=== PATIENT | female | born 1950 | race Caucasian/White ===

== ENCOUNTER → 2017-01-17 | Outpatient (CLI) | payer OTHER ==
[~2017-01-17] MED LIST: ALBU18002 INH; ALBU1AER9 INH; ALUMCHW2 PO; CIPR1TAB10 PO; METR-163 PO; MRLP17 PO; PANT40TA2 PO; RANI300T PO; SIMV-151 PO; SNG10 PO; SPRIN/30 INH; SYMIN160 INH; TIOTCAP INH
== END | disposition home or self-care (01) ==
LOC: C.PAPS 14:32
PROVIDERS: ATTEND Internal Medicine
DX: Z12.4 Encounter for screening for malignant neoplasm of cervix (principal)

== ENCOUNTER → 2017-02-24 | Outpatient (CLI) | payer OTHER ==
[2017-02-24 13:35] LABS: BASO % 0.3 %; BASO ABS # 0.03 K/uL (0-0.2); COMPLETE YES; EOS % 7.4 %; HEMATOCRIT 41.7 % (37-47); IG% 0.7 %; LYMPH % 18.3 %; LYMPH ABS # 2.04 K/uL (1.2-3.4); MEAN CELL VOLUME 87.2 fL (80-100); MEAN CORPUSCULAR HEMOGLOBIN 27.6 pg (25-34); MEAN CORPUSCULAR HGB CONC 31.7 g/dl (32-36); MEAN PLATELET VOLUME 8.7 fL (7.4-10.4); MONO % 10.2 %; NEUT % 63.1 %; PLATELET COUNT 223 K/uL (130-400); RED BLOOD COUNT 4.78 M/uL (4.2-5.4); WHITE BLOOD COUNT 11.13 K/uL (4.8-10.8)
[2017-02-24 13:51] LABS: AST/SGOT 11 U/L (15-37); BLOOD UREA NITROGEN 17 mg/dl (7-18); BUN/CREATININE RATIO 17.3 (10-20); CALCIUM 8.5 mg/dl (8.5-10.1); CARBON DIOXIDE 30 mmol/L (21-32); CHLORIDE 108 mmol/L (98-107); CHOLESTEROL 203 mg/dl (0-200); CREATININE 0.99 mg/dl (0.60-1.20); GLUCOSE 71 mg/dl (70-99); HDL CHOLESTEROL 67 mg/dl; POTASSIUM 4.1 mmol/L (3.5-5.1); SODIUM 144 mmol/L (136-145)
[2017-02-24 14:03] LABS: ALKALINE PHOSPHATASE 59 U/L (45-117); ALT/SGPT 20 U/L (12-78); TRIGLYCERIDES 170 mg/dl (0-150); VERY LOW DENSITY LIPOPROT CALC 34 mg/dl
== END | disposition home or self-care (01) ==
LOC: C.LABSPEC 12:31
PROVIDERS: ATTEND Internal Medicine
DX: E78.5 Hyperlipidemia, unspecified (principal); J45.909 Unspecified asthma, uncomplicated; R10.13 Epigastric pain

== ENCOUNTER → 2017-04-08 | Outpatient (CLI) | payer OTHER ==
[~2017-04-08] MED LIST changes: -PANT40TA2 PO; +PRT/40 PO
--- NOTE | 2017-04-08 12:24 | MAMMOGRAPHY REPORT ---
BILATERAL DIGITAL SCREENING MAMMOGRAM WITH CAD: 04/08/2017 CLINICAL HISTORY: Routine screening. Patient has no complaints. TECHNIQUE: Current study was also evaluated with a Computer Aided Detection (CAD) system. Bilateral CC and MLO views were obtained. COMPARISON: Comparison is made to exams dated: 04/07/2016 mammogram, 03/31/2015 ultrasound, 03/31/2015 m ammogram, 02/18/2015 mammogram, 02/15/2014 mammogram, and 02/14/2013 mammogram - [facility] enter. BREAST COMPOSITION: There are scattered areas of fibroglandular density in both breasts. FINDINGS: No suspicious masses, calcifications, or areas of architectural distortion are noted in ei ther breast. There has been no significant interval change compared to prior exams. IMPRESSION: ACR BI-RADS CATEGORY 1: NEGATIVE There is no mammographic evidence of malignancy. A 1 year screening mammogram is recommended. The pa tient will receive written notification of the results. Approximately 10% of breast cancers are not detected with mammography. A negative mammographic report should not delay biopsy if a clinically suggestive mass is present. Niurka Matos M.D. /:04/08/2017 12:06:52 Chef Under: Ruth Calderon, [facility] letter sent: Normal 1/2 BI-RADS Code: ACR BI-RADS Category 1: Negative
== END | disposition home or self-care (01) ==
LOC: C.MAMM 11:29
PROVIDERS: ATTEND Internal Medicine
DX: Z12.31 Encounter for screening mammogram for malignant neoplasm of breast (principal)

== ENCOUNTER 2017-06-04 16:39 | Inpatient (IN) | payer OTHER ==
[~2017-06-04] VITALS: Ht 160 cm; Wt 70.2 kg
[~2017-06-04 16:39] MED LIST changes: -ALBU18002 INH; -CIPR1TAB10 PO; -METR-163 PO; -MRLP17 PO; -SPRIN/30 INH
[2017-06-04] MEDS ORDERED: KETOROLAC TROMETHAMINE 30 MG/ML VIAL IV STA (16:51)
[2017-06-04] MEDS ORDERED: ONDANSETRON INJ 2 MG/ML 2 ML VIAL IV STA (16:51)
[2017-06-04] MEDS ORDERED: SODIUM CHLORIDE 0.9% 1000ML 1,000 ML IV STA (16:51)
[2017-06-04] MEDS ORDERED: SODIUM CHLORIDE 0.9% 1000ML 500 ML IV STA (16:51)
[2017-06-04] MEDS ORDERED: OPTIRAY 320 IV PRN (17:00)
[2017-06-04] MEDS ORDERED: MoRPHine SULFATE 4 MG/ML 1 ML CARP\\VIAL IV PRN (17:00)
[2017-06-04] MEDS ORDERED: SNG10 PO (17:16)
[2017-06-04] MEDS ORDERED: ALBU18002 INH (17:16)
[2017-06-04] MEDS ORDERED: SPRIN/30 INH (17:16)
[2017-06-04 17:18] LABS: BASO % 0.1 %; BASO ABS # 0.01 K/uL (0-0.2); COMPLETE YES; EOS % 0.8 %; HEMATOCRIT 44.5 % (37-47); IG% 0.2 %; LYMPH % 4.9 %; LYMPH ABS # 0.82 K/uL (1.2-3.4); MEAN CELL VOLUME 85.1 fL (80-100); MEAN CORPUSCULAR HGB CONC 31.7 g/dl (32-36); MEAN PLATELET VOLUME 8.8 fL (7.4-10.4); MONO % 4.6 %; NEUT % 89.4 %; PLATELET COUNT 259 K/uL (130-400); RED BLOOD COUNT 5.23 M/uL (4.2-5.4); WHITE BLOOD COUNT 16.71 K/uL (4.8-10.8)
--- NOTE | 2017-06-04 17:27 | EMERGENCY ROOM VISIT NOTE ---
History Report prepared by Abilio: Will Thomas Under the Supervision of: Dr. Jeet France M.D. First contact with patient: 16:49 Chief Complaint: VOMITING Stated Complaint: VOMITING,SEVERE ABD PAIN History of Present Illness The patient is a 67 year old female who presents to the Emergency Room with complaints of constant, severe, periumbilical, abdominal pain beginning this morning. She currently rates her discomfort a 10/10 in severity. The patient states that she woke up this morning, and her symptoms were not present. She reports that her pain progressively worsened throughout the day. The patient notes that she thought she needed to go to the restroom but all she could do is vomit. She states that she produced a very small bowel movement, but it was normal. The patient reports that her pain does not radiate, and vomiting does not help alleviated her pain. She notes that she has had a history of these symptoms, and she was told she could possibly have colitis. The patient states that she felt normal yesterday, and ate a hamburger last night. She reports that she took Gas-X, but it did not help. The patient denies a history of a cholecystectomy and appendectomy. She reports that her daughter was sick last week with a stomach virus. Source of History: patient Onset: this morning Position: chest (periumbilical) Symptom Intensity: 10/10 Timing: constant Associated Symptoms: + vomiting, No diarrhea Review of Systems See HPI for pertinent positives & negatives. A total of 10 systems reviewed and were otherwise negative. Past Medical & Surgical Medical Problems: (1) Asthma (2) Bilateral tubal ligation (3) Bronchitis (4) disc degeneration (5) Pneumonia Family History No significant family history Social History Smoking Status: Never Smoker Alcohol Use: none Housing Status: lives with significant other Occupation Status: unemployed, retired Current/Historical Medications Scheduled Budesonide/Formoterol Fumarate (Symbicort 160/4.5 Inhaler), 2 PUFFS INH BID Montelukast Sod (Montelukast Sodium), 10 MG PO DAILY Pantoprazole (Pantoprazole Sodium), 40 MG PO DAILY Ranitidine Hcl (Zantac), 300 MG PO HS Simvastatin (Simvastatin), 20 MG PO HS Tiotropium [place] (Spiriva Handihaler), 1 CAP INH DAILY Scheduled PRN Albuterol Sulfate (Proair Respiclick), 2 PUFFS INH Q4H PRN for ASTHMA Aluminum Hydroxide-Mag Trisil (Gaviscon), 1 TAB PO UD PRN for Gas Allergies Coded Allergies: Penicillins (Verified Allergy, Intermediate, HIVES, 06/04/17) Physical Exam Vital Signs Date Time Temp Pulse Resp B/P (MAP) Pulse Ox O2 Delivery O2 Flow Rate FiO2 06/04/17 18:20 84 20 146/67 99 Room Air 06/04/17 16:45 36.4 77 16 143/85 100 Room Air Physical Exam GENERAL: Patient is in moderate distress secondary to pain. HEENT: No acute trauma, normocephalic atraumatic, mucous membranes moist, no nasal congestion, no scleral icterus. NECK: No stridor, no adenopathy, no meningismus, trachea is midline. LUNGS: Clear to auscultation bilaterally, no wheeze, no rhonchi, breath sounds equal. HEART: Without murmurs gallops or rubs, regular rate and rhythm. ABDOMEN: Soft, moderately tender to both lower quadrants upon palpation, bowel sounds positive, no hernias, no peritonitis. EXTREMITIES: No cyanosis or edema, full range of motion of all the joints without pain or difficulty, no signs for acute trauma. NEUROLOGIC: Oriented x 3, no acute motor or sensory deficits, no focal weakness. SKIN: No rash, no jaundice, no diaphoresis. Medical Decision & Procedures ER Provider Diagnostic Interpretation: Radiology results as stated below per my review and radiologist interpretation: CHEST ONE VIEW PORTABLE HISTORY: 67 years-old Female ABDOMINAL PAIN/GI acute generalized abdominal pain. Initial exam. COMPARISON: CT abdomen and pelvis 05/29/2014 TECHNIQUE: Portable upright AP view of the chest FINDINGS: Cardiac silhouette is moderately enlarged. There is atherosclerosis of the aorta. There is no pneumothorax, pleural effusion or lobar airspace consolidation. Linear subsegmental left basilar opacity suggests atelectasis. Small hiatal hernia is again seen. The bones are grossly intact. IMPRESSION: 1. Cardiomegaly without overt pulmonary edema or focal lobar airspace consolidation. 2. Subsegmental left basilar atelectasis. 3. Small hiatal hernia. The above report was generated using voice recognition software. It may contain grammatical, syntax or spelling errors. Electronically signed by: Fernando Pedraza M.D. 06/04/2017 5:33 PM Dictated Date/Time: 06/04/2017 5:31 PM ABD/PELVIS IV CONTRAST ONLY HISTORY: 67 years-old Female ABD PAIN, POSS OBSTRUCTION, IV CONTRAST ONLY acute left lower abdominal pain. Initial exam. COMPARISON: CT abdomen and pelvis 05/29/2014 and 06/22/2010 TECHNIQUE: Multiple axial CT images of the abdomen and pelvis were obtained following the intravenous administration of 1 20 mL Optiray 320. A dose lowering technique was used consistent with the principals of ALONSO. FINDINGS: Mild dependent bibasilar subsegmental atelectasis noted. No pneumoperitoneum. Imaged inferior cardiac chambers are unremarkable. The liver, spleen, gallbladder, pancreas and adrenal glands are within normal limits. Moderate right renal atrophy of multifocal renal parenchymal thinning appears unchanged. There is mild prominence of the right renal pelvis and right ureter which appears unchanged from prior study. No obstructing stone or mass. Urinary bladder and uterus are unremarkable. There is resolution of the previously noted left adnexal cystic lesion. Moderate atherosclerotic plaquing of the abdominal aorta. No bulky retroperitoneal adenopathy. Moderate hiatal hernia with partially intrathoracic stomach is noted. There is no bowel obstruction. Extensive sigmoid colonic diverticulosis is noted. Moderate wall thickening with surrounding inflammatory changes are noted within the mid sigmoid colon with mild associated adenopathy measuring up to 8 mm in short axis. Mild amount of likely reactive free fluid is present within the pelvis and pericolic gutters. No associated perforation identified. Focus of air within the nondependent mid sigmoid colon, 2.5 x 1.2 cm on image 314 is noted which may reflect intramural abscess or air within the lumen of the colon. Appendix appears normal. 7 x 8 mm nodular density anterior to the spleen is unchanged suggesting splenule. Soft tissues are unremarkable. There is diastases recti. The bones are mildly demineralized. Multilevel facet arthrosis involves the lower lumbar spine. IMPRESSION: 1. Findings suggest acute sigmoid diverticulitis. Collection of nondependent air involving the mid sigmoid colon measuring up to 2.5 cm may reflect eccentric intraluminal air or alternatively an intramural abscess. No associated perforation or pericolonic abscess. Additionally, there is mild adjacent adenopathy which may be reactive. Follow-up colonoscopy after treatment recommended to exclude neoplasm. 2. Moderate hiatal hernia with partially intrathoracic stomach. 3. Moderate right renal atrophy, unchanged. The above report was generated using voice recognition software. It may contain grammatical, syntax or spelling errors. Electronically signed by: Fernando Pedraza M.D. 06/04/2017 6:11 PM Dictated Date/Time: 06/04/2017 5:59 PM Laboratory Results 06/04/17 17:05 Red Blood Count 5.23, Mean Corpuscular Volume 85.1, Mean Corpuscular Hemoglobin 27.0, Mean Corpuscular Hemoglobin Concent 31.7, Mean Platelet Volume 8.8, Neutrophils (%) (Auto) 89.4, Lymphocytes (%) (Auto) 4.9, Monocytes (%) (Auto) 4.6, Eosinophils (%) (Auto) 0.8, Basophils (%) (Auto) 0.1, Neutrophils # (Auto) 14.94, Lymphocytes # (Auto) 0.82, Monocytes # (Auto) 0.77, Eosinophils # (Auto) 0.13, Basophils # (Auto) 0.01 06/04/17 17:05 Test 06/04/17 17:05 06/04/17 17:23 06/04/17 18:25 White Blood Count 16.71 K/uL (4.8-10.8) Red Blood Count 5.23 M/uL (4.2-5.4) Hemoglobin 14.1 g/dL (12.0-16.0) Hematocrit 44.5 % (37-47) Mean Corpuscular Volume 85.1 fL (80-100) Mean Corpuscular Hemoglobin 27.0 pg (25-34) Mean Corpuscular Hemoglobin Concent 31.7 g/dl (32-36) Platelet Count 259 K/uL (130-400) Mean Platelet Volume 8.8 fL (7.4-10.4) Neutrophils (%) (Auto) 89.4 % Lymphocytes (%) (Auto) 4.9 % Monocytes (%) (Auto) 4.6 % Eosinophils (%) (Auto) 0.8 % Basophils (%) (Auto) 0.1 % Neutrophils # (Auto) 14.94 K/uL (1.4-6.5) Lymphocytes # (Auto) 0.82 K/uL (1.2-3.4) Monocytes # (Auto) 0.77 K/uL (0.11-0.59) Eosinophils # (Auto) 0.13 K/uL (0-0.5) Basophils # (Auto) 0.01 K/uL (0-0.2) RDW Standard Deviation 43.6 fL (36.4-46.3) RDW Coefficient of Variation 14.0 % (11.5-14.5) Immature Granulocyte % (Auto) 0.2 % Immature Granulocyte # (Auto) 0.04 K/uL (0.00-0.02) Anion Gap 8.0 mmol/L (3-11) Est Creatinine Clear Calc Drug Dose 52.0 ml/min Estimated GFR () 69.9 Estimated GFR (Non- 60.3 BUN/Creatinine Ratio 18.3 (10-20) Calcium Level 9.4 mg/dl (8.5-10.1) Total Bilirubin 0.6 mg/dl (0.2-1) Aspartate Amino Transf (AST/SGOT) 13 U/L (15-37) Alanine Aminotransferase (ALT/SGPT) 18 U/L (12-78) Alkaline Phosphatase 79 U/L (45-117) Total Protein 7.8 gm/dl (6.4-8.2) Albumin 3.9 gm/dl (3.4-5.0) Globulin 3.9 gm/dl (2.5-4.0) Albumin/Globulin Ratio 1.0 (0.9-2) Lipase 193 U/L (73-393) Lactic Acid Level 1.9 mmol/L (0.4-2.0) Urine Color YELLOW Urine Appearance CLEAR (CLEAR) Urine pH 7.5 (4.5-7.5) Urine Specific [place] 1.026 (1.000-1.030) Urine Protein NEG (NEG) Urine Glucose (UA) NEG (NEG) Urine Ketones NEG (NEG) Urine Occult Blood NEG (NEG) Urine Nitrite NEG (NEG) Urine Bilirubin NEG (NEG) Urine Urobilinogen NEG (NEG) Urine Leukocyte Esterase NEG (NEG) Laboratory results reviewed by me. Medications Administered Medications (Trade) Dose Ordered Sig/Eber Route Start Time Stop Time Status Last Admin Dose Admin Ondansetron HCl (Zofran Inj) 4 mg NOW STAT IV 06/04/17 16:51 06/04/17 16:53 DC 06/04/17 17:09 4 MG Sodium Chloride 1,000 ml @ 200 mls/hr Q5H STAT IV 06/04/17 16:51 06/04/17 21:50 06/04/17 17:10 200 MLS/HR Morphine Sulfate (MoRPHine SULFATE INJ) 4 mg Q30M PRN IV 06/04/17 17:00 06/18/17 16:59 06/04/17 17:08 4 MG Ketorolac Tromethamine (Toradol Inj) 30 mg NOW STAT IV 06/04/17 16:51 06/04/17 16:53 DC 06/04/17 17:10 30 MG Metronidazole (Flagyl / Nss) 500 mg NOW STAT IV 06/04/17 18:16 06/04/17 18:17 DC 06/04/17 18:33 500 MG ED Course 1649: The patient was evaluated in room C05. A complete history and physical exam was performed. 165: Ordered Toradol Inj 30mg IV, Sodium Chloride 1000 ml @ 200 mls/hr IV, Zofran Inj 4mg IV, Sodium Chloride 500 ml @ 999 mls/hr IV 1700: Ordered Morphine Sulfate 4mg IV 1816: Ordered Metronidazole 500mg IV, Ciprofloxacin/Dextrose 400mg IV 1818: I attempted to reevaluate the patient, but she was in the restroom. I spoke with her , and he said she would scream if she has to be admitted. 1825: Upon reexamination the patient is feeling better. I discussed results and treatment plan with the patient. She verbalizes agreement and understanding. The patient will be evaluated for further management. 1846: I discussed the patient's case with Dr. Gannon, [facility] Hospitalist. He will evaluate the patient for further management and care. Medical Decision The patient is a 67 year old female who presents to the ED with complaints of severe lower abdominal pain. Differential diagnoses considered include diverticulitis or colitis, hernia, bowel obstruction, food poisoning, UTI, pancreatitis, bowel perforation, dehydration, electrolyte imbalance. There is a moderate leukocytosis, this is consistent with infection. No concerning anemia. No significant electrolyte abnormality, kidney failure, hepatitis or pancreatitis. Lactic acid level is not elevated making bowel ischemia less likely. Chest film does not show free air or pneumonia. Urinalysis does not show infection. Abdominal and pelvis CT shows diverticulitis with a potential small intramural abscess, no free air, no bowel obstruction. The patient received IV morphine, IV Toradol, IV Zofran and IV saline, she feels improved. She was given IV Cipro and IV Flagyl. Given the findings on CT, given the history, I do think a hospital stay is warranted. She requires IV antibiotics therapy and possibly a surgical consult. I talked to the patient and case management. The on-call hospitalist was consulted. Medication Reconcilliation Current Medication List: was personally reviewed by me Blood Pressure Screening Patient's blood pressure: Elevated blood pressure Blood pressure disposition: Elevated BP felt to be situational Consults Time Called: 1837 Consulting Physician: Dr. Gannon, [facility] Hospitalist Returned Call: 1845 I discussed the patient's case with Dr. Gannon, [facility] Hospitalist. He will evaluate the patient for further management and care. Impression Primary Impression: Diverticulitis Scribe Attestation The scribe's documentation has been prepared under my direction and personally reviewed by me in its entirety. I confirm that the note above accurately reflects all work, treatment, procedures, and medical decision making performed by me. Departure Information Dispostion Being Evaluated By Hospitalist Referrals Primo Bojorquez M.D. (PCP) Patient Instructions My [facility]
--- NOTE | 2017-06-04 17:34 | DIAGNOSTIC IMAGING REPORT ---
CHEST ONE VIEW PORTABLE HISTORY: 67 years-old Female ABDOMINAL PAIN/GI acute generalized abdominal pain. Initial exam. COMPARISON: CT abdomen and pelvis 05/29/2014 TECHNIQUE: Portable upright AP view of the chest FINDINGS: Cardiac silhouette is moderately enlarged. There is atherosclerosis of the aorta. There is no pneumothorax, pleural effusion or lobar airspace consolidation. Linear subsegmental left basilar opacity suggests atelectasis. Small hiatal hernia is again seen. The bones are grossly intact. IMPRESSION: 1. Cardiomegaly without overt pulmonary edema or focal lobar airspace consolidation. 2. Subsegmental left basilar atelectasis. 3. Small hiatal hernia. The above report was generated using voice recognition software. It may contain grammatical, syntax or spelling errors. Electronically signed by: Fernando Pedraza M.D. 06/04/2017 5:33 PM Dictated Date/Time: 06/04/2017 5:31 PM
[2017-06-04 17:37] LABS: BUN/CREATININE RATIO 18.3 (10-20); CALCIUM 9.4 mg/dl (8.5-10.1); CREATININE 0.96 mg/dl (0.60-1.20); POTASSIUM 3.8 mmol/L (3.5-5.1)
--- NOTE | 2017-06-04 18:12 | DIAGNOSTIC IMAGING REPORT ---
ABD/PELVIS IV CONTRAST ONLY HISTORY: 67 years-old Female ABD PAIN, POSS OBSTRUCTION, IV CONTRAST ONLY acute left lower abdominal pain. Initial exam. COMPARISON: CT abdomen and pelvis 05/29/2014 and 06/22/2010 TECHNIQUE: Multiple axial CT images of the abdomen and pelvis were obtained following the intravenous administration of 1 20 mL Optiray 320. A dose lowering technique was used consistent with the principals of ALONSO. FINDINGS: Mild dependent bibasilar subsegmental atelectasis noted. No pneumoperitoneum. Imaged inferior cardiac chambers are unremarkable. The liver, spleen, gallbladder, pancreas and adrenal glands are within normal limits. Moderate right renal atrophy of multifocal renal parenchymal thinning appears unchanged. There is mild prominence of the right renal pelvis and right ureter which appears unchanged from prior study. No obstructing stone or mass. Urinary bladder and uterus are unremarkable. There is resolution of the previously noted left adnexal cystic lesion. Moderate atherosclerotic plaquing of the abdominal aorta. No bulky retroperitoneal adenopathy. Moderate hiatal hernia with partially intrathoracic stomach is noted. There is no bowel obstruction. Extensive sigmoid colonic diverticulosis is noted. Moderate wall thickening with surrounding inflammatory changes are noted within the mid sigmoid colon with mild associated adenopathy measuring up to 8 mm in short axis. Mild amount of likely reactive free fluid is present within the pelvis and pericolic gutters. No associated perforation identified. Focus of air within the nondependent mid sigmoid colon, 2.5 x 1.2 cm on image 314 is noted which may reflect intramural abscess or air within the lumen of the colon. Appendix appears normal. 7 x 8 mm nodular density anterior to the spleen is unchanged suggesting splenule. Soft tissues are unremarkable. There is diastases recti. The bones are mildly demineralized. Multilevel facet arthrosis involves the lower lumbar spine. IMPRESSION: 1. Findings suggest acute sigmoid diverticulitis. Collection of nondependent air involving the mid sigmoid colon measuring up to 2.5 cm may reflect eccentric intraluminal air or alternatively an intramural abscess. No associated perforation or pericolonic abscess. Additionally, there is mild adjacent adenopathy which may be reactive. Follow-up colonoscopy after treatment recommended to exclude neoplasm. 2. Moderate hiatal hernia with partially intrathoracic stomach. 3. Moderate right renal atrophy, unchanged. The above report was generated using voice recognition software. It may contain grammatical, syntax or spelling errors. Electronically signed by: Fernando Pedraza M.D. 06/04/2017 6:11 PM Dictated Date/Time: 06/04/2017 5:59 PM
[2017-06-04] MEDS ORDERED: METRONIDAZOLE 500MG / 100ML NSS IV STA (18:16)
[2017-06-04] MEDS ORDERED: CIPROFLOXACIN 400MG / 200ML D5W IV STA (18:16)
[2017-06-04 18:35] LABS: MANUAL MICROSCOPIC REQUIRED? NO; REVIEW REQ? NO; URINE APPEARANCE CLEAR (CLEAR); URINE BILIRUBIN NEG (NEG); URINE COLOR YELLOW; URINE NITRITE NEG (NEG); URINE PH 7.5 (4.5-7.5); URINE SPECIFIC GRAVITY 1.026 (1.000-1.030); UROBILINOGEN NEG (NEG); ZZUR CULT IF INDIC CLEAN CATCH NO
[2017-06-04] MEDS ORDERED: ONDANSETRON INJ 2 MG/ML 2 ML VIAL IV PRN (19:45)
[2017-06-04] MEDS ORDERED: ACETAMINOPHEN 325 MG TAB PO PRN (19:45)
[2017-06-04] MEDS ORDERED: ALBUTEROL HFA 8 GM INHALER INH PRN (19:45)
[2017-06-04] MEDS ORDERED: ALUM HYDROX/MAG TRISILICATE CHEW PO PRN (19:45)
--- NOTE | 2017-06-04 19:58 | History and Physical ---
History & Physical Date & Time of Service: Jun 04, 2017 at 19:49 Chief Complaint: Vomiting,Severe Abd Pain Primary Care Physician: Primo Bojorquez M.D. History of Present Illness Source: patient 67 y/o F Hx HPL, asthma, GERD. Pt presents with acute onset of abdominal pain earlier in the day. The pain is primarily limited to her lower quadrants. She could not confirm a fever but did have some chills and nausea. She denies any vomiting or diarrhea. A CT abdomen reveals sigmoid diverticulitis with concern for abscess. Past Medical/Surgical History Medical Problems: (1) Asthma Status: Chronic (2) Bilateral tubal ligation Status: Resolved (3) Bronchitis Status: Resolved (4) disc degeneration Status: Chronic (5) Pneumonia Status: Resolved Family History No significant family history History of dementia and CA - unspecified Social History Smoking Status: Never Smoker Occupational Status: unemployed, retired Immunizations History of Influenza Vaccine: Yes History of Tetanus Vaccine?: No History of Pneumococcal: Yes Pneumococcal Date: Aug 21, 2009 History of Hepatitis B Vaccine: No Multi-Drug Resistant Organisms History of MDRO: No Allergies Coded Allergies: Penicillins (Verified Allergy, Intermediate, HIVES, 06/04/17) Home Medications Scheduled Budesonide/Formoterol Fumarate (Symbicort 160/4.5 Inhaler), 2 PUFFS INH BID Montelukast Sod (Montelukast Sodium), 10 MG PO DAILY Pantoprazole (Pantoprazole Sodium), 40 MG PO DAILY Ranitidine Hcl (Zantac), 300 MG PO HS Simvastatin (Simvastatin), 20 MG PO HS Tiotropium Op[place]ika (Spiriva Handihaler), 1 CAP INH DAILY Scheduled PRN Albuterol Sulfate (Proair Respiclick), 2 PUFFS INH Q4H PRN for ASTHMA Aluminum Hydroxide-Mag Trisil (Gaviscon), 1 TAB PO UD PRN for Gas Review of Systems Constitutional: No fever, No chills, No sweats Eyes: No worsening of vision ENT: No hearing loss Respiratory: No cough, No sputum, No wheezing Cardiovascular: No chest pain, No orthopnea Abdomen: + pain, + nausea, No vomiting, No diarrhea Musculoskeletal: No joint pain Genitourinary - Female: No dysuria Neurologic: No memory loss, No paralysis, No weakness Psychiatric: No depression symptoms Endocrine: No fatigue Integumentary: No rash Allergic / Immunologic: No environmental allergies Physical Exam Vital Signs Date Time Temp Pulse Resp B/P (MAP) Pulse Ox O2 Delivery O2 Flow Rate FiO2 06/04/17 18:20 84 20 146/67 99 Room Air 06/04/17 16:45 36.4 77 16 143/85 100 Room Air General Appearance: WD/WN, no apparent distress Head: normocephalic Eyes: normal inspection, PERRL, EOMI ENT: normal ENT inspection, hearing grossly normal, TMs normal, pharynx normal Neck: supple, no JVD Respiratory/Chest: chest non-tender, lungs clear, normal breath sounds Cardiovascular: regular rate, rhythm, no edema, no gallop, no JVD, no murmur, normal peripheral pulses Abdomen/GI: normal bowel sounds, non tender, soft, + pertinent finding (She is nontender following a dose of narcotics) Back: normal inspection, no CVA tenderness, no muscle spasm, normal range of motion Extremities/Musculoskelatal: normal inspection, no calf tenderness, normal capillary refill Neurologic/Psych: photovoltaic [employer]or II-XII nml as tested, no motor/sensory deficits, alert Skin: normal color, warm/dry Diagnostics Laboratory Results Results Past 24 Hours Test 06/04/17 17:05 06/04/17 17:23 06/04/17 18:25 Range/Units White Blood Count 16.71 4.8-10.8 K/uL Red Blood Count 5.23 4.2-5.4 M/uL Hemoglobin 14.1 12.0-16.0 g/dL Hematocrit 44.5 37-47 % Mean Corpuscular Volume 85.1 80-100 fL Mean Corpuscular Hemoglobin 27.0 25-34 pg Mean Corpuscular Hemoglobin Concent 31.7 32-36 g/dl Platelet Count 259 130-400 K/uL Mean Platelet Volume 8.8 7.4-10.4 fL Neutrophils (%) (Auto) 89.4 % Lymphocytes (%) (Auto) 4.9 % Monocytes (%) (Auto) 4.6 % Eosinophils (%) (Auto) 0.8 % Basophils (%) (Auto) 0.1 % Neutrophils # (Auto) 14.94 1.4-6.5 K/uL Lymphocytes # (Auto) 0.82 1.2-3.4 K/uL Monocytes # (Auto) 0.77 0.11-0.59 K/uL Eosinophils # (Auto) 0.13 0-0.5 K/uL Basophils # (Auto) 0.01 0-0.2 K/uL RDW Standard Deviation 43.6 36.4-46.3 fL RDW Coefficient of Variation 14.0 11.5-14.5 % Immature Granulocyte % (Auto) 0.2 % Immature Granulocyte # (Auto) 0.04 0.00-0.02 K/uL Sodium Level 142 136-145 mmol/L Potassium Level 3.8 3.5-5.1 mmol/L Chloride Level 108 98-107 mmol/L Carbon Dioxide Level 26 21-32 mmol/L Anion Gap 8.0 3-11 mmol/L Blood Urea Nitrogen 18 7-18 mg/dl Creatinine 0.96 0.60-1.20 mg/dl Est Creatinine Clear Calc Drug Dose 52.0 ml/min Estimated GFR () 69.9 Estimated GFR (Non- 60.3 BUN/Creatinine Ratio 18.3 10-20 Random Glucose 97 70-99 mg/dl Calcium Level 9.4 8.5-10.1 mg/dl Total Bilirubin 0.6 0.2-1 mg/dl Aspartate Amino Transf (AST/SGOT) 13 15-37 U/L Alanine Aminotransferase (ALT/SGPT) 18 12-78 U/L Alkaline Phosphatase 79 45-117 U/L Total Protein 7.8 6.4-8.2 gm/dl Albumin 3.9 3.4-5.0 gm/dl Globulin 3.9 2.5-4.0 gm/dl Albumin/Globulin Ratio 1.0 0.9-2 Lipase 193 73-393 U/L Lactic Acid Level 1.9 0.4-2.0 mmol/L Urine Color YELLOW Urine Appearance CLEAR CLEAR Urine pH 7.5 4.5-7.5 Urine Specific [place] 1.026 1.000-1.030 Urine Protein NEG NEG Urine Glucose (UA) NEG NEG Urine Ketones NEG NEG Urine Occult Blood NEG NEG Urine Nitrite NEG NEG Urine Bilirubin NEG NEG Urine Urobilinogen NEG NEG Urine Leukocyte Esterase NEG NEG Diagnostic Radiology CT abdomen/pelvis 1. Findings suggest acute sigmoid diverticulitis. Collection of nondependent air involving the mid sigmoid colon measuring up to 2.5 cm may reflect eccentric intraluminal air or alternatively an intramural abscess. No associated perforation or pericolonic abscess. Additionally, there is mild adjacent adenopathy which may be reactive. Follow-up colonoscopy after treatment recommended to exclude neoplasm. 2. Moderate hiatal hernia with partially intrathoracic stomach. 3. Moderate right renal atrophy, unchanged. Impression Assessment and Plan 67 y/o F Hx HPL, asthma, GERD. Pt presents with acute onset of abdominal pain earlier in the day. The pain is primarily limited to her lower quadrants. She could not confirm a fever but did have some chills and nausea. She denies any vomiting or diarrhea. A CT abdomen reveals sigmoid diverticulitis with concern for abscess. 1) Diverticulitis - Pt placed on Cipro/Flagyl, IVF, analgesics and antiemetics as needed. She may need surgery or IR consultation if an abscess is confirmed. 2) Asthma - Continue inhalers as prescribed 3) HPL - cont Statin Full code - GI prophylaxis and SCDs provided pending AM eval Total time for this admit including review of labs, meds, imaging, records - discussion with pt and ER attending - 36 min Level of Care Med/Surg Resuscitation Status FULL RESUSCITATION VTE Prophylaxis VTE Risk Assessment Done? Y/N: Yes Risk Level: Moderate Given or contraindicated: SCD's
[2017-06-04] MEDS: BUDESONIDE/FORMOTEROL FUMARATE 160/4.5 60 PUFFS/INHALER INH SCH (21:39)
[2017-06-04] MEDS: D5NSS + 20MEQ KCL 1,000 ML IV SCH (21:39)
[2017-06-04] MEDS: RANITIDINE HCL 150 MG TAB PO SCH (21:40)
[2017-06-04] MEDS: SIMVASTATIN 20 MG TAB PO SCH (21:40)
[2017-06-04 22:57] VITALS: BP 156/77; PULSE 77; TEMP 36.7; O2SAT 98; Ht 160 cm; Wt 70.2 kg
[2017-06-05] VITALS: BP 122/71; PULSE 78; TEMP 36.8; O2SAT 98
[2017-06-05] MEDS: HYDROmorphone INJ 0.5 MG/0.5 ML SYR IV PRN ×5 (00:53→20:57)
[2017-06-05] MEDS: METRONIDAZOLE / NSS 500 MG in PREMIXED NSS 100 ML IV SCH ×3 (01:58→18:08)
[2017-06-05] MEDS ORDERED: HYDROmorphone INJ 0.5 MG/0.5 ML SYR IV STA (02:03)
[2017-06-05 06:11] LABS: BASO % 0.1 %; BASO ABS # 0.02 K/uL (0-0.2); COMPLETE YES; EOS % 1.9 %; HEMATOCRIT 38.2 % (37-47); IG% 0.2 %; LYMPH % 8.7 %; LYMPH ABS # 1.17 K/uL (1.2-3.4); MEAN CELL VOLUME 86.6 fL (80-100); MEAN CORPUSCULAR HEMOGLOBIN 26.8 pg (25-34); MEAN CORPUSCULAR HGB CONC 30.9 g/dl (32-36); MEAN PLATELET VOLUME 8.8 fL (7.4-10.4); MONO % 10.3 %; NEUT % 78.8 %; PLATELET COUNT 214 K/uL (130-400); RED BLOOD COUNT 4.41 M/uL (4.2-5.4); WHITE BLOOD COUNT 13.49 K/uL (4.8-10.8)
[2017-06-05] MEDS ORDERED: NURSING VERBAL MED ORDER ONE (06:15)
[2017-06-05] MEDS ORDERED: ACETAMINOPHEN IV 650 MG / 65ML IV ONE (06:30)
[2017-06-05 07:11] LABS: CREATININE 0.9 mg/dl (0.60-1.20)
[2017-06-05 07:12] LABS: BUN/CREATININE RATIO 11.5 (10-20); CALCIUM 7.4 mg/dl (8.5-10.1); POTASSIUM 3.6 mmol/L (3.5-5.1)
[2017-06-05] MEDS: D5NSS + 20MEQ KCL 1,000 ML IV SCH (08:57)
[2017-06-05] MEDS: TIOTROPIUM BROMIDE 5 PUFF/90 MCG INH INH SCH (08:59)
[2017-06-05] MEDS: BUDESONIDE/FORMOTEROL FUMARATE 160/4.5 60 PUFFS/INHALER INH SCH ×2 (08:59→20:00)
[2017-06-05] MEDS: MONTELUKAST SOD 10 MG TAB PO SCH (09:00)
[2017-06-05] MEDS: PANTOprazole SOD 40 MG TAB PO SCH (09:00)
[2017-06-05] MEDS: CIPROFLOXACIN / D5W 400 MG in PREMIXED IN D5W 200 ML IV SCH ×2 (09:00→22:35)
[2017-06-05] MEDS: POLYETHYLENE (MIRALAX) 17 GM PACK PO SCH (09:40)
--- NOTE | 2017-06-05 14:39 | Progress Note ---
Progress Note Date of Service Jun 05, 2017. Progress Note Patient is a 67 yo female with sigmoid diverticulitis. Noted Dr. Chloe Murray transfered patient to his service. [facility] [place] Hospital[facility] group will sign off. Please call Dr. Chloe Murray with questions. Dr. Dukes aware.
[2017-06-05] MEDS: ACETAMINOPHEN IV 650 MG / 65ML IV PRN (15:34)
[2017-06-05 15:53] VITALS: BP_SYST 105; BP_SYST 133; BP_DIAS 65; BP_DIAS 79; PULSE 70; PULSE 96; TEMP 36.9; TEMP 38.1; O2SAT 95; O2SAT 97
[2017-06-05 16:30] VITALS: TEMP 37
[2017-06-05] MEDS ORDERED: BISACODYL 10 MG SUPP PR ONE (17:00)
--- NOTE | 2017-06-05 20:17 | Progress Note ---
Progress Note Date of Service Jun 05, 2017. Progress Note 67-year-old female admitted yesterday by Dr. Skyler Harris with acute sigmoid diverticulitis. She was having severe abdominal pain. Her WBC count was elevated. CT scan findings were consistent with the diverticulitis. There was no evidence of perforation. Patient was started on IV ciprofloxacin and metronidazole. Diagnostic for pain control. Started on IV fluid. I told the patient this morning. She was afebrile. She was still having abdominal pain mostly in the lower abdominal area. She told me that she has not had a bowel movement since . Even her last bowel movements was consistent with marble stools. She had been constipated. She was feeling very thirsty. She has not had any vomiting. I did start her on a clear liquid diet. I saw Mrs. Pelletier again this afternoon.her pain is subsiding. She has not had any nausea or vomiting. She has not had any bowel movement. I did add MiraLax this morning. This afternoon she had fever up to 38.1. Later on her temperature came down to 37. She denied any chills. She denied any headache or dizziness. She was having some pain at the posterior contour the area left upper chest. She had no nausea. But her appetite is poor. No vomiting. She has not had a bowel movement. She has been complaining of increased swelling in her hands and feet. Her medical history is also significant for hypercholesterolemia, gastroesophageal reflux, bronchial asthma, environmental allergies and depression. she had a herniated L4-L5 disc which required surgery. She also had a left salpingo-oophorectomy in 2013 for an ovarian cyst.she has markedly decreased vision in her left eye related to severe retinal detachment which occurred around 2003. EXAMINATION: GENERAL : Well developed. Well nourished. No acute distress. VITAL SIGNS : Blood Pressure : 133/79, pulse 96, respiration 18, oxygen saturation 95% on room air. As noted in mid afternoon her temperature was up to 38.1 but came down about half an hour later to 37. SKIN : Warm and dry. No rash. HEENT : markedly decreased vision left eye. No mucosal abnormalities. NECK : Supple. No adenopathy. No thyromegaly. No JVD. CHEST : left costochondral tenderness HEART: Regular heart sounds without any murmur rub or gallop. LUNGS: Clear. Normal breath sounds. ABDOMEN: Soft. Tenderness left side of her abdomen especially the left lower quadrant. Good bowel sounds. She has been passing gas. EXTREMITIES : No edema clubbing or cyanosis. No joint or muscle tenderness. Good peripheral pulses. LABORATORY TESTS : WBC count 13,409 8, hemoglobin 14.8, hematocrit 38.2, platelet count 214,000. Sodium 143, potassium 3.6, chloride 112, CO2 26, BUN 10, creatinine 0.9, glucose 114, calcium 7.4. ASSESSMENT: * acute sigmoid diverticulitis * Bronchial asthma * Gastroesophageal reflux * Left upper costochondral joint pain * Depression PLAN: * I did decrease her IV fluid this afternoon because of the swelling in her hands and feet. * Continue her other medications * Gave her a Dulcolax suppository * Continue clear liquid diet * Will encourage ambulation * Her WBC count is improving. Will continue monitoring that.
[2017-06-05] MEDS: RANITIDINE HCL 150 MG TAB PO SCH (22:31)
[2017-06-05] MEDS: SIMVASTATIN 20 MG TAB PO SCH (22:31)
[2017-06-06] VITALS: BP 126/77; PULSE 88; TEMP 36.8; O2SAT 94
[2017-06-06] MEDS: HYDROmorphone INJ 0.5 MG/0.5 ML SYR IV PRN ×4 (01:38→17:41)
[2017-06-06] MEDS: METRONIDAZOLE / NSS 500 MG in PREMIXED NSS 100 ML IV SCH ×4 (01:41→17:29)
[2017-06-06 07:20] LABS: BASO % 0.3 %; BASO ABS # 0.03 K/uL (0-0.2); COMPLETE YES; EOS % 2.7 %; IG% 0.4 %; LYMPH % 9.6 %; LYMPH ABS # 1.14 K/uL (1.2-3.4); MEAN CELL VOLUME 85.3 fL (80-100); MEAN CORPUSCULAR HEMOGLOBIN 27.5 pg (25-34); MEAN CORPUSCULAR HGB CONC 32.2 g/dl (32-36); MEAN PLATELET VOLUME 8.6 fL (7.4-10.4); MONO % 10.1 %; NEUT % 76.9 %; PLATELET COUNT 172 K/uL (130-400); RED BLOOD COUNT 4.22 M/uL (4.2-5.4); WHITE BLOOD COUNT 11.86 K/uL (4.8-10.8)
[2017-06-06 07:48] LABS: BUN/CREATININE RATIO 8.4 (10-20); CALCIUM 8.1 mg/dl (8.5-10.1); CREATININE 0.79 mg/dl (0.60-1.20); POTASSIUM 3.5 mmol/L (3.5-5.1)
[2017-06-06 07:53] VITALS: BP 136/79; PULSE 84; TEMP 37.1; O2SAT 92
[2017-06-06] MEDS: TIOTROPIUM BROMIDE 5 PUFF/90 MCG INH INH SCH (08:02)
[2017-06-06] MEDS: BUDESONIDE/FORMOTEROL FUMARATE 160/4.5 60 PUFFS/INHALER INH SCH ×2 (08:03→19:01)
[2017-06-06] MEDS: POLYETHYLENE (MIRALAX) 17 GM PACK PO SCH (08:04)
[2017-06-06] MEDS: MONTELUKAST SOD 10 MG TAB PO SCH (08:04)
[2017-06-06] MEDS: PANTOprazole SOD 40 MG TAB PO SCH (08:04)
[2017-06-06] MEDS: CIPROFLOXACIN / D5W 400 MG in PREMIXED IN D5W 200 ML IV SCH ×2 (08:05→19:02)
[2017-06-06] MEDS: ACETAMINOPHEN IV 650 MG / 65ML IV PRN (08:27)
[2017-06-06] MEDS ORDERED: BISACODYL 10 MG SUPP PR ONE (10:45)
[2017-06-06] MEDS ORDERED: MAGNESIUM HYDROXIDE SUSP 30 ML UDC PO ONE (10:45)
--- NOTE | 2017-06-06 11:17 | DIAGNOSTIC IMAGING REPORT ---
ABDOMEN 2VIEW W/PA CHEST RTN HISTORY: 67 years-old Female abd. distension, pain, acute diverticulitis acute generalized abdominal pain and distention. Follow-up study. COMPARISON: Portable chest radiograph 06/04/2017, CT 06/04/2017 TECHNIQUE: Frontal view of the chest with erect and supine views of the abdomen FINDINGS: Cardiac silhouette is again mildly enlarged. There is right hemidiaphragmatic elevation with subsegmental bibasilar opacities suggesting atelectasis. There is atherosclerosis of the aorta. No pneumothorax, pleural effusion or lobar airspace consolidation. The bones are grossly intact. Moderate sized hiatal hernia is noted. No pneumoperitoneum on the upright projection. There is no pneumoperitoneum. There are several loops of mildly prominent nondilated air filled small bowel throughout the abdomen measuring up to 2.7 cm. Air-fluid levels are seen within loops of both large and small bowel with air in the rectum and right hemicolon. Bones appear intact. No urolithiasis or organomegaly. IMPRESSION: 1. Nondilated air-filled large and small bowel with several air-fluid levels suggests ileus without evidence of high-grade obstruction or pneumoperitoneum. Follow-up recommended. No pneumoperitoneum. 2. Right hemidiaphragmatic elevation with probable bibasilar atelectasis. 3. Moderate sized hiatal hernia. The above report was generated using voice recognition software. It may contain grammatical, syntax or spelling errors. Electronically signed by: Fernando Pedraza M.D. 06/06/2017 11:16 AM Dictated Date/Time: 06/06/2017 11:11 AM
--- NOTE | 2017-06-06 11:21 | Progress Note ---
Progress Note Date of Service Jun 06, 2017. Progress Note 67-year-old female admitted with severe sigmoid diverticulitis. Her medical problems also include bronchial asthma, dyspepsia and reflux, depression. Patient was admitted. She was started on IV ciprofloxacin and metronidazole. Pain control. IV fluid. Yesterday after known she had a fever up to 38.1 but she has been afebrile since then. She denied any headache or dizziness. No chest pain no shortness of breath. She still does have abdominal pain. Throughout the abdomen. Yesterday she was given 1 Dulcolax suppository. She had a small bowel movement. She continues to pass gas. No pain in her back or extremities. EXAMINATION: She is well-developed in no distress. Vital signs: Blood pressure 136/79, pulse 84 and regular, respiration 22, temperature 37.1, oxygen saturation 92% on room air Skin is warm and dry. No rash HEENT: Decreased vision left eye. Long-standing. No mucosal abnormalities. Neck is supple without lymph node or thyroid enlargement. Heart regular heart sounds no murmur rub or gallop. Lungs are clear Abdomen is soft with slight diffuse tenderness without any guarding or rebound. Excellent bowel sounds. Extremities: Resolved edema. No clubbing no cyanosis. LABORATORY TESTS: WBC count 11,860, hemoglobin 11.6, hematocrit 36%, platelet count 172,000. Sodium 138, potassium 3.5, chloride 108, CO2 23, BUN 7, creatinine 0.79, glucose 96, calcium 8.1. ASSESSMENT: * Acute sigmoid diverticulitis * Constipation * Bronchial asthma * Depression * Gastroesophageal reflux PLAN: * Dulcolax suppository today * 1 dose of milk of magnesia orally 30 mL * Check abdominal x-rays * Continue same antibiotics * Advanced to full liquid diet as tolerated * Encouraged ambulation
[2017-06-06 15:03] VITALS: BP 124/74; PULSE 80; TEMP 36.9; O2SAT 96
[2017-06-06] MEDS: SIMVASTATIN 20 MG TAB PO SCH (20:54)
[2017-06-06] MEDS: RANITIDINE HCL 150 MG TAB PO SCH (20:54)
[2017-06-07 00:07] VITALS: BP 149/80; PULSE 85; TEMP 37.1; O2SAT 95
[2017-06-07] MEDS: METRONIDAZOLE / NSS 500 MG in PREMIXED NSS 100 ML IV SCH ×3 (02:28→18:05)
[2017-06-07 06:04] LABS: BASO % 0.5 %; BASO ABS # 0.04 K/uL (0-0.2); COMPLETE YES; EOS % 7.2 %; HEMATOCRIT 37.4 % (37-47); IG% 0.2 %; LYMPH % 15.9 %; LYMPH ABS # 1.29 K/uL (1.2-3.4); MEAN CELL VOLUME 84.8 fL (80-100); MEAN CORPUSCULAR HEMOGLOBIN 27.7 pg (25-34); MEAN CORPUSCULAR HGB CONC 32.6 g/dl (32-36); MEAN PLATELET VOLUME 8.7 fL (7.4-10.4); MONO % 8.5 %; NEUT % 67.7 %; PLATELET COUNT 181 K/uL (130-400); RED BLOOD COUNT 4.41 M/uL (4.2-5.4); WHITE BLOOD COUNT 8.11 K/uL (4.8-10.8)
[2017-06-07 06:39] LABS: BUN/CREATININE RATIO 9.7 (10-20); CALCIUM 8.3 mg/dl (8.5-10.1); CREATININE 0.71 mg/dl (0.60-1.20); POTASSIUM 3.4 mmol/L (3.5-5.1)
[2017-06-07 07:24] VITALS: BP 138/80; PULSE 76; TEMP 37.6; O2SAT 96
[2017-06-07] MEDS: TIOTROPIUM BROMIDE 5 PUFF/90 MCG INH INH SCH (08:00)
[2017-06-07] MEDS: POLYETHYLENE (MIRALAX) 17 GM PACK PO SCH (08:00)
[2017-06-07] MEDS ORDERED: POTASSIUM CHLORIDE 10 MEQ TABCR PO STA (08:29)
[2017-06-07] MEDS: CIPROFLOXACIN / D5W 400 MG in PREMIXED IN D5W 200 ML IV SCH ×2 (09:00→21:02)
[2017-06-07] MEDS: PANTOprazole SOD 40 MG TAB PO SCH (09:01)
[2017-06-07] MEDS: MONTELUKAST SOD 10 MG TAB PO SCH (09:01)
[2017-06-07] MEDS: BUDESONIDE/FORMOTEROL FUMARATE 160/4.5 60 PUFFS/INHALER INH SCH ×2 (09:02→21:02)
[2017-06-07 15:42] VITALS: BP 143/84; PULSE 77; TEMP 36.4; O2SAT 98
[2017-06-07] MEDS: RANITIDINE HCL 150 MG TAB PO SCH (21:11)
[2017-06-07] MEDS: SIMVASTATIN 20 MG TAB PO SCH (21:11)
--- NOTE | 2017-06-07 21:21 | Progress Note ---
Progress Note Date of Service Jun 07, 2017. Progress Note 67-year-old female admitted with acute sigmoid diverticulitis. Her medical problems also include bronchial asthma, gastroesophageal reflux, depression. Patient was admitted. She was started on IV ciprofloxacin and metronidazole. She was also started on IV fluids. Patient has had a problem with constipation prior to the onset of this episode of acute diverticulitis. Her condition has improved. She remains afebrile. She denied any headache or dizziness or lightheadedness. No chest pain no shortness of breath. Her asthma is under control. Her abdominal pain it persists but is improved. Her pain medication requirement has decreased. Denied any nausea or vomiting. She was started on MiraLax. She was also given one dose of milk of magnesia by mouth yesterday. She was given Dulcolax suppository. She has had multiple bowel movements. Her stools loose. No bleeding. EXAMINATION: GENERAL : Well developed. Well nourished. No acute distress. VITAL SIGNS : Blood Pressure : 138/80, pulse 76, respirations 17, temperature 37.6, oxygen saturation 96% on room air. SKIN : Warm and dry. No rash. HEENT :Decreased vision left eye. No mucosal abnormalities NECK : Supple. No adenopathy. No thyromegaly. No JVD. HEART: Regular heart sounds without any murmur rub or gallop. LUNGS: Clear. Normal breath sounds. ABDOMEN: Soft tenderness. More diffuse. No guarding or rebound. Good bowel sounds. BACK: No spine or CVA tenderness. EXTREMITIES : No edema clubbing or cyanosis. No joint or muscle tenderness. Good peripheral pulses. LABORATORY TESTS : WBC count 8110, hemoglobin 12.2, hematocrit 37.4, platelet count 181,000. Sodium 141, potassium 3.4, chloride 109, CO2 24, BUN 7, creatinine 0.71, glucose 80, calcium 8.3. ASSESSMENT: * acute sigmoid diverticulitis * Bronchial asthma * Hypokalemia * Dyspepsia * Depression PLAN: * given potassium supplement * Continue other medications * Encourage activity * Advance diet
[2017-06-07 23:21] VITALS: BP 135/74; PULSE 76; TEMP 36.8; O2SAT 95
[2017-06-08] MEDS: METRONIDAZOLE / NSS 500 MG in PREMIXED NSS 100 ML IV SCH ×3 (02:04→18:14)
[2017-06-08 07:09] VITALS: BP 127/75; PULSE 67; TEMP 36.5; O2SAT 97
[2017-06-08 07:31] LABS: BASO % 0.6 %; BASO ABS # 0.04 K/uL (0-0.2); COMPLETE YES; EOS % 10.6 %; HEMATOCRIT 40.2 % (37-47); IG% 0.1 %; LYMPH % 20.2 %; LYMPH ABS # 1.43 K/uL (1.2-3.4); MEAN CORPUSCULAR HEMOGLOBIN 27.3 pg (25-34); MEAN CORPUSCULAR HGB CONC 32.1 g/dl (32-36); MEAN PLATELET VOLUME 8.5 fL (7.4-10.4); NEUT % 59.5 %; PLATELET COUNT 200 K/uL (130-400); RED BLOOD COUNT 4.73 M/uL (4.2-5.4); WHITE BLOOD COUNT 7.08 K/uL (4.8-10.8)
[2017-06-08 07:56] LABS: BUN/CREATININE RATIO 13.7 (10-20); CALCIUM 8.8 mg/dl (8.5-10.1); CREATININE 0.83 mg/dl (0.60-1.20); POTASSIUM 3.7 mmol/L (3.5-5.1)
[2017-06-08] MEDS: CIPROFLOXACIN / D5W 400 MG in PREMIXED IN D5W 200 ML IV SCH (08:40)
[2017-06-08] MEDS: MONTELUKAST SOD 10 MG TAB PO SCH (08:40)
[2017-06-08] MEDS: PANTOprazole SOD 40 MG TAB PO SCH (08:40)
[2017-06-08] MEDS: BUDESONIDE/FORMOTEROL FUMARATE 160/4.5 60 PUFFS/INHALER INH SCH ×2 (08:41→19:35)
[2017-06-08] MEDS: TIOTROPIUM BROMIDE 5 PUFF/90 MCG INH INH SCH ×2 (08:41→08:42)
[2017-06-08] MEDS: POLYETHYLENE (MIRALAX) 17 GM PACK PO SCH (08:41)
--- NOTE | 2017-06-08 13:48 | Pharmacy Progress Note ---
Automatic IV to PO Conversion Date of Service: Jun 08, 2017. [facility] has identified patient as an appropriate candidate for automatic intravenous to oral conversion. Eligible medication: IV CIPRO AND IV FLAGYL Subjective The patient is a 67 year old female admitted on Jun 04, 2017 at 19:46 for Diverticulitis. Objective Vital Signs: Vital Signs Past 12 Hours Date Time Temp Pulse Resp B/P (MAP) Pulse Ox O2 Delivery O2 Flow Rate FiO2 06/08/17 08:15 Room Air 06/08/17 07:09 36.5 67 19 127/75 (92) 97 Room Air White Blood Count: Test 06/08/17 07:19 White Blood Count 7.08 K/uL (4.8-10.8) Red Blood Count 4.73 M/uL (4.2-5.4) Hemoglobin 12.9 g/dL (12.0-16.0) Hematocrit 40.2 % (37-47) Mean Corpuscular Volume 85.0 fL (80-100) Mean Corpuscular Hemoglobin 27.3 pg (25-34) Mean Corpuscular Hemoglobin Concent 32.1 g/dl (32-36) Platelet Count 200 K/uL (130-400) Mean Platelet Volume 8.5 fL (7.4-10.4) Neutrophils (%) (Auto) 59.5 % Lymphocytes (%) (Auto) 20.2 % Monocytes (%) (Auto) 9.0 % Eosinophils (%) (Auto) 10.6 % Basophils (%) (Auto) 0.6 % Neutrophils # (Auto) 4.21 K/uL (1.4-6.5) Lymphocytes # (Auto) 1.43 K/uL (1.2-3.4) Monocytes # (Auto) 0.64 K/uL (0.11-0.59) Eosinophils # (Auto) 0.75 K/uL (0-0.5) Basophils # (Auto) 0.04 K/uL (0-0.2) Height (Feet): 5 Height (Inches): 3.00 Weight (Kilograms): 70.200 Type of Diet: Soft Low Fiber Assessment & Plan The Infectious Disease Society and the [place] [employer] recommend conversion to oral therapy once a patient is determined to be clinically stable and are able to tolerate oral medications. Patient identified as appropriate candidate for IV to PO conversion of Flagyl/Cipro based on the following criteria: * Afebrile for greater than or equal to 12 hours * Receiving oral/enteral medications and/or tolerating oral/enteral diet for greater than 24 hours * Improvement in clinical condition evidenced by .. WBC count of 7.08 10^3/uL and trending downward, resolution of signs/symptoms of illness * Hemodynamically stable or * Receiving oral medications and/or tolerating oral diet for greater than 24 hours * Automatic conversion to: PO Cipro 500mg q12 and PO Flagyl 500mg q8
[2017-06-08 15:36] VITALS: BP 135/80; PULSE 71; TEMP 36.7; O2SAT 100
[2017-06-08] MEDS ORDERED: METRONIDAZOLE 500 MG TAB PO SCH (18:00)
[2017-06-08] MEDS: RANITIDINE HCL 150 MG TAB PO SCH (19:36)
[2017-06-08] MEDS: SIMVASTATIN 20 MG TAB PO SCH (19:36)
[2017-06-08] MEDS ORDERED: CIPROFLOXACIN 500 MG TAB PO SCH (20:00)
[2017-06-08] MEDS ORDERED: CIPROFLOXACIN / D5W 400 MG in PREMIXED IN D5W 200 ML IV SCH (20:00)
--- NOTE | 2017-06-08 21:24 | Progress Note ---
Progress Note Date of Service Jun 08, 2017. Progress Note 67-year-old female admitted with acute sigmoid diverticulitis. Patient was admitted. She was started on IV ciprofloxacin and metronidazole. She has remained afebrile. Her WBC count normalized. Her pain started to subside. She was still having poor appetite and some nausea at times. No vomiting. Her diet has been advanced. She seems to be tolerating it. She denied any headache or dizziness. No chest pain no shortness of breath. Still having abdominal pain but to a much lesser degree. She has had multiple bowel movements. Now this too is forming again. No urinary problem. She has been ambulating. EXAMINATION: Skin is warm and dry. No rash. HEENT decreased vision left eye. Chronic. No mucosal abnormality. Neck supple without lymph node or thyroid enlargement. Heart regular heart sounds no murmur or gallop. Lungs are clear. Abdomen is soft. Still with some tenderness. So much lesser degree. Mostly on the left side of her abdomen now. Extremities no edema clubbing or cyanosis. LABORATORY TESTS: WBC count 7080, hemoglobin 12.9, hematocrit 40.2, platelet count 200,000. Sodium 141, potassium 3.7, chloride 109, she was 224, BUN 11, creatinine 0.83, glucose 86, calcium 8.8. ASSESSMENT: * acute sigmoid diverticulitis * Bronchial asthma * Depression PLAN: * continue IV antibiotics. * Her diet was advanced. We'll see how she tolerates it. * Continue ambulation * If she remains stable through the night will plan on discharge tomorrow
[2017-06-08 23:40] VITALS: BP 123/65; PULSE 75; TEMP 36.9; O2SAT 95
[2017-06-09] MEDS: METRONIDAZOLE / NSS 500 MG in PREMIXED NSS 100 ML IV SCH (02:13)
[2017-06-09 07:18] VITALS: BP 124/74; PULSE 66; TEMP 36.4; O2SAT 97
[2017-06-09] MEDS ORDERED: METR-163 PO (08:00)
[2017-06-09] MEDS ORDERED: CIPR1TAB10 PO (08:00)
--- NOTE | 2017-06-09 08:02 | Discharge Instructions ---
Discharge Instructions Date of Service Jun 09, 2017. Admission Reason for Admission: Diverticulitis Discharge Discharge Diagnosis / Problem: acute sigmoid diverticulitis Discharge Goals Goal(s): Decrease discomfort, Improve function, Increase independence, Improve disease control Activity Recommendations Activity Limitations: resume your previous activity . Instructions / Follow-Up Instructions / Follow-Up Dr Villanueva in 1 week Current Hospital Diet Patient's current hospital diet: Low Fiber Diet Discharge Diet Recommended Diet: Low Fiber Diet Pending Studies Studies pending at discharge: no Medical Emergencies . Who to Call and When: Medical Emergencies: If at any time you feel your situation is an emergency, please call 911 immediately. . Non-Emergent Contact Non-Emergency issues call your: Primary Care Provider . . "Provider Documentation" section prepared by Primo Villanueva. . VTE Core Measure Inpt VTE Proph given/why not?: SCD's, Treatment not indicated
[2017-06-09] MEDS ORDERED: MRLP17 PO (08:04)
[2017-06-09 10:05] VITALS: BP 124/74; PULSE 66; TEMP 36.4; O2SAT 97
--- NOTE | 2017-06-09 20:47 | Progress Note ---
Progress Note Date of Service Jun 09, 2017. Progress Note 67-year-old female admitted with acute sigmoid diverticulitis. Patient was admitted. Cultures were done. She was started on IV ciprofloxacin and metronidazole. Her condition improved. She remained afebrile. Her abdominal pain subsided gradually. Her diet was advanced. She was having multiple bowel movements. Initially she was constipated. She was placed on MiraLax. She was also given Dulcolax suppositories. She was given one dose of milk of magnesia orally. She has been ambulating without any problem. Denied any headache or dizziness. No chest pain no shortness of breath. Her asthma has been under control. No abdominal pain no nausea. As noted she has been having bowel movements without any problem. No problem urinating. No pain in her back or extremities. EXAMINATION: GENERAL : Well developed. Well nourished. No acute distress. VITAL SIGNS : Blood Pressure : 124/74, pulse 66, respiration 18, and showed 36.4 , oxygen saturation 97% on room air. SKIN : Warm and dry. No rash. HEENT :Markedly decreased vision left eye. No mucosal abnormalities. NECK: Supple root. Nontender. No lymph node or thyroid enlargement. HEART: Regular heart sounds without any murmur rub or gallop. LUNGS: Clear. Normal breath sounds. ABDOMEN: Slight tenderness. Mostly left-sided. No guarding no rebound. EXTREMITIES : No edema clubbing or cyanosis. No joint or muscle tenderness. ASSESSMENT: * acute sigmoid diverticulitis * Bronchial asthma * Dyspepsia and reflux PLAN: * her condition has been improved. She is stable. Afebrile. WBC count is normal. * Discharge home today on oral ciprofloxacin and metronidazole to continue for 7 days * Followup in the office in one week skin is warm and dry. No rash.
--- NOTE | 2017-06-21 00:55 | Discharge Summary ---
Discharge Summary Date of Service Jun 21, 2017. Discharge Summary ADMISSION DATE: 06/04/2017 DISCHARGE DATE: 06/09/2017 DISCHARGE DIAGNOSES: * acute sigmoid diverticulitis * bronchial asthma * Environmental allergies * Gastroesophageal reflux * Depression * hypercholesterolemia DISCHARGE MEDICATIONS: * ciprofloxacin 500 mg twice daily for 7 days * Metronidazole 500 mg 3 times a day for 7 days * MiraLax 17 g daily * Albuterol inhaler 2 puffs every 4 hours as needed * Gaviscon one tablet 2 tissue as needed * Symbicort 160/4.52 inhalations twice a day * Protonix 40 mg daily * Montelukast 10 mg daily * Ranitidine 300 mg daily * Simvastatin 20 mg daily * Spiriva one capsule daily * Zoloft 100 mg daily 67-year-old female presented with Acute left-sided abdominal pain. She did have chills. Did not check her temperature. She had nausea. No vomiting. No diarrhea. No rectal bleeding. Patient came to the emergency room. She was evaluated. Her CT scan of the abdomen and pelvis showed evidence of acute sigmoid diverticulitis. She was seen by Dr. Skyler Harris and admitted for further treatment PAST MEDICAL HISTORY, SOCIAL HISTORY, FAMILY HISTORY: As noted on admission history and physical ALLERGIES: penicillin ADMISSION MEDICATIONS: As noted on the home medication list PHYSICAL EXAMINATION AND LABORATORY TESTS ARE NOTED ON ADMISSION HITORY AND PHYSICAL HOSPITAL COURSE: patient was admitted to a medical bed. All her laboratory tests were ordered. She was started on ciprofloxacin and metronidazole intravenously. She continued to complain of left lower quadrant pain. Initially her appetite was decreased. Her diet was reintroduced gradually. She became afebrile. Her condition improved. Her abdominal pain was subsiding but not completely. Her diet was advanced. She was tolerating it. she was ambulating. Her WBC count normalized. Patient was discharged home. Continued on ciprofloxacin and metronidazole orally. Low fiber diet. MiraLax for constipation. Followup in the office in one week.
== END 2017-06-09 10:30 | disposition home or self-care (01) | DRG 392 ==
LOC: C.EDB 16:40 → C.MS4W 19:46 → ENRESERV 20:03
PROVIDERS: ADMIT Internal Medicine; ATTEND Internal Medicine
DX: K57.32 Diverticulitis of large intestine without perforation or abscess without bleeding (principal); J45.909 Unspecified asthma, uncomplicated; Z88.0 Allergy status to penicillin; E78.5 Hyperlipidemia, unspecified; K21.9 Gastro-esophageal reflux disease without esophagitis; F32.9 Major depressive disorder, single episode, unspecified; E87.6 Hypokalemia

== ENCOUNTER → 2017-11-24 | Outpatient (CLI) | payer OTHER ==
[~2017-11-24] MED LIST changes: +ALBU18002 INH; -ALBU1AER9 INH; +MRLP17 PO; +PANT40TA2 PO; -PRT/40 PO; +SPRIN/30 INH; -TIOTCAP INH
[2017-11-24 13:13] LABS: BASO % 0.7 %; BASO ABS # 0.05 K/uL (0-0.2); EOS % 9.8 %; EOS ABS # 0.74 K/uL (0-0.5); HEMATOCRIT 41.4 % (37-47); HEMOGLOBIN 13.7 g/dL (12.0-16.0); IG# 0.01 K/uL (0.00-0.02); LYMPH % 17.7 %; LYMPH ABS # 1.34 K/uL (1.2-3.4); MEAN CORPUSCULAR HEMOGLOBIN 27.5 pg (25-34); MEAN CORPUSCULAR HGB CONC 33.1 g/dl (32-36); MEAN PLATELET VOLUME 8.6 fL (7.4-10.4); MONO % 11.8 %; MONO ABS # 0.89 K/uL (0.11-0.59); NEUT % 59.9 %; NEUT ABS # 4.54 K/uL (1.4-6.5); PLATELET COUNT 200 K/uL (130-400); RED CELL DISTRIBUTION WIDTH CV 14.7 % (11.5-14.5); RED CELL DISTRIBUTION WIDTH SD 44.2 fL (36.4-46.3); WHITE BLOOD COUNT 7.57 K/uL (4.8-10.8)
[2017-11-24 13:37] LABS: ALBUMIN 3.8 gm/dl (3.4-5.0); ALKALINE PHOSPHATASE 70 U/L (45-117); ALT/SGPT 21 U/L (12-78); AST/SGOT 14 U/L (15-37); BLOOD UREA NITROGEN 15 mg/dl (7-18); CALCIUM 9.2 mg/dl (8.5-10.1); CARBON DIOXIDE 26 mmol/L (21-32); CREATININE 1.05 mg/dl (0.60-1.20); GLUCOSE 71 mg/dl (70-99); LIPASE 262 U/L (73-393); SODIUM 141 mmol/L (136-145); TOTAL PROTEIN 7.3 gm/dl (6.4-8.2)
--- NOTE | 2017-11-24 14:45 | DIAGNOSTIC IMAGING REPORT ---
ABD/PELVIS IV AND ORAL CONT CT DOSE: 462.46 mGy.cm HISTORY: Pain ABD PAIN,R/O DIVERTICULITIS TECHNIQUE: Multiaxial CT images of the abdomen and pelvis were performed following the use of intravenous and oral contrast. A dose lowering technique was utilized adhering to the principles of ALARA. COMPARISON STUDY: 06/04/2017 FINDINGS: Fixed hiatal hernia unchanged from the prior study. Liver spleen and pancreas are unremarkable. Gallbladder is negative for distention. Pancreas is uniform. Kidneys enhance uniformly. There is moderate atrophy and cortical scarring of the right kidney unchanged from the prior study. There are findings of moderate wall thickening of the proximal to mid sigmoid colon. There is a minimal degree of pericolonic infiltrative change. Although less prominent than on the prior study, the appearance suggests a component of acute diverticulitis superimposed upon chronic diverticulosis. Bowel pattern is otherwise unremarkable. There is no evidence for drainable abscess or collection. There is no evidence for bowel obstructive change. Normal appendix. IMPRESSION: 1. Mild acute proximal to mid sigmoid diverticulitis. 2. No evidence for abscess collection or obstruction. The above report was generated using voice recognition software. It may contain grammatical, syntax or spelling errors. Electronically signed by: eJsus Posada M.D. 11/24/2017 2:43 PM Dictated Date/Time: 11/24/2017 2:37 PM
== END | disposition home or self-care (01) ==
LOC: C.CTS 12:08
PROVIDERS: ATTEND Internal Medicine
DX: R10.9 Unspecified abdominal pain (principal)

== ENCOUNTER → 2017-12-30 | Day surgery (SDC) | payer OTHER ==
[2017-12-27 08:19] VITALS: BMI 27.0
[~2017-12-30] VITALS: Ht 160 cm; Wt 70.5 kg
[~2017-12-30] MED LIST changes: +ATROPINE SULFATE 0.1 MG/ML 5ML SYR IV PRN; +DEXAMETHASONE SOD INJ 4 MG/ML VIAL ONE; +EpHEDrine SULFATE INJ 50 MG/ML AMP ONE; +FENTANYL CITRATE INJ 50 MCG/1 ML 2 ML VIAL IV PRN; +FENTANYL CITRATE INJ 50 MCG/1 ML 2 ML VIAL ONE; +GLYCOPYRROLATE INJ 0.2 MG/ML VIAL ONE; +LARYING-O-JET KIT (LTA) ONE; +LIDOCAINE HCL 2% 2 ML VIAL (20MG/ML) ONE; +MIDAZOLAM HCL 1 MG/ML 2ML VIAL ONE; -MRLP17 PO; +NEOSTIGMINE METHYLSULFATE 5 MG/5 ML SYR ONE; +ONDANSETRON INJ 2 MG/ML 2 ML VIAL IV PRN; +ONDANSETRON INJ 2 MG/ML 2 ML VIAL ONE; +PHENYLEPHRINE HCL INJ 10 MG/ML VIAL ONE; +POLY335019 PO; +PROAIR INH; +PROPOFOL IV EMULSION 10 MG/ML 20 ML VIAL IV ONE; -RANI300T PO; +ROCURONIUM BROMIDE 10 MG/ML 5 ML VIAL IV ONE; +SODIUM CHLORIDE 0.9% 500ML 500 ML IV ONE; -SPRIN/30 INH; +SUCCINYLCHOLINE CHLORIDE 20 MG/ML 10 ML VIAL IV ONE
[2017-12-30 06:20] VITALS: BP 149/69; PULSE 77; TEMP 36.6; O2SAT 97; Ht 160 cm; Wt 70.5 kg
--- NOTE | 2017-12-30 08:03 | Endo History and Physical ---
History & Physical Date of Service: Dec 30, 2017. Chief Complaint: gastric polyp Referring Physician: History of Present Illness gastric polyp Past Medical History Asthma, Reflux, High Cholesterol, Other Past Surgical History Hx Cardiac Surgery: No Hx Abdominal Surgery: Yes (TUBAL) Hx Post-Op Nausea and Vomiting: No Hx Cancer Surgery: No Hx Thoracic Surgery: No Hx Orthopedic: Yes (LUMBAR DISECTOMY) Hx Urinary Tract Surgery: No Social History Smoking Status: Never Smoker Hx Substance Use: No Hx Alcohol Use: Yes (OCC WINE) Allergies Coded Allergies: Penicillins (Verified Allergy, Intermediate, HIVES, 12/30/17) Current Medications Reported Home Medications Medications Dose Route/Sig Max Daily Dose Days Date Category Miralax (Polyethylene Glycol 3350) 1 Pow Pow 17 Gm PO QAM 12/27/17 Reported [Proair Neb] 1 Puff INH PRN 12/27/17 Reported Montelukast Sodium (Montelukast Sod) 10 Mg Tab 10 Mg PO QAM 06/04/17 Reported Gaviscon (Aluminum Hydroxide-Mag Trisil) 1 Chw Chw 1 Tab PO UD PRN 05/29/14 Reported Pantoprazole Sodium (Pantoprazole) 40 Mg Tab 40 Mg PO BID 05/29/14 Reported Simvastatin 20 Mg Tab 20 Mg PO HS 05/29/14 Reported Symbicort 160/4.5 Inhaler (Budesonide/Formoterol Fumarate) 120 Puffs/ Aero 2 Puffs INH BID 05/17/13 Reported Vital Signs Weight (Kilograms): 70.45 Height (Feet): 5 Height (Inches): 3 Date Time Temp Pulse Resp B/P (MAP) Pulse Ox O2 Delivery O2 Flow Rate FiO2 12/30/17 06:20 36.6 77 18 149/69 (95) 97 Room Air Physical Exam General Appearance: WD/WN, no apparent distress Respiratory/Chest: Auscultation: breath sounds normal Cardiovascular: Heart Auscultation: RRR Abdomen: Bowel Sounds: normal Inspection & Palpation: soft, non-distended, no tenderness, guarding & rebound Assessment and Plan EGD/EUS possible FNA possible EMR
--- NOTE | 2017-12-30 09:14 | [facility] Post Operative Brief Note ---
Immediate Operative Summary Operative Date Dec 30, 2017. Pre-Operative Diagnosis Polypoid Lesion of Antrum Post-Operative Diagnosis same; bx; EUS c/e small pancreatic rest Procedure(s) Performed EGD with bx radial EUS Surgeon Dr. Chang Template Checker Surgeon(s) none Estimated Blood Loss 0 ml Findings Consistent with Post-Op Diagnosis Specimens Specimens collected and recorded by Endoscopy staff Drains None Anesthesia Type General Complication(s) none Disposition Disposition: Recovery Room / PACU
--- NOTE | 2017-12-30 09:17 | Discharge Instructions ---
Endoscopy Patient Instructions Date / Procedure(s) Performed Dec 30, 2017. EGD, Other Allergy Information Coded Allergies: Penicillins (Verified Allergy, Intermediate, HIVES, 12/30/17) Discharge Date / Findings Dec 30, 2017. EGD with bx- EUS radial c/w pancreatic rest Medication Instructions Restart Stopped Medication(s): Reported Home Medications Medications Dose Route/Sig Max Daily Dose Days Date Category Miralax (Polyethylene Glycol 3350) 1 Pow Pow 17 Gm PO QAM 12/27/17 Reported [Proair Neb] 1 Puff INH PRN 12/27/17 Reported Montelukast Sodium (Montelukast Sod) 10 Mg Tab 10 Mg PO QAM 06/04/17 Reported Gaviscon (Aluminum Hydroxide-Mag Trisil) 1 Chw Chw 1 Tab PO UD PRN 05/29/14 Reported Pantoprazole Sodium (Pantoprazole) 40 Mg Tab 40 Mg PO BID 05/29/14 Reported Simvastatin 20 Mg Tab 20 Mg PO HS 05/29/14 Reported Symbicort 160/4.5 Inhaler (Budesonide/Formoterol Fumarate) 120 Puffs/ Aero 2 Puffs INH BID 05/17/13 Reported Reported Home Medications Medications Dose Route/Sig Max Daily Dose Days Date Category Miralax (Polyethylene Glycol 3350) 1 Pow Pow 17 Gm PO QAM 12/27/17 Reported [Proair Neb] 1 Puff INH PRN 12/27/17 Reported Montelukast Sodium (Montelukast Sod) 10 Mg Tab 10 Mg PO QAM 06/04/17 Reported Gaviscon (Aluminum Hydroxide-Mag Trisil) 1 Chw Chw 1 Tab PO UD PRN 05/29/14 Reported Pantoprazole Sodium (Pantoprazole) 40 Mg Tab 40 Mg PO BID 05/29/14 Reported Simvastatin 20 Mg Tab 20 Mg PO HS 05/29/14 Reported Symbicort 160/4.5 Inhaler (Budesonide/Formoterol Fumarate) 120 Puffs/ Aero 2 Puffs INH BID 05/17/13 Reported Provider Instructions Activity Restrictions - No exercising or heavy lifting for 24 hours. - Do not drink alcohol the day of the procedure. - Do not drive a car or operate machinery until the day after the procedure. - Do not make any important decisions or sign important papers in 24 hours after the procedure. Following Day: - Return to full activity which may include returning to work/school. Diet Start your diet with liquids and light foods (jello, soup, juice, toast). Then eat your usual diet if not nauseated. Treatment For Common After Affects For mild abdominal pain, bloating, or excessive gas: - Rest - Eat lightly - Lie on right side Follow-Up Information Follow-up with as scheduled Anesthesia Information What You Should Know You have had a procedure that required some medicine to reduce anxiety and discomfort. This treatment is called moderate sedation. After receiving the treatment, you may be sleepy, but you will be able to breathe on your own. The effects of the treatment may last for several hours. Follow these instructions along with Activity/Diet recommendations noted above: * Do NOT do anything where dizziness or clumsiness would be dangerous. * Rest quietly at home today, then you can be up and about tomorrow. * Have a responsible person stay with you the rest of today. * You may have had an I.V. today. If so, you may take the dressing off later today. Recommendations Call your doctor if: * Trouble breathing * Continuous vomiting for more than 24 hours * Temperature above 101 degrees * Severe abdominal pain or bloating * Pain not relieved by pain medicine ordered * There is increased drainage or redness from any incision * A large amount of rectal bleeding greater than 2-3 tablespoons. (If you had a polyp/s removed or have hemorrhoids, a small amount of blood - from the rectum is to be expected.) * You have any unanswered questions or concerns. IN THE EVENT OF A SERIOUS EMERGENCY, GO TO THE NEAREST EMERGENCY ROOM Your discharge instructions were prepared by provider Will Chang. Patient Instructions Signature Page Ankita Patient Carrier Patient (or Guardian) Signature/Date: I have read and understand the instructions given to me by my caregivers. Caregiver/RN/Doctor Signature/Date: The above-named patient and/or guardian has received patient instructions on this date. + Original Patient Signature Page (only) stays with chart. Please make copy for patient.
--- NOTE | 2017-12-30 10:05 | GI REPORT ---
Procedure Date: 12/30/2017 9:06 AM Procedure: Upper GI endoscopy Indications: Therapeutic procedure, Abdominal pain Medicines: General Anesthesia Complications: No immediate complications. Estimated blood loss: Minimal. Estimated Blood Loss: Estimated blood loss was minimal. Estimated blood loss was minimal. Procedure: Pre-Anesthesia Assessment: - Prior to the procedure, a History and Physical was performed, and patient medications and allergies were reviewed. The patient's tolerance of previous anesthesia was also reviewed. The risks and benefits of the procedure and the sedation options and risks were discussed with the patient. All questions were answered, and informed consent was obtained. Prior Anticoagulants: The patient has taken no previous anticoagulant or antiplatelet agents. ASA Grade Assessment: II - A patient with mild systemic disease. After reviewing the risks and benefits, the patient was deemed in satisfactory condition to undergo the procedure. After obtaining informed consent, the endoscope was passed under direct vision. Throughout the procedure, the patient's blood pressure, pulse, and oxygen saturations were monitored continuously. The scope was introduced through the mouth, and advanced to the second part of duodenum. The upper GI endoscopy was accomplished without difficulty. The patient tolerated the procedure well. Findings: The examined esophagus was normal. The Z-line was irregular and was found 38 cm from the incisors. Localized mild mucosal changes characterized by nodularity and altered texture were found in the gastric antrum. Biopsies were taken with a cold forceps for histology. Estimated blood loss was minimal. Verification of patient identification for the specimen was done by the physician and formula technician using the patient's name and medical record number. Retained gastric contents are not identified on this exam. The exam of the stomach was otherwise normal. The examined duodenum was normal. The cardia and gastric fundus were normal on retroflexion. Impression: - Normal esophagus. - Z-line irregular, 38 cm from the incisors. - Nodular and texture changed mucosa in the antrum. Biopsied. - Normal examined duodenum. Recommendation: - Discharge patient to home (ambulatory). - Resume regular diet. - Continue present medications. - Await pathology results. - Perform an upper endoscopic ultrasound (UEUS) today. MD Will Trimble MD 12/30/2017 10:04:46 AM This report has been signed electronically. Note Initiated On: 12/30/2017 9:06 AM I attest to the content of the Intraoperative Record and orders documented therein, exceptions below
[2017-12-30 10:15] VITALS: BP 153/66; PULSE 74; TEMP 36.5; O2SAT 98
--- NOTE | 2017-12-30 10:19 | Anesthesiology Progress Note ---
Anesthesia Post Op Note Date & Time Dec 30, 2017 at 10:19 Vital Signs Pain Intensity: 0 Vital Signs Past 12 Hours Date Time Temp Pulse Resp B/P (MAP) Pulse Ox O2 Delivery O2 Flow Rate FiO2 12/30/17 10:05 36.3 72 14 158/76 97 Room Air 12/30/17 09:55 83 20 153/99 97 Room Air 12/30/17 09:45 80 24 150/72 92 Room Air 12/30/17 09:35 98 18 161/79 100 Oxymask 10 12/30/17 09:25 36.0 87 16 154/78 100 Oxymask 10 12/30/17 06:20 36.6 77 18 149/69 (95) 97 Room Air Notes Mental Status: alert / awake / arousable, participated in evaluation Pt Amnestic to Procedure: Yes Nausea / Vomiting: adequately controlled Pain: adequately controlled Airway Patency, RR, SpO2: stable & adequate BP & HR: stable & adequate Hydration State: stable & adequate Anesthetic Complications: no major complications apparent
[2017-12-30 10:45] VITALS: BP 153/75; PULSE 70; TEMP 37.2; O2SAT 92
[2017-12-30 11:15] VITALS: BP 156/72; PULSE 71; TEMP 36.9; O2SAT 95
--- NOTE | 2017-12-30 12:17 | GI REPORT ---
Procedure Date: 12/30/2017 8:30 AM Procedure: Upper EUS Indications: Gastric mucosal mass/polyp found on endoscopy Medicines: General Anesthesia Complications: No immediate complications. Estimated blood loss: None. Estimated Blood Loss: Estimated blood loss: none. Procedure: Pre-Anesthesia Assessment: - Prior to the procedure, a History and Physical was performed, and patient medications and allergies were reviewed. The patient's tolerance of previous anesthesia was also reviewed. The risks and benefits of the procedure and the sedation options and risks were discussed with the patient. All questions were answered, and informed consent was obtained. Prior Anticoagulants: The patient has taken no previous anticoagulant or antiplatelet agents. ASA Grade Assessment: II - A patient with mild systemic disease. After reviewing the risks and benefits, the patient was deemed in satisfactory condition to undergo the procedure. After obtaining informed consent, the endoscope was passed under direct vision. Throughout the procedure, the patient's blood pressure, pulse, and oxygen saturations were monitored continuously. The Endosonoscope was introduced through the mouth, and advanced to the duodenum for ultrasound examination from the esophagus, stomach and duodenum. The upper EUS was accomplished without difficulty. The patient tolerated the procedure well. Findings: Endoscopic Finding : The examined esophagus was normal. A single 10 mm mucosal papule (nodule) with no bleeding and no stigmata of recent bleeding was found in the gastric antrum. Biopsies were taken with a cold forceps for histology. Estimated blood loss was minimal. Verification of patient identification for the specimen was done by the physician and product safety technician using the patient's name and medical record number. The examined duodenum was normal. A single 10 mm submucosal papule (nodule) with no bleeding and no stigmata of recent bleeding was found in the gastric antrum. Endosonographic Finding : The esophagus, stomach and duodenum and adjacent structures were visualized endosonographically. There was no sign of significant endosonographic abnormality in the esophagus. No pathologic lymphadenopathy was identified. A triangular intramural (subepithelial) lesion was found in the antrum of the stomach. The lesion was hypoechoic, hyperechoic and homogenous with mild tubular pattern. Sonographically, the lesion appeared to originate from the deep mucosa (Layer 2) and submucosa (Layer 3). The lesion also measured 6 mm by 8 mm in diameter. The outer endosonographic borders were well defined. There was no sign of significant endosonographic abnormality in the examined duodenum. No pathologic lymphadenopathy was identified. There was no sign of significant endosonographic abnormality in the ampulla. No pathologic lymphadenopathy and no masses were identified. No lymphadenopathy seen. Endosonographic imaging in the pancreatic head, pancreatic body, pancreatic tail and main pancreatic duct showed no abnormalities. Impression: - Normal esophagus. - A single mucosal papule (nodule) found in the stomach. Biopsied. - Normal examined duodenum. - There was no sign of significant pathology in the esophagus. - A single submucosal papule (nodule) found in the stomach. - An intramural (subepithelial) lesion was found in the antrum of the stomach. The lesion appeared to originate from within the deep mucosa (Layer 2) and submucosa (Layer 3). - There was no sign of significant pathology in the examined duodenum. - There was no sign of significant pathology in the ampulla. Recommendation: - Discharge patient to home (ambulatory). - Advance diet as tolerated. - Await path results. - Continue present medications. - Return to GI clinic as previously scheduled. MD Will Trimble MD 12/30/2017 12:17:06 PM This report has been signed electronically. Note Initiated On: 12/30/2017 8:30 AM I attest to the content of the Intraoperative Record and orders documented therein, exceptions below
== END | disposition home or self-care (01) ==
LOC: C.ACU 06:04
PROVIDERS: ATTEND Internal Medicine Gastroenterology
DX: K29.50 Unspecified chronic gastritis without bleeding (principal); Z88.0 Allergy status to penicillin; J44.9 Chronic obstructive pulmonary disease, unspecified; K31.7 Polyp of stomach and duodenum; E78.00 Pure hypercholesterolemia, unspecified

== ENCOUNTER 2018-01-04 16:48 | Emergency (ER) | payer OTHER ==
[~2018-01-04] VITALS: Ht 160 cm; Wt 73.8 kg
[~2018-01-04 16:48] MED LIST changes: -ALBU18002 INH; -ATROPINE SULFATE 0.1 MG/ML 5ML SYR IV PRN; -DEXAMETHASONE SOD INJ 4 MG/ML VIAL ONE; -EpHEDrine SULFATE INJ 50 MG/ML AMP ONE; -FENTANYL CITRATE INJ 50 MCG/1 ML 2 ML VIAL IV PRN; -FENTANYL CITRATE INJ 50 MCG/1 ML 2 ML VIAL ONE; -GLYCOPYRROLATE INJ 0.2 MG/ML VIAL ONE; -LARYING-O-JET KIT (LTA) ONE; -LIDOCAINE HCL 2% 2 ML VIAL (20MG/ML) ONE; -MIDAZOLAM HCL 1 MG/ML 2ML VIAL ONE; -NEOSTIGMINE METHYLSULFATE 5 MG/5 ML SYR ONE; -ONDANSETRON INJ 2 MG/ML 2 ML VIAL IV PRN; -ONDANSETRON INJ 2 MG/ML 2 ML VIAL ONE; -PHENYLEPHRINE HCL INJ 10 MG/ML VIAL ONE; -PROPOFOL IV EMULSION 10 MG/ML 20 ML VIAL IV ONE; -ROCURONIUM BROMIDE 10 MG/ML 5 ML VIAL IV ONE; -SODIUM CHLORIDE 0.9% 500ML 500 ML IV ONE; -SUCCINYLCHOLINE CHLORIDE 20 MG/ML 10 ML VIAL IV ONE
[2018-01-04 16:50] VITALS: TEMP 36.7; Ht 160 cm; Wt 73.8 kg
[2018-01-04] MEDS ORDERED: SODIUM CHLORIDE 0.9% 1000ML 1,000 ML IV STA (17:01)
[2018-01-04] MEDS ORDERED: ONDANSETRON INJ 2 MG/ML 2 ML VIAL IV STA (17:01)
[2018-01-04] MEDS ORDERED: MoRPHine SULFATE 10 MG/ML CARP/VIAL IV STA (17:01)
[2018-01-04] MEDS ORDERED: OPTIRAY 320 IV PRN (17:15)
[2018-01-04 18:28] LABS: BASO % 0.2 %; BASO ABS # 0.03 K/uL (0-0.2); EOS % 2.9 %; HEMATOCRIT 44.6 % (37-47); HEMOGLOBIN 14.9 g/dL (12.0-16.0); IG# 0.03 K/uL (0.00-0.02); LYMPH % 4.7 %; LYMPH ABS # 0.66 K/uL (1.2-3.4); MEAN CELL VOLUME 82.9 fL (80-100); MEAN CORPUSCULAR HEMOGLOBIN 27.7 pg (25-34); MEAN CORPUSCULAR HGB CONC 33.4 g/dl (32-36); MEAN PLATELET VOLUME 9.1 fL (7.4-10.4); MONO % 5.6 %; MONO ABS # 0.78 K/uL (0.11-0.59); NEUT % 86.4 %; NEUT ABS # 12.01 K/uL (1.4-6.5); PLATELET COUNT 209 K/uL (130-400); RED CELL DISTRIBUTION WIDTH CV 14.6 % (11.5-14.5); RED CELL DISTRIBUTION WIDTH SD 44.4 fL (36.4-46.3); WHITE BLOOD COUNT 13.91 K/uL (4.8-10.8)
[2018-01-04 18:34] LABS: ISTAT IONIZED CALCIUM 1.11 mmol/l (1.12-1.32); ISTAT POTASSIUM 4.4 mEq/L (3.3-5.0)
--- NOTE | 2018-01-04 18:57 | DIAGNOSTIC IMAGING REPORT ---
CT SCAN OF THE ABDOMEN AND PELVIS WITH IV CONTRAST CLINICAL HISTORY: Generalized abdominal pain. COMPARISON STUDY: Abdominal CT dated 11/24/2017. TECHNIQUE: Following the IV administration of 119 cc of Optiray 320, CT scan of the abdomen and pelvis is performed from the lung bases to the proximal femora. Images are reviewed in the axial, sagittal, and coronal planes. IV contrast was administered without complication. A dose lowering technique was utilized adhering to the principles of ALARA. CT DOSE: 421.16 mGy.cm FINDINGS: Lung bases: The heart is top normal in size and without pericardial effusion. The lung bases are clear noting dependent atelectasis. Liver: The contrast-enhanced liver is lung gated, suggesting Johanna's lobe variant anatomy. The liver is otherwise normal in contour and attenuation. There is no intrahepatic biliary ductal dilatation. The hepatic veins and portal veins are patent. Gallbladder: Unremarkable. Spleen: Normal in size and attenuation. Pancreas: Moderately atrophic and grossly unremarkable. Adrenal glands: Unremarkable. Kidneys: There is asymmetric cortical atrophy and scarring identified in the right kidney as compared to the left. There is no hydronephrosis. The kidneys enhance symmetrically. Abdominal vasculature: The abdominal aorta is normal in course and caliber noting moderate to advanced atherosclerotic calcification. Stomach and bowel: There is a moderate to large hiatal hernia. Approximately half of the stomach is located in the thoracic cavity. The duodenum is normal in configuration. No bowel obstruction is seen. There is advanced colonic diverticulosis without CT evidence of acute diverticulitis. There is a long segment of wall thickening and edema involving the left colon. This extends from the splenic flecture to the sigmoid colon. There is mild pericolonic infiltration, and the appearance is consistent with a nonspecific colitis. The appendix is well-visualized and normal. Peritoneum: There is no intraperitoneal free air or abdominal ascites. There is a small fat-containing umbilical hernia. Lymphadenopathy: None. Pelvic viscera: The bladder, uterus, and adnexa are normal as visualized. Skeletal structures: The skeletal structures are osteopenic. No lytic or blastic lesions are seen. IMPRESSION: 1. Findings are consistent with a nonspecific colitis of the left colon. This could be on an infectious, inflammatory, or ischemic basis. Clinical correlation will be required. 2. Advanced colonic diverticulosis without clear CT evidence of acute diverticulitis. 3. There is asymmetric cortical atrophy and scarring of the right kidney as compared to the left. 4. Moderate to large hiatal hernia. 5. Additional findings as above. Electronically signed by: Jeet Pennington M.D. 01/04/2018 6:56 PM Dictated Date/Time: 01/04/2018 6:48 PM
[2018-01-04 19:42] LABS: ISTAT CREATININE 0.9 mg/dl (0.6-1.3); ISTAT IONIZED CALCIUM 1.07 mmol/l (1.12-1.32); ISTAT POTASSIUM 3.7 mEq/L (3.3-5.0)
[2018-01-04] MEDS ORDERED: MoRPHine SULFATE 4 MG/ML 1 ML CARP\\VIAL IV STA (19:44)
[2018-01-04] MEDS ORDERED: METR-162 PO (20:26)
[2018-01-04] MEDS ORDERED: CIPR-255 PO (20:26)
[2018-01-04] MEDS ORDERED: OXYCODONE IR HOME PACK PO ONE (20:30)
[2018-01-04 20:33] LABS: CREATININE 1.06 mg/dl (0.60-1.20); POTASSIUM 3.6 mmol/L (3.5-5.1)
[2018-01-04 20:34] LABS: ALBUMIN 3.5 gm/dl (3.4-5.0); TOTAL PROTEIN 6.7 gm/dl (6.4-8.2)
[2018-01-04] MEDS ORDERED: CIPROFLOXACIN 500 MG TAB PO STA (20:57)
[2018-01-04] MEDS ORDERED: METRONIDAZOLE 250 MG TAB PO STA (20:57)
--- NOTE | 2018-01-04 21:01 | EMERGENCY ROOM VISIT NOTE ---
History Report prepared by Abilio: Ahsan Hampton Under the Supervision of: Dr. Nikhil Shearer D.O. First contact with patient: 16:54 Chief Complaint: GI ASSESSMENT Stated Complaint: ABDOMINAL PAIN, HX DIVERTICULITIS- REFERRED History of Present Illness The patient is a 67 year old female who presents to the Emergency Room with complaints of constant lower abdominal pain beginning about a month ago. Her pain worsened today. The patient rates her pain as a 7/10 in severity currently. She describes her pain as "sharp" and "stabbing". She has a history of diverticulitis and states that her current symptoms feel like her diverticulitis. The patient was admitted to the hospital for diverticulitis in June. In November she had the same symptoms and was treated as an outpatient with Cipro and Flagyl and had resolution/significant improvement of her symptoms. She also complains of abdominal distension, pain radiating into back, diarrhea, nausea and vomiting. She vomited once, and had three episodes of diarrhea today. No history of atrial fib her previous blood clots. Pt denies headache, change in vision, fevers, chest pain, shortness of breath, pain with urination, and melena. She has a history of tubal ligation. Source of History: patient Onset: About a month ago Position: abdomen (lower) Symptom Intensity: 7/10 currently Quality: sharp, stabbing Timing: constant Associated Symptoms: + nausea, + vomiting, + back pain (radiating into), + diarrhea, No fevers, No headache, No chest pain, No SOB, No melena, No urinary symptoms Note: Positive: abdominal distension. Review of Systems See HPI for pertinent positives & negatives. A total of 10 systems reviewed and were otherwise negative. Past Medical & Surgical Medical Problems: (1) Asthma (2) Bilateral tubal ligation (3) Bronchitis (4) disc degeneration (5) Pneumonia Family History No significant family history Social History Smoking Status: Never Smoker Alcohol Use: none Housing Status: lives with significant other Occupation Status: unemployed, retired Current/Historical Medications Scheduled Budesonide/Formoterol Fumarate (Symbicort 160/4.5 Inhaler), 2 PUFFS INH BID Ciprofloxacin Hcl (Cipro), 500 MG PO BID Metronidazole (Flagyl), 500 MG PO TID Montelukast Sod (Montelukast Sodium), 10 MG PO QAM Pantoprazole (Pantoprazole Sodium), 40 MG PO BID Polyethylene Glycol 3350 (Miralax), 17 GM PO QAM Simvastatin (Simvastatin), 20 MG PO HS [Proair Neb], 1 PUFF INH PRN Scheduled PRN Aluminum Hydroxide-Mag Trisil (Gaviscon), 1 TAB PO UD PRN for Gas Allergies Coded Allergies: Penicillins (Verified Allergy, Intermediate, HIVES, 01/04/18) Physical Exam Vital Signs Date Time Temp Pulse Resp B/P (MAP) Pulse Ox O2 Delivery O2 Flow Rate FiO2 01/04/18 19:56 82 18 148/78 98 01/04/18 18:58 89 16 148/70 96 Room Air 01/04/18 18:05 78 16 135/65 95 Room Air 01/04/18 16:50 36.7 93 17 169/86 95 Room Air Physical Exam GENERAL: Sitting up in bed, alert, well appearing, well nourished, no distress, non-toxic EYE EXAM: normal conjunctiva. OROPHARYNX: no exudate, no erythema, lips, buccal mucosa, and tongue normal and mucous membranes are moist NECK: supple, no nuchal rigidity, no adenopathy, non-tender LUNGS: Clear to auscultation. Normal chest wall mechanics HEART: no murmurs, S1 normal and S2 normal ABDOMEN: abdomen soft, normo-active bowel sounds, no masses, no rebound or guarding. Minimal tenderness in the left lower quadrant/suprapubic region BACK: Back is symmetrical on inspection and there is no deformity, no midline tenderness, no CVA tenderness. SKIN: no rashes and no bruising UPPER EXTREMITIES: upper extremities are grossly normal. LOWER EXTREMITIES: No pitting edema. NEURO EXAM: Normal sensorium, cranial nerves II-XII grossly intact, normal speech, no gross weakness of arms, no gross weakness of legs. Medical Decision & Procedures ER Provider Diagnostic Interpretation: Radiology results as stated below per my review and the radiologist's interpretation: CT SCAN OF THE ABDOMEN AND PELVIS WITH IV CONTRAST FINDINGS: Lung bases: The heart is top normal in size and without pericardial effusion. The lung bases are clear noting dependent atelectasis. Liver: The contrast-enhanced liver is lung gated, suggesting Johanna's lobe variant anatomy. The liver is otherwise normal in contour and attenuation. There is no intrahepatic biliary ductal dilatation. The hepatic veins and portal veins are patent. Gallbladder: Unremarkable. Spleen: Normal in size and attenuation. Pancreas: Moderately atrophic and grossly unremarkable. Adrenal glands: Unremarkable. Kidneys: There is asymmetric cortical atrophy and scarring identified in the right kidney as compared to the left. There is no hydronephrosis. The kidneys enhance symmetrically. Abdominal vasculature: The abdominal aorta is normal in course and caliber noting moderate to advanced atherosclerotic calcification. Stomach and bowel: There is a moderate to large hiatal hernia. Approximately half of the stomach is located in the thoracic cavity. The duodenum is normal in configuration. No bowel obstruction is seen. There is advanced colonic diverticulosis without CT evidence of acute diverticulitis. There is a long segment of wall thickening and edema involving the left colon. This extends from the splenic flecture to the sigmoid colon. There is mild pericolonic infiltration, and the appearance is consistent with a nonspecific colitis. The appendix is well-visualized and normal. Peritoneum: There is no intraperitoneal free air or abdominal ascites. There is a small fat-containing umbilical hernia. Lymphadenopathy: None. Pelvic viscera: The bladder, uterus, and adnexa are normal as visualized. Skeletal structures: The skeletal structures are osteopenic. No lytic or blastic lesions are seen. IMPRESSION: 1. Findings are consistent with a nonspecific colitis of the left colon. This could be on an infectious, inflammatory, or ischemic basis. Clinical correlation will be required. 2. Advanced colonic diverticulosis without clear CT evidence of acute diverticulitis. 3. There is asymmetric cortical atrophy and scarring of the right kidney as compared to the left. 4. Moderate to large hiatal hernia. 5. Additional findings as above. Electronically signed by: Jeet Pennington M.D. 01/04/2018 6:56 PM Laboratory Results 01/04/18 17:54 Red Blood Count 5.38, Mean Corpuscular Volume 82.9, Mean Corpuscular Hemoglobin 27.7, Mean Corpuscular Hemoglobin Concent 33.4, Mean Platelet Volume 9.1, Neutrophils (%) (Auto) 86.4, Lymphocytes (%) (Auto) 4.7, Monocytes (%) (Auto) 5.6, Eosinophils (%) (Auto) 2.9, Basophils (%) (Auto) 0.2, Neutrophils # (Auto) 12.01, Lymphocytes # (Auto) 0.66, Monocytes # (Auto) 0.78, Eosinophils # (Auto) 0.40, Basophils # (Auto) 0.03 01/04/18 18:59 Test 01/04/18 17:54 01/04/18 18:59 01/04/18 19:24 01/04/18 19:28 White Blood Count 13.91 K/uL (4.8-10.8) Red Blood Count 5.38 M/uL (4.2-5.4) Hemoglobin 14.9 g/dL (12.0-16.0) Hematocrit 44.6 % (37-47) Mean Corpuscular Volume 82.9 fL (80-100) Mean Corpuscular Hemoglobin 27.7 pg (25-34) Mean Corpuscular Hemoglobin Concent 33.4 g/dl (32-36) Platelet Count 209 K/uL (130-400) Mean Platelet Volume 9.1 fL (7.4-10.4) Neutrophils (%) (Auto) 86.4 % Lymphocytes (%) (Auto) 4.7 % Monocytes (%) (Auto) 5.6 % Eosinophils (%) (Auto) 2.9 % Basophils (%) (Auto) 0.2 % Neutrophils # (Auto) 12.01 K/uL (1.4-6.5) Lymphocytes # (Auto) 0.66 K/uL (1.2-3.4) Monocytes # (Auto) 0.78 K/uL (0.11-0.59) Eosinophils # (Auto) 0.40 K/uL (0-0.5) Basophils # (Auto) 0.03 K/uL (0-0.2) RDW Standard Deviation 44.4 fL (36.4-46.3) RDW Coefficient of Variation 14.6 % (11.5-14.5) Immature Granulocyte % (Auto) 0.2 % Immature Granulocyte # (Auto) 0.03 K/uL (0.00-0.02) Urine Color DK YELLOW Urine Appearance CLOUDY (CLEAR) Urine pH 5.5 (4.5-7.5) Urine Specific [place] 1.029 (1.000-1.030) Urine Protein NEG (NEG) Urine Glucose (UA) NEG (NEG) Urine Ketones 1+ (NEG) Urine Occult Blood NEG (NEG) Urine Nitrite NEG (NEG) Urine Bilirubin 1+ (NEG) Urine Urobilinogen NEG (NEG) Urine Leukocyte Esterase SMALL (NEG) Urine WBC (Auto) 5-10 /hpf (0-5) Urine RBC (Auto) 5-10 /hpf (0-4) Urine Hyaline Casts (Auto) 5-10 /lpf (0-5) Urine Epithelial Cells (Auto) >30 /lpf (0-5) Urine Bacteria (Auto) NEG (NEG) Urine Crystals CALCIUM OXALATE (NONE Est Creatinine Clear Calc Drug Dose 48.2 ml/min Estimated GFR () 62.0 Estimated GFR (Non- 53.5 BUN/Creatinine Ratio 16.0 (10-20) Calcium Level 8.0 mg/dl (8.5-10.1) Total Bilirubin 0.8 mg/dl (0.2-1) Direct Bilirubin 0.2 mg/dl (0-0.2) Aspartate Amino Transf (AST/SGOT) 17 U/L (15-37) Alanine Aminotransferase (ALT/SGPT) 22 U/L (12-78) Alkaline Phosphatase 69 U/L (45-117) Total Protein 6.7 gm/dl (6.4-8.2) Albumin 3.5 gm/dl (3.4-5.0) Lipase 201 U/L (73-393) Bedside Lactic Acid Venous 0.77 mmol/L (0.90-1.70) Bedside Hemoglobin 13.3 g/dl (12.0-16.0) Bedside Hematocrit 39 % (37-47) Bedside Sodium 140 mEq/L (135-144) Bedside Potassium 3.7 mEq/L (3.3-5.0) Bedside Chloride 105 mEq/L (101-112) Bedside Total CO2 23 mEq/l (24-31) Anion Gap 17.0 mmol/L (16-25) Bedside Blood Urea Nitrogen 17 mg/dl (7-18) Bedside Creatinine 0.9 mg/dl (0.6-1.3) Bedside Glucose (other) 84 mg/dl (70-99) Bedside Ionized Calcium (Sandro) 1.07 mmol/l (1.12-1.32) Laboratory results per my review. Medications Administered Medications (Trade) Dose Ordered Sig/Eber Route Start Time Stop Time Status Last Admin Dose Admin Sodium Chloride 1,000 ml @ 999 mls/hr Q1H1M STAT IV 01/04/18 17:01 01/04/18 18:01 DC 01/04/18 17:44 999 MLS/HR Ondansetron HCl (Zofran Inj) 4 mg NOW STAT IV 01/04/18 17:01 01/04/18 17:02 DC 01/04/18 17:44 4 MG Morphine Sulfate (MoRPHine SULFATE INJ) 6 mg NOW STAT IV 01/04/18 17:01 01/04/18 17:02 DC 01/04/18 17:45 6 MG Morphine Sulfate (MoRPHine SULFATE INJ) 4 mg NOW STAT IV 01/04/18 19:44 01/04/18 19:45 DC 01/04/18 19:59 4 MG ED Course ED COURSE: Vital signs were reviewed and appeared normal. The patients medical record was reviewed The above diagnostic studies were performed and reviewed. ED treatments and interventions as stated above. 1654: The patient was evaluated in room B5. A complete history and physical examination was performed. 1700: Ordered Morphine Sulfate 6 mg IV, Zofran Inj 4 mg IV, Sodium Chloride 1000 ml @ 999 mls/hr IV. 1943: Ordered Morphine Sulfate 4 mg IV. 2015: Upon reevaluation, the patient is resting comfortably. I discussed my findings with the patient and she understands and agrees with the treatment plan. Based on the patients age, coexisting illnesses, exam and lab findings the decision to treat as an outpatient was made. The patient remained stable while under my care. The patient appeared well at the time of discharge. Medical Decision Differential diagnoses includes but is not limited to gastritis, peptic ulcer disease, GERD, gallbladder disease, pancreatitis, small bowel obstruction, acute coronary syndrome, pericarditis, ischemic bowel, irritable bowel disease, irritable bowel syndrome, appendicitis, diverticulitis, malignancy, hernia, urinary tract infection, torsion, perforation, trauma, infectious. Patient is a 67-year-old female that presents the ER for lower abdominal pain. She notes that she has had a constant persistent pain present since last June. She has been following with GI. She was admitted at that time and treated for diverticulitis. Since being discharged in June she has had a constant pain but she has had 2 flares of worsening pain 1 of them November, and the other today. In November she was treated with Cipro and Flagyl and had improvement of her symptoms. She has had an upper endoscopy and colonoscopy. Her colonoscopy showed polyps in her upper endoscopy which was performed about 2 weeks ago had a stomach polyp. Vitals are stable. Labs show a mild leukocytosis. BMP along with LFTs, bilirubin lipase is unremarkable. Lactic acid was normal. UA was contaminated with multiple epithelial cells. CT of the abdomen/pelvis shows a colitis. With her diarrhea, I do question if this is the cause of the colitis versus an early diverticulitis. I do not believe this is ischemic especially with a negative lactate. I discussed case with GI and they reviewed her previous colonoscopies. Dr. Chang had just recently scoped this patient and was familiar with her. He believes that this is likely start him in early diverticulitis due to her extensive diverticuli. They note that they can get this workup as an outpatient as long as she is comfortable with this or she could be admitted if needed. I rediscussed the case with patient and she would prefer to go home. I discussed case with her PCP who will follow her up as an outpatient as well. She was given Cipro and Flagyl prescription and dose while here in the ER. She was discharged with a short course of OxyIR. Patient has an appointment with her PCP tomorrow and in the morning. I did encourage her to keep this. She will start on a liquid diet, continue Cipro and Flagyl and any worsening of her symptoms return to the ER immediately. Discussed with Pt concerning signs and symptoms to watch out for. Pt was instructed to follow up with their PCP and discussed with the patient their option to return to the ED at anytime for persistent or worsening symptoms. The appropriate anticipatory guidance and out-patient management, including indications for return to the emergency department, were explained at length to the patient and understood. Medication Reconcilliation Current Medication List: was personally reviewed by me Blood Pressure Screening Patient's blood pressure: Elevated blood pressure Blood pressure disposition: Elevated BP felt to be situational Consults Time Called: 1944 Consulting Physician: Dr. Chang - GI Returned Call: 1950 I reviewed the patient's case with Charlene. He feels that the patient could be admitted or discharged based on how she is feeling. He is able to set up outpatient follow up if discharged. He recommends a course of antibiotics as well. Additional Consults: Time Called: 2014 Consulted Physician: Dr. Villanueva [facility] Returned Call: 2018 Additional Comments: I reviewed the patient's case with Dr. Villanueva. He will follow up with her as an outpatient. Impression Primary Impression: Abdominal pain Additional Impression: Colitis Scribe Attestation The scribe's documentation has been prepared under my direction and personally reviewed by me in its entirety. I confirm that the note above accurately reflects all work, treatment, procedures, and medical decision making performed by me. Departure Information Dispostion Home / Self-Care Prescriptions Ciprofloxacin Hcl (CIPRO) 500 Mg Tab 500 MG PO BID, #20 TAB Prov: Nikhil Shearer, DO 01/04/18 Metronidazole (FLAGYL) 500 Mg Tab 500 MG PO TID for 10 Days, #30 TAB Prov: Nikhil Shearer, DO 01/04/18 Referrals Primo Bojorquez M.D. (PCP) Forms HOME CARE DOCUMENTATION FORM, IMPORTANT VISIT INFORMATION Patient Instructions Abdominal Pain - [facility] Additional Instructions Please follow up with your primary care doctor with in the next 24 hours. Any worsening of your symptoms, please return to the ED immediately. This includes any fevers greater than 100.4, worsening pain, chest pain, shortness breath, persistent nausea, vomiting, unable to eat or drink, or any other concerning signs or symptoms from your standpoint. You were given medications during this visit that will inhibit your ability to drive, operate machinery and work. Please do NOT drive, operate machinery or work for the next 12hrs. You were also given a prescription for a narcotic. While taking this medication you should also not drive, operate machinery and or work. Please contact gastroenterology tomorrow as their number is listed below. Please also keep your appointment with your PCP tomorrow at 9 AM. Please reduce your diet to a liquid diet over the course of the next 24-48 hours. Problem Qualifiers Primary Impression: Abdominal pain Abdominal location: unspecified location Qualified Codes: R10.9 - Unspecified abdominal pain
[2018-01-04 21:13] VITALS: BP 130/72; PULSE 79; O2SAT 97
== END 2018-01-04 21:13 | disposition home or self-care (01) ==
LOC: C.EDB 16:50
DX: R10.30 Lower abdominal pain, unspecified (principal); K52.9 Noninfective gastroenteritis and colitis, unspecified; J45.909 Unspecified asthma, uncomplicated; Z87.01 Personal history of pneumonia (recurrent); Z98.51 Tubal ligation status; Z88.0 Allergy status to penicillin

== ENCOUNTER → 2018-02-17 | Outpatient (CLI) | payer OTHER ==
[~2018-02-17] MED LIST changes: +CIPR-255 PO
--- NOTE | 2018-02-17 14:12 | DIAGNOSTIC IMAGING REPORT ---
CT SCAN OF THE ABDOMEN AND PELVIS WITH IV CONTRAST CLINICAL HISTORY: Generalized abdominal pain. COMPARISON STUDY: Abdominal CT dated 01/04/2018 and 05/29/2014. TECHNIQUE: Following the IV administration of 94 cc of Optiray 320, CT scan of the abdomen and pelvis is performed from the lung bases to the proximal femora. Images are reviewed in the axial, sagittal, and coronal planes. IV contrast was administered without complication. A dose lowering technique was utilized adhering to the principles of ALARA. CT DOSE: 767.27 mGycm FINDINGS: Lung bases: The heart is top normal in size and without pericardial effusion. There is a 3 mm left lower lobe nodule seen image #58. This is unchanged from 2014 and of doubtful significance. The lung bases are otherwise clear noting dependent atelectasis. Liver: The contrast-enhanced liver is elongated, suggesting Johanna's lobe variant anatomy. The liver is otherwise normal in contour and attenuation. There is no intrahepatic biliary ductal dilatation. The hepatic veins and portal veins are patent. Gallbladder: Unremarkable. Spleen: Normal in size and attenuation. Pancreas: Moderately atrophic and grossly unremarkable. Adrenal glands: Unremarkable. Kidneys: There is asymmetric cortical atrophy and scarring identified in the right kidney as compared to the left. There is mild fullness of the collecting system bilaterally without navin hydronephrosis. The kidneys enhance symmetrically. Abdominal vasculature: The abdominal aorta is normal in course and caliber noting moderate to advanced atherosclerotic calcification. Stomach and bowel: There is a moderate to large hiatal hernia. Approximately half of the stomach is located in the thoracic cavity. The duodenum is normal in configuration. No bowel obstruction is seen. There is advanced colonic diverticulosis without CT evidence of acute diverticulitis there is no colonic wall thickening or pericolonic inflammation. Moderate fecal retention is identified. The appendix is well-visualized and normal. Peritoneum: There is no intraperitoneal free air or abdominal ascites. There is a small fat-containing umbilical hernia. Lymphadenopathy: None. Pelvic viscera: The bladder, uterus, and adnexa are normal as visualized. Skeletal structures: The skeletal structures are osteopenic. No lytic or blastic lesions are seen. IMPRESSION: 1. There are no acute infectious or inflammatory findings in the abdomen or pelvis. 2. Advanced colonic diverticulosis without CT evidence of acute diverticulitis. 3. Moderate constipation. 4. There is asymmetric cortical atrophy and scarring of the right kidney as compared to the left. 5. Moderate to large hiatal hernia. 6. Additional findings as above. Electronically signed by: Jeet Pennington M.D. 02/17/2018 2:11 PM Dictated Date/Time: 02/17/2018 2:05 PM
== END | disposition home or self-care (01) ==
LOC: C.CTS 13:30
PROVIDERS: ATTEND Colon & Rectal Surgery
DX: K58.9 Irritable bowel syndrome, unspecified (principal); K57.90 Diverticulosis of intestine, part unspecified, without perforation or abscess without bleeding; K59.00 Constipation, unspecified; N26.1 Atrophy of kidney (terminal); K44.9 Diaphragmatic hernia without obstruction or gangrene; Z88.0 Allergy status to penicillin

== ENCOUNTER → 2018-04-25 | Outpatient (CLI) | payer OTHER ==
--- NOTE | 2018-04-25 16:19 | MAMMOGRAPHY REPORT ---
ULTRASOUND OF LEFT BREAST: 04/25/2018 CLINICAL HISTORY: Patient reports continued intermittent episodes of brownish/bloody nipple left disc harge that she notices on her nightgown. A recent screening mammogram performed 04/11/2018 did not dem onstrate any new suspicious abnormality or calcifications in the left breast although further evaluat ion with targeted ultrasound was recommended to assess for a possible intraductal mass. COMPARISON: Comparison is made to exams dated: 04/11/2018 mammogram, 04/08/2017 mammogram, 04/07/2016 singh mogram, 03/31/2015 ultrasound, 02/18/2015 mammogram, and 02/15/2014 mammogram - [facility]. FINDINGS: Targeted ultrasound was performed in the periareolar and retroareolar left breast. There i s a slightly prominent focal duct in the 3:00 left breast, 1 cm from the nipple that contains both is oechoic and hypoechoic internal debris. This may explain the patient's nipple discharge and could re present a papilloma or possibly DCIS. Definitive characterization with an ultrasound-guided core bio psy is recommended. The longest segment of the visualized intraductal mass measures 2.9 cm in length , in the radial plane. IMPRESSION: ACR BI-RADS CATEGORY 4: SUSPICIOUS 1. There is a focally dilated duct containing internal debris versus mass in the 3:00 left breast, 1 cm from the nipple, measuring 2.9 x 0.3 mm. Further characterization with an ultrasound-guided core biopsy is recommended, as this could explain the patient's intermittent brownish/bloody nipple discha rge. These results and recommendations were discussed with the patient at the time of the exam. She tenta tively scheduled the biopsy prior to leaving our department. Hoda Barriga M.D. ay/:04/25/2018 14:53:33 Office Worker: RT Celestine(Kenrick)(M), [facility] letter sent: Abnormal 4/5 BI-RADS Code: ACR BI-RADS Category 4: Suspicious
== END | disposition home or self-care (01) ==
LOC: C.MAMM 10:20
PROVIDERS: ATTEND Internal Medicine
DX: N64.52 Nipple discharge (principal); N60.42 Mammary duct ectasia of left breast

== ENCOUNTER → 2018-05-08 | Outpatient (CLI) | payer OTHER ==
--- NOTE | 2018-05-08 10:51 | Discharge Instructions ---
Discharge Instructions Procedure Procedure Date: May 08, 2018. Reason for visit: Left Breast Mass In Setting of Nipple Discharge Discharge Discharge Date: May 08, 2018. Discharge Diagnosis: post left breast ultrasound guided core biopsy Instructions Activity Recommendations: Additional Limitations (see below) Return to School/Work: no limitations Recommended Home Diet: No Limitations Provider Instructions: ACTIVITY RECOMMENDATIONS: * No lifting, pushing, pulling or exercising the affected side for three days. RETURN TO SCHOOL/WORK: * You may return to work/school after the procedure, but do not perform any strenuous activities for 24 to 48 hours. MEDICATIONS: * Tylenol (two 325 mg) every four to six hours if needed for mild pain (if not allergic to Tylenol). DIET: * Resume previous diet. SPECIAL CARE INSTRUCTIONS: * Keep biopsy site dry for 24 hours. May shower after 24 hours, but do not soak (bathe) incision. May remove Tegaderm (plastic patch) 24 hours after procedure * Leave the steri-strips on for one week. Allow the steri-strips to fall off by themselves. If not off after one week, you may remove them. You may place a Bandaid crosswise over the strips, if desired. * Apply ice 10 minutes on and 10 minutes off as needed. * Wear a bra at bedtime to sleep more comfortably for 2-3 days. * Your referring physician should have the results after approximately 5 to 7 business days. * Call for unusual bleeding, fever, drainage, etc or if you have any questions call [phone] during normal business hours or after hours call Dr Barriga, . FOLLOW UP VISIT: Follow-up with Referring Physician as scheduled. Allergies Coded Allergies: Penicillins (Verified Allergy, Intermediate, HIVES, 01/04/18) Smitha Alexis Recommendations: Call your doctor if: * Temperature above 101 degrees * Pain not relieved by pain medicine ordered * There is increased drainage or redness from any incision * You have any unanswered questions or concerns. Your Doctors Instructions noted above were prepared by provider Hoda Barriga. Patient Signature Section: Patient Instructions Signature Page [employer] Patient (or Guardian) Signature/Date: I have read and understand the instructions given to me by my caregivers. Caregiver/RN/Doctor Signature/Date: The above-named patient and/or guardian has received patient instructions on this date. + Original Patient Signature Page (only) stays with chart. Please make copy for patient.
--- NOTE | 2018-05-08 15:10 | MAMMOGRAPHY REPORT ---
THIS REPORT HAS BEEN AMENDED. ULTRASOUND GUIDED BIOPSY LEFT BREAST: 05/08/2018 CLINICAL HISTORY: 68-year-old woman with intermittent bloody left nipple discharge presents for ultra sound-guided core biopsy of a focally dilated duct with internal mass versus debris in the 3:00 left breast. COMPARISON: Comparison is made to exams dated: 04/11/2018 mammogram, 04/08/2017 mammogram, 03/31/2015 ul trasound, 02/18/2015 mammogram, 02/15/2014 mammogram, and 02/14/2013 mammogram - [facility] enter. PATIENT CONSENT: The procedure, risks and benefits were discussed with the patient and informed conse nt was obtained both verbally and in writing. Specific risks to this procedure include: bleeding, in fection, puncture of adjacent structure, nontarget biopsy, sampling error, pain, metal allergy and me dication reaction. PROCEDURE DESCRIPTION: A time out was performed and the left breast was agreed as the site of biopsy. The skin was prepped and draped in the usual sterile fashion. The focally dilated duct with internal mass versus debris in the 3:00 left breast was chosen as the target for biopsy. Subcutaneous and int raparenchymal 1% buffered lidocaine, with and without epinephrine, was administered as local anesthes ia. A skin incision was made. Through the incision, for samples were taken with a 14 gauge Achieve b iopsy device. A ribbon shaped metallic marker was placed at the biopsy site. Hemostasis was achieved after manual compression. The patient tolerated the procedure well and there was no immediate complic ation. The samples were sent to the pathology department in an appropriately labeled container. Postprocedure left CC and ML tomosynthesis images were obtained. A new ribbon-shaped biopsy marker c lip is identified in the 3:00 middle one third of the left breast. No significant postbiopsy hematom a is seen. IMPRESSION: ULTRASOUND GUIDED BIOPSY Status post ultrasound guided core biopsy of the focally dilated duct with internal mass versus debri s in the 3:00 middle one third of the left breast, with ribbon-shaped biopsy marker clip placed at th e site. The patient will receive notification of the biopsy results from her referring physician. Hoda Barriga M.D. ay/:05/08/2018 12:11:15 Supervisor Microwave: Ruth Calderon, [facility] AMENDMENT: 05/10/2018 Hoda Barriga M.D. 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 The pathology results are benign and concordant with the imaging appearance. It is somewhat controve rsial whether all intraductal papillomas without atypical features, such as this case, require follow -up excisional biopsy. However, the patient is symptomatic with intermittent nipple discharge and th erefore would recommend surgical consultation for discussion of excisional biopsy/duct exploration to alleviate the patient's symptoms. Preoperative needle localization would be likely be needed.
--- NOTE | 2018-05-08 15:12 | MAMMOGRAPHY REPORT ---
UNILATERAL LEFT DIGITAL DIAGNOSTIC MAMMOGRAM TOMOSYNTHESIS: 05/08/2018 CLINICAL HISTORY: Status post ultrasound-guided core biopsy of a prominent duct with internal mass ve rsus debris in the 3:00 left breast. Patient reports intermittent left nipple discharge, sometimes bl oody. Please refer to the report from left breast ultrasound-guided core biopsy performed at the same time for full detail. IMPRESSION: POST PROCEDURE IMAGING FOR MARKER PLACEMENT Please refer to the report from left breast ultrasound-guided core biopsy performed at the same time for full detail. Some breast cancers are not detected with mammography. A negative mammographic report should not dawit y biopsy if a clinically suggestive mass is present. Hoda Barriga M.D. ay/:05/08/2018 10:53:08 Reference Archivist: Ruth Calderon, [facility] BI-RADS Code: Post Procedure Imaging For Marker Placement
== END | disposition home or self-care (01) ==
LOC: C.MAMM 09:45
PROVIDERS: ATTEND Internal Medicine
DX: D24.2 Benign neoplasm of left breast (principal)

== ENCOUNTER → 2018-05-22 | Outpatient (CLI) | payer OTHER ==
[~2018-05-22] MED LIST changes: -CIPR-255 PO; +HYDR-5688 PO
[2018-05-22 13:48] LABS: BASO % 0.9 %; BASO ABS # 0.06 K/uL (0-0.2); EOS % 14.2 %; EOS ABS # 0.91 K/uL (0-0.5); HEMATOCRIT 39.2 % (37-47); HEMOGLOBIN 12.6 g/dL (12.0-16.0); IG# 0.01 K/uL (0.00-0.02); LYMPH % 20.2 %; MEAN CELL VOLUME 84.8 fL (80-100); MEAN CORPUSCULAR HEMOGLOBIN 27.3 pg (25-34); MEAN CORPUSCULAR HGB CONC 32.1 g/dl (32-36); MEAN PLATELET VOLUME 9.5 fL (7.4-10.4); MONO % 9.5 %; MONO ABS # 0.61 K/uL (0.11-0.59); NEUT ABS # 3.54 K/uL (1.4-6.5); PLATELET COUNT 214 K/uL (130-400); RED CELL DISTRIBUTION WIDTH CV 14.6 % (11.5-14.5); RED CELL DISTRIBUTION WIDTH SD 45.2 fL (36.4-46.3); WHITE BLOOD COUNT 6.43 K/uL (4.8-10.8)
[2018-05-22 13:57] LABS: BLOOD UREA NITROGEN 22 mg/dl (7-18); CALCIUM 9.1 mg/dl (8.5-10.1); CARBON DIOXIDE 26 mmol/L (21-32); CREATININE 1.18 mg/dl (0.60-1.20); GLUCOSE 66 mg/dl (70-99); POTASSIUM 3.8 mmol/L (3.5-5.1); SODIUM 142 mmol/L (136-145)
== END | disposition home or self-care (01) ==
LOC: C.LABSPEC 13:26
PROVIDERS: ATTEND Surgery
DX: Z01.818 Encounter for other preprocedural examination (principal); D24.9 Benign neoplasm of unspecified breast

== ENCOUNTER 2018-11-18 00:57 | Inpatient (IN) ==
[2018-11-18] MEDS ORDERED: METOCLOPRAMIDE HCL INJ 5 MG/ML 2 ML VIAL IV STA (01:02)
[2018-11-18] MEDS ORDERED: HYDROmorphone INJ 0.5 MG/0.5 ML SYR IV STA (01:02)
[2018-11-18] MEDS ORDERED: SODIUM CHLORIDE 0.9% 500 ML IV SCH (01:15)
[2018-11-18 01:20] LABS: Basophils # (auto) 0.02 K/uL (0-0.2); Basophils % (auto) 0.1 %; Eosinophils # (auto) 0.01 K/uL (0-0.5); Eosinophils % (auto) 0.1 %; Hemoglobin 12.9 g/dL (12.0-16.0); Immature Granulocytes # (auto) 0.06 K/uL (0.00-0.02); Immature Granulocytes % (auto) 0.3 %; Lymphocytes % (auto) 15.6 %; Mean Corpuscular Hgb Conc 32.3 g/dL (32-36); Mean Corpuscular Volume 80.8 fL (80-100); Mean Platelet Volume 8.9 fL (7.4-10.4); Monocytes # (auto) 2.25 K/uL (0.11-0.59); Monocytes % (auto) 12.5 %; Neutrophils # (auto) 12.86 K/uL (1.4-6.5); Neutrophils % (auto) 71.4 %; Platelet Count 261 K/uL (130-400); RDW Standard Deviation 41.3 fL (36.4-46.3); Red Blood Count 4.95 M/uL (4.2-5.4)
[2018-11-18 01:29] LABS: iSTAT Creatinine 1.5 mg/dl (0.6-1.3); iSTAT Hemoglobin 13.6 g/dl (12.0-16.0); iSTAT Ionized Calcium 1.14 mmol/l (1.12-1.32)
[2018-11-18] MEDS ORDERED: ALBUTEROL 0.083% NEBU SOLN 3 ML VIAL NEB STA (01:30)
[2018-11-18 01:37] LABS: Alanine Aminotransferase 17 U/L (12-78); Albumin Level 3.3 gm/dl (3.4-5.0); Aspartate Aminotransferase 8 U/L (15-37); BUN Creatinine Ratio 21.7 (10-20); Blood Urea Nitrogen 33 mg/dl (7-18); Calcium 8.1 mg/dl (8.5-10.1); Carbon Dioxide 24 mmol/L (21-32); Chloride 106 mmol/L (98-107); Creatinine Clr Calc Pharmacy 34.2 ml/min; Est GFR (African American) 40.2; Est GFR (Non-African American) 34.7; Glucose 126 mg/dl (70-99); Potassium 3.9 mmol/L (3.5-5.1); Sodium 137 mmol/L (136-145)
[2018-11-18 01:42] LABS: Albumin Globulin Ratio 0.8 (0.9-2); Alkaline Phosphatase 69 U/L (45-117); Bilirubin,Total 0.7 mg/dl (0.2-1); Creatine Kinase 13 U/L (26-192); Creatine Kinase MB < 1.0 ng/ml (0.5-3.6); Globulin 3.9 gm/dl (2.5-4.0); Total Protein 7.2 gm/dl (6.4-8.2); Troponin I < 0.015 ng/ml (0-0.045)
[2018-11-18] MEDS ORDERED: IOVERSOL 100ml IV PRN (01:44)
[2018-11-18] MEDS: HYDROmorphone INJ 0.5 MG/0.5 ML SYR IV PRN ×9 (02:15→16:38)
[2018-11-18] MEDS ORDERED: metroNIDAZOLE 500 MG/100 ML BAG IV STA (02:23)
[2018-11-18] MEDS ORDERED: CIPROFLOXACIN 400 MG/200 ML BAG IV STA (02:23)
[2018-11-18] MEDS ORDERED: SODIUM CHLORIDE 0.9% 1000ML 1,000 ML IV ONE (02:30)
--- NOTE | 2018-11-18 03:37 | History & Physical Report ---
Date of Service November 18, 2018 Assessment & Plan (1) Perforated diverticulum: Patient with sigmoid diverticulitis with perforation and abscess. Presently she is hemodynamically. Abdominal pain 6/10 after dilaudid. Spoke with surgeon, no intervention at this time -Admit to med-surge with tele -Cipro 400mg IV BID -Flagyl 500mg IV q 8 -Zofran PRN nausea -Dilaudid PRN abdominal pain -Serial abdominal exams by nursing -Consult General Surgery - Appreciate assistance (2) GERD (gastroesophageal reflux disease): Stable. -Change Protonix to 40mg IV BID (3) Asthma: No respiratory distress at present. No wheezing noted on exam -Albuterol PRN F/E/N- NSS at 80mL/hr x 1 liter, monitor electrolytes and replete as needed, NPO for now Ppx - SCDs to bilateral LE, Protonix as above Code - DNR per discussion with patient Dispo - Admit to med-tele History of Present Illness Chief Complaint: Abdominal Pain Primary Care Provider: Primo Villanueva MD Patient is a 68yo female with history of diverticulosis, asthma, GERD, HLP presenting with acute abdominal pain. Pain began suddenly this AM while patient was at rest. Pain located in middle and right side of the abdomen. 10/ 10 in severity. Associated with nausea, vomiting x 1 episode, lightheadedness. No diarrhea. Last normal BM Tuesday AM. No additional complaints. Workup in the ER with sigmoid diverticulitis with 2.7cm abscess and scattered pneumoperitoneum consistent with perforation ER Course: NSS x 1 liter, Cipro x 400mg, Dilaudid, Flagyl, ALbuterol, Reglan Allergies Allergy/AdvReac Type Severity Reaction Status Date / Time Penicillins Allergy Intermediate HIVES Verified 11/18/18 02:14 Home Medications Home Medications Medication Instructions Recorded Confirmed Type albuterol sulfate 2.5 mg INHALATION QID PRN 11/18/18 11/18/18 History albuterol sulfate [ProAir HFA] 2 puff INHALATION Q4H PRN 11/18/18 11/18/18 History budesonide-formoterol [Symbicort] 2 puff INHALATION BID 11/18/18 11/18/18 History levofloxacin 500 mg PO DAILY 11/18/18 11/18/18 History montelukast 10 mg PO DAILY 11/18/18 11/18/18 History pantoprazole 40 mg PO BID 11/18/18 11/18/18 History prednisone 0 mg PO UD 11/18/18 11/18/18 History sertraline 100 mg PO DAILY 11/18/18 11/18/18 History simvastatin 20 mg PO HS 11/18/18 11/18/18 History Past Med/Surg History Medical History Ovarian cyst (Acute) Acute colitis (Acute) Vulvar itching (Acute) Asthma Diverticulitis GERD (gastroesophageal reflux disease) Hyperlipidemia Surgical History H/O breast surgery H/O tubal ligation History of back surgery Family History Other Family history non-contributory Social History marital status: Current Living Situation: Spouse current occupational status: retired Feels Safe at Home: Yes Smoking Status: Never smoker Hx Alcohol Use: Yes (social) Alcohol type: wine Hx Substance Use: No Preferred Language: Uzbek Review of Systems All systems reviewed & are unremarkable except as noted in HPI & below +Back pain Physical Exam 2 Vital Signs (Past 24 Hours): Last Vital Signs Temp 37.1 C 11/18/18 01:01 Pulse 96 H 11/18/18 02:32 Resp 18 11/18/18 03:03 BP 127/64 11/18/18 03:03 Pulse Ox 97 11/18/18 03:03 Physical Exam: General: patient resting, in mild distress secondary to pain, non-toxic in appearance, AA&O x 4 Skin: warm, dry, intact, no rashes or lesions HEENT: NC/AT, PERRL, EOMI, anicteric sclera, conjunctiva without injection, external ear normal to inspection and nontender, nares patent, moist mucus membranes, dentition intact, no oropharyngeal lesions, neck supple, trachea midline, no LAD, no thyromegaly, no JVD Heart: +S1/S2, regular, no m/r/g Lungs: equal air entry bilaterally, no rales/rhonchi/wheezes Abd: hypoactive bowel sounds, abdomen distended, firm, diffusely tender with voluntary guarding, no masses/organomegaly/ascites Ext: warm, 2+ pulses in UE/LE bilaterally, no clubbing/cyanosis or edema Neuro: nonfocal, patient AA&O x 4, speech intact, no facial droop, moving all extremities on command with equal strength 5/5 Results & Data Laboratory Results Lab Results 11/18/18 11/18/18 11/18/18 Range/Units 01:10 01:10 01:11 WBC 18.00 H (4.8-10.8) K/uL RBC 4.95 (4.2-5.4) M/uL Hgb 12.9 (12.0-16.0) g/dL POC Hgb 13.6 (12.0-16.0) g/dl Hct 40.0 (37-47) % POC Hct 40 (37-47) % MCV 80.8 (80-100) fL MCH 26.1 (25-34) pg MCHC 32.3 (32-36) g/dL RDW Std Deviation 41.3 (36.4-46.3) fL RDW Coeff of Guera 14.0 (11.5-14.5) % Plt Count 261 (130-400) K/uL MPV 8.9 (7.4-10.4) fL Immature Gran % (Auto) 0.3 % Neut % (Auto) 71.4 % Lymph % (Auto) 15.6 % Miller % (Auto) 12.5 % Eos % (Auto) 0.1 % Baso % (Auto) 0.1 % Immature Gran # (Auto) 0.06 H (0.00-0.02) K/uL Neut # (Auto) 12.86 H (1.4-6.5) K/uL Lymph # (Auto) 2.80 (1.2-3.4) K/uL Miller # (Auto) 2.25 H (0.11-0.59) K/uL Eos # (Auto) 0.01 (0-0.5) K/uL Baso # (Auto) 0.02 (0-0.2) K/uL POC Sodium 138 (135-144) mEq/L Sodium 137 (136-145) mmol/L POC Potassium 4.0 (3.3-5.0) mEq/L Potassium 3.9 (3.5-5.1) mmol/L POC Chloride 102 (101-112) mEq/L Chloride 106 (98-107) mmol/L Carbon Dioxide 24 (21-32) mmol/L POC Total CO2 24 (24-31) mEq/l Anion Gap 7.0 (3-11) POC Anion Gap 17.0 (16-25) mmol/L POC BUN 32 H (7-18) mg/dl BUN 33 H (7-18) mg/dl Creatinine 1.51 H (0.6-1.2) mg/dl POC Creatinine 1.5 H (0.6-1.3) mg/dl Est Cr Clr Drug Dosing 34.2 ml/min Est GFR ( Amer) 40.2 Est GFR (Non-Af Amer) 34.7 BUN/Creatinine Ratio 21.7 H (10-20) Glucose 126 H (70-99) mg/dl POC Glucose (other) 131 H (70-99) mg/dl Calcium 8.1 L (8.5-10.1) mg/dl POC Ioniz Calcium Sandro 1.14 (1.12-1.32) mmol/l Total Bilirubin 0.7 (0.2-1) mg/dl AST 8 L (15-37) U/L ALT 17 (12-78) U/L Alkaline Phosphatase 69 (45-117) U/L Total Creatine Kinase 13 L (26-192) U/L CK-MB (CK-2) < 1.0 (0.5-3.6) ng/ml CK/CKMB % Calc TNP Troponin I < 0.015 (0-0.045) ng/ml Total Protein 7.2 (6.4-8.2) gm/dl Albumin 3.3 L (3.4-5.0) gm/dl Globulin 3.9 (2.5-4.0) gm/dl Albumin/Globulin Ratio 0.8 L (0.9-2) Lipase 131 (73-393) U/L Diagnostic Findings CT Abdomen: Sigmoid diverticulitis with 2.7cm abscess and scattered pneumoperitoneum consistent with perforation. Large hiatal hernia. Normal appendix. No bowel obstruction ECG Additional Comments: NSR at 68bmp, normal axis and intervals, no acute ischemic changes Code Status & VTE Plan Code Status DNR per discussion with patient VTE Prophylaxis Plan VTE Prophylaxis will be ordered: Yes Critical Care Time Critical Care Time: No _ (1) GERD (gastroesophageal reflux disease) Esophagitis presence: esophagitis presence not specified Qualified Code(s): K21.9 - Gastro-esophageal reflux disease without esophagitis (2) Asthma Asthma severity: moderate Asthma persistence: persistent Asthma complication type: uncomplicated Qualified Code(s): J45.40 - Moderate persistent asthma, uncomplicated
[2018-11-18] MEDS ORDERED: ONDANSETRON INJ 2 MG/ML 2 ML VIAL IV PRN (04:24)
[2018-11-18] MEDS ORDERED: ALBUTEROL 0.083% NEBU SOLN 3 ML VIAL INH PRN (04:24)
[2018-11-18] MEDS ORDERED: ACETAMINOPHEN 65 ML IV PRN (04:24)
[2018-11-18] MEDS ORDERED: SODIUM CHLORIDE 0.9% 1000ML 1,000 ML IV SCH (04:45)
--- NOTE | 2018-11-18 06:44 | Emergency Department Note ---
Entered by Sonia Londono acting as a scribe for Gary Dejesus MD History of Present Illness General Chief complaint: Abdominal Pain Stated complaint: ABDOMINAL PAIN Time Seen by Provider: 11/18/18 01:02 Source: patient History of Present Illness Onset (ago): day(s) (this morning) Location: abdomen Pain Consistency: + other (worsening) Maximum Pain Intensity: 6 Relieved By: not by medication Associated symptoms: + nausea/vomiting, + shortness of breath and + other ( feeling like going to pass out) The patient is a 68 year old female who presents to the Emergency Room with complaints of worsening abdominal pain starting this morning. The patient states that the abdominal pain feels like it is all over her abdomen. She states that she tried taking [id number] medications, but it offered no relief. The patient complains of nausea, vomiting, feeling like she is going to pass out, and difficulty breathing. The patients daughter notes that she was put on Prednisone, Levaquin, and cough syrup 2 days ago for a cold and her asthma. The patient denies a history of abdominal surgeries and the use of blood thinners. She notes that she has a history of diverticulitis. Home Medications Home Medications Medication Instructions Recorded Confirmed Type albuterol sulfate 2.5 mg INHALATION QID PRN 11/18/18 11/18/18 History albuterol sulfate [ProAir HFA] 2 puff INHALATION Q4H PRN 11/18/18 11/18/18 History budesonide-formoterol [Symbicort] 2 puff INHALATION BID 11/18/18 11/18/18 History levofloxacin 500 mg PO DAILY 11/18/18 11/18/18 History montelukast 10 mg PO DAILY 11/18/18 11/18/18 History pantoprazole 40 mg PO BID 11/18/18 11/18/18 History prednisone 0 mg PO UD 11/18/18 11/18/18 History sertraline 100 mg PO DAILY 11/18/18 11/18/18 History simvastatin 20 mg PO HS 11/18/18 11/18/18 History Allergies Allergy/AdvReac Type Severity Reaction Status Date / Time Penicillins Allergy Intermediate HIVES Verified 11/18/18 02:14 Past Med/Surg History Family History Other Family history non-contributory Social History marital status: Current Living Situation: Spouse current occupational status: retired Other Information That Helps Us Care for You: No Feels Safe at Home: Yes Smoking Status: Unknown if ever smoked Hx Alcohol Use: No Hx Substance Use: No Beliefs That Will Affect Care: None Preferred Language: Scottish Communication Ability: Effective Temperer Required: No Review of Systems See HPI for pertinent positives & negatives. and A total of 10 systems reviewed and were otherwise negative Physical Exam Vital Signs Vital Signs - 24 hr 11/18/18 01:01 11/18/18 01:11 11/18/18 02:32 Temperature 37.1 C Temperature Source Oral Sepsis Recent Fever Within 48 Hours No Sepsis Action Taken by Nursing No Action Required Pulse Rate 68 Pulse Rate [Apical] 96 H Pulse Rate [Left Finger] Pulse Rhythm [Apical] Pulse Strength [Apical] Respiratory Rate 18 18 Respiratory Effort / Characteristics Non-Labored Spontaneous Non-Labored Respiratory Depth Normal Normal Respiratory Pattern Regular Blood Pressure 119/56 L Blood Pressure [Right Arm] 138/84 Blood Pressure Mean 77 Blood Pressure Mean [Right Arm] 102 Blood Pressure Position [Right Arm] Lying Pulse Oximetry 98 97 96 Oxygen Delivery Method Room Air Room Air Room Air Oxygen Flow Rate 11/18/18 03:03 11/18/18 03:30 11/18/18 04:17 Temperature 36.5 C Temperature Source Oral Sepsis Recent Fever Within 48 Hours Sepsis Action Taken by Nursing Pulse Rate Pulse Rate [Apical] 95 H Pulse Rate [Left Finger] 91 H Pulse Rhythm [Apical] Regular Regular Pulse Strength [Apical] Normal Normal Respiratory Rate 18 18 18 Respiratory Effort / Characteristics Non-Labored Non-Labored Spontaneous Respiratory Depth Normal Normal Respiratory Pattern Blood Pressure Blood Pressure [Right Arm] 127/64 107/69 125/77 Blood Pressure Mean Blood Pressure Mean [Right Arm] 85 81 93 Blood Pressure Position [Right Arm] Lying Pulse Oximetry 97 93 98 Oxygen Delivery Method Room Air Nasal Cannula Nasal Cannula Oxygen Flow Rate 2 2 11/18/18 04:30 Temperature Temperature Source Sepsis Recent Fever Within 48 Hours Sepsis Action Taken by Nursing Pulse Rate Pulse Rate [Apical] Pulse Rate [Left Finger] Pulse Rhythm [Apical] Pulse Strength [Apical] Respiratory Rate Respiratory Effort / Characteristics Non-Labored Spontaneous Respiratory Depth Normal Respiratory Pattern Regular Blood Pressure Blood Pressure [Right Arm] Blood Pressure Mean Blood Pressure Mean [Right Arm] Blood Pressure Position [Right Arm] Pulse Oximetry Oxygen Delivery Method Nasal Cannula Oxygen Flow Rate 2 GENERAL: Awake, alert, well-appearing, in no distress, actively vomiting on exam. HENT: Normocephalic, atraumatic. Oropharynx unremarkable. EYES: Normal conjunctiva. Sclera non-icteric. NECK: Supple. No nuchal rigidity. FROM. No masses. RESPIRATORY: Clear to auscultation. No wheezes. No rales. Normal respiratory effort. CARDIAC: Normal rate. Normal rhythm. No murmurs. No rubs. Extremities warm and well perfused. Pulses equal. No JVD. GI: Soft, non-distended. Diffuse tenderness to palpation. No rebound or guarding. No masses. RECTAL: Deferred. MUSCULOSKELETAL: Atraumatic. Chest examination reveals no tenderness. The back is symmetrical on inspection without obvious abnormality. There is no CVA tenderness to palpation. No joint edema. LOWER EXTREMITIES: Calves are equal size bilaterally and non-tender. No edema. No discoloration. NEURO: Normal sensorium. No sensory or motor deficits noted. Course 0058: Past medical records reviewed. The patient was evaluated in room A12B, and a complete history and physical examination were performed. 0223: I paged the General Surgeon at this time. 0229: I reevaluated the patient and updated her on her test results at this time. I discussed the treatment plan with her. She verbally agrees and understands. 0253: I discussed the patient's case with Dr. Wesley-General Surgeon. He states that the patient should be admitted to medicine. 0257: I reviewed the patient's case with Dr. Everett BAILEY Hospitalist. She will evaluate the patient for further management. Consultations Consultation #1: I discussed the patient's case with Dr. Wesley-General Surgeon. He states that the patient should be admitted to medicine. Time: 02:53 Consultation #2: I reviewed the patient's case with Dr. Everett BAILEY Hospitalist. She will evaluate the patient for further management. Time: 02:57 Administered Medications Hydromorphone HCl (Dilaudid) 0.5 mg IV Q2H PRN PRN Reason: Pain Stop: 12/02/18 04:23 Last Admin: 11/18/18 05:36 Dose: 0.5 mg Sodium Chloride (Nss 1000ml) 1,000 mls @ 80 mls/hr IV .[id number] MIRELA Stop: 11/18/18 17:14 Last Admin: 11/18/18 05:02 Dose: 80 mls/hr Discontinued Medications Albuterol (Ventolin 0.083% 2.5mg/3ml) 2.5 mg NEB NOW STA Stop: 11/18/18 01:31 Last Admin: 11/18/18 01:58 Dose: 2.5 mg Hydromorphone HCl (Dilaudid) 0.5 mg IV NOW STA Stop: 11/18/18 01:03 Last Admin: 11/18/18 01:20 Dose: 0.5 mg Hydromorphone HCl (Dilaudid) 0.5 mg IV Q15M PRN PRN Reason: Pain Stop: 12/02/18 02:12 Last Admin: 11/18/18 03:35 Dose: 0.5 mg Admin: 11/18/18 02:15 Dose: 0.5 mg Sodium Chloride (Nss) 500 mls @ 999 mls/hr IV .Q31M MIRELA Stop: 11/18/18 01:45 Last Infusion: 11/18/18 01:56 Dose: 0 mls/hr Admin: 11/18/18 01:20 Dose: 999 mls/hr Ciprofloxacin (Cipro) 400 mg in 200 mls @ 200 mls/hr IV NOW STA Stop: 11/18/18 03:22 Last Infusion: 11/18/18 06:00 Dose: 0 mls/hr Admin: 11/18/18 03:36 Dose: 200 mls/hr Metronidazole (Flagyl) 500 mg in 100 mls @ 100 mls/hr IV NOW STA Stop: 11/18/18 03:22 Last Infusion: 11/18/18 03:36 Dose: 0 mls/hr Infusion: 11/18/18 03:30 Dose: Admin: 11/18/18 02:32 Dose: 100 mls/hr Sodium Chloride (Nss 1000ml) 1,000 mls @ 999 mls/hr IV .Q1H1M ONE Stop: 11/18/18 03:30 Last Infusion: 11/18/18 04:50 Dose: 0 mls/hr Admin: 11/18/18 03:36 Dose: 999 mls/hr Ioversol (Optiray 320 100ml) 93 ml IV ONCE PRN PRN Reason: Interaction Checking Stop: 11/22/18 01:43 Last Admin: 11/18/18 01:44 Dose: 1 ml Metoclopramide HCl (Reglan) 10 mg IV NOW STA Stop: 11/18/18 01:03 Last Admin: 11/18/18 01:20 Dose: 10 mg Medical Decision Making Differential Diagnosis Differential diagnosis: Etiologies such as biliary colic, cholecystitis, hepatitis, perihepatitis, pancreatitis, cardiac disease, pancreatitis, gastritis, peptic ulcer disease, appendicitis, ovarian cyst, ovarian torsion, ectopic , pelvic inflammatory disease, cystitis, diverticulitis, mesenteric ischemia, inflammatory bowel disease, ileus, bowel obstruction, aortic pathology, shingles , as well as others were considered. Medical Records Attestation: I reviewed the patient's medical records. Home Medications Current Medication List: was personally reviewed by me Laboratory Data Attestation: I reviewed the patient's lab results. Result diagrams: 11/18/18 01:10 11/18/18 01:10 Lab Results 11/18/18 11/18/18 11/18/18 Range/Units 01:10 01:10 01:11 WBC 18.00 H (4.8-10.8) K/uL RBC 4.95 (4.2-5.4) M/uL Hgb 12.9 (12.0-16.0) g/dL POC Hgb 13.6 (12.0-16.0) g/dl Hct 40.0 (37-47) % POC Hct 40 (37-47) % MCV 80.8 (80-100) fL MCH 26.1 (25-34) pg MCHC 32.3 (32-36) g/dL RDW Std Deviation 41.3 (36.4-46.3) fL RDW Coeff of Guera 14.0 (11.5-14.5) % Plt Count 261 (130-400) K/uL MPV 8.9 (7.4-10.4) fL Immature Gran % (Auto) 0.3 % Neut % (Auto) 71.4 % Lymph % (Auto) 15.6 % Garvin % (Auto) 12.5 % Eos % (Auto) 0.1 % Baso % (Auto) 0.1 % Immature Gran # (Auto) 0.06 H (0.00-0.02) K/uL Neut # (Auto) 12.86 H (1.4-6.5) K/uL Lymph # (Auto) 2.80 (1.2-3.4) K/uL Garvin # (Auto) 2.25 H (0.11-0.59) K/uL Eos # (Auto) 0.01 (0-0.5) K/uL Baso # (Auto) 0.02 (0-0.2) K/uL POC Sodium 138 (135-144) mEq/L Sodium 137 (136-145) mmol/L POC Potassium 4.0 (3.3-5.0) mEq/L Potassium 3.9 (3.5-5.1) mmol/L POC Chloride 102 (101-112) mEq/L Chloride 106 (98-107) mmol/L Carbon Dioxide 24 (21-32) mmol/L POC Total CO2 24 (24-31) mEq/l Anion Gap 7.0 (3-11) POC Anion Gap 17.0 (16-25) mmol/L POC BUN 32 H (7-18) mg/dl BUN 33 H (7-18) mg/dl Creatinine 1.51 H (0.6-1.2) mg/dl POC Creatinine 1.5 H (0.6-1.3) mg/dl Est Cr Clr Drug Dosing 34.2 ml/min Est GFR ( Amer) 40.2 Est GFR (Non-Af Amer) 34.7 BUN/Creatinine Ratio 21.7 H (10-20) Glucose 126 H (70-99) mg/dl POC Glucose (other) 131 H (70-99) mg/dl Calcium 8.1 L (8.5-10.1) mg/dl POC Ioniz Calcium Sandro 1.14 (1.12-1.32) mmol/l Total Bilirubin 0.7 (0.2-1) mg/dl AST 8 L (15-37) U/L ALT 17 (12-78) U/L Alkaline Phosphatase 69 (45-117) U/L Total Creatine Kinase 13 L (26-192) U/L CK-MB (CK-2) < 1.0 (0.5-3.6) ng/ml CK/CKMB % Calc TNP Troponin I < 0.015 (0-0.045) ng/ml Total Protein 7.2 (6.4-8.2) gm/dl Albumin 3.3 L (3.4-5.0) gm/dl Globulin 3.9 (2.5-4.0) gm/dl Albumin/Globulin Ratio 0.8 L (0.9-2) Lipase 131 (73-393) U/L Imaging Data Attestation: I personally reviewed and interpreted this imaging study as follows : My Impression: 1 VIEW CHEST X-RAY: The results were interpreted by me. Cardiomegaly. No pneumonia, congestion, or pneumothoarx. Radiologist's Impression: Radiology results as stated below per my review and the radiologist's interpretation: CT ABDOMEN & PELVIS With Contrast: Sigmoid diverticulitis with 2.7 cm abscess and scattered foci of pneumoperitoneum. Consistent with perforated diverticulitis. Large hiatal hernia. Normal appendix. No ascites. No bowel obstruction. Radiologist: Imtiaz Dunn MD Study ready at 02:06 and initial results transmitted at 02:11. ECG Data Attestation: I personally reviewed and interpreted this ECG as follows: Indication: abdominal pain Rate (beats per minute): 68 Rhythm: normal sinus Findings: + other (normal EKG); no ST depression and no ST elevation Blood Pressure Blood Pressure Findings: Normal blood pressure Blood Pressure Disposition: did not require urgent referral MDM Narrative This is a 68-year-old female who presents emergency department complaining of severe abdominal pain. Patient was personally walked into the emergency department by myself and placed on the bed. She was found to have a grossly elevated white blood cell count she was recently placed on prednisone as well as Levaquin by her primary care physician. Using shared medical decision making both the patient and her daughter she was sent for a CAT scan the abdomen pelvis. This was concerning for perforated diverticulum. Based on this I did discuss the case with the on-call surgeon. He asked that the patient be admitted to the hospitalist service. Because the patient is allergic to penicillin she was started on Cipro and Flagyl. Patient and daughter were in agreement with the treatment plan. Impression & Plan Perforated diverticulum, Asthma, Acute colitis, Abdominal pain Discharge Plan Visit Data *Final* Discharge Date/Time: 11/18/18 03:52 Chief Complaint: Abdominal Pain Stated Complaint: ABDOMINAL PAIN ED Provider: Gary Dejesus Discharge Problem: Perforated diverticulum, Asthma, Acute colitis, Abdominal pain Patient Disposition: Admitted As Inpatient Discharge Instructions Interventions: ED Discharge Assessment Last Done: 11/18/18 03:52 The scribe's documentation has been prepared under my direction and personally reviewed by me in its entirety. I confirm that the note above accurately reflects all work, treatment, procedures, and medical decision making performed by me.
[2018-11-18 06:53] LABS: BUN Creatinine Ratio 22.7 (10-20); Calcium 7.6 mg/dl (8.5-10.1); Creatinine Clr Calc Pharmacy 35.2 ml/min; Est GFR (African American) 41.5; Est GFR (Non-African American) 35.8; Potassium 4.3 mmol/L (3.5-5.1)
--- NOTE | 2018-11-18 06:59 | Surgery Consultation ---
Date of Consultation November 18, 2018 68-year-old female with approximately 24-hour history of abdominal pain was admitted through the emergency room found to have localized abscess left lower quadrant approximately 2.2 cm in size and a few areas of pneumoperitoneum The patient has had a history of diverticular problem apparently was admitted one time in the past and was recommended surgery. The patient had colonoscopy approximately 2 years ago confirming diverticular disease and no other pathology last Tuesday the patient was started on prednisone Dosepak for respiratory ailment and she is continued on that. The patient stated that she had a normal bowel movement prior to experience abdominal pain without nausea no chills or fever Assessment & Plan (1) Diverticulitis: The patient will require surgery hopefully we can get her over this acute episode with IV antibiotics presently she is on Cipro Flagyl and her care was discussed with Dr. Murry and her daughter We will follow her clinically but at this time I would not recommend any surgery unless her clinical picture deteriorates Abscess up to 6 cm in size often respond to antibiotic therapy and she may need a follow-up CAT scan to either a major resolution or if any other significant changes Present on Admission?: Yes History of Present Illness Attending Physician: Angie Murry, Allergies Allergy/AdvReac Type Severity Reaction Status Date / Time Penicillins Allergy Intermediate HIVES Verified 11/18/18 02:14 Home Medications Home Medications Medication Instructions Recorded Confirmed Type albuterol sulfate 2.5 mg INHALATION QID PRN 11/18/18 11/18/18 History albuterol sulfate [ProAir HFA] 2 puff INHALATION Q4H PRN 11/18/18 11/18/18 History budesonide-formoterol [Symbicort] 2 puff INHALATION BID 11/18/18 11/18/18 History levofloxacin 500 mg PO DAILY 11/18/18 11/18/18 History montelukast 10 mg PO DAILY 11/18/18 11/18/18 History pantoprazole 40 mg PO BID 11/18/18 11/18/18 History prednisone 0 mg PO UD 11/18/18 11/18/18 History sertraline 100 mg PO DAILY 11/18/18 11/18/18 History simvastatin 20 mg PO HS 11/18/18 11/18/18 History Patient History Medical History Ovarian cyst (Acute) Acute colitis (Acute) Vulvar itching (Acute) Asthma Diverticulitis GERD (gastroesophageal reflux disease) Hyperlipidemia Surgical History H/O breast surgery H/O tubal ligation History of back surgery Family History Other Family history non-contributory Social History marital status: Current Living Situation: Spouse current occupational status: retired Other Information That Helps Us Care for You: No Feels Safe at Home: Yes Smoking Status: Unknown if ever smoked Hx Alcohol Use: No Hx Substance Use: No Beliefs That Will Affect Care: None Preferred Language: Estonian Communication Ability: Effective 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: No Review of Systems The patient has had a long-standing history of asthma with occasional flareups requiring steroid therapy 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 Physical Exam 2 Vital Signs (Past 24 Hours): Last Vital Signs Temp 36.5 C 11/18/18 04:17 Pulse 91 H 11/18/18 04:17 Resp 18 11/18/18 04:17 BP 125/77 11/18/18 04:17 Pulse Ox 98 11/18/18 04:17 Physical Exam: Patient is alert coherent in no distress complaining of abdominal pain Head is normocephalic sclera nonicteric oropharyngeal moist there is cervical lymphadenopathy lungs distant breath sounds heart normal sinus rhythm Abdomen significant voluntary guarding throughout with no localized tenderness Results & Data Laboratory Results Laboratory results were noted Diagnostic Findings CT scan reviewed Medications Administered Med list noted
[2018-11-18] MEDS: BUDESONIDE/FORMOTEROL FUMARATE 160/4.5 60 PUFFS/INHALER INH SCH (08:36)
--- NOTE | 2018-11-18 09:11 | Family Medicine Progress Note ---
Date of Service November 18, 2018 Assessment & Plan (1) Perforated diverticulum: 68 year old female with 2.2cm diverticular abscess with microperforation. She is currently hemodynamically stable and is on IV abx. (1) Perforated diverticulum w/ 2.2 cm diverticular abscess -Continue Cipro 400mg IV BID, Flagyl 500mg IV q 8 -Zofran PRN nausea -Dilaudid PRN abdominal pain -Serial abdominal exams by nursing -Consult General Surgery - they recommend continued IV abx at this time. If patient has worsening pain or any sign of vital instability then they will take her to the OR for surgery. (2) GERD (gastroesophageal reflux disease): - Stable, on 40mg protonix bid at home -Change Protonix to 40mg IV BID (3) Asthma: - Continue symbicort bid and albuterol prn - hold montelukast - patient was on PO prednisone and levaquin for respiratory infection, currently asymptomatic and with normal lungs sounds, therefore will hold for now (4) Hyperlipidemia - hold statin (5) Major depressive disorder - hold sertraline -Albuterol PRN F/E/N- Increase IVF to 110mls/hr maintenance, NPO for now Ppx - SCDs to bilateral LE, Protonix as above Code - DNR per discussion with patient Dispo - Admit to med-tele Supervising Physician Co-Signing Physician Notes Resident Physician Supervision Note: I independently interviewed and examined the patient and verified the carranza history and physical, reviewed labs and image studies, discussed the case with the resident Dr. Loaiza and agree with the findings and care plan. Patient became hypotensive with no urine output - was taken to OR later in the evening by surgery. Subjective Patient was seen at the bedside. She continues to have RLQ pain that she is says is relieved with IV pain medication. She did vomit once earlier but was without any blood in the vomit. She says she feels sleepy. She has remained NPO. She has not urinated or had a bowel movement thus far while in the hospital. She denies any fevers, chills, SOB, chest pain, headache, dizziness, or palpitations Physical Exam 2 Vital Signs (Past 24 Hours): Last Vital Signs Temp 37 C 11/18/18 07:33 Pulse 98 H 11/18/18 07:35 Resp 22 11/18/18 07:33 BP 121/75 11/18/18 07:33 Pulse Ox 98 11/18/18 07:33 Physical Exam: Gen: tired appearing but in no acute distress Abdomen: distended, moderately tender throughout without any rebound or guarding , No bowel sounds Lungs: clear to auscultation bilaterally without any wheezes or crackles Heart: RRR, no murmurs Lower extremities: no peripheral edema, strong peripheral pulses
--- NOTE | 2018-11-18 09:48 | CT Scan Report ---
CT OF THE ABDOMEN AND PELVIS WITH CONTRAST CLINICAL HISTORY: Diffuse abdominal pain. COMPARISON STUDY: CT of the abdomen and pelvis February 17, 2018. TECHNIQUE: Following IV administration of 93 mL of Optiray-320, axial images of the abdomen and pelvi s were obtained from the lung bases to the proximal femurs. Images were reviewed in the axial, sagitt al, and coronal planes. IV contrast was administered without complication. Automated exposure contro l was utilized for the study. A dose lowering technique was utilized adhering to the principles of A ASHOK. CT DOSE: 541.36 mGy.cm FINDINGS: A moderate sized hiatal hernia is noted. A small amount of pneumoperitoneum is present. The liver, spleen, adrenal glands, left kidney and pancreas are normal. There is marked right renal atro phy. Note is made of wall thickening of the mid sigmoid colon. There is an associated 2.7 cm fluid an d gas containing pericolonic focus of suggest phlegmon/developing abscess. There is associated pneumo peritoneum. This represents perforated diverticulitis. There is no evidence for a bowel obstruction. There are no suspicious osseous lesions. There is moderate plaque of the abdominal aorta which is nor mal in caliber. The appendix is normal. Extensive colonic diverticulosis is noted. IMPRESSION: Findings consistent with perforated acute sigmoid diverticulitis. Small amount of pneumo peritoneum with moderate pericolonic infiltration and an associated 2.7 cm fluid and gas containing p ericolonic focus which suggests phlegmon/developing diverticular abscess. Electronically signed by: Sharad Ocasio M.D. 11/18/2018 9:47 AM
--- NOTE | 2018-11-18 10:06 | XRay Report ---
XR chest 1V portable CLINICAL HISTORY: Chest Pain COMPARISON STUDY: Chest radiograph June 06, 2017. FINDINGS: A moderate sized hiatal hernia is noted. There is no pneumothorax or pleural effusion. Ther e is no consolidation or evidence for pulmonary edema. Note is made of mild to moderate cardiomegaly. IMPRESSION: 1. No acute cardiopulmonary findings. 2. Mild to moderate cardiomegaly. 3. Hiatal hernia. Electronically signed by: Sharad Ocasio M.D. 11/18/2018 10:05 AM
[2018-11-18] MEDS: PANTOprazole 40 MG in SYRINGE 0 ML IV SCH ×2 (10:11→22:16)
[2018-11-18] MEDS: metroNIDAZOLE 500 MG/100 ML BAG IV SCH ×2 (10:11→19:26)
[2018-11-18] MEDS: SODIUM CHLORIDE 0.9% 1000ML 1,000 ML IV SCH ×2 (10:16→21:43)
[2018-11-18 14:18] LABS: Hematocrit (blood only) 36.5 % (37-47); Hemoglobin 11.3 g/dL (12.0-16.0); Mean Corpuscular Volume 83.1 fL (80-100); Mean Platelet Volume 8.9 fL (7.4-10.4); Platelet Count 239 K/uL (130-400); RDW Coefficient of Variation 14.3 % (11.5-14.5); RDW Standard Deviation 43.3 fL (36.4-46.3); Red Blood Count 4.39 M/uL (4.2-5.4); White Blood Count 24.36 K/uL (4.8-10.8)
[2018-11-18 14:36] LABS: BUN Creatinine Ratio 19.2 (10-20); Calcium 7.3 mg/dl (8.5-10.1); Creatinine Clr Calc Pharmacy 25.2 ml/min; Est GFR (African American) 27.8; Est GFR (Non-African American) 23.9; Potassium 4.2 mmol/L (3.5-5.1)
[2018-11-18 14:37] LABS: Basophils # (auto) 0.01 K/uL (0-0.2); Immature Granulocytes # (auto) 0.09 K/uL (0.00-0.02); Immature Granulocytes % (auto) 0.4 %; Lymphocytes # (auto) 1.02 K/uL (1.2-3.4); Lymphocytes % (auto) 4.2 %; Monocytes # (auto) 3.09 K/uL (0.11-0.59); Monocytes % (auto) 12.7 %; Neutrophils # (auto) 20.15 K/uL (1.4-6.5); Neutrophils % (auto) 82.7 %
[2018-11-18] MEDS: CIPROFLOXACIN 400 MG/200 ML BAG IV SCH (15:56)
--- NOTE | 2018-11-18 17:01 | Surgery Progress Note ---
Date of Service November 18, 2018 Assessment & Plan (1) Diverticulitis: 11/18/18 5 pm since seen this am still has abd pain but abd exam bit softer heart rate up, wbc increased, creat up. will insert carreon, increase IV fluids, suspect will need to go to surgery may need Boinlla procedure forcomplex diverticulitis likely Hinchey 3-4 The patient will require surgery hopefully we can get her over this acute episode with IV antibiotics presently she is on Cipro Flagyl and her care was discussed with Dr. Murry and her daughter We will follow her clinically but at this time I would not recommend any surgery unless her clinical picture deteriorates Abscess up to 6 cm in size often respond to antibiotic therapy and she may need a follow-up CAT scan to either a major resolution or if any other significant changes Subjective complaining of abd pain not localized no nausea Physical Exam 2 Vital Signs (Past 24 Hours): Last Vital Signs Temp 36.4 C L 11/18/18 15:18 Pulse 116 H 11/18/18 15:18 Resp 22 11/18/18 15:18 BP 113/66 11/18/18 15:18 Pulse Ox 94 11/18/18 16:37 Physical Exam: generalized guarding slightly softer Constitutional: mouth dry Results & Data Laboratory Results increased wbc, increased creat
[2018-11-18] MEDS ORDERED: SODIUM CHLORIDE 0.9% 1000ML 500 ML IV ONE ×3 (17:12→22:00)
--- NOTE | 2018-11-18 17:53 | Surgery Progress Note ---
Date of Service November 18, 2018 Assessment & Plan (1) Diverticulitis: 11/18/18 5;45 pm talked with family at bedside they state she is not this withdrawn mentally( sleepy) given overall picture best we proceed with surgery now r and c explained to and daughter including open procedure and bonilla surgery posted at this time with hospital watch supervisor 11/18/18 5 pm since seen this am still has abd pain but abd exam bit softer heart rate up, wbc increased, creat up. will insert carreon, increase IV fluids, suspect will need to go to surgery may need Bonilla procedure forcomplex diverticulitis likely Hinchey 3-4 The patient will require surgery hopefully we can get her over this acute episode with IV antibiotics presently she is on Cipro Flagyl and her care was discussed with Dr. Murry and her daughter We will follow her clinically but at this time I would not recommend any surgery unless her clinical picture deteriorates Abscess up to 6 cm in size often respond to antibiotic therapy and she may need a follow-up CAT scan to either a major resolution or if any other significant changes Physical Exam 2 Vital Signs (Past 24 Hours): Last Vital Signs Temp 36.4 C L 11/18/18 15:18 Pulse 117 H 11/18/18 17:10 Resp 22 11/18/18 15:18 BP 90/42 L 11/18/18 17:10 Pulse Ox 94 11/18/18 17:10
[2018-11-18] MEDS ORDERED: fentaNYL citrate 100 MCG/2 ML VIAL ONE ×3 (18:19→20:05)
--- NOTE | 2018-11-18 18:38 | Anesthesiology Consultation ---
Date of Service November 18, 2018 Assessment & Plan (1) Encounter for pre-operative examination: Chart Review Chart Review: Acceptable Risk for Surgery (perforated diverticulitis) History Surgery Operation Date: 11/18/18 18:15 Proposed Procedures p Exploratory Laparotomy - Thanh Wesley MD, FACS Height/Weight Height: 5 ft 3 in Weight: 77.8 kg Allergies Allergy/AdvReac Type Severity Reaction Status Date / Time Penicillins Allergy Intermediate HIVES Verified 11/18/18 02:14 Medications Home Medications Medication Instructions Recorded Confirmed Last Taken albuterol sulfate 2.5 mg INHALATION QID PRN 11/18/18 11/18/18 Unknown albuterol sulfate [ProAir HFA] 2 puff INHALATION Q4H PRN 11/18/18 11/18/18 Unknown budesonide-formoterol [Symbicort] 2 puff INHALATION BID 11/18/18 11/18/18 Unknown levofloxacin 500 mg PO DAILY 11/18/18 11/18/18 Unknown montelukast 10 mg PO DAILY 11/18/18 11/18/18 Unknown pantoprazole 40 mg PO BID 11/18/18 11/18/18 Unknown prednisone 0 mg PO UD 11/18/18 11/18/18 Unknown sertraline 100 mg PO DAILY 11/18/18 11/18/18 Unknown simvastatin 20 mg PO HS 11/18/18 11/18/18 Unknown Active Medications Generic Name Dose Route Start Last Admin Trade Name Freq PRN Reason Stop Dose Admin Budesonide/Formoterol Fumarate 2 puffs 11/18/18 09:00 11/18/18 08:36 Symbicort 160mcg/4.5mcg INH 12/18/18 08:59 2 puffs BID MIRELA Administration Hydromorphone HCl 0.5 mg 11/18/18 10:09 11/18/18 16:38 Dilaudid IV 12/02/18 04:23 0.5 mg Q1HWA PRN Administration Pain Ciprofloxacin 400 mg in 200 mls @ 100 mls/hr 11/18/18 16:00 11/18/18 18:00 Cipro IV 11/28/18 15:59 Infused Q12H MIRELA Infusion Metronidazole 500 mg in 100 mls @ 100 mls/hr 11/18/18 10:00 11/18/18 11:11 Flagyl IV 11/28/18 09:59 Infused Q8H MIRELA Infusion Pantoprazole Sodium 40 mg/ 10 mls @ 5 mls/min 11/18/18 09:00 11/18/18 10:11 Syringe IV 12/18/18 08:59 5 mls/min BID MIRELA Administration Sodium Chloride 1,000 mls @ 175 mls/hr 11/18/18 09:30 11/18/18 16:56 Nss 1000ml IV 12/18/18 09:29 175 mls/hr .Q5H43M MIRELA Infusion Past Medical History Medical History Ovarian cyst (Acute) Acute colitis (Acute) Vulvar itching (Acute) Asthma Diverticulitis GERD (gastroesophageal reflux disease) Hyperlipidemia Past Family History Family History Other Family history non-contributory Past Surgical History Surgical History H/O breast surgery H/O tubal ligation History of back surgery Social History Smoking Status: Unknown if ever smoked Hx Alcohol Use: No Alcohol type: wine Hx Substance Use: No Physical Exam Vital Signs Last Vital Signs Temp 36.4 C L 11/18/18 15:18 Pulse 117 H 11/18/18 18:13 Resp 20 11/18/18 18:13 BP 90/54 L 11/18/18 18:13 Pulse Ox 96 11/18/18 18:13 Testing Electrocardiogram Date: 11/18/18 Findings: + NSR @ (68) Chest X-Ray Date: 11/18/18 Findings: + NAD and + other (hiatal hernia) Laboratory Results 11/18/18 13:59 11/18/18 13:59
[2018-11-18] MEDS ORDERED: BUPIVACAINE 0.5 % 5 MG/1 ML MPF 30ML VIAL ONE (18:46)
[2018-11-18] MEDS ORDERED: ALBUMIN HUMAN 5% 12.5 GM/250 ML VIAL IV ONE (19:38)
[2018-11-18] MEDS ORDERED: PROPOFOL IV EMULSION 10 MG/ML 20 ML VIAL IV ONE (19:51)
[2018-11-18] MEDS ORDERED: LIDOCAINE HCL 2% 2 ML VIAL/AMP(20MG/ML) INFIL ONE (19:51)
[2018-11-18] MEDS ORDERED: SUCCINYLCHOLINE 100MG/5ML SYR ONE (19:51)
[2018-11-18] MEDS ORDERED: ETOMIDATE 2 MG/ML 20 ML VIAL IV ONE (19:51)
[2018-11-18] MEDS ORDERED: CISATRACURIUM BESYLATE IV SOLN 2 MG/ML 10 ML VIAL IV ONE (19:51)
--- NOTE | 2018-11-18 20:24 | Critical Care Consultation ---
Date of Consultation November 18, 2018 Assessment & Plan (1) GERD (gastroesophageal reflux disease): (2) Asthma: (3) Perforation of sigmoid colon due to diverticulitis: 68yoF with hx of sigmoid diverticulosis, GERD, asthma, HLD and depression presented with acute abdominal pain at 2am today. Concern for septic shock in the setting of perforated sigmoid diverticulitis with abscess formation. Now s/ p exploratory laparotomy. Found to have feculent peritonitis. She had abdominal washout, partial sigmoid resection with colostomy and drain placement. NEURO: Sedated and intubated In the OR, received propofol, succinylcholine, nimbex, etomidate, and fentanyl Sedation: Versed drip RASS: 0 (goal -1) Pain Rx: Fentanyl, dilaudid and tylenol PRN CARDIAC/VASCULAR: Remains hypotensive with elevated HR. Concern for septic shock in the setting of peritonitis 2/2 sigmoid diverticulitis with perforation PMhx: HLD Initial EKG: rate 68 NSR and QTc 425 No ECHO found per record review Troponin < 0.015 Received about 4L NS bolus + maintenance On IVFs at 150mls/hr PULM: Intubated in the OR due to critical condition (hypoxic in the setting of septic shock) On Volume AC rate 16, TV 0.5L, peep 5, FiO2 30% CXR: no acute findings, mild-moderate cardiomegaly and hiatal hernia Pt had recent respiratory illness for which she received levaquin and prednisone On home symbicort and albuterol PRN GI: Perforated sigmoid diverticulitis with abscess formation s/p laparoscopy with abdominal washout for feculent peritonitis, partial sigmoid resection with colostomy Abdominal CT: perforated acute sigmoid diverticulitis, small amount of pneumoperitoneum with moderate pericolonic inflammation and 2.7cm abscess LFT and Lipase wnl On IV Cipro and flagyl and protonix On IVFs RENAL/LYTES: BOB in the setting of sepsis BUN/Cr 33/1.47 -> 39/2.05 Electrolytes wnl Received aggressive IVF rehydration On NS at 150mls/hr : Johnson in place with concentrated/dark yellow output ENDO: No hx of diabetes or thyroid disease BSG checks and SSI per ICU protocol HEME: Hgb 11.3 (baseline around 12) Coags wnl Continue to monitor CBC ID: Concern for septic shock in the setting of Perforated sigmoid diverticulitis with abscess formation. S/p surgery for source control WBC 24.3 On Flagyl and Cipro IV Continue to monitor CBC LINES: PIVs x 2 DVT prop: Heparin 5000u SQ Q12H Code: DNR Dispo: pending clinical improvement (4) HLD (hyperlipidemia): Supervising Physician Co-Signing Physician Notes Dr. Green was resident physician during care of patient. I separately evaluated patient for carranza portions of the history and the exam. I was present during the critical portion of medical decision making, and I discussed the case with the resident. I generally agree with the findings and plan. I discussed the patient with Dr. Wesley and anesthesia in the operating room. Patient had increasing urine output since arriving in the operating room was not requiring vasoactive support. It appears the patient has transversed into severe sepsis secondary to perforated viscus per general surgery there was feculent peritonitis. We will leave the patient intubated overnight secondary to presumptive large volume crystalloid resuscitation and anticipated fluid shifts. I have personally spent 35 minutes of critical care time in the direct management of this patient. This is a life/limb threatening event. This includes time spent evaluating patient, direct bedside care, chart review, placing orders, interpretation of diagnostic studies, discussion with consultants, patient, and/or family members regarding treatment decisions, as well as other required patient management activities. This time is exclusive of all separately billable procedures, and teaching time and separate from and in addition to any other critical care service time. History of Present Illness Attending Physician: Angie Murry, DO 68yoF with hx of sigmoid diverticulosis, GERD, asthma, HLD and depression presented with acute abdominal pain at 2am today. Abdominal pain had started while she was at rest. Pain was in mid to R side of her abdomen and 10/10 in severity. Associated with n/v, and dizziness. Pt had denied f/c. Pt had a normal BM 1 day prior and denied any hx of diarrhea. In the ED: She was HD stable. Found to have a WBC of 18 and BUN/Cr of 32/1.5. Abdominal CT was concerning for perforated acute sigmoid diverticulitis, small amount of pneumoperitoneum with moderate pericolonic inflammation and 2.7cm abscess. Surgery was consulted and recommended conservative management with antibiotics and IVFs. In the ED, she received IV cipro, and flagyl, IVFs, dilaudid, reglan and albuterol. She was admitted to the floor. Around 3pm, pt became HD unstable and likely went into septic shock despite receiving IVF boluses + maintenance. She was re-evaluated by general surgeon and taken to the OR for exploratory laparoscopy. Given her critical condition, she was intubated in the OR. She was found to have feculant peritonitis, had abdominal washout and sigmoid resection with colostomy and drain placement. Allergies Allergy/AdvReac Type Severity Reaction Status Date / Time Penicillins Allergy Intermediate HIVES Verified 11/18/18 02:14 Home Medications Home Medications Medication Instructions Recorded Confirmed Type albuterol sulfate 2.5 mg INHALATION QID PRN 11/18/18 11/18/18 History albuterol sulfate [ProAir HFA] 2 puff INHALATION Q4H PRN 11/18/18 11/18/18 History budesonide-formoterol [Symbicort] 2 puff INHALATION BID 11/18/18 11/18/18 History levofloxacin 500 mg PO DAILY 11/18/18 11/18/18 History montelukast 10 mg PO DAILY 11/18/18 11/18/18 History pantoprazole 40 mg PO BID 11/18/18 11/18/18 History prednisone 0 mg PO UD 11/18/18 11/18/18 History sertraline 100 mg PO DAILY 11/18/18 11/18/18 History simvastatin 20 mg PO HS 11/18/18 11/18/18 History Patient History Medical History Ovarian cyst (Acute) Acute colitis (Acute) Vulvar itching (Acute) Asthma Diverticulitis GERD (gastroesophageal reflux disease) Hyperlipidemia Surgical History H/O breast surgery H/O tubal ligation History of back surgery Family History Other Family history non-contributory Social History marital status: Current Living Situation: Spouse current occupational status: retired Other Information That Helps Us Care for You: No Feels Safe at Home: Yes Smoking Status: Unknown if ever smoked Hx Alcohol Use: No Hx Substance Use: No Beliefs That Will Affect Care: None Preferred Language: Bur[place]ian Communication Ability: Effective Bulk Coolers Installer Required: No Review of Systems Limited due to pt being intubated and sedated Physical Exam 2 Vital Signs (Past 24 Hours): Last Vital Signs Temp 36.4 C L 11/18/18 15:18 Pulse 117 H 11/18/18 18:13 Resp 20 11/18/18 18:13 BP 90/54 L 11/18/18 18:13 Pulse Ox 96 11/18/18 18:13 Physical Exam: General: Intubated and sedated CV: RRR no m/r/g Pulm: CTAB, coarse but equal breath sounds bilaterally (intubated) Abdomen: +BS, distended, soft, no response to palpation in all quadrants, surgical site dressing C/D/I, colostomy bag empty, rafita drain with about 75cc of sanguinous output LE: no LE edema Results & Data Laboratory Results Abnormal lab results 11/18/18 11/18/18 11/18/18 Range/Units 01:10 01:10 01:11 WBC 18.00 H (4.8-10.8) K/uL Hgb (12.0-16.0) g/dL Hct (37-47) % MCHC (32-36) g/dL Immature Gran # (Auto) 0.06 H (0.00-0.02) K/uL Neut # (Auto) 12.86 H (1.4-6.5) K/uL Lymph # (Auto) (1.2-3.4) K/uL [place] # (Auto) 2.25 H (0.11-0.59) K/uL Chloride (98-107) mmol/L POC BUN 32 H (7-18) mg/dl BUN 33 H (7-18) mg/dl Creatinine 1.51 H (0.6-1.2) mg/dl POC Creatinine 1.5 H (0.6-1.3) mg/dl BUN/Creatinine Ratio 21.7 H (10-20) Glucose 126 H (70-99) mg/dl POC Glucose (other) 131 H (70-99) mg/dl Calcium 8.1 L (8.5-10.1) mg/dl AST 8 L (15-37) U/L Total Creatine Kinase 13 L (26-192) U/L Albumin 3.3 L (3.4-5.0) gm/dl Albumin/Globulin Ratio 0.8 L (0.9-2) 11/18/18 11/18/18 11/18/18 Range/Units 05:43 13:59 13:59 WBC 24.36 H (4.8-10.8) K/uL Hgb 11.3 L (12.0-16.0) g/dL Hct 36.5 L (37-47) % MCHC 31.0 L (32-36) g/dL Immature Gran # (Auto) 0.09 H (0.00-0.02) K/uL Neut # (Auto) 20.15 H (1.4-6.5) K/uL Lymph # (Auto) 1.02 L (1.2-3.4) K/uL [place] # (Auto) 3.09 H (0.11-0.59) K/uL Chloride 111 H (98-107) mmol/L POC BUN (7-18) mg/dl BUN 33 H 39 H (7-18) mg/dl Creatinine 1.47 H 2.05 H D (0.6-1.2) mg/dl POC Creatinine (0.6-1.3) mg/dl BUN/Creatinine Ratio 22.7 H (10-20) Glucose 138 H (70-99) mg/dl POC Glucose (other) (70-99) mg/dl Calcium 7.6 L 7.3 L (8.5-10.1) mg/dl AST (15-37) U/L Total Creatine Kinase (26-192) U/L Albumin (3.4-5.0) gm/dl Albumin/Globulin Ratio (0.9-2) Diagnostic Findings CT OF THE ABDOMEN AND PELVIS WITH CONTRAST CLINICAL HISTORY: Diffuse abdominal pain. COMPARISON STUDY: CT of the abdomen and pelvis February 17, 2018. TECHNIQUE: Following IV administration of 93 mL of Optiray-320, axial images of the abdomen and pelvis were obtained from the lung bases to the proximal femurs. Images were reviewed in the axial, sagittal, and coronal planes. IV contrast was administered without complication. Automated exposure control was utilized for the study. A dose lowering technique was utilized adhering to the principles of ALARA. CT DOSE: 541.36 mGy.cm FINDINGS: A moderate sized hiatal hernia is noted. A small amount of pneumoperitoneum is present. The liver, spleen, adrenal glands, left kidney and pancreas are normal. There is marked right renal atrophy. Note is made of wall thickening of the mid sigmoid colon. There is an associated 2.7 cm fluid and gas containing pericolonic focus of suggest phlegmon/developing abscess. There is associated pneumoperitoneum. This represents perforated diverticulitis. There is no evidence for a bowel obstruction. There are no suspicious osseous lesions. There is moderate plaque of the abdominal aorta which is normal in caliber. The appendix is normal. Extensive colonic diverticulosis is noted. IMPRESSION: Findings consistent with perforated acute sigmoid diverticulitis. Small amount of pneumoperitoneum with moderate pericolonic infiltration and an associated 2.7 cm fluid and gas containing pericolonic focus which suggests phlegmon/developing diverticular abscess. XR chest 1V portable CLINICAL HISTORY: Chest Pain COMPARISON STUDY: Chest radiograph June 06, 2017. FINDINGS: A moderate sized hiatal hernia is noted. There is no pneumothorax or pleural effusion. There is no consolidation or evidence for pulmonary edema. Note is made of mild to moderate cardiomegaly. IMPRESSION: 1. No acute cardiopulmonary findings. 2. Mild to moderate cardiomegaly. 3. Hiatal hernia. Resident Activity Tracking Resident Involvement: Resident Care Provided Care Provided: [facility] _ (1) GERD (gastroesophageal reflux disease) Esophagitis presence: esophagitis presence not specified Qualified Code(s): K21.9 - Gastro-esophageal reflux disease without esophagitis (2) Asthma Asthma complication type: unspecified Asthma persistence: unspecified Asthma severity: unspecified severity Qualified Code(s): J45.909 - Unspecified asthma, uncomplicated
--- NOTE | 2018-11-18 20:48 | Post Operative Brief Note ---
Immediate Post Op Note v1 Date of Surgery November 18, 2018 Pre & Post Diagnosis Operation Date: 11/18/18 18:15 Pre-Op Diagnosis: PERFORATED DIVERTICULI Post-Op Diagnosis: PERFORATED DIVERTICULI Procedure Operation Date: 11/18/18 18:15 Actual Procedures p Exploratory Laparotomy, Sigmoid Colon Resection, Abdominal Washout ([place]illa Procedure)(Not Applicable) - Thanh Wesley MD, FACS Surgeon Thanh Wesley MD, FACS Film Coater 0 Estimated Blood Loss 100 Findings Consistent with Post-Op Diagnosis Drains Pedro Drain (19 round) and [place] Drain
--- NOTE | 2018-11-18 21:18 | Operative Report ---
Post Operative Report Pre & Post Diagnosis Operation Date: 11/18/18 18:15 Pre-Op Diagnosis: PERFORATED DIVERTICULI Post-Op Diagnosis: PERFORATED DIVERTICULI Procedure Operation Date: 11/18/18 18:15 Actual Procedures p Exploratory Laparotomy, Sigmoid Colon Resection, Abdominal Washout (Bonilla Procedure)(Not Applicable) - Thanh Wesley MD, FACS The patient was brought into the operating room theater general endotracheal anesthesia the abdomen was prepped Betadine solution and properly draped the patient has been on antibiotics a timeout was had an incision was made from below the umbilicus to the symphysis pubis midline deepened to subcutaneous tissue patient had approximately 3 inches of subcu texture fatty tissue we entered the midline into the abdomen once we entered the abdomen there was purulent fluid appreciated we suctioned it out until cultures we needed to enlarge the incision which we did went to the left of the umbilicus the patient had a very tiny umbilical hernia and an adhesive band from the previous laparoscopy and above any incision of the umbilicus at this point we had analgesic anesthesia relax the patient then we were able to suction out the pelvic area placed the [place] retraction for appropriate blades were placed and we worked on her way down towards the sigmoid colon and the pelvic area usually mostly blunt dissection the area was very thickened as we were exposed the pelvic area with the [place] we were able then to see a large opening in the sigmoid colon right proximal to the rectosigmoid area were large diverticula appearing a perforated there was some ischemia noted at the line of resection of a perforation patient also had 2 large fecal all balls approximately 2 mm in size 2 cm in size into the pelvic area were able then to create a window at the rectosigmoid junction using a TA 60 we divided the area and use of intestinal clamp to control the sigmoid proximally then we took the mesentery down to the anterior sigmoid colon mobilizing the white line of [place] so we had enough immobilization to do an end colostomy. Prior to doing this we then we irrigated the abdomen copiously subdiaphragmatic area intra-abdominal he multiple times all the return of the fluid was clear. We checked hemostasis on the pelvic area and appears satisfactory. I then used a 2-0 Prolene suture to elevate the staple line down the rectum to the peritoneal sidewall so we will easily find it when we closed the colostomy. The this point in opening the size of a quarter was made senior care between the umbilicus and the anterior superior iliac crest on the left lower quadrant we took the subcutaneous tissue fat it went down to the external Bleich fascia which we cruciate ligament and opened it could accommodate about 3 fingers we at this point then brought up the sigmoid colon through that area without any difficulty. We then at this point matured with mature the sigmoid colon at the end actually we had fired a TA 60 another application prior to bringing the through the abdominal wall where we had resected approximately 1 foot of sigmoid colon. The the omentum was placed down in the pelvic area after we had copiously washed out the abdomen placed a Pedro drain 19 round towards the right lower quadrant was done in the cul-de-sac which extension down to the left lower quadrant. This was attached to skin edge with 2-0 silk suture. The abdomen was then closed by retention sutures of [place] that would be tied over rubber bolsters these were inserted first then the peritoneum operative fascia was closed with #1 PDS continuous fashion starting one cephalad and one caudad and tied in the middle we also used 1/4 inch or half inch [place] in the subcu and the incision suturing approximately the distal end of it with 3-0 silk suture petey were used to control the close the incision then we tied the retention suture there were approximately placed in the 1 inch apart over bolsters. At this point we then turned our attention to mature the colostomy which we did using 3-0 chromic suture colostomy was viable. Once we completed this we applied the bowel back to the area. Also of note when we were in the abdomen will be doing a washout we positioned the NG tube by feel into the stomach. The procedure was tolerated well by the patient estimated blood loss approximately 100 cc the patient was taken recovery room in good condition she is a bit red viable but we will keep her intubated intubated overnight. Surgeon Thanh Wesley MD, FACS Manager Visual 0 Estimated Blood Loss 100 Findings Consistent with Post-Op Diagnosis Specimens sigmoid colon Description of Procedure merda I attest to the content of the Intraoperative Record and any orders documented therein. Any exceptions are noted below.
[2018-11-18] MEDS ORDERED: fentaNYL citrate 100 MCG/2 ML VIAL IV PRN (21:28)
[2018-11-18] MEDS ORDERED: MIDAZOLAM HCL 1 MG/ML 2ML VIAL IV PRN ×2 (21:28→21:30)
[2018-11-18] MEDS ORDERED: ICU PROTOCOL FOR HYPERGLYCEMIA PRN (21:28)
[2018-11-18] MEDS ORDERED: MIDAZOLAM HCL 1 MG/ML 2ML VIAL ONE (21:33)
--- NOTE | 2018-11-18 21:39 | Anesthesiology Progress Note ---
Date of Service November 18, 2018 Anesthesia Post Procedure Vital Signs Vital Signs: Temp Pulse Pulse Pulse Resp BP BP 11/18/18 21:23 120 H 16 11/18/18 18:13 117 H 20 90/54 L 11/18/18 17:10 117 H 90/42 L 11/18/18 16:37 11/18/18 15:18 36.4 C L 116 H 22 113/66 11/18/18 11:49 37.0 C 84 18 108/72 11/18/18 07:35 98 H 11/18/18 07:33 37 C 105 H 22 121/75 11/18/18 04:17 36.5 C 91 H 18 125/77 11/18/18 03:30 95 H 18 107/69 11/18/18 03:03 18 127/64 11/18/18 02:32 96 H 18 138/84 11/18/18 01:11 11/18/18 01:01 37.1 C 68 18 119/56 L Pulse Ox 11/18/18 21:23 100 11/18/18 18:13 96 11/18/18 17:10 94 11/18/18 16:37 94 11/18/18 15:18 87 L 11/18/18 11:49 94 11/18/18 07:35 11/18/18 07:33 98 11/18/18 04:17 98 11/18/18 03:30 93 11/18/18 03:03 97 11/18/18 02:32 96 11/18/18 01:11 97 11/18/18 01:01 98 Pain Intensity Abdomen: Pain Intensity: 6 Notes Mental Status: see notes below Patient Amnestic to Procedure: Yes Nausea / Vomiting: adequately controlled Pain: adequately controlled Airway Patency, RR, SpO2: see Notes below BP & HR: stable & adequate Hydration State: stable & adequate Anesthetic Complications: no major complications apparent and see Notes below Notes: patient kept intubated and sedated and she had a large bowel surgery and fluid shifts expected that could affect her respiratory status. full report given to ICU nirse, icu attending and icu attending. questions answered. patient in stable condition upon icu resuming her care
[2018-11-18 21:57] LABS: INR 1.1 (0.9-1.1); Prothrombin Time 10.8 Seconds (9.0-12.0)
[2018-11-18] MEDS: MIDAZOLAM HCL 125 MG/250 ML BAG IV SCH (22:05)
[2018-11-18] MEDS ORDERED: SODIUM CHLORIDE 0.9% 500 ML IV ONE (22:47)
[2018-11-18] MEDS: fentaNYL citrate 100 MCG/2 ML VIAL IV PRN (23:37)
[2018-11-19] MEDS ORDERED: SODIUM CHLORIDE 0.9% 500 ML IV ONE (00:02)
[2018-11-19] MEDS: fentaNYL citrate 100 MCG/2 ML VIAL IV PRN ×5 (01:19→13:21)
[2018-11-19] MEDS: metroNIDAZOLE 500 MG/100 ML BAG IV SCH ×3 (02:33→17:53)
[2018-11-19] MEDS ORDERED: SODIUM CHLORIDE 0.9% 1000ML 1,000 ML IV ONE ×3 (03:45→06:29)
--- NOTE | 2018-11-19 04:47 | Critical Care Progress Note ---
Date of Service November 19, 2018 Assessment & Plan (1) GERD (gastroesophageal reflux disease): (2) Asthma: (3) Perforation of sigmoid colon due to diverticulitis: 68yoF with hx of sigmoid diverticulosis, GERD, asthma, HLD and depression presented with acute abdominal pain at 2am on 11/18. Concern for septic shock in the setting of perforated sigmoid diverticulitis with abscess formation. Now s/ p exploratory laparotomy on 11/18. Found to have feculent peritonitis. She had abdominal washout, partial sigmoid resection with colostomy and drain placement. NEURO: Sedated and intubated In the OR, received propofol, succinylcholine, nimbex, etomidate, and fentanyl Sedation: Versed drip RASS: 0 (goal -1) Pain Rx: Fentanyl, dilaudid and tylenol PRN CARDIAC/VASCULAR: Hypotension and HR improving. Concern for septic shock in the setting of peritonitis 2/2 sigmoid diverticulitis with perforation/abscess and significant volume loss in the setting of bowel surgery. PMhx: HLD Initial EKG: rate 68 NSR and QTc 425 No ECHO found per record review Troponin < 0.015 Received 4.5L NS bolus ON On NS at 150mls/hr PULM: Intubated in the OR due to critical condition (hypoxic in the setting of septic shock) On Volume AC rate 16, TV 0.5L, peep 5, FiO2 30% CXR: no acute findings, mild-moderate cardiomegaly and hiatal hernia Repeat CXR: mild pulmonary vascular congestion Pt had recent respiratory illness for which she received levaquin and prednisone On home symbicort and albuterol PRN GI: Perforated sigmoid diverticulitis with abscess formation s/p laparoscopy with abdominal washout for feculent peritonitis, partial sigmoid resection with colostomy placement; mild LFT abnormality likely shock liver Abdominal CT: perforated acute sigmoid diverticulitis, small amount of pneumoperitoneum with moderate pericolonic inflammation and 2.7cm abscess LFT: TB 1.6, DB 0.5, AST 43 Lipase wnl On IV Cipro and flagyl and protonix On IVFs RENAL/LYTES: BOB in the setting of sepsis BUN/Cr 33/1.47 -> 39/2.05 -> 36/2.12 Hypomagnesemia 1.3, 2g of Mag sulfate ordered UOP 330cc. Net +5.5L Received aggressive IVF rehydration, since ICU admission 4.5L NS bolus + maintenance On NS at 150mls/hr : Johnson in place with concentrated/dark yellow output ENDO: No hx of diabetes or thyroid disease BSG checks and SSI per ICU protocol HEME: Hgb 11.3 ->9.6 post abdominal surgery (baseline around 12) Coags wnl Continue to monitor CBC ID: Concern for septic shock in the setting of Perforated sigmoid diverticulitis with abscess formation. S/p surgery for source control WBC 24.3 --> 12.2 Abdominal Cx and Gram stain pending On Flagyl and Cipro IV Continue to monitor CBC LINES: PIVs x 2 DVT prop: Heparin 5000u SQ Q12H Code: DNR Dispo: pending clinical improvement (4) HLD (hyperlipidemia): Supervising Physician Co-Signing Physician Notes Dr. Green was resident physician during care of patient. I separately evaluated patient for carranza portions of the history and the exam. I was present during the critical portion of medical decision making, and I discussed the case with the resident. I generally agree with the findings and plan. Creatinine continued to elevate however mildly hopefully we are reaching a ryan. Hoping to extubate later today. Continue broad-spectrum antibiotics until culture results will allow us to narrow. Continue Cipro Flagyl. Rechecking labs at approximately noon which will include a lactate. Added Levophed as a do not want to overload the patient with crystalloid, the patient has had marginal urine output. Continuing crystalloid at 150 mL's per hour. I have personally spent 85 minutes of critical care time in the direct management of this patient. This is a life/limb threatening event. This includes time spent evaluating patient, direct bedside care, chart review, placing orders, interpretation of diagnostic studies, discussion with consultants, patient, and/or family members regarding treatment decisions, as well as other required patient management activities. This time is exclusive of all separately billable procedures, and teaching time and separate from and in addition to any other critical care service time. Subjective Received 4.5L of IVF NS over night in addition to NS 150ml/hr. Remains tachycardic and hypotensive. BP 80-100s/30s-40s. HR up to 120s. Remains intubated on versed drip and fentanyl for pain control. CPAP trial this AM. Opens eyes briefly to verbal and physical stimuli. Physical Exam 2 Vital Signs (Past 24 Hours): Last Vital Signs Temp 36.9 C 11/18/18 21:55 Pulse 118 H 11/19/18 02:14 Resp 19 11/19/18 02:14 BP 122/44 L 11/18/18 21:56 Pulse Ox 100 11/19/18 02:14 Physical Exam: General: Intubated and sedated CV: RRR no m/r/g Pulm: CTAB, coarse but equal breath sounds bilaterally (intubated) Abdomen: hypoactive BS, distended, opens eyes to abdominal palpation and guards , surgical site dressing with mild bleeding on dressing but intact, colostomy bag with small amount of sanginous output, rafita drain with about 75cc of serosanguinous output LE: no LE edema, no calf TTP Results & Data Laboratory Results Abnormal lab results 11/18/18 11/18/18 11/18/18 Range/Units 05:43 13:59 13:59 WBC 24.36 H (4.8-10.8) K/uL RBC (4.2-5.4) M/uL Hgb 11.3 L (12.0-16.0) g/dL Hct 36.5 L (37-47) % MCHC 31.0 L (32-36) g/dL Immature Gran # (Auto) 0.09 H (0.00-0.02) K/uL Neut # (Auto) 20.15 H (1.4-6.5) K/uL Lymph # (Auto) 1.02 L (1.2-3.4) K/uL Wilbarger # (Auto) 3.09 H (0.11-0.59) K/uL Chloride 111 H (98-107) mmol/L Carbon Dioxide (21-32) mmol/L BUN 33 H 39 H (7-18) mg/dl Creatinine 1.47 H 2.05 H D (0.6-1.2) mg/dl BUN/Creatinine Ratio 22.7 H (10-20) Glucose 138 H (70-99) mg/dl Calcium 7.6 L 7.3 L (8.5-10.1) mg/dl Magnesium (1.8-2.4) mg/dl Total Bilirubin (0.2-1) mg/dl Direct Bilirubin (0-0.2) mg/dl AST (15-37) U/L Alkaline Phosphatase (45-117) U/L Total Protein (6.4-8.2) gm/dl Albumin (3.4-5.0) gm/dl Globulin (2.5-4.0) gm/dl 11/19/18 11/19/18 Range/Units 04:12 04:12 WBC 12.25 H D (4.8-10.8) K/uL RBC 3.71 L (4.2-5.4) M/uL Hgb 9.6 L (12.0-16.0) g/dL Hct 31.4 L (37-47) % MCHC 30.6 L (32-36) g/dL Immature Gran # (Auto) (0.00-0.02) K/uL Neut # (Auto) 10.44 H (1.4-6.5) K/uL Lymph # (Auto) 1.10 L (1.2-3.4) K/uL Wilbarger # (Auto) 0.66 H (0.11-0.59) K/uL Chloride 115 H (98-107) mmol/L Carbon Dioxide 19 L (21-32) mmol/L BUN 36 H (7-18) mg/dl Creatinine 2.12 H (0.6-1.2) mg/dl BUN/Creatinine Ratio (10-20) Glucose 69 L (70-99) mg/dl Calcium 6.5 L (8.5-10.1) mg/dl Magnesium 1.3 L (1.8-2.4) mg/dl Total Bilirubin 1.6 H D (0.2-1) mg/dl Direct Bilirubin 0.5 H (0-0.2) mg/dl AST 43 H (15-37) U/L Alkaline Phosphatase 40 L (45-117) U/L Total Protein 4.7 L D (6.4-8.2) gm/dl Albumin 2.3 L (3.4-5.0) gm/dl Globulin 2.4 L (2.5-4.0) gm/dl Medications Administered Current Inpatient Medications Albuterol (Ventolin 0.083% 2.5mg/3ml) 2.5 mg INH QID PRN PRN Reason: Wheezing Stop: 12/18/18 04:23 Budesonide/Formoterol Fumarate (Symbicort 160mcg/4.5mcg) 2 puffs INH BID [facility] Stop: 12/18/18 08:59 Last Admin: 11/18/18 08:36 Dose: 2 puffs Fentanyl Citrate (Fentanyl Citrate) 100 mcg IV Q1H PRN PRN Reason: Severe Pain (7,8,9,10) Stop: 12/02/18 21:27 Last Admin: 11/19/18 01:19 Dose: 100 mcg Heparin Sodium (Porcine) (Heparin Sodium (Porcine)) 5,000 units SQ Q12 MIRELA Stop: 12/19/18 08:59 Hydromorphone HCl (Dilaudid) 0.5 mg IV Q1HWA PRN PRN Reason: Pain Stop: 12/02/18 04:23 Last Admin: 11/18/18 16:38 Dose: 0.5 mg Ciprofloxacin (Cipro) 400 mg in 200 mls @ 100 mls/hr IV Q12H [facility] Stop: 11/28/18 15:59 Last Infusion: 11/18/18 18:00 Dose: Infused Metronidazole (Flagyl) 500 mg in 100 mls @ 100 mls/hr IV Q8H [facility] Stop: 11/28/18 09:59 Last Admin: 11/19/18 02:33 Dose: 100 mls/hr Acetaminophen (Ofirmev) 65 mls @ 200 mls/hr IV Q8H PRN PRN Reason: pain or fever Stop: 12/18/18 04:23 Pantoprazole Sodium 40 mg/ (Syringe) 10 mls @ 5 mls/min IV BID [facility] Stop: 12/18/18 08:59 Last Admin: 11/18/18 22:16 Dose: 5 mls/min Sodium Chloride (Nss 1000ml) 1,000 mls @ 150 mls/hr IV .Q6H40M [facility] Stop: 12/18/18 09:29 Last Admin: 11/18/18 21:43 Dose: 150 mls/hr Midazolam HCl (Versed) 125 mg in 250 mls @ 10 mls/hr IV .Q24H [facility]; Protocol Stop: 12/18/18 21:59 Last Titration: 11/19/18 01:20 Dose: 5 mg/hr, 10 mls/hr Midazolam HCl (Versed) 2 mg IV Q2H PRN PRN Reason: agitation/anxiety Stop: 12/18/18 21:29 Miscellaneous (Icu Protocol For Hyperglycemia) 1 ea N/A PRN PRN; Protocol PRN Reason: Hyperglycemia Protocol Stop: 11/20/18 21:27 Ondansetron HCl (Zofran) 4 mg IV Q6H PRN PRN Reason: Nausea Stop: 12/18/18 04:23 Resident Activity Tracking Resident Involvement: Resident Care Provided Care Provided: [facility] _ (1) GERD (gastroesophageal reflux disease) Esophagitis presence: esophagitis presence not specified Qualified Code(s): K21.9 - Gastro-esophageal reflux disease without esophagitis (2) Asthma Asthma complication type: unspecified Asthma persistence: unspecified Asthma severity: unspecified severity Qualified Code(s): J45.909 - Unspecified asthma, uncomplicated
[2018-11-19 04:50] LABS: Basophils # (auto) 0.01 K/uL (0-0.2); Basophils % (auto) 0.1 %; Eosinophils # (auto) 0.02 K/uL (0-0.5); Eosinophils % (auto) 0.2 %; Hematocrit (blood only) 31.4 % (37-47); Hemoglobin 9.6 g/dL (12.0-16.0); Immature Granulocytes # (auto) 0.02 K/uL (0.00-0.02); Immature Granulocytes % (auto) 0.2 %; Mean Corpuscular Hgb Conc 30.6 g/dL (32-36); Mean Corpuscular Volume 84.6 fL (80-100); Mean Platelet Volume 8.8 fL (7.4-10.4); Monocytes # (auto) 0.66 K/uL (0.11-0.59); Monocytes % (auto) 5.4 %; Neutrophils # (auto) 10.44 K/uL (1.4-6.5); Neutrophils % (auto) 85.1 %; Platelet Count 211 K/uL (130-400); RDW Coefficient of Variation 14.5 % (11.5-14.5); RDW Standard Deviation 45.5 fL (36.4-46.3); Red Blood Count 3.71 M/uL (4.2-5.4); White Blood Count 12.25 K/uL (4.8-10.8)
[2018-11-19] MEDS: SODIUM CHLORIDE 0.9% 1000ML 1,000 ML IV SCH ×3 (04:58→17:53)
[2018-11-19] MEDS: CIPROFLOXACIN 400 MG/200 ML BAG IV SCH ×2 (05:01→15:28)
[2018-11-19 05:09] LABS: Albumin Level 2.3 gm/dl (3.4-5.0); Bilirubin Direct 0.5 mg/dl (0-0.2); Calcium 6.5 mg/dl (8.5-10.1); Creatinine Clr Calc Pharmacy 24.4 ml/min; Est GFR (African American) 26.7; Magnesium 1.3 mg/dl (1.8-2.4)
[2018-11-19 05:14] LABS: Bilirubin,Total 1.6 mg/dl (0.2-1); Globulin 2.4 gm/dl (2.5-4.0); Phosphorus 3.6 mg/dl (2.5-4.9); Total Protein 4.7 gm/dl (6.4-8.2)
[2018-11-19] MEDS ORDERED: DEXTROSE 50% 50 ML SYRINGE IV STA (05:59)
[2018-11-19] MEDS: MAGNESIUM SULFATE / D5W 1 GM/100 ML BAG IV SCH ×2 (06:13→07:13)
--- NOTE | 2018-11-19 06:23 | XRay Report ---
XR chest 1V portable CLINICAL HISTORY: Respiratory failure COMPARISON STUDY: 11/18/2018 FINDINGS: There is an endotracheal tube 42 mm above the delta. There is a nasogastric tube within th e stomach. The heart is enlarged. There is a suspected hiatal hernia. There is blunting of both later al costophrenic angles. Atelectatic changes are present within the right midlung zone. There is a lef t basilar opacities statistically atelectatic. Mild pulmonary venous hypertension is suspected.[ IMPRESSION: 1. Cardiomegaly and suspected mild pulmonary venous hypertension 2. Suspected trace pleural effusions 3. Basilar opacities likely atelectatic 3. Endotracheal tube 42 mm above the delta. Nasogastric tube within the stomach Electronically signed by: Augusto Leyva M.D. 11/19/2018 6:21 AM
--- NOTE | 2018-11-19 06:24 | XRay Report ---
XR KUB CLINICAL HISTORY: OG tube placement COMPARISON STUDY: 03/14/2018 FINDINGS: The enteric tube is positioned within the stomach. There is no pathologic bowel dilatation. There are left basilar opacities, atelectatic versus infectious/inflammatory IMPRESSION: Enteric tube positioned within the stomach. No evidence of pathologic bowel dilatation. Electronically signed by: Augusto Leyva M.D. 11/19/2018 6:22 AM
[2018-11-19] MEDS: BUDESONIDE/FORMOTEROL FUMARATE 160/4.5 60 PUFFS/INHALER INH SCH ×2 (06:59→07:15)
[2018-11-19] MEDS: HEPARIN SOD 5,000 UNIT/0.5 ML VIAL SQ SCH ×2 (07:14→22:30)
--- NOTE | 2018-11-19 07:35 | XRay Report ---
XR chest 1V portable CLINICAL HISTORY: intubated RESPIRATORY FAILURE COMPARISON STUDY: 11/18/2018 FINDINGS: The endotracheal tube is 42 mm above the delta. There is a nasogastric tube within the sto mach. The cardiac and mediastinal contours remain stable. Mild pulmonary vascular congestion is suspe cted. There is a suspected hiatal hernia. A left basilar opacity likely represents focal atelectasis. [ IMPRESSION: Stable findings. Electronically signed by: Augusto Leyva M.D. 11/19/2018 7:34 AM
--- NOTE | 2018-11-19 08:18 | Post Anesthesia Assessment ---
Date of Service November 19, 2018 Post Sedation Assessment Vital Signs Temp Pulse Pulse Pulse Resp BP BP 11/19/18 06:31 120 H 96/43 L 11/19/18 06:30 120 H 11/19/18 06:16 155 H 109/42 L 11/19/18 06:15 157 H 11/19/18 06:01 152 H 102/35 L 11/19/18 06:00 164 H 11/19/18 05:46 119 H 109/59 L 11/19/18 05:45 119 H 11/19/18 05:31 118 H 107/32 L 11/19/18 05:30 120 H 11/19/18 05:16 119 H 104/39 L 11/19/18 05:15 119 H 11/19/18 05:13 121 H 16 11/19/18 05:01 126 H 98/43 L 11/19/18 05:00 119 H 11/19/18 04:46 118 H 104/47 L 11/19/18 04:45 120 H 11/19/18 04:31 118 H 93/43 L 11/19/18 04:30 119 H 11/19/18 04:19 118 H 97/38 L 11/19/18 04:17 119 H 98/37 L 11/19/18 04:15 118 H 11/19/18 04:01 37.5 C 116 H 96/38 L 11/19/18 04:00 118 H 11/19/18 03:46 116 H 92/39 L 11/19/18 03:45 117 H 11/19/18 03:31 117 H 97/37 L 11/19/18 03:30 115 H 11/19/18 03:16 116 H 93/36 L 11/19/18 03:15 117 H 11/19/18 03:01 116 H 90/43 L 11/19/18 03:00 116 H 11/19/18 02:46 117 H 90/37 L 11/19/18 02:45 118 H 11/19/18 02:31 118 H 96/40 L 11/19/18 02:30 119 H 11/19/18 02:16 117 H 87/41 L 11/19/18 02:15 117 H 11/19/18 02:14 118 H 19 11/19/18 02:01 117 H 93/36 L 11/19/18 02:00 119 H 11/19/18 01:49 119 H 85/44 L 11/19/18 01:45 119 H 11/19/18 01:31 117 H 93/43 L 11/19/18 01:30 120 H 11/19/18 01:16 119 H 112/44 L 11/19/18 01:15 120 H 11/19/18 01:01 118 H 100/36 L 11/19/18 01:00 118 H 11/19/18 00:46 116 H 96/40 L 11/19/18 00:45 115 H 11/19/18 00:31 37.2 C 117 H 87/44 L 11/18/18 23:10 116 H 20 11/18/18 21:56 119 H 36 H 122/44 L 11/18/18 21:55 36.9 C 120 H 28 H 92/42 L 11/18/18 21:50 36.6 C 114 H 18 87/42 L 11/18/18 21:45 36.9 C 115 H 115 H 20 127/70 11/18/18 21:40 115 H 33 H 104/49 L 11/18/18 21:35 109 H 109 H 40 H 105/43 L 11/18/18 21:30 36.8 C 111 H 40 H 118/43 L 11/18/18 21:23 120 H 16 11/18/18 21:20 36.9 C 118 H 34 H 111/48 L 11/18/18 21:15 36.9 C 118 H 33 H 108/55 L 11/18/18 18:13 117 H 20 90/54 L 11/18/18 17:10 117 H 90/42 L 11/18/18 16:37 11/18/18 15:18 36.4 C L 116 H 22 113/66 11/18/18 11:49 37.0 C 84 18 108/72 Pulse Ox 11/19/18 06:31 98 11/19/18 06:30 98 11/19/18 06:16 98 11/19/18 06:15 99 11/19/18 06:01 99 11/19/18 06:00 99 11/19/18 05:46 100 11/19/18 05:45 100 11/19/18 05:31 100 11/19/18 05:30 100 11/19/18 05:16 100 11/19/18 05:15 100 11/19/18 05:13 100 11/19/18 05:01 100 11/19/18 05:00 100 11/19/18 04:46 100 11/19/18 04:45 100 11/19/18 04:31 100 11/19/18 04:30 100 11/19/18 04:19 100 11/19/18 04:17 100 11/19/18 04:15 100 11/19/18 04:01 100 11/19/18 04:00 100 11/19/18 03:46 100 11/19/18 03:45 100 11/19/18 03:31 100 11/19/18 03:30 100 11/19/18 03:16 100 11/19/18 03:15 99 11/19/18 03:01 100 11/19/18 03:00 100 11/19/18 02:46 99 11/19/18 02:45 99 11/19/18 02:31 98 11/19/18 02:30 98 11/19/18 02:16 97 11/19/18 02:15 97 11/19/18 02:14 100 11/19/18 02:01 100 11/19/18 02:00 100 11/19/18 01:49 99 11/19/18 01:45 100 11/19/18 01:31 99 11/19/18 01:30 100 11/19/18 01:16 100 11/19/18 01:15 100 11/19/18 01:01 100 11/19/18 01:00 100 11/19/18 00:46 100 11/19/18 00:45 100 11/19/18 00:31 100 11/18/18 23:10 100 11/18/18 21:56 99 11/18/18 21:55 95 11/18/18 21:50 97 11/18/18 21:45 98 11/18/18 21:40 96 11/18/18 21:35 99 11/18/18 21:30 98 11/18/18 21:23 100 11/18/18 21:20 99 11/18/18 21:15 100 11/18/18 18:13 96 02/16/19 17:10 94 11/18/18 16:37 94 11/18/18 15:18 87 L 11/18/18 11:49 94 Recovery Score Activity: Moves 4 extremities Respiration: Deep Breath/Cough Circulation: +/-20% PreAnes Value Consciousness: Fully Awake Oxygen Saturation: O2 needed for >90% (On 4 L oxygen at baseline) Post Anesthesia Score: 6 Discharge Sedation Level of Care: Higher Level of Care (Patient to remain in ICU was previously admitted) Post Sedation Plan Patient to remain in ICU as previously admitted. Patient alert and oriented able to follow complex commands. Procedure start time 745 Procedural end time 810 Total anesthesia: 50 mcg fentanyl, 0.5 mg Versed, Precedex infusion Patient tolerated procedure well.
[2018-11-19] MEDS ORDERED: ALBUMIN 25% 50 ML IV ONE (08:25)
[2018-11-19] MEDS: NOREPINEPHRINE BIT INJ 8 MG in DEXTROSE 5% 500 ML IV SCH (08:40)
[2018-11-19] MEDS: PANTOprazole 40 MG in SYRINGE 0 ML IV SCH ×2 (08:56→22:30)
--- NOTE | 2018-11-19 10:34 | Surgery Progress Note ---
Date of Service November 19, 2018 Assessment & Plan (1) Diverticulitis: 11/19/2018 Roughly 14 hrs s/p Exploratory Laparotomy, Sigmoid Colon Resection, Abdominal Washout (Louis Procedure) Patient remains on mechanical vent- may remain on vent for rest of today. WBC improved at 12.25 this AM. Appreciate critical care team's management and care. We will continue to follow closely. Please call with any questions or concerns. 11/18/18 5;45 pm talked with family at bedside they state she is not this withdrawn mentally( sleepy) given overall picture best we proceed with surgery now r and c explained to and daughter including open procedure and louis surgery posted at this time with hospital supervisor fishing 11/18/18 5 pm since seen this am still has abd pain but abd exam bit softer heart rate up, wbc increased, creat up. will insert carreon, increase IV fluids, suspect will need to go to surgery may need Louis procedure forcomplex diverticulitis likely Hinchey 3-4 The patient will require surgery hopefully we can get her over this acute episode with IV antibiotics presently she is on Cipro Flagyl and her care was discussed with Dr. Murry and her daughter We will follow her clinically but at this time I would not recommend any surgery unless her clinical picture deteriorates Abscess up to 6 cm in size often respond to antibiotic therapy and she may need a follow-up CAT scan to either a major resolution or if any other significant changes Subjective Patient remains on mechanical vent this am. Dr. Wesley spoke with Dr. Whitehead and patient may remain on vent for remainder of today. Family at bedside- Dr. Wesley updated family on patient's surgical findings and progress thus far. Physical Exam 2 Vital Signs (Past 24 Hours): Last Vital Signs Temp 38.1 C H 11/19/18 08:01 Pulse 117 H 11/19/18 09:57 Resp 22 11/19/18 10:05 BP 110/39 L 11/19/18 09:46 Pulse Ox 100 11/19/18 09:57 Gastrointestinal (Abdomen): Inspection/Auscultation: + abdominal surgical incision (retention sutures in place. ) Percussion/Palpation: + abdomen tender; no guarding colostomy viable- bag in place.
--- NOTE | 2018-11-19 11:08 | Family Medicine Progress Note ---
Date of Service November 19, 2018 Assessment & Plan (1) Perforation of sigmoid colon due to diverticulitis: (1) Perforated diverticulum: 68 year old female with 2.2cm diverticular abscess with microperforation. Due to hemoydnamic instability, worsening WCC and worsening kidney function she was taken to the OR by General Surgery yesterday and performed and sigmoid resection with Jimmy procedure. Patient is currently intubated and in the ICU. (1)Septic shock secondary to perforated diverticulum. POD#1 s/p sigmoid resection with jimmy procedure -Continue Cipro 400mg IV BID, Flagyl 500mg IV q 8 - Zofran PRN nausea - Dilaudid and fentanyl PRN abdominal pain - Cultures pending from abdominal contents - IV vasopressors managed per ICU team - Johnson catheter in place to monitor I/O's - Continue to monitor CBC and fever curve (2) Acute hypoxic respiratory failure in OR secondary to septic shock - patient current on the ventilator and being managed by ICU and respiratory therapy - CXR showed mild pulmonary vascular congestion (3) BOB on CKD secondary to septic shock - Johnson in place - creatinine at 2.12 - IV vasopressors started to regain perfusion - Hypomag this morning at 1.3, repleted by ICU team - Continue to monitor renal function (4) GERD (gastroesophageal reflux disease): - Stable, on 40mg protonix bid at home - Change Protonix to 40mg IV BID (5) Asthma: - Continue symbicort bid and albuterol prn - patient was on PO prednisone and levaquin for respiratory infection, hold for now (6) Hyperlipidemia - hold statin (7) Major depressive disorder - hold sertraline Ppx - SCDs to bilateral LE, Protonix as above Code - DNR per discussion with patient Dispo - Admit to ICU Supervising Physician Co-Signing Physician Notes Resident Physician Supervision Note: I independently interviewed and examined the patient and verified the carranza history and physical, reviewed labs and image studies, discussed the case with the resident Dr. Loaiza and agree with the findings and care plan. Subjective Yesterday afternoon patient was found to have worsening WBC, creatinine and here vitals were showing decreased BP and elevated HR. Gen surgery went to evaluate the patient after I ordered 1 L bolus of NS. They talked to family and took patient to OR with exploratory lab, sigmoid resection, ab washout with Bonilla procedure. Patient is intubated and in the ICU. I am unable to get any significant ROS from patient due to intubation Review of Systems Unobtainable due to endotracheal tube Physical Exam 2 Vital Signs (Past 24 Hours): Last Vital Signs Temp 38.1 C H 11/19/18 08:01 Pulse 117 H 11/19/18 09:57 Resp 22 11/19/18 10:05 BP 110/39 L 11/19/18 09:46 Pulse Ox 100 11/19/18 09:57 Physical Exam: Gen: intubated. able to respond to sternal rub and voice Abdomen: distended, drain with serosanguinous fluid, colostomy bag empty but otherwise appears well, dressings over abdomen, abdomen distended and tender throughout, decreased bowel sounds Lungs: rhoncherous breath sounds bilaterally without wheezes, even air entry bilaterally Heart: RRR, no murmurs Lower extremities: minimal peripheral edema, strong peripheral pulses
[2018-11-19] MEDS: VASOPRESSIN 20 UNITS in 0.9 % SODIUM CHLORIDE 100 ML IV SCH ×2 (11:13→18:20)
[2018-11-19] MEDS: PHENYLEPHRINE HCL 20 MG in DEXTROSE 5% 500 ML IV SCH (11:14)
[2018-11-19 12:14] LABS: Hematocrit (blood only) 28.6 % (37-47); Mean Corpuscular Hgb Conc 31.5 g/dL (32-36); Mean Corpuscular Volume 84.4 fL (80-100); Mean Platelet Volume 8.7 fL (7.4-10.4); Platelet Count 208 K/uL (130-400); RDW Standard Deviation 46.2 fL (36.4-46.3); Red Blood Count 3.39 M/uL (4.2-5.4); White Blood Count 16.69 K/uL (4.8-10.8)
[2018-11-19 12:32] LABS: BUN Creatinine Ratio 17.2 (10-20); Calcium 6.4 mg/dl (8.5-10.1); Creatinine Clr Calc Pharmacy 29.8 ml/min; Est GFR (African American) 31.8; Est GFR (Non-African American) 27.5; Magnesium 1.8 mg/dl (1.8-2.4); Potassium 3.7 mmol/L (3.5-5.1)
[2018-11-19 12:39] LABS: Basophils # (auto) 0.02 K/uL (0-0.2); Basophils % (auto) 0.1 %; Dohle Bodies 1+; Echinocytes 1+; Eosinophils # (auto) 0.03 K/uL (0-0.5); Eosinophils % (auto) 0.2 %; Immature Granulocytes # (auto) 0.09 K/uL (0.00-0.02); Immature Granulocytes % (auto) 0.5 %; Lymphocytes # (auto) 1.02 K/uL (1.2-3.4); Lymphocytes % (auto) 6.1 %; Monocytes # (auto) 1.26 K/uL (0.11-0.59); Monocytes % (auto) 7.5 %; Neutrophils # (auto) 14.27 K/uL (1.4-6.5); Neutrophils % (auto) 85.6 %; Toxic Vacuolation 1+
[2018-11-19 12:41] LABS: Phosphorus 2.8 mg/dl (2.5-4.9); Troponin I 0.099 ng/ml (0-0.045)
[2018-11-19] MEDS ORDERED: CALCIUM GLUCONATE 10% 1,000 MG in SODIUM CHLORIDE 0.9% 50 ML IV STA (12:46)
--- NOTE | 2018-11-19 13:12 | Anesthesiology Progress Note ---
Date of Service November 19, 2018 Anesthesia Post Procedure Vital Signs Vital Signs: Temp Pulse Pulse Pulse Resp BP BP 11/19/18 12:31 109 H 133/51 L 11/19/18 12:30 109 H 11/19/18 12:20 112 H 11/19/18 12:16 113 H 116/37 L 11/19/18 12:10 115 H 11/19/18 12:01 116 H 128/42 L 11/19/18 12:00 117 H 11/19/18 11:50 117 H 11/19/18 11:46 117 H 122/48 L 11/19/18 11:40 116 H 11/19/18 11:31 119 H 137/43 L 11/19/18 11:30 118 H 11/19/18 11:20 120 H 11/19/18 11:16 121 H 120/37 L 11/19/18 11:10 120 H 11/19/18 11:01 121 H 138/40 L 11/19/18 11:00 122 H 11/19/18 10:50 122 H 11/19/18 10:46 120 H 120/37 L 11/19/18 10:40 117 H 11/19/18 10:31 119 H 127/41 L 11/19/18 10:30 118 H 11/19/18 10:20 119 H 11/19/18 10:16 118 H 113/38 L 11/19/18 10:10 115 H 11/19/18 10:05 22 11/19/18 10:01 116 H 110/33 L 11/19/18 10:00 116 H 11/19/18 09:57 117 H 22 11/19/18 09:50 117 H 11/19/18 09:46 119 H 110/39 L 11/19/18 09:40 115 H 11/19/18 09:31 115 H 101/40 L 11/19/18 09:30 116 H 11/19/18 09:20 114 H 11/19/18 09:16 113 H 102/37 L 11/19/18 09:10 112 H 11/19/18 09:01 112 H 107/41 L 11/19/18 09:00 113 H 11/19/18 08:50 114 H 11/19/18 08:46 110 H 90/41 L 11/19/18 08:40 112 H 11/19/18 08:31 112 H 81/45 L 11/19/18 08:30 111 H 11/19/18 08:20 113 H 11/19/18 08:16 111 H 84/41 L 11/19/18 08:10 113 H 11/19/18 08:01 38.1 C H 115 H 91/39 L 11/19/18 08:00 116 H 11/19/18 07:50 118 H 11/19/18 07:46 117 H 95/41 L 11/19/18 07:40 118 H 11/19/18 07:31 122 H 94/35 L 11/19/18 07:30 124 H 22 11/19/18 07:20 123 H 11/19/18 07:16 121 H 102/47 L 11/19/18 07:10 121 H 11/19/18 07:01 117 H 90/32 L 11/19/18 07:00 119 H 11/19/18 06:31 120 H 96/43 L 11/19/18 06:30 120 H 11/19/18 06:16 155 H 109/42 L 11/19/18 06:15 157 H 11/19/18 06:01 152 H 102/35 L 11/19/18 06:00 164 H 11/19/18 05:46 119 H 109/59 L 11/19/18 05:45 119 H 11/19/18 05:31 118 H 107/32 L 11/19/18 05:30 120 H 11/19/18 05:16 119 H 104/39 L 11/19/18 05:15 119 H 11/19/18 05:13 121 H 16 11/19/18 05:01 126 H 98/43 L 11/19/18 05:00 119 H 11/19/18 04:46 118 H 104/47 L 11/19/18 04:45 120 H 11/19/18 04:31 118 H 93/43 L 11/19/18 04:30 119 H 11/19/18 04:19 118 H 97/38 L 11/19/18 04:17 119 H 98/37 L 11/19/18 04:15 118 H 11/19/18 04:01 37.5 C 116 H 96/38 L 11/19/18 04:00 118 H 11/19/18 03:46 116 H 92/39 L 11/19/18 03:45 117 H 11/19/18 03:31 117 H 97/37 L 11/19/18 03:30 115 H 11/19/18 03:16 116 H 93/36 L 11/19/18 03:15 117 H 11/19/18 03:01 116 H 90/43 L 11/19/18 03:00 116 H 11/19/18 02:46 117 H 90/37 L 11/19/18 02:45 118 H 11/19/18 02:31 118 H 96/40 L 11/19/18 02:30 119 H 11/19/18 02:16 117 H 87/41 L 11/19/18 02:15 117 H 11/19/18 02:14 118 H 19 11/19/18 02:01 117 H 93/36 L 11/19/18 02:00 119 H 11/19/18 01:49 119 H 85/44 L 11/19/18 01:45 119 H 11/19/18 01:31 117 H 93/43 L 11/19/18 01:30 120 H 11/19/18 01:16 119 H 112/44 L 11/19/18 01:15 120 H 11/19/18 01:01 118 H 100/36 L 11/19/18 01:00 118 H 11/19/18 00:46 116 H 96/40 L 11/19/18 00:45 115 H 11/19/18 00:31 37.2 C 117 H 87/44 L 11/18/18 23:10 116 H 20 11/18/18 21:56 119 H 36 H 122/44 L 11/18/18 21:55 36.9 C 120 H 28 H 92/42 L 11/18/18 21:50 36.6 C 114 H 18 87/42 L 11/18/18 21:45 36.9 C 115 H 115 H 20 127/70 11/18/18 21:40 115 H 33 H 104/49 L 11/18/18 21:35 109 H 109 H 40 H 105/43 L 11/18/18 21:30 36.8 C 111 H 40 H 118/43 L 11/18/18 21:23 120 H 16 02/16/19 21:20 36.9 C 118 H 34 H 111/48 L 11/18/18 21:15 36.9 C 118 H 33 H 108/55 L 11/18/18 18:13 117 H 20 90/54 L 11/18/18 17:10 117 H 90/42 L 11/18/18 16:37 11/18/18 15:18 36.4 C L 116 H 22 113/66 Pulse Ox 11/19/18 12:31 95 11/19/18 12:30 96 11/19/18 12:20 95 11/19/18 12:16 95 11/19/18 12:10 96 11/19/18 12:01 94 11/19/18 12:00 97 11/19/18 11:50 97 11/19/18 11:46 97 11/19/18 11:40 97 11/19/18 11:31 98 11/19/18 11:30 97 11/19/18 11:20 99 11/19/18 11:16 99 11/19/18 11:10 99 11/19/18 11:01 100 11/19/18 11:00 98 11/19/18 10:50 99 11/19/18 10:46 99 11/19/18 10:40 100 11/19/18 10:31 100 11/19/18 10:30 100 11/19/18 10:20 100 11/19/18 10:16 100 11/19/18 10:10 100 11/19/18 10:05 11/19/18 10:01 100 11/19/18 10:00 100 11/19/18 09:57 100 11/19/18 09:50 99 11/19/18 09:46 99 11/19/18 09:40 100 11/19/18 09:31 100 11/19/18 09:30 100 11/19/18 09:20 100 11/19/18 09:16 99 11/19/18 09:10 99 11/19/18 09:01 99 11/19/18 09:00 97 11/19/18 08:50 99 11/19/18 08:46 99 11/19/18 08:40 100 11/19/18 08:31 99 11/19/18 08:30 99 11/19/18 08:20 99 11/19/18 08:16 99 11/19/18 08:10 99 11/19/18 08:01 98 11/19/18 08:00 98 11/19/18 07:50 98 11/19/18 07:46 98 11/19/18 07:40 99 11/19/18 07:31 95 11/19/18 07:30 94 11/19/18 07:20 95 11/19/18 07:16 96 11/19/18 07:10 96 11/19/18 07:01 100 11/19/18 07:00 99 11/19/18 06:31 98 11/19/18 06:30 98 11/19/18 06:16 98 11/19/18 06:15 99 11/19/18 06:01 99 11/19/18 06:00 99 11/19/18 05:46 100 11/19/18 05:45 100 11/19/18 05:31 100 11/19/18 05:30 100 11/19/18 05:16 100 11/19/18 05:15 100 11/19/18 05:13 100 11/19/18 05:01 100 11/19/18 05:00 100 11/19/18 04:46 100 11/19/18 04:45 100 11/19/18 04:31 100 11/19/18 04:30 100 11/19/18 04:19 100 11/19/18 04:17 100 11/19/18 04:15 100 11/19/18 04:01 100 11/19/18 04:00 100 11/19/18 03:46 100 11/19/18 03:45 100 11/19/18 03:31 100 11/19/18 03:30 100 11/19/18 03:16 100 11/19/18 03:15 99 11/19/18 03:01 100 11/19/18 03:00 100 11/19/18 02:46 99 11/19/18 02:45 99 11/19/18 02:31 98 11/19/18 02:30 98 11/19/18 02:16 97 11/19/18 02:15 97 11/19/18 02:14 100 11/19/18 02:01 100 11/19/18 02:00 100 11/19/18 01:49 99 11/19/18 01:45 100 11/19/18 01:31 99 11/19/18 01:30 100 11/19/18 01:16 100 11/19/18 01:15 100 11/19/18 01:01 100 11/19/18 01:00 100 11/19/18 00:46 100 11/19/18 00:45 100 11/19/18 00:31 100 11/18/18 23:10 100 11/18/18 21:56 99 11/18/18 21:55 95 11/18/18 21:50 97 11/18/18 21:45 98 11/18/18 21:40 96 11/18/18 21:35 99 11/18/18 21:30 98 11/18/18 21:23 100 11/18/18 21:20 99 11/18/18 21:15 100 11/18/18 18:13 96 11/18/18 17:10 94 11/18/18 16:37 94 11/18/18 15:18 87 L Pain Intensity Abdomen: Pain Intensity: 6 Notes Mental Status: see notes below Nausea / Vomiting: adequately controlled Pain: adequately controlled Airway Patency, RR, SpO2: see Notes below BP & HR: see Notes below Hydration State: see Notes below Anesthetic Complications: no major complications apparent Notes: patient remains intubated and on the ventilator, she is now requiring pressors for bp support.
[2018-11-19] MEDS: ASCORBIC ACID 1,500 MG, THIAMINE HCL 100 MG in 0.9 % SODIUM CHLORIDE 100 ML IV SCH ×2 (13:20→20:26)
--- NOTE | 2018-11-19 15:42 | Surgery Progress Note ---
Date of Service November 19, 2018 Assessment & Plan (1) Diverticulitis: 11/19/18 3 ;30 pm open eyes with just touching abd on pressors but quite stable colostomy pink 11/19/2018 Roughly 14 hrs s/p Exploratory Laparotomy, Sigmoid Colon Resection, Abdominal Washout (Bonilla Procedure) Patient remains on mechanical vent- may remain on vent for rest of today. WBC improved at 12.25 this AM. Appreciate critical care team's management and care. We will continue to follow closely. Please call with any questions or concerns. 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 will insert carreon, increase IV fluids, suspect will need to go to surgery may need Bonilla procedure forcomplex diverticulitis likely [place] 3-4 The patient will require surgery hopefully we can get her over this acute episode with IV antibiotics presently she is on Cipro Flagyl and her care was discussed with Dr. Murry and her daughter We will follow her clinically but at this time I would not recommend any surgery unless her clinical picture deteriorates Abscess up to 6 cm in size often respond to antibiotic therapy and she may need a follow-up CAT scan to either a major resolution or if any other significant changes Physical Exam 2 Vital Signs (Past 24 Hours): Last Vital Signs Temp 38.1 C H 11/19/18 08:01 Pulse 95 H 11/19/18 14:50 Resp 18 11/19/18 14:13 BP 125/52 L 11/19/18 14:46 Pulse Ox 98 11/19/18 14:50
[2018-11-20] MEDS: SODIUM CHLORIDE 0.9% 1000ML 1,000 ML IV SCH ×4 (01:04→17:15)
[2018-11-20] MEDS: ASCORBIC ACID 1,500 MG, THIAMINE HCL 100 MG in 0.9 % SODIUM CHLORIDE 100 ML IV SCH ×2 (01:07→08:47)
[2018-11-20] MEDS: metroNIDAZOLE 500 MG/100 ML BAG IV SCH ×3 (01:47→17:25)
[2018-11-20] MEDS: CIPROFLOXACIN 400 MG/200 ML BAG IV SCH (04:51)
[2018-11-20 05:16] LABS: Albumin Level 1.9 gm/dl (3.4-5.0); Bilirubin Direct 0.3 mg/dl (0-0.2); Bilirubin,Total 0.9 mg/dl (0.2-1); Magnesium 1.8 mg/dl (1.8-2.4); Phosphorus 2.3 mg/dl (2.5-4.9); Total Protein 4.6 gm/dl (6.4-8.2)
[2018-11-20] MEDS: MIDAZOLAM HCL 125 MG/250 ML BAG IV SCH (05:47)
[2018-11-20 06:26] LABS: BUN Creatinine Ratio 18.1 (10-20); Est GFR (African American) 48.1; Est GFR (Non-African American) 41.5; Potassium 3.7 mmol/L (3.5-5.1)
[2018-11-20] MEDS: PHENYLEPHRINE HCL 20 MG in DEXTROSE 5% 500 ML IV SCH (06:47)
[2018-11-20] MEDS: NOREPINEPHRINE BIT INJ 8 MG in DEXTROSE 5% 500 ML IV SCH (06:47)
[2018-11-20] MEDS: VASOPRESSIN 20 UNITS in 0.9 % SODIUM CHLORIDE 100 ML IV SCH (06:48)
[2018-11-20 06:58] LABS: Basophils # (auto) 0.02 K/uL (0-0.2); Basophils % (auto) 0.1 %; Eosinophils # (auto) 0.14 K/uL (0-0.5); Hematocrit (blood only) 28.9 % (37-47); Hemoglobin 8.9 g/dL (12.0-16.0); Immature Granulocytes # (auto) 0.05 K/uL (0.00-0.02); Immature Granulocytes % (auto) 0.4 %; Lymphocytes # (auto) 1.27 K/uL (1.2-3.4); Lymphocytes % (auto) 9.5 %; Mean Corpuscular Volume 83.8 fL (80-100); Mean Platelet Volume 8.9 fL (7.4-10.4); Monocytes # (auto) 1.26 K/uL (0.11-0.59); Monocytes % (auto) 9.4 %; Neutrophils # (auto) 10.68 K/uL (1.4-6.5); Neutrophils % (auto) 79.6 %; Platelet Count 177 K/uL (130-400); RDW Standard Deviation 46.8 fL (36.4-46.3); Red Blood Count 3.45 M/uL (4.2-5.4); White Blood Count 13.42 K/uL (4.8-10.8)
[2018-11-20 07:00] LABS: Mean Corpuscular Hgb Conc 30.8 g/dL (32-36)
[2018-11-20] MEDS ORDERED: POTASSIUM PHOS 3 MMOL/1 ML INFUSION IV STA (07:23)
[2018-11-20] MEDS ORDERED: INSULIN ASPART 100 UNITS/ML 3 ML PEN SC SCH (07:30)
[2018-11-20 07:32] LABS: Dohle Bodies 1+
[2018-11-20] MEDS ORDERED: POTASSIUM PHOSPHATE 15 MMOL in SODIUM CHLORIDE 0.9% 250 ML IV ONE (07:45)
--- NOTE | 2018-11-20 08:09 | Critical Care Progress Note ---
Date of Service November 20, 2018 Physical Exam 2 Vital Signs (Past 24 Hours): Last Vital Signs Temp 37.9 C H 11/20/18 04:01 Pulse 95 H 11/20/18 07:29 Resp 19 11/20/18 07:29 BP 97/45 L 11/20/18 06:46 Pulse Ox 100 11/20/18 07:29
--- NOTE | 2018-11-20 08:10 | XRay Report ---
XR chest 1V portable CLINICAL HISTORY: 68 years-old Female presenting with intubated. TECHNIQUE: Portable upright AP view of the chest was obtained. COMPARISON: 11/19/2018. FINDINGS: Endotracheal tube terminates in the upper thoracic trachea over 5 cm from the delta. Nasogastric tub e descends below the diaphragm, looped within the gastric fundus, terminus not visualized. Sidehole c ontained within the gastric lumen. Atherosclerosis of the aortic arch. Cardiac silhouette moderately enlarged. Pulmonary vascular promin ence is stable to slightly worse than on prior exam. Bronchial wall thickening may be present. Decrea sed aeration of the left lung base. Small left pleural effusion stable to slightly increased in size. No large pneumothorax. Calcification in the region of the right rotator cuff tendons indicating calc ific tendinitis. Upper abdomen normal. IMPRESSION: 1. Cardiomegaly with slightly worsened volume overload/congestive change. No navin pulmonary edema. 2. Worsened aeration of the left lung base with stable to slight increase size of presumed underlyin g left pleural effusion. 3. Tubes appropriately positioned. Electronically signed by: Kenney Cooley M.D. 11/20/2018 8:09 AM
--- NOTE | 2018-11-20 08:20 | Anesthesiology Progress Note ---
Date of Service November 20, 2018 Anesthesia Post Procedure Vital Signs Vital Signs: Temp Pulse Resp BP Pulse Ox 11/20/18 07:29 95 H 19 100 11/20/18 06:46 98 H 97/45 L 99 11/20/18 06:45 99 H 99 11/20/18 06:43 100 H 94/40 L 100 11/20/18 06:30 100 H 99 11/20/18 06:16 98 H 101/46 L 98 11/20/18 06:15 100 H 99 11/20/18 06:01 97 H 107/46 L 98 11/20/18 06:00 99 H 99 11/20/18 05:46 101 H 110/46 L 99 11/20/18 05:45 102 H 99 11/20/18 05:31 109 H 88/43 L 100 11/20/18 05:30 103 H 100 11/20/18 05:25 107 H 103/47 L 100 11/20/18 05:23 117 H 29 H 100 11/20/18 05:15 113 H 11/20/18 05:01 99 H 102/42 L 99 11/20/18 05:00 99 H 98 11/20/18 04:46 100 H 105/60 100 11/20/18 04:45 99 H 100 11/20/18 04:32 102 H 96/44 L 100 11/20/18 04:30 97 H 100 11/20/18 04:16 97 H 109/50 L 100 11/20/18 04:15 98 H 100 11/20/18 04:01 37.9 C H 100 H 110/50 L 100 11/20/18 04:00 100 H 100 11/20/18 03:46 99 H 109/47 L 100 11/20/18 03:45 100 H 100 11/20/18 03:31 102 H 105/50 L 100 11/20/18 03:30 100 H 100 11/20/18 03:16 97 H 107/48 L 99 11/20/18 03:15 101 H 100 11/20/18 03:01 101 H 102/43 L 100 11/20/18 03:00 102 H 100 11/20/18 02:46 104 H 95/46 L 99 11/20/18 02:45 102 H 99 11/20/18 02:31 102 H 110/46 L 100 11/20/18 02:30 99 H 100 11/20/18 02:16 100 H 103/48 L 99 11/20/18 02:15 98 H 100 11/20/18 02:01 98 H 108/50 L 100 11/20/18 02:00 98 H 100 11/20/18 01:55 101 H 17 100 11/20/18 01:46 97 H 113/52 L 100 11/20/18 01:45 99 H 100 11/20/18 01:31 99 H 91/43 L 100 11/20/18 01:30 100 H 100 11/20/18 01:16 100 H 111/52 L 100 11/20/18 01:15 102 H 100 11/20/18 01:01 95 H 109/51 L 100 11/20/18 01:00 97 H 100 11/20/18 00:46 37.8 C H 98 H 122/43 L 100 11/20/18 00:45 97 H 100 11/19/18 22:49 93 H 20 100 11/19/18 19:38 99 H 20 100 11/19/18 18:01 92 H 122/47 L 100 11/19/18 18:00 94 H 100 11/19/18 17:50 86 100 11/19/18 17:46 87 120/48 L 100 11/19/18 17:40 90 100 11/19/18 17:31 88 115/55 L 100 11/19/18 17:30 88 100 11/19/18 17:20 89 100 11/19/18 17:16 89 117/48 L 100 11/19/18 17:10 89 100 11/19/18 17:01 89 114/47 L 100 11/19/18 17:00 90 100 11/19/18 16:50 91 H 100 11/19/18 16:46 90 116/43 L 100 11/19/18 16:40 92 H 100 11/19/18 16:31 90 119/49 L 100 11/19/18 16:30 91 H 100 11/19/18 16:20 94 H 16 100 11/19/18 16:16 90 132/64 100 11/19/18 16:10 90 100 11/19/18 16:01 93 H 133/56 L 100 11/19/18 16:00 91 H 100 11/19/18 15:50 92 H 100 11/19/18 15:46 91 H 134/42 L 100 11/19/18 15:40 94 H 100 11/19/18 15:31 92 H 139/44 L 99 11/19/18 15:30 94 H 100 11/19/18 15:20 91 H 99 11/19/18 15:16 93 H 130/50 L 99 11/19/18 15:10 93 H 99 11/19/18 15:01 94 H 134/43 L 99 11/19/18 15:00 93 H 99 11/19/18 14:50 95 H 98 11/19/18 14:46 96 H 125/52 L 98 11/19/18 14:40 95 H 98 11/19/18 14:31 94 H 135/41 L 98 11/19/18 14:30 94 H 98 11/19/18 14:20 95 H 97 11/19/18 14:16 97 H 131/54 L 97 11/19/18 14:13 98 H 18 97 11/19/18 14:10 98 H 97 11/19/18 14:01 96 H 128/49 L 97 11/19/18 14:00 98 H 97 11/19/18 13:50 98 H 97 11/19/18 13:46 97 H 124/50 L 97 11/19/18 13:40 98 H 97 11/19/18 13:31 99 H 125/44 L 97 11/19/18 13:30 101 H 97 11/19/18 13:20 104 H 97 11/19/18 13:16 105 H 132/54 L 97 11/19/18 13:10 104 H 97 11/19/18 13:01 105 H 138/49 L 97 11/19/18 13:00 105 H 97 11/19/18 12:50 105 H 97 11/19/18 12:46 108 H 135/50 L 96 11/19/18 12:40 108 H 96 11/19/18 12:32 108 H 96 11/19/18 12:31 109 H 133/51 L 95 11/19/18 12:30 109 H 96 11/19/18 12:20 112 H 95 11/19/18 12:16 113 H 116/37 L 95 11/19/18 12:10 115 H 96 11/19/18 12:01 116 H 128/42 L 94 11/19/18 12:00 117 H 97 11/19/18 11:50 117 H 97 11/19/18 11:46 117 H 122/48 L 97 11/19/18 11:40 116 H 97 11/19/18 11:31 119 H 137/43 L 98 11/19/18 11:30 118 H 97 11/19/18 11:20 120 H 99 11/19/18 11:16 121 H 120/37 L 99 11/19/18 11:10 120 H 99 11/19/18 11:01 121 H 138/40 L 100 11/19/18 11:00 122 H 98 11/19/18 10:50 122 H 99 11/19/18 10:46 120 H 120/37 L 99 11/19/18 10:40 117 H 100 11/19/18 10:31 119 H 127/41 L 100 11/19/18 10:30 118 H 100 11/19/18 10:20 119 H 100 11/19/18 10:16 118 H 113/38 L 100 11/19/18 10:10 115 H 100 11/19/18 10:05 22 11/19/18 10:01 116 H 110/33 L 100 11/19/18 10:00 116 H 100 11/19/18 09:57 117 H 22 100 11/19/18 09:50 117 H 99 11/19/18 09:46 119 H 110/39 L 99 11/19/18 09:40 115 H 100 11/19/18 09:31 115 H 101/40 L 100 11/19/18 09:30 116 H 100 11/19/18 09:20 114 H 100 11/19/18 09:16 113 H 102/37 L 99 11/19/18 09:10 112 H 99 11/19/18 09:01 112 H 107/41 L 99 11/19/18 09:00 113 H 97 11/19/18 08:50 114 H 99 11/19/18 08:46 110 H 90/41 L 99 11/19/18 08:40 112 H 100 11/19/18 08:31 112 H 81/45 L 99 11/19/18 08:30 111 H 99 11/19/18 08:20 113 H 99 Pain Intensity Abdomen: Pain Intensity: 6 Notes Mental Status: see notes below (patient sedated and on ventilator) Patient Amnestic to Procedure: No (unable to assess at this time) Nausea / Vomiting: see Notes below (no history post anesthetic) Pain: adequately controlled Airway Patency, RR, SpO2: stable & adequate BP & HR: stable & adequate Hydration State: stable & adequate Anesthetic Complications: no major complications apparent Notes: Patient condition is improving per RN report. Off vasoactive medications and attempting to wean from the vent this am.
[2018-11-20] MEDS: PANTOprazole 40 MG in SYRINGE 0 ML IV SCH ×2 (08:48→20:52)
[2018-11-20] MEDS: cefTRIAXone SODIUM 1,000 MG in SODIUM CHLOR 0.9% AD-VAN 50 ML IV SCH (08:48)
[2018-11-20] MEDS: HEPARIN SOD 5,000 UNIT/0.5 ML VIAL SQ SCH ×2 (08:49→20:52)
[2018-11-20] MEDS: INSULIN ASPART 100 UNITS/ML 3 ML PEN SC SCH ×2 (08:51→12:56)
--- NOTE | 2018-11-20 09:26 | Family Medicine Progress Note ---
Date of Service November 20, 2018 Assessment & Plan (1) Perforation of sigmoid colon due to diverticulitis: 68-year-old female was admitted on 18 November 2018 after complaining of acute abdominal pain. Perforated diverticulum, feculent peritonitis, intra-abdominal abscess: 16Feb underwent ex lap, sigmoid colon resection, and abdominal washout. At same time was started on Cipro and Flagyl. Cultures at that time grew gram-negative bacilli. See related general surgery notes. Since been transitioned to Rocephin and Flagyl. Hypoxemia and septic shock: Intubated. Has been transitioned off of norepinephrine and vasopressin. 17Feb TTE noted hyperdynamic ventricles, LVEF > 70%, with normal wall motion. Management per ICU team. Anemia: Baseline Hb around 12s. Presently stable around 9 post surgery. Acute kidney injury: Max Cr 2.12, improving, monitoring. Ongoing medical issues: - GERD: On Protonix. - Asthma: On home Symbicort and as needed albuterol. - Hyperlipidemia: Holding home simvastatin. - Depression: Holding home sertraline. Code status: DO NOT RESUSCITATE Diet: NPO, advance per general surgery recommendations. DVT prophy: Heparin 5000 units subcu every 12 hours. PT/OT: Deferred. Disbo: Admitted for ICU care. (2) Intra-abdominal abscess: (3) Septic shock: (4) Anemia: (5) Acute kidney injury: (6) GERD (gastroesophageal reflux disease): (7) Asthma: (8) HLD (hyperlipidemia): (9) Depression: Supervising Physician Co-Signing Physician Notes I personally examined the patient and verified all carranza points of history and exam, discussed case, and agree with decision making with Dr Lim. No meaningful HPI or review of systems obtainable from patient. Family updated the best my ability. Vitals noted, in general she is sedated intubated but appears in no distress. Breathing on the vent is unlabored no accessory muscle use, skin shows no rashes no pallor or icterus. Neuro shows no focal deficits as best can be assessed. Peritonitis/sepsis secondary to perforated diverticulitisseptic shock and acute kidney injury appear to be improving. Continue ventilator support until she is able to be weaned. Continue antibiotics. Cipro was changed to Rocephin due to sensitivities showing the E. coli from her cultures being quinolone resistant. Continue supportive care otherwise. DVT prophylaxisheparin subcu Subjective Found patient intubated and sedated earlier this morning. Her and granddaughter who are at the bedside. They did not have any immediate concerns. Physical Exam 2 Vital Signs (Past 24 Hours): Last Vital Signs Temp 37.9 C H 11/20/18 04:01 Pulse 101 H 11/20/18 07:35 Resp 24 11/20/18 07:35 BP 97/45 L 11/20/18 06:46 Pulse Ox 100 11/20/18 07:35 Physical Exam: General: Intubated and sedated on Versed. CV: +S1S2 RRR, no murmur. Pulm: Decreased breath sounds but clear throughout. Intubated. Abdomen: +BS, large abdominal dressing in place. NG tube in place. Extremities: No pedal edema or calf tenderness. Moving all extremities naturally and easily. Neuro: Sedated. Results & Data Laboratory Results Laboratory Results WBC 13.42 K/uL (4.8-10.8) H 11/20/18 06:44 RBC 3.45 M/uL (4.2-5.4) L 11/20/18 06:44 Hgb 8.9 g/dL (12.0-16.0) L 11/20/18 06:44 POC Hgb 13.6 g/dl (12.0-16.0) 11/18/18 01:11 Hct 28.9 % (37-47) L 11/20/18 06:44 POC Hct 40 % (37-47) 11/18/18 01:11 MCV 83.8 fL (80-100) 11/20/18 06:44 MCH 25.8 pg (25-34) 11/20/18 06:44 MCHC 30.8 g/dL (32-36) L 11/20/18 06:44 RDW Std Deviation 46.8 fL (36.4-46.3) H 11/20/18 06:44 RDW Coeff of Guera 15.0 % (11.5-14.5) H 11/20/18 06:44 Plt Count 177 K/uL (130-400) 11/20/18 06:44 MPV 8.9 fL (7.4-10.4) 11/20/18 06:44 Immature Gran % (Auto) 0.4 % 11/20/18 06:44 Neut % (Auto) 79.6 % 11/20/18 06:44 Lymph % (Auto) 9.5 % 11/20/18 06:44 Amelia % (Auto) 9.4 % 11/20/18 06:44 Eos % (Auto) 1.0 % 11/20/18 06:44 Baso % (Auto) 0.1 % 11/20/18 06:44 Immature Gran # (Auto) 0.05 K/uL (0.00-0.02) H 11/20/18 06:44 Neut # (Auto) 10.68 K/uL (1.4-6.5) H 11/20/18 06:44 Lymph # (Auto) 1.27 K/uL (1.2-3.4) 11/20/18 06:44 Amelia # (Auto) 1.26 K/uL (0.11-0.59) H 11/20/18 06:44 Eos # (Auto) 0.14 K/uL (0-0.5) 11/20/18 06:44 Baso # (Auto) 0.02 K/uL (0-0.2) 11/20/18 06:44 Absolute Nucleated RBC Cancelled 11/20/18 04:30 Nucleated RBC % (auto) Cancelled 11/20/18 04:30 Neutrophils % (Manual) Cancelled 11/20/18 04:30 Band Neutrophils % Cancelled 11/20/18 04:30 Lymphocytes % (Manual) Cancelled 11/20/18 04:30 Prolymphocyte % Cancelled 11/20/18 04:30 Reactive Lymphs % (Man) Cancelled 11/20/18 04:30 Monocytes % (Manual) Cancelled 11/20/18 04:30 Eosinophils % (Manual) Cancelled 11/20/18 04:30 Basophils % (Manual) Cancelled 11/20/18 04:30 Metamyelocytes % (Man) Cancelled 11/20/18 04:30 Myelocytes % (Man) Cancelled 11/20/18 04:30 Promyelocytes % (Man) Cancelled 11/20/18 04:30 Blast Cells % (Manual) Cancelled 11/20/18 04:30 Plasma Cell % (Manual) Cancelled 11/20/18 04:30 Other Cells % Cancelled 11/20/18 04:30 Nucleated RBC % Cancelled 11/20/18 04:30 Neutrophils # (Manual) Cancelled 11/20/18 04:30 Band Neutrophils # Cancelled 11/20/18 04:30 Total Absolute Neuts Cancelled 11/20/18 04:30 Lymphocytes # (Manual) Cancelled 11/20/18 04:30 Prolymphocyte # Cancelled 11/20/18 04:30 Reactive Lymphs # Cancelled 11/20/18 04:30 Total Abs Lymphocytes Cancelled 11/20/18 04:30 Monocytes # (Manual) Cancelled 11/20/18 04:30 Eosinophils # (Manual) Cancelled 11/20/18 04:30 Basophils # (Manual) Cancelled 11/20/18 04:30 Metamyelocytes # (Man) Cancelled 11/20/18 04:30 Myelocytes # (Manual) Cancelled 11/20/18 04:30 Promyelocytes # (Man) Cancelled 11/20/18 04:30 Blast Cells # (Man) Cancelled 11/20/18 04:30 Plasma Cell # (Manual) Cancelled 11/20/18 04:30 Other Cells # Cancelled 11/20/18 04:30 Nucleated RBCs # (Man) Cancelled 11/20/18 04:30 Hypersegmented Neuts Cancelled 11/20/18 04:30 Hyposegmented Neuts Cancelled 11/20/18 04:30 Hypogranular Neuts Cancelled 11/20/18 04:30 Large Granular Lymphs Cancelled 11/20/18 04:30 # Lrg Granular Lymphs Cancelled 11/20/18 04:30 Hairy Cells Cancelled 11/20/18 04:30 Smudge Cells Cancelled 11/20/18 04:30 Toxic Granulation Cancelled 11/20/18 04:30 Toxic Vacuolation 1+ 11/19/18 12:03 Dohle Bodies 1+ 11/20/18 06:44 Adele Rods Cancelled 11/20/18 04:30 Platelet Estimate Cancelled 11/20/18 04:30 Hypogranular Platelets Cancelled 11/20/18 04:30 Clumped Platelets Cancelled 11/20/18 04:30 Giant Platelets Cancelled 11/20/18 04:30 Platelet Satelliting Cancelled 11/20/18 04:30 RBC Morphology Cancelled 11/20/18 04:30 Polychromasia Cancelled 11/20/18 04:30 Hypochromasia Cancelled 11/20/18 04:30 Poikilocytosis Cancelled 11/20/18 04:30 Basophilic Stippling Cancelled 11/20/18 04:30 Anisocytosis Cancelled 11/20/18 04:30 Microcytosis Cancelled 11/20/18 04:30 Macrocytosis Cancelled 11/20/18 04:30 Spherocytes Cancelled 11/20/18 04:30 Pappenheimer Bodies Cancelled 11/20/18 04:30 Sickle Cells Cancelled 11/20/18 04:30 Target Cells Cancelled 11/20/18 04:30 Tear Drop Cells Cancelled 11/20/18 04:30 Ovalocytes Cancelled 11/20/18 04:30 Stomatocytes Cancelled 11/20/18 04:30 [place] Bodies Cancelled 11/20/18 04:30 Echinocytes 1+ 11/19/18 12:03 Acanthocytes (Spur) Cancelled 11/20/18 04:30 Rouleaux Cancelled 11/20/18 04:30 RBC Agglutinates Cancelled 11/20/18 04:30 Schistocytes Cancelled 11/20/18 04:30 RBC Morph Comment Cancelled 11/20/18 04:30 Sezary Cell Cancelled 11/20/18 04:30 PT 10.8 Seconds (9.0-12.0) 11/18/18 01:10 INR 1.1 (0.9-1.1) 11/18/18 01:10 POC Sodium 138 mEq/L (135-144) 11/18/18 01:11 Sodium 143 mmol/L (136-145) 11/20/18 04:39 POC Potassium 4.0 mEq/L (3.3-5.0) 11/18/18 01:11 Potassium 3.7 mmol/L (3.5-5.1) 11/20/18 04:39 POC Chloride 102 mEq/L (101-112) 11/18/18 01:11 Chloride 116 mmol/L (98-107) H 11/20/18 04:39 Carbon Dioxide 17 mmol/L (21-32) L 11/20/18 04:39 POC Total CO2 24 mEq/l (24-31) 11/18/18 01:11 Anion Gap 10.0 (3-11) 11/20/18 04:39 POC Anion Gap 17.0 mmol/L (16-25) 11/18/18 01:11 POC BUN 32 mg/dl (7-18) H 11/18/18 01:11 BUN 24 mg/dl (7-18) H 11/20/18 04:39 Creatinine 1.30 mg/dl (0.6-1.2) H D 11/20/18 04:39 POC Creatinine 1.5 mg/dl (0.6-1.3) H 11/18/18 01:11 Est Cr Clr Drug Dosing 42.0 ml/min 11/20/18 04:39 Est GFR ( Amer) 48.1 11/20/18 04:39 Est GFR (Non-Af Amer) 41.5 11/20/18 04:39 BUN/Creatinine Ratio 18.1 (10-20) 11/20/18 04:39 Glucose 90 mg/dl (70-99) 11/20/18 04:39 POC Glucose 101 (70-99) H 11/20/18 01:15 POC Glucose (other) 131 mg/dl (70-99) H 11/18/18 01:11 Lactate 2.1 mmol/L (0.4-2.0) H* 11/19/18 12:03 Calcium 7.0 mg/dl (8.5-10.1) L 11/20/18 04:39 POC Ioniz Calcium Sandro 1.14 mmol/l (1.12-1.32) 11/18/18 01:11 Ionized Calcium 0.98 mmol/L (1.12-1.32) L 11/19/18 12:24 Phosphorus 2.3 mg/dl (2.5-4.9) L 11/20/18 04:30 Magnesium 1.8 mg/dl (1.8-2.4) 11/20/18 04:30 Total Bilirubin 0.9 mg/dl (0.2-1) D 11/20/18 04:30 Direct Bilirubin 0.3 mg/dl (0-0.2) H 11/20/18 04:30 AST 55 U/L (15-37) H 11/20/18 04:30 ALT 19 U/L (12-78) 11/20/18 04:30 Alkaline Phosphatase 44 U/L (45-117) L 11/20/18 04:30 Total Creatine Kinase 13 U/L (26-192) L 11/18/18 01:10 CK-MB (CK-2) < 1.0 ng/ml (0.5-3.6) 11/18/18 01:10 CK/CKMB % Calc TNP 11/18/18 01:10 Troponin I 0.138 ng/ml (0-0.045) H* 11/20/18 05:43 Total Protein 4.6 gm/dl (6.4-8.2) L 11/20/18 04:30 Albumin 1.9 gm/dl (3.4-5.0) L 11/20/18 04:30 Globulin 2.4 gm/dl (2.5-4.0) L 11/19/18 04:12 Albumin/Globulin Ratio 1.0 (0.9-2) 11/19/18 04:12 Lipase 131 U/L (73-393) 11/18/18 01:10 Random Cortisol 27.49 mcg/dl 11/19/18 12:03 Specimen Hemolysis 11/20/18 04:39 Nasal Screen MRSA (PCR) Negative (Negative) 11/18/18 22:03 Medications Administered Current Inpatient Medications Albuterol (Ventolin 0.083% 2.5mg/3ml) 2.5 mg INH QID PRN PRN Reason: Wheezing Stop: 12/18/18 04:23 Last Admin: 11/19/18 10:05 Dose: 2.5 mg Budesonide/Formoterol Fumarate (Symbicort 160mcg/4.5mcg) 2 puffs INH BID [facility] Stop: 12/18/18 08:59 Last Admin: 11/19/18 07:15 Dose: Not Given Fentanyl Citrate (Fentanyl Citrate) 100 mcg IV Q1H PRN PRN Reason: Severe Pain (7,8,9,10) Stop: 12/02/18 21:27 Last Admin: 11/19/18 13:21 Dose: 100 mcg Heparin Sodium (Porcine) (Heparin Sodium (Porcine)) 5,000 units SQ Q12 IMRELA Stop: 12/19/18 08:59 Last Admin: 11/20/18 08:49 Dose: 5,000 units Metronidazole (Flagyl) 500 mg in 100 mls @ 100 mls/hr IV Q8H MIRELA Stop: 11/28/18 09:59 Last Infusion: 11/20/18 02:50 Dose: Infused Acetaminophen (Ofirmev) 65 mls @ 200 mls/hr IV Q8H PRN PRN Reason: pain or fever Stop: 12/18/18 04:23 Last Infusion: 11/19/18 11:47 Dose: Infused Pantoprazole Sodium 40 mg/ (Syringe) 10 mls @ 5 mls/min IV BID MIRELA Stop: 12/18/18 08:59 Last Admin: 11/20/18 08:48 Dose: 5 mls/min Sodium Chloride (Nss 1000ml) 1,000 mls @ 150 mls/hr IV .Q6H40M MIRELA Stop: 12/18/18 09:29 Last Admin: 11/20/18 08:51 Dose: 150 mls/hr Midazolam HCl (Versed) 125 mg in 250 mls @ 8 mls/hr IV .Q24H MIRELA; Protocol Stop: 12/18/18 21:59 Last Titration: 11/20/18 06:48 Dose: 4 mg/hr, 8 mls/hr Norepinephrine Bitartrate 8 mg (/ Dextrose) 508 mls @ 0 mls/hr IV .Q0M MIRELA; Protocol Stop: 12/19/18 08:24 Last Titration: 11/20/18 06:48 Dose: 0 mcg/kg/min, 0 mls/hr Vasopressin 20 units/ Sodium (Chloride) 101 mls @ 0 mls/hr IV .Q0M MIRELA Stop: 12/19/18 10:59 Last Infusion: 11/20/18 06:48 Dose: 0 unit/min, 0 mls/hr Hard Fat/Phenylephrine 20 mg/ (Dextrose) 502 mls @ 0 mls/hr IV .Q0M MIRELA; Protocol Stop: 12/19/18 10:56 Last Admin: 11/20/18 06:47 Dose: Not Given Potassium Phosphate 15 mmol/ (Sodium Chloride) 255 mls @ 100 mls/hr IV ONE ONE Stop: 11/20/18 10:17 Last Admin: 11/20/18 08:48 Dose: 100 mls/hr Ceftriaxone Sodium 1,000 mg/ (Sodium Chloride) 50 mls @ 100 mls/hr IV Q24H MIRELA ; Protocol Stop: 11/30/18 07:59 Last Admin: 11/20/18 08:48 Dose: 100 mls/hr Insulin Aspart (Novolog Flexpen) 0 units SC Q6 MIRELA Stop: 12/20/18 07:59 Last Admin: 11/20/18 08:51 Dose: Not Given Midazolam HCl (Versed) 2 mg IV Q2H PRN PRN Reason: agitation/anxiety Stop: 12/18/18 21:29 Miscellaneous (Icu Protocol For Hyperglycemia) 1 ea N/A PRN PRN; Protocol PRN Reason: Hyperglycemia Protocol Stop: 11/20/18 21:27 Ondansetron HCl (Zofran) 4 mg IV Q6H PRN PRN Reason: Nausea Stop: 12/18/18 04:23 Resident Activity Tracking Resident Involvement: Resident Care Provided Care Provided: Adult [facility] Medicine _ (1) GERD (gastroesophageal reflux disease) Esophagitis presence: esophagitis presence not specified Qualified Code(s): K21.9 - Gastro-esophageal reflux disease without esophagitis (2) Asthma Asthma complication type: unspecified Asthma persistence: unspecified Asthma severity: unspecified severity Qualified Code(s): J45.909 - Unspecified asthma, uncomplicated
--- NOTE | 2018-11-20 10:05 | Surgery Progress Note ---
Date of Service November 20, 2018 Assessment & Plan (1) Diverticulitis: 11/20/2018 Patient opens eyes with abdominal exam. Colostomy pink WBC 13.42; Cr 1.30 this AM. Urine output greatly improved. Plan to extubate patient today. 11/19/18 3 ;30 pm open eyes with just touching abd on pressors but quite stable colostomy pink 11/19/2018 Roughly 14 hrs s/p Exploratory Laparotomy, Sigmoid Colon Resection, Abdominal Washout (Louis Procedure) Patient remains on mechanical vent- may remain on vent for rest of today. WBC improved at 12.25 this AM. Appreciate critical care team's management and care. We will continue to follow closely. Please call with any questions or concerns. 11/18/18 5;45 pm talked with family at bedside they state she is not this withdrawn mentally( sleepy) given overall picture best we proceed with surgery now r and c explained to and daughter including open procedure and louis surgery posted at this time with hospital cloth bleaching supervisor 11/18/18 5 pm since seen this am still has abd pain but abd exam bit softer heart rate up, wbc increased, creat up. will insert carreon, increase IV fluids, suspect will need to go to surgery may need Louis procedure forcomplex diverticulitis likely Hinchey 3-4 The patient will require surgery hopefully we can get her over this acute episode with IV antibiotics presently she is on Cipro Flagyl and her care was discussed with Dr. Murry and her daughter We will follow her clinically but at this time I would not recommend any surgery unless her clinical picture deteriorates Abscess up to 6 cm in size often respond to antibiotic therapy and she may need a follow-up CAT scan to either a major resolution or if any other significant changes Subjective Family at beside. Patient remains on mechanical vent this am. Dr Cooper plans on extubating today. Pt answers yes/no questions appropriately. Physical Exam 2 Vital Signs (Past 24 Hours): Last Vital Signs Temp 37.9 C H 11/20/18 04:01 Pulse 101 H 11/20/18 07:35 Resp 24 11/20/18 07:35 BP 97/45 L 11/20/18 06:46 Pulse Ox 100 11/20/18 07:35
--- NOTE | 2018-11-20 15:10 | Critical Care Progress Note ---
Date of Service November 20, 2018 Assessment & Plan (1) Perforation of sigmoid colon due to diverticulitis: Impression: 1. Postop sigmoidectomy. 2. Acute diverticulitis with abscess and perforation. 3. Acute respiratory failure requiring intubation. 4. Small left-sided pleural effusion likely postop. 5. Cardiomegaly with preserved EF. 6. History of asthma according to the family, patient does have history also of GERD. Plan: 1. Continue with current antibiotics. 2. CPAP trial. 3. Discontinue sedation including Versed. 4. If the patient tolerated the spontaneous breathing trial, we will proceed with extubation after performing a leak test. 5. 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 6. ICU core measures are met including PPI, heparin subcu and vap bundle. 7. Discussed with the family in details, all their questions been answered. 8. Discussed with surgery, appreciate their input. 9. Case discussed with the staff also rounds and details. Critical care time spent with the patient was 35 minutes. Subjective The patient was intubated, review of system was not obtainable. No events overnight, the patient is postop day 1. Physical Exam 2 Vital Signs (Past 24 Hours): Last Vital Signs Temp 37.9 C H 11/20/18 04:01 Pulse 107 H 11/20/18 14:10 Resp 26 H 11/20/18 14:10 BP 114/42 L 11/20/18 12:31 Pulse Ox 99 11/20/18 14:10 Physical Exam: No fever was reported, S1-S2 regular rate and rhythm, lungs are distant and clear, the patient is 3 L positive in fluid balance. Abdomen is postop, edema in the periphery noted, nonfocal neuro exam, no skin changes, oral mucosa appears intact with a ET tube in place. NG tube was placed as well. Results & Data Laboratory Results Labs were reviewed personally, patient had leukocytosis, minimal anemia, platelets has been maintained. BUN and creatinine has been also maintained however the patient is developing hyperchloremic metabolic acidosis. Diagnostic Findings Chest x-ray with cardiomegaly, otherwise no infiltrate. Small left-sided pleural effusion with compressive atelectasis, and review of her previous CAT scan, the findings were similar for in the left lower lobe.
[2018-11-21] MEDS ORDERED: DEXTROSE 50% 50 ML SYRINGE IV ONE (00:18)
[2018-11-21] MEDS: INSULIN ASPART 100 UNITS/ML 3 ML PEN SC SCH ×3 (00:38→06:57)
[2018-11-21] MEDS: SODIUM CHLORIDE 0.9% 1000ML 1,000 ML IV SCH ×2 (00:50→07:56)
[2018-11-21] MEDS: metroNIDAZOLE 500 MG/100 ML BAG IV SCH ×3 (02:33→17:54)
[2018-11-21 04:46] LABS: Hematocrit (blood only) 25.4 % (37-47); Hemoglobin 8.2 g/dL (12.0-16.0); Mean Corpuscular Hgb Conc 32.3 g/dL (32-36); Mean Corpuscular Volume 79.6 fL (80-100); Mean Platelet Volume 8.4 fL (7.4-10.4); Platelet Count 180 K/uL (130-400); RDW Coefficient of Variation 14.7 % (11.5-14.5); RDW Standard Deviation 43.6 fL (36.4-46.3); Red Blood Count 3.19 M/uL (4.2-5.4)
[2018-11-21 05:05] LABS: Albumin Level 1.7 gm/dl (3.4-5.0); BUN Creatinine Ratio 17.6 (10-20); Bilirubin Direct 0.2 mg/dl (0-0.2); Calcium 7.2 mg/dl (8.5-10.1); Creatinine Clr Calc Pharmacy 67.6 ml/min; Est GFR (African American) 82.8; Est GFR (Non-African American) 71.4; Magnesium 1.7 mg/dl (1.8-2.4); Potassium 3.2 mmol/L (3.5-5.1)
[2018-11-21 05:43] LABS: Bilirubin,Total 0.8 mg/dl (0.2-1); Phosphorus 1.2 mg/dl (2.5-4.9); Total Protein 4.8 gm/dl (6.4-8.2)
[2018-11-21] MEDS ORDERED: POTASSIUM PHOS 3 MMOL/1 ML INFUSION IV STA (05:58)
[2018-11-21] MEDS ORDERED: POTASSIUM PHOSPHATE 30 MMOL in SODIUM CHLORIDE 0.9% 500 ML IV ONE (06:00)
--- NOTE | 2018-11-21 06:52 | Surgery Progress Note ---
Date of Service November 21, 2018 Assessment & Plan (1) Diverticulitis: 11/21/18 bran 3 pod opens eyes with verbal stimuli hopefully wean off respirator once more alert and follows commands may use gi tract for nutritional support 11/20/2018 Patient opens eyes with abdominal exam. Colostomy pink WBC 13.42; Cr 1.30 this AM. Urine output greatly improved. Plan to extubate patient today. 11/19/18 3 ;30 pm open eyes with just touching abd on pressors but quite stable colostomy pink 11/19/2018 Roughly 14 hrs s/p Exploratory Laparotomy, Sigmoid Colon Resection, Abdominal Washout (Bonilla Procedure) Patient remains on mechanical vent- may remain on vent for rest of today. WBC improved at 12.25 this AM. Appreciate critical care team's management and care. We will continue to follow closely. Please call with any questions or concerns. 11/18/18 5;45 pm talked with family at bedside they state she is not this withdrawn mentally( sleepy) given overall picture best we proceed with surgery now r and c explained to and daughter including open procedure and bonilla surgery posted at this time with hospital clay shop supervisor 11/18/18 5 pm since seen this am still has abd pain but abd exam bit softer heart rate up, wbc increased, creat up. will insert carreon, increase IV fluids, suspect will need to go to surgery may need Bonilla procedure forcomplex diverticulitis likely Hinchey 3-4 The patient will require surgery hopefully we can get her over this acute episode with IV antibiotics presently she is on Cipro Flagyl and her care was discussed with Dr. Murry and her daughter We will follow her clinically but at this time I would not recommend any surgery unless her clinical picture deteriorates Abscess up to 6 cm in size often respond to antibiotic therapy and she may need a follow-up CAT scan to either a major resolution or if any other significant changes Physical Exam 2 Vital Signs (Past 24 Hours): Last Vital Signs Temp 37.7 C H 11/21/18 04:00 Pulse 104 H 11/21/18 06:31 Resp 24 11/21/18 04:55 BP 124/52 L 11/21/18 06:31 Pulse Ox 98 11/21/18 06:31 Physical Exam: opens eyes with verbal stimuli abd soflty distended no output per colostomy(viable)
[2018-11-21] MEDS: cefTRIAXone SODIUM 1,000 MG in SODIUM CHLOR 0.9% AD-VAN 50 ML IV SCH (07:56)
[2018-11-21] MEDS: HEPARIN SOD 5,000 UNIT/0.5 ML VIAL SQ SCH ×2 (07:56→20:59)
[2018-11-21] MEDS ORDERED: MAGNESIUM SULFATE / D5W 1 GM/100 ML BAG IV SCH (08:00)
[2018-11-21] MEDS ORDERED: ACETAMINOPHEN 325 MG TAB PO PRN (08:28)
[2018-11-21] MEDS: PANTOprazole 40 MG in SYRINGE 0 ML IV SCH ×2 (08:35→20:59)
[2018-11-21] MEDS ORDERED: FUROSEMIDE 40 MG in SYRINGE 0 ML IV ONE (09:15)
--- NOTE | 2018-11-21 09:30 | Family Medicine Progress Note ---
Date of Service November 21, 2018 Assessment & Plan (1) Perforation of sigmoid colon due to diverticulitis: 68-year-old female was admitted on 18 November 2018 after complaining of acute abdominal pain. Perforated diverticulum, feculent peritonitis, intra-abdominal abscess: 16Feb underwent ex lap, sigmoid colon resection, and abdominal washout. At same time was started on Cipro and Flagyl. Cultures at that time grew gram-negative bacilli. See related general surgery notes. Since been transitioned to Rocephin (after reviewing sensitivies) and Flagyl. Hypoxemia and septic shock: Intubated. Has been transitioned off of norepinephrine and vasopressin. 17Feb TTE noted hyperdynamic ventricles, LVEF > 70%, with normal wall motion. Has to work through some of the sedation meds shes received thus far before extubation. Management per ICU team. Anemia: Baseline Hb around 12s. Presently stable around 9 post surgery. Acute kidney injury: Max Cr 2.12, resolved. Monitoring. Multiple electrolyte issues: Replacement by ICU team. Ongoing medical issues: - GERD: On Protonix. - Asthma: On home Symbicort and as needed albuterol. - Hyperlipidemia: Holding home simvastatin. - Depression: Holding home sertraline. Code status: DO NOT RESUSCITATE Diet: NPO while intubated. Otherwise advance per general surgery recommendations. DVT prophy: Heparin 5000 units subcu every 12 hours. PT/OT: Deferred. Disbo: Admitted for ICU care. (2) Intra-abdominal abscess: (3) Septic shock: (4) Anemia: (5) Acute kidney injury: (6) GERD (gastroesophageal reflux disease): (7) Asthma: (8) HLD (hyperlipidemia): (9) Depression: Supervising Physician Co-Signing Physician Notes I personally examined the patient and verified all carranza points of history and exam, discussed case, and agree with decision making with Dr Lim. No meaningful HPI or review of systems obtainable from patient. updated family again. Vitals noted, in general she is sedated intubated but appears in no distress. Breathing on the vent is unlabored no accessory muscle use, no r/r/w. cardio reg no r/m/g skin shows no rashes no pallor or icterus. Neuro shows no focal deficits as best can be assessed. Peritonitis/sepsis secondary to perforated diverticulitisseptic shock and acute kidney injury appear to be improving. Continue ventilator support until she is able to be weaned. Continue antibiotics. Cipro was changed to Rocephin due to sensitivities showing the E. coli from her cultures being quinolone resistant. seems overall stable - continue current care/watchful waiting for ongoing improvement and extubation DVT prophylaxisheparin subcu Subjective Found patient intubated with her at bedside. Per his account, she opens her eyes briefly but then goes back to sleep. He did not have any acute concerns. Physical Exam 2 Vital Signs (Past 24 Hours): Last Vital Signs Temp 37.7 C H 11/21/18 04:00 Pulse 105 H 11/21/18 08:16 Resp 30 H 11/21/18 07:35 BP 140/50 L 11/21/18 08:16 Pulse Ox 100 11/21/18 08:16 Physical Exam: General: Intubated but off sedation. CV: +S1S2 RRR, no murmur. Pulm: Decreased breath sounds but clear throughout. Intubated. Abdomen: +BS, large abdominal dressing in place. NG tube in place. Extremities: No pedal edema or calf tenderness. Neuro: Somnolent but opens eyes to voice at times. Results & Data Laboratory Results Laboratory Results WBC 12.70 K/uL (4.8-10.8) H 11/21/18 04:37 RBC 3.19 M/uL (4.2-5.4) L 11/21/18 04:37 Hgb 8.2 g/dL (12.0-16.0) L 11/21/18 04:37 POC Hgb 13.6 g/dl (12.0-16.0) 11/18/18 01:11 Hct 25.4 % (37-47) L 11/21/18 04:37 POC Hct 40 % (37-47) 11/18/18 01:11 MCV 79.6 fL (80-100) L D 11/21/18 04:37 MCH 25.7 pg (25-34) 11/21/18 04:37 MCHC 32.3 g/dL (32-36) 11/21/18 04:37 RDW Std Deviation 43.6 fL (36.4-46.3) 11/21/18 04:37 RDW Coeff of Guera 14.7 % (11.5-14.5) H 11/21/18 04:37 Plt Count 180 K/uL (130-400) 11/21/18 04:37 MPV 8.4 fL (7.4-10.4) 11/21/18 04:37 Immature Gran % (Auto) 0.4 % 11/20/18 06:44 Neut % (Auto) 79.6 % 11/20/18 06:44 Lymph % (Auto) 9.5 % 11/20/18 06:44 Dauphin % (Auto) 9.4 % 11/20/18 06:44 Eos % (Auto) 1.0 % 11/20/18 06:44 Baso % (Auto) 0.1 % 11/20/18 06:44 Immature Gran # (Auto) 0.05 K/uL (0.00-0.02) H 11/20/18 06:44 Neut # (Auto) 10.68 K/uL (1.4-6.5) H 11/20/18 06:44 Lymph # (Auto) 1.27 K/uL (1.2-3.4) 11/20/18 06:44 Dauphin # (Auto) 1.26 K/uL (0.11-0.59) H 11/20/18 06:44 Eos # (Auto) 0.14 K/uL (0-0.5) 11/20/18 06:44 Baso # (Auto) 0.02 K/uL (0-0.2) 11/20/18 06:44 Absolute Nucleated RBC Cancelled 11/20/18 04:30 Nucleated RBC % (auto) Cancelled 11/20/18 04:30 Neutrophils % (Manual) Cancelled 11/20/18 04:30 Band Neutrophils % Cancelled 11/20/18 04:30 Lymphocytes % (Manual) Cancelled 11/20/18 04:30 Prolymphocyte % Cancelled 11/20/18 04:30 Reactive Lymphs % (Man) Cancelled 11/20/18 04:30 Monocytes % (Manual) Cancelled 11/20/18 04:30 Eosinophils % (Manual) Cancelled 11/20/18 04:30 Basophils % (Manual) Cancelled 11/20/18 04:30 Metamyelocytes % (Man) Cancelled 11/20/18 04:30 Myelocytes % (Man) Cancelled 11/20/18 04:30 Promyelocytes % (Man) Cancelled 11/20/18 04:30 Blast Cells % (Manual) Cancelled 11/20/18 04:30 Plasma Cell % (Manual) Cancelled 11/20/18 04:30 Other Cells % Cancelled 11/20/18 04:30 Nucleated RBC % Cancelled 11/20/18 04:30 Neutrophils # (Manual) Cancelled 11/20/18 04:30 Band Neutrophils # Cancelled 11/20/18 04:30 Total Absolute Neuts Cancelled 11/20/18 04:30 Lymphocytes # (Manual) Cancelled 11/20/18 04:30 Prolymphocyte # Cancelled 11/20/18 04:30 Reactive Lymphs # Cancelled 11/20/18 04:30 Total Abs Lymphocytes Cancelled 11/20/18 04:30 Monocytes # (Manual) Cancelled 11/20/18 04:30 Eosinophils # (Manual) Cancelled 11/20/18 04:30 Basophils # (Manual) Cancelled 11/20/18 04:30 Metamyelocytes # (Man) Cancelled 11/20/18 04:30 Myelocytes # (Manual) Cancelled 11/20/18 04:30 Promyelocytes # (Man) Cancelled 11/20/18 04:30 Blast Cells # (Man) Cancelled 11/20/18 04:30 Plasma Cell # (Manual) Cancelled 11/20/18 04:30 Other Cells # Cancelled 11/20/18 04:30 Nucleated RBCs # (Man) Cancelled 11/20/18 04:30 Hypersegmented Neuts Cancelled 11/20/18 04:30 Hyposegmented Neuts Cancelled 11/20/18 04:30 Hypogranular Neuts Cancelled 11/20/18 04:30 Large Granular Lymphs Cancelled 11/20/18 04:30 # Lrg Granular Lymphs Cancelled 11/20/18 04:30 Hairy Cells Cancelled 11/20/18 04:30 Smudge Cells Cancelled 11/20/18 04:30 Toxic Granulation Cancelled 11/20/18 04:30 Toxic Vacuolation 1+ 11/19/18 12:03 Dohle Bodies 1+ 11/20/18 06:44 Adele Rods Cancelled 11/20/18 04:30 Platelet Estimate Cancelled 11/20/18 04:30 Hypogranular Platelets Cancelled 11/20/18 04:30 Clumped Platelets Cancelled 11/20/18 04:30 Giant Platelets Cancelled 11/20/18 04:30 Platelet Satelliting Cancelled 11/20/18 04:30 RBC Morphology Cancelled 11/20/18 04:30 Polychromasia Cancelled 11/20/18 04:30 Hypochromasia Cancelled 11/20/18 04:30 Poikilocytosis Cancelled 11/20/18 04:30 Basophilic Stippling Cancelled 11/20/18 04:30 Anisocytosis Cancelled 11/20/18 04:30 Microcytosis Cancelled 11/20/18 04:30 Macrocytosis Cancelled 11/20/18 04:30 Spherocytes Cancelled 11/20/18 04:30 Pappenheimer Bodies Cancelled 11/20/18 04:30 Sickle Cells Cancelled 11/20/18 04:30 Target Cells Cancelled 11/20/18 04:30 Tear Drop Cells Cancelled 11/20/18 04:30 Ovalocytes Cancelled 11/20/18 04:30 Stomatocytes Cancelled 11/20/18 04:30 Henry-Morehead Bodies Cancelled 11/20/18 04:30 Echinocytes 1+ 11/19/18 12:03 Acanthocytes (Spur) Cancelled 11/20/18 04:30 Rouleaux Cancelled 11/20/18 04:30 RBC Agglutinates Cancelled 11/20/18 04:30 Schistocytes Cancelled 11/20/18 04:30 RBC Morph Comment Cancelled 11/20/18 04:30 Sezary Cell Cancelled 11/20/18 04:30 PT 10.8 Seconds (9.0-12.0) 11/18/18 01:10 INR 1.1 (0.9-1.1) 11/18/18 01:10 POC Sodium 138 mEq/L (135-144) 11/18/18 01:11 Sodium 145 mmol/L (136-145) 11/21/18 04:37 POC Potassium 4.0 mEq/L (3.3-5.0) 11/18/18 01:11 Potassium 3.2 mmol/L (3.5-5.1) L 11/21/18 04:37 POC Chloride 102 mEq/L (101-112) 11/18/18 01:11 Chloride 118 mmol/L (98-107) H 11/21/18 04:37 Carbon Dioxide 20 mmol/L (21-32) L 11/21/18 04:37 POC Total CO2 24 mEq/l (24-31) 11/18/18 01:11 Anion Gap 7.0 (3-11) 11/21/18 04:37 POC Anion Gap 17.0 mmol/L (16-25) 11/18/18 01:11 POC BUN 32 mg/dl (7-18) H 11/18/18 01:11 BUN 15 mg/dl (7-18) 11/21/18 04:37 Creatinine 0.83 mg/dl (0.6-1.2) D 11/21/18 04:37 POC Creatinine 1.5 mg/dl (0.6-1.3) H 11/18/18 01:11 Est Cr Clr Drug Dosing 67.6 ml/min 11/21/18 04:37 Est GFR ( Amer) 82.8 11/21/18 04:37 Est GFR (Non-Af Amer) 71.4 11/21/18 04:37 BUN/Creatinine Ratio 17.6 (10-20) 11/21/18 04:37 Glucose 74 mg/dl (70-99) 11/21/18 04:37 POC Glucose 73 (70-99) 11/21/18 05:54 POC Glucose (other) 131 mg/dl (70-99) H 11/18/18 01:11 Lactate 2.1 mmol/L (0.4-2.0) H* 11/19/18 12:03 Calcium 7.2 mg/dl (8.5-10.1) L 11/21/18 04:37 POC Ioniz Calcium Sandro 1.14 mmol/l (1.12-1.32) 11/18/18 01:11 Ionized Calcium 0.98 mmol/L (1.12-1.32) L 11/19/18 12:24 Phosphorus 1.2 mg/dl (2.5-4.9) L* D 11/21/18 04:37 Magnesium 1.7 mg/dl (1.8-2.4) L 11/21/18 04:37 Total Bilirubin 0.8 mg/dl (0.2-1) 11/21/18 04:37 Direct Bilirubin 0.2 mg/dl (0-0.2) 11/21/18 04:37 AST 37 U/L (15-37) 11/21/18 04:37 ALT 19 U/L (12-78) 11/21/18 04:37 Alkaline Phosphatase 45 U/L (45-117) 11/21/18 04:37 Total Creatine Kinase 13 U/L (26-192) L 11/18/18 01:10 CK-MB (CK-2) < 1.0 ng/ml (0.5-3.6) 11/18/18 01:10 CK/CKMB % Calc TNP 11/18/18 01:10 Troponin I 0.102 ng/ml (0-0.045) H* 11/20/18 14:34 Total Protein 4.8 gm/dl (6.4-8.2) L 11/21/18 04:37 Albumin 1.7 gm/dl (3.4-5.0) L 11/21/18 04:37 Globulin 2.4 gm/dl (2.5-4.0) L 11/19/18 04:12 Albumin/Globulin Ratio 1.0 (0.9-2) 11/19/18 04:12 Lipase 131 U/L (73-393) 11/18/18 01:10 Random Cortisol 27.49 mcg/dl 11/19/18 12:03 Specimen Hemolysis 11/20/18 04:39 Nasal Screen MRSA (PCR) Negative (Negative) 11/18/18 22:03 Medications Administered Current Inpatient Medications Acetaminophen (Tylenol) 650 mg PO Q4H PRN PRN Reason: Fever Stop: 12/21/18 08:27 Albuterol (Ventolin 0.083% 2.5mg/3ml) 2.5 mg INH QID PRN PRN Reason: Wheezing Stop: 12/18/18 04:23 Last Admin: 11/19/18 10:05 Dose: 2.5 mg Budesonide/Formoterol Fumarate (Symbicort 160mcg/4.5mcg) 2 puffs INH BID MIRELA Stop: 12/18/18 08:59 Last Admin: 11/19/18 07:15 Dose: Not Given Fentanyl Citrate (Fentanyl Citrate) 50 mcg IV Q1H PRN PRN Reason: Severe Pain (7,8,9,10) Stop: 12/02/18 21:27 Heparin Sodium (Porcine) (Heparin Sodium (Porcine)) 5,000 units SQ Q12 [facility] Stop: 12/19/18 08:59 Last Admin: 11/21/18 07:56 Dose: 5,000 units Metronidazole (Flagyl) 500 mg in 100 mls @ 100 mls/hr IV Q8H [facility] Stop: 11/28/18 09:59 Last Admin: 11/21/18 09:29 Dose: 100 mls/hr Pantoprazole Sodium 40 mg/ (Syringe) 10 mls @ 5 mls/min IV BID [facility] Stop: 12/18/18 08:59 Last Admin: 11/21/18 08:35 Dose: 5 mls/min Ceftriaxone Sodium 1,000 mg/ (Sodium Chloride) 50 mls @ 100 mls/hr IV Q24H [facility] ; Protocol Stop: 11/30/18 07:59 Last Infusion: 11/21/18 08:40 Dose: Infused Potassium Phosphate 30 mmol/ (Sodium Chloride) 510 mls @ 88 mls/hr IV ONE ONE Stop: 11/21/18 11:47 Last Admin: 11/21/18 06:17 Dose: 88 mls/hr Magnesium Sulfate/Dextrose (Magnesium Sulfate / D5w) 1 gm in 100 mls @ 100 mls/ hr IV TODAY@0800 [facility] Stop: 11/21/18 15:00 Last Infusion: 11/21/18 09:41 Dose: Infused Ondansetron HCl (Zofran) 4 mg IV Q6H PRN PRN Reason: Nausea Stop: 12/18/18 04:23 Resident Activity Tracking Resident Involvement: Resident Care Provided Care Provided: [facility] Medicine _ (1) GERD (gastroesophageal reflux disease) Esophagitis presence: esophagitis presence not specified Qualified Code(s): K21.9 - Gastro-esophageal reflux disease without esophagitis (2) Asthma Asthma complication type: unspecified Asthma persistence: unspecified Asthma severity: unspecified severity Qualified Code(s): J45.909 - Unspecified asthma, uncomplicated
[2018-11-21] MEDS: PEPTAMEN INTENSE VHP 1.0 CAL 1,000 ML BAG OG SCH (14:51)
--- NOTE | 2018-11-21 18:54 | Critical Care Progress Note ---
Date of Service November 21, 2018 Assessment & Plan (1) Perforation of sigmoid colon due to diverticulitis: Impression: 1. Postop sigmoidectomy. 2. Acute diverticulitis with abscess and perforation. 3. Acute respiratory failure requiring intubation. 4. Small left-sided pleural effusion likely postop. 5. Cardiomegaly with preserved EF. 6. History of asthma according to the family, patient does have history also of GERD. Plan: 1. Continue with current antibiotics. 2. CPAP trial. The patient remained somnolent due to increased volume of distribution, he received significant doses of fentanyl and Versed. 3. Remains off sedation. 4. If the patient tolerated the spontaneous breathing trial, we will proceed with extubation after performing a leak test. 5. 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 6. ICU core measures are met including PPI, heparin subcu and vap bundle. 7. Discussed with the family in details, all their questions been answered. 8. Discussed with surgery, appreciate their input. 9. Case discussed with the staff also rounds and details. Critical care time spent with the patient was 35 minutes. Subjective The patient open her eyes follow commands however she is still sleepy and drowsy and cannot be extubated. Physical Exam 2 Vital Signs (Past 24 Hours): Last Vital Signs Temp 37.7 C H 11/21/18 04:00 Pulse 106 H 11/21/18 18:00 Resp 23 11/21/18 16:55 BP 150/55 H 11/21/18 17:45 Pulse Ox 98 11/21/18 18:00 Physical Exam: Vital signs remained stable, S1-S2, regular rate and rhythm, distant breath sounds bilaterally, abdomen is postop but soft, bowel sounds are positive, edema in the periphery, neurologically she is still somnolent but open her eyes to commands. No rash, oral mucosa appears normal. Results & Data Laboratory Results Labs were reviewed, leukocytosis noted. Potassium and phosphorus also low all repleted. As well as magnesium. Diagnostic Findings Imaging were reviewed, small lung volumes, cardiomegaly, small atelectasis in the left base.
[2018-11-22] MEDS: metroNIDAZOLE 500 MG/100 ML BAG IV SCH ×3 (02:18→17:19)
[2018-11-22 05:44] LABS: Albumin Level 1.7 gm/dl (3.4-5.0); BUN Creatinine Ratio 20.8 (10-20); Creatinine Clr Calc Pharmacy 86.8 ml/min; Est GFR (African American) 104.8; Est GFR (Non-African American) 90.4; Magnesium 1.5 mg/dl (1.8-2.4); Potassium 2.6 mmol/L (3.5-5.1)
[2018-11-22 06:06] LABS: Albumin Globulin Ratio 0.5 (0.9-2); Bilirubin,Total 0.7 mg/dl (0.2-1); Globulin 3.2 gm/dl (2.5-4.0); Phosphorus 1.1 mg/dl (2.5-4.9); Total Protein 4.9 gm/dl (6.4-8.2)
[2018-11-22] MEDS ORDERED: POTASSIUM PHOS 3 MMOL/1 ML INFUSION IV STA ×2 (07:42→18:17)
[2018-11-22] MEDS ORDERED: POTASSIUM CHLORIDE 20 MEQ TABCR PO STA (07:44)
[2018-11-22] MEDS: MAGNESIUM SULFATE / D5W 1 GM/100 ML BAG IV SCH ×2 (08:20→10:00)
[2018-11-22] MEDS: cefTRIAXone SODIUM 1,000 MG in SODIUM CHLOR 0.9% AD-VAN 50 ML IV SCH (08:20)
[2018-11-22] MEDS: PANTOprazole 40 MG in SYRINGE 0 ML IV SCH ×2 (08:21→20:51)
[2018-11-22] MEDS: HEPARIN SOD 5,000 UNIT/0.5 ML VIAL SQ SCH ×2 (08:21→20:52)
[2018-11-22] MEDS ORDERED: POTASSIUM PHOSPHATE 30 MMOL in SODIUM CHLORIDE 0.9% 500 ML IV ONE ×2 (08:30→18:30)
--- NOTE | 2018-11-22 09:36 | Family Medicine Progress Note ---
Date of Service November 22, 2018 Assessment & Plan (1) Perforation of sigmoid colon due to diverticulitis: 68-year-old female was admitted on 18 November 2018 after complaining of acute abdominal pain. Perforated diverticulum, feculent peritonitis, intra-abdominal abscess: 16Feb underwent ex lap, sigmoid colon resection, and abdominal washout. At same time was started on Cipro and Flagyl. Cultures at that time grew E. coli. See related general surgery notes. Since been transitioned (18Feb) to Rocephin ( after reviewing sensitivies) and Flagyl (16Feb). Hypoxemia and septic shock: Intubated. Off pressors. 17Feb TTE noted hyperdynamic ventricles, LVEF > 70%, with normal wall motion. Management per ICU team. Right-sided weakness: Noted as patient has become more alert. Unclear time of onset. ICU team ordered MRI of head and neck for further evaluation. Anemia: Baseline Hb around 12s. Post-surgery has trended down to 8.2, likely due to combination of acute surgical loss + ostomy oozing + dilution + poor production with acute illness. Monitoring. Acute kidney injury: Max Cr 2.12, resolved. Monitoring. Multiple electrolyte issues: Replacement by ICU team. Ongoing medical issues: - GERD: On Protonix. - Asthma: On home Symbicort and as needed albuterol. - Hyperlipidemia: Holding home simvastatin. - Depression: Holding home sertraline. Code status: DO NOT RESUSCITATE Diet: NPO while intubated. Otherwise advance per general surgery recommendations. DVT prophy: Heparin 5000 units subcu every 12 hours. PT/OT: Deferred. Disbo: Admitted for ICU care. (2) Intra-abdominal abscess: (3) Septic shock: (4) Anemia: (5) Acute kidney injury: (6) GERD (gastroesophageal reflux disease): (7) Asthma: (8) HLD (hyperlipidemia): (9) Depression: Supervising Physician Co-Signing Physician Notes I personally examined the patient and verified all carranza points of history and exam, discussed case, and agree with decision making with Dr Lim. No meaningful HPI or review of systems obtainable from patient. MRI done and negative for acute findings Vitals noted, in general she will make eye contact and follows some commands ( such as closing her eyes) but not others (squeezing my fingers) and appears in no distress. Breathing on the vent is unlabored no accessory muscle use, no r/r /w. cardio reg no r/m/g skin shows no rashes no pallor or icterus. Neuro shows no focal deficits as best can be assessed, no facial asymmetry generally equal muscle tone bilaterally. Peritonitis/sepsis secondary to perforated diverticulitisseptic shock and acute kidney injury appear to be improving. Hopefully she will start to wake up more and can be extubated. Continue empiric antibiotics and supportive care. Focal weaknessMRI was negative. We will have to consider looking at this as possible TIA. Fortunately no stroke. Secondary risk assessment and risk reduction. Right now a lot of this is extremely limited by her sepsis/ intubated status DVT prophylaxisheparin subcu Subjective Found patient earlier this morning with her eyes open and gagging a bit on the endotracheal tube. Patient's was at bedside and did not note any particular acute concerns. Physical Exam 2 Vital Signs (Past 24 Hours): Last Vital Signs Temp 37.8 C H 11/22/18 06:35 Pulse 99 H 11/22/18 07:51 Resp 20 11/22/18 07:51 BP 141/57 H 11/22/18 06:35 Pulse Ox 100 11/22/18 07:51 Physical Exam: General: Intubated but off sedation. CV: +S1S2 RRR, no murmur. Pulm: Decreased breath sounds but clear throughout. Intubated. Abdomen: +BS, large abdominal dressing in place. NG tube in place. Extremities: No pedal edema or calf tenderness. Neuro: Eyes open, following commands. Not moving the right side as much as left. Results & Data Laboratory Results Laboratory Results WBC 12.70 K/uL (4.8-10.8) H 11/21/18 04:37 RBC 3.19 M/uL (4.2-5.4) L 11/21/18 04:37 Hgb 8.2 g/dL (12.0-16.0) L 11/21/18 04:37 POC Hgb 13.6 g/dl (12.0-16.0) 11/18/18 01:11 Hct 25.4 % (37-47) L 11/21/18 04:37 POC Hct 40 % (37-47) 11/18/18 01:11 MCV 79.6 fL (80-100) L D 11/21/18 04:37 MCH 25.7 pg (25-34) 11/21/18 04:37 MCHC 32.3 g/dL (32-36) 11/21/18 04:37 RDW Std Deviation 43.6 fL (36.4-46.3) 11/21/18 04:37 RDW Coeff of Guera 14.7 % (11.5-14.5) H 11/21/18 04:37 Plt Count 180 K/uL (130-400) 11/21/18 04:37 MPV 8.4 fL (7.4-10.4) 11/21/18 04:37 Immature Gran % (Auto) 0.4 % 11/20/18 06:44 Neut % (Auto) 79.6 % 11/20/18 06:44 Lymph % (Auto) 9.5 % 11/20/18 06:44 Culberson % (Auto) 9.4 % 11/20/18 06:44 Eos % (Auto) 1.0 % 11/20/18 06:44 Baso % (Auto) 0.1 % 11/20/18 06:44 Immature Gran # (Auto) 0.05 K/uL (0.00-0.02) H 11/20/18 06:44 Neut # (Auto) 10.68 K/uL (1.4-6.5) H 11/20/18 06:44 Lymph # (Auto) 1.27 K/uL (1.2-3.4) 11/20/18 06:44 [place]berson # (Auto) 1.26 K/uL (0.11-0.59) H 11/20/18 06:44 Eos # (Auto) 0.14 K/uL (0-0.5) 11/20/18 06:44 Baso # (Auto) 0.02 K/uL (0-0.2) 11/20/18 06:44 Absolute Nucleated RBC Cancelled 11/20/18 04:30 Nucleated RBC % (auto) Cancelled 11/20/18 04:30 Neutrophils % (Manual) Cancelled 11/20/18 04:30 Band Neutrophils % Cancelled 11/20/18 04:30 Lymphocytes % (Manual) Cancelled 11/20/18 04:30 Prolymphocyte % Cancelled 11/20/18 04:30 Reactive Lymphs % (Man) Cancelled 11/20/18 04:30 Monocytes % (Manual) Cancelled 11/20/18 04:30 Eosinophils % (Manual) Cancelled 11/20/18 04:30 Basophils % (Manual) Cancelled 11/20/18 04:30 Metamyelocytes % (Man) Cancelled 11/20/18 04:30 Myelocytes % (Man) Cancelled 11/20/18 04:30 Promyelocytes % (Man) Cancelled 11/20/18 04:30 Blast Cells % (Manual) Cancelled 11/20/18 04:30 Plasma Cell % (Manual) Cancelled 11/20/18 04:30 Other Cells % Cancelled 11/20/18 04:30 Nucleated RBC % Cancelled 11/20/18 04:30 Neutrophils # (Manual) Cancelled 11/20/18 04:30 Band Neutrophils # Cancelled 11/20/18 04:30 Total Absolute Neuts Cancelled 11/20/18 04:30 Lymphocytes # (Manual) Cancelled 11/20/18 04:30 Prolymphocyte # Cancelled 11/20/18 04:30 Reactive Lymphs # Cancelled 11/20/18 04:30 Total Abs Lymphocytes Cancelled 11/20/18 04:30 Monocytes # (Manual) Cancelled 11/20/18 04:30 Eosinophils # (Manual) Cancelled 11/20/18 04:30 Basophils # (Manual) Cancelled 11/20/18 04:30 Metamyelocytes # (Man) Cancelled 11/20/18 04:30 Myelocytes # (Manual) Cancelled 11/20/18 04:30 Promyelocytes # (Man) Cancelled 11/20/18 04:30 Blast Cells # (Man) Cancelled 11/20/18 04:30 Plasma Cell # (Manual) Cancelled 11/20/18 04:30 Other Cells # Cancelled 11/20/18 04:30 Nucleated RBCs # (Man) Cancelled 11/20/18 04:30 Hypersegmented Neuts Cancelled 11/20/18 04:30 Hyposegmented Neuts Cancelled 11/20/18 04:30 Hypogranular Neuts Cancelled 11/20/18 04:30 Large Granular Lymphs Cancelled 11/20/18 04:30 # Lrg Granular Lymphs Cancelled 11/20/18 04:30 Hairy Cells Cancelled 11/20/18 04:30 Smudge Cells Cancelled 11/20/18 04:30 Toxic Granulation Cancelled 11/20/18 04:30 Toxic Vacuolation 1+ 11/19/18 12:03 Dohle Bodies 1+ 11/20/18 06:44 Adele Rods Cancelled 11/20/18 04:30 Platelet Estimate Cancelled 11/20/18 04:30 Hypogranular Platelets Cancelled 11/20/18 04:30 Clumped Platelets Cancelled 11/20/18 04:30 Giant Platelets Cancelled 11/20/18 04:30 Platelet Satelliting Cancelled 11/20/18 04:30 RBC Morphology Cancelled 11/20/18 04:30 Polychromasia Cancelled 11/20/18 04:30 Hypochromasia Cancelled 11/20/18 04:30 Poikilocytosis Cancelled 11/20/18 04:30 Basophilic Stippling Cancelled 11/20/18 04:30 Anisocytosis Cancelled 11/20/18 04:30 Microcytosis Cancelled 11/20/18 04:30 Macrocytosis Cancelled 11/20/18 04:30 Spherocytes Cancelled 11/20/18 04:30 Pappenheimer Bodies Cancelled 11/20/18 04:30 Sickle Cells Cancelled 11/20/18 04:30 Target Cells Cancelled 11/20/18 04:30 Tear Drop Cells Cancelled 11/20/18 04:30 Ovalocytes Cancelled 11/20/18 04:30 Stomatocytes Cancelled 11/20/18 04:30 [place] Bodies Cancelled 11/20/18 04:30 Echinocytes 1+ 11/19/18 12:03 Acanthocytes (Spur) Cancelled 11/20/18 04:30 Rouleaux Cancelled 11/20/18 04:30 RBC Agglutinates Cancelled 11/20/18 04:30 Schistocytes Cancelled 11/20/18 04:30 RBC Morph Comment Cancelled 11/20/18 04:30 Sezary Cell Cancelled 11/20/18 04:30 PT 10.8 Seconds (9.0-12.0) 11/18/18 01:10 INR 1.1 (0.9-1.1) 11/18/18 01:10 POC Sodium 138 mEq/L (135-144) 11/18/18 01:11 Sodium 145 mmol/L (136-145) 11/22/18 04:34 POC Potassium 4.0 mEq/L (3.3-5.0) 11/18/18 01:11 Potassium 2.6 mmol/L (3.5-5.1) L D 11/22/18 04:34 POC Chloride 102 mEq/L (101-112) 11/18/18 01:11 Chloride 114 mmol/L (98-107) H 11/22/18 04:34 Carbon Dioxide 23 mmol/L (21-32) 11/22/18 04:34 POC Total CO2 24 mEq/l (24-31) 11/18/18 01:11 Anion Gap 8.0 (3-11) 11/22/18 04:34 POC Anion Gap 17.0 mmol/L (16-25) 11/18/18 01:11 POC BUN 32 mg/dl (7-18) H 11/18/18 01:11 BUN 13 mg/dl (7-18) 11/22/18 04:34 Creatinine 0.64 mg/dl (0.6-1.2) 11/22/18 04:34 POC Creatinine 1.5 mg/dl (0.6-1.3) H 11/18/18 01:11 Est Cr Clr Drug Dosing 86.8 ml/min 11/22/18 04:34 Est GFR ( Amer) 104.8 11/22/18 04:34 Est GFR (Non-Af Amer) 90.4 11/22/18 04:34 BUN/Creatinine Ratio 20.8 (10-20) H 11/22/18 04:34 Glucose 79 mg/dl (70-99) 11/22/18 04:34 POC Glucose 96 (70-99) 11/22/18 11:25 POC Glucose (other) 131 mg/dl (70-99) H 11/18/18 01:11 Lactate 2.1 mmol/L (0.4-2.0) H* 11/19/18 12:03 Calcium 7.0 mg/dl (8.5-10.1) L 11/22/18 04:34 POC Ioniz Calcium Sandro 1.14 mmol/l (1.12-1.32) 11/18/18 01:11 Ionized Calcium 0.98 mmol/L (1.12-1.32) L 11/19/18 12:24 Phosphorus 1.1 mg/dl (2.5-4.9) L* 11/22/18 04:34 Magnesium 1.5 mg/dl (1.8-2.4) L 11/22/18 04:34 Total Bilirubin 0.7 mg/dl (0.2-1) 11/22/18 04:34 Direct Bilirubin 0.2 mg/dl (0-0.2) 11/21/18 04:37 AST 20 U/L (15-37) 11/22/18 04:34 ALT 18 U/L (12-78) 11/22/18 04:34 Alkaline Phosphatase 54 U/L (45-117) 11/22/18 04:34 Total Creatine Kinase 13 U/L (26-192) L 11/18/18 01:10 CK-MB (CK-2) < 1.0 ng/ml (0.5-3.6) 11/18/18 01:10 CK/CKMB % Calc TNP 11/18/18 01:10 Troponin I 0.102 ng/ml (0-0.045) H* 11/20/18 14:34 Total Protein 4.9 gm/dl (6.4-8.2) L 11/22/18 04:34 Albumin 1.7 gm/dl (3.4-5.0) L 11/22/18 04:34 Globulin 3.2 gm/dl (2.5-4.0) 11/22/18 04:34 Albumin/Globulin Ratio 0.5 (0.9-2) L 11/22/18 04:34 Lipase 131 U/L (73-393) 11/18/18 01:10 Random Cortisol 27.49 mcg/dl 11/19/18 12:03 Specimen Hemolysis 11/20/18 04:39 Nasal Screen MRSA (PCR) Negative (Negative) 11/18/18 22:03 Medications Administered Current Inpatient Medications Acetaminophen (Tylenol) 650 mg PO Q4H PRN PRN Reason: Fever Stop: 12/21/18 08:27 Albuterol (Ventolin 0.083% 2.5mg/3ml) 2.5 mg INH QID PRN PRN Reason: Wheezing Stop: 12/18/18 04:23 Last Admin: 11/19/18 10:05 Dose: 2.5 mg Budesonide/Formoterol Fumarate (Symbicort 160mcg/4.5mcg) 2 puffs INH BID MIRELA Stop: 12/18/18 08:59 Last Admin: 11/19/18 07:15 Dose: Not Given Fentanyl Citrate (Fentanyl Citrate) 50 mcg IV Q1H PRN PRN Reason: Severe Pain (7,8,9,10) Stop: 12/02/18 21:27 Last Admin: 11/22/18 10:43 Dose: 50 mcg Heparin Sodium (Porcine) (Heparin Sodium (Porcine)) 5,000 units SQ Q12 MIRELA Stop: 12/19/18 08:59 Last Admin: 11/22/18 08:21 Dose: 5,000 units Metronidazole (Flagyl) 500 mg in 100 mls @ 100 mls/hr IV Q8H MIRELA Stop: 11/28/18 09:59 Last Infusion: 11/22/18 11:13 Dose: Infused Pantoprazole Sodium 40 mg/ (Syringe) 10 mls @ 5 mls/min IV BID MIRELA Stop: 12/18/18 08:59 Last Admin: 11/22/18 08:21 Dose: 5 mls/min Ceftriaxone Sodium 1,000 mg/ (Sodium Chloride) 50 mls @ 100 mls/hr IV Q24H MIRELA ; Protocol Stop: 11/30/18 07:59 Last Infusion: 11/22/18 09:42 Dose: Infused Potassium Phosphate 30 mmol/ (Sodium Chloride) 510 mls @ 102 mls/hr IV 0830 ONE Stop: 11/22/18 13:29 Last Admin: 11/22/18 08:20 Dose: 102 mls/hr Nutritional Formula (Peptamen Intense Vhp) 1,000 ml OG .CONTINUOUS MIRELA; Protocol Stop: 12/21/18 11:29 Last Admin: 11/21/18 14:51 Dose: 1,000 ml Ondansetron HCl (Zofran) 4 mg IV Q6H PRN PRN Reason: Nausea Stop: 12/18/18 04:23 Resident Activity Tracking Resident Involvement: Resident Care Provided Care Provided: [facility] _ (1) GERD (gastroesophageal reflux disease) Esophagitis presence: esophagitis presence not specified Qualified Code(s): K21.9 - Gastro-esophageal reflux disease without esophagitis (2) Asthma Asthma complication type: unspecified Asthma persistence: unspecified Asthma severity: unspecified severity Qualified Code(s): J45.909 - Unspecified asthma, uncomplicated
--- NOTE | 2018-11-22 09:47 | Surgery Progress Note ---
Date of Service November 22, 2018 Assessment & Plan (1) Perforation of sigmoid colon due to diverticulitis: POD 4 Bonilla weaning per ICU tolerating tube feeds WBC improved, low grade temps, HR 100 seen this morning by Dr. Wesley Subjective remains intubated, family at bedside Physical Exam 2 Vital Signs (Past 24 Hours): Last Vital Signs Temp 37.8 C H 11/22/18 06:35 Pulse 99 H 11/22/18 07:51 Resp 20 11/22/18 07:51 BP 141/57 H 11/22/18 06:35 Pulse Ox 100 11/22/18 07:51 Gastrointestinal (Abdomen): Percussion/Palpation: abdomen soft colostomy functional UOP 400 WAGNER 30
[2018-11-22] MEDS: fentaNYL citrate 100 MCG/2 ML VIAL IV PRN ×4 (10:43→22:15)
[2018-11-22] MEDS ORDERED: GADOBUTROL 65ML VIAL IV PRN (12:44)
--- NOTE | 2018-11-22 12:56 | Magnetic Resonance Report ---
MR brain wo/w con CLINICAL HISTORY: 68 years-old Female presenting with intubated, R arm paralysis, history of colon ru pture with recent surgery since 11/18/2018. TECHNIQUE: Multisequence, multiplanar MR imaging of the brain was performed before and after the admi nistration of intravenous contrast. IV contrast: 8.5 mL of Gadavist. COMPARISON: None. FINDINGS: Localizer images: Unremarkable. Proportional ventricular and sulcal prominence, likely age-related parenchymal volume loss. Periventr icular and subcortical white matter T2/FLAIR hyperintensity, nonspecific but likely indicative of chr onic small vessel ischemic change. No abnormal parenchymal enhancement. No mass effect or midline shift. No restricted diffusion to suggest acute ischemia. No hemorrhage. No extra-axial fluid collection. T2 skull base flow voids preserved. Bone marrow signal intensity within the calvarium within normal l imits. Bilateral nikolski lenses are absent. Air-fluid level noted in the right maxillary sinus as well as the sphenoid sinus with mucosal thickening noted elsewhere in the paranasal sinuses. Trace fluid in the mastoid air cells. Endotracheal tube and nasogastric tube in place. IMPRESSION: 1. Chronic small vessel ischemic change. No acute intracranial abnormality. No abnormal enhancement. 2. Findings in the sinuses most likely relate to intubation rather than sinusitis Electronically signed by: Kenney Cooley M.D. 11/22/2018 12:54 PM
--- NOTE | 2018-11-22 13:07 | Magnetic Resonance Report ---
MR angio neck wo/w con HISTORY: 68 years-old Female intubation w/t sed, R arm paralysis acutely altered mental status with right arm paralysis COMPARISON: MRI brain of same day TECHNIQUE: MRA of the neck was obtained both with and without the use of 8.5 mL Gadavist utilizing 3- D [id number] sequencing with MIP reformats. All measurements were obtained according to NASCET cr iteria. FINDINGS: The bilateral common and internal carotid arteries are widely patent. The vertebral arteries are codo minant and are also widely patent and within normal limits. There is no aneurysm, dissection, high-gr corine stenosis or proximal branch occlusion identified. The internal jugular veins appear unremarkable. IMPRESSION: Unremarkable MRA of the neck without aneurysm, dissection, high-grade stenosis or proxima l branch occlusion. The above report was generated using voice recognition software. It may contain grammatical, syntax o r spelling errors. Electronically signed by: Fernando Pedraza M.D. 11/22/2018 1:06 PM
[2018-11-22] MEDS: PEPTAMEN INTENSE VHP 1.0 CAL 1,000 ML BAG OG SCH (16:12)
[2018-11-22] MEDS ORDERED: FLUMAZENIL 0.1 MG/1 ML 10 ML VIAL ONE (17:17)
[2018-11-22] MEDS ORDERED: NALOXONE HCL 0.4 MG/1 ML VIAL/CARP ONE (17:17)
[2018-11-22 18:14] LABS: BUN Creatinine Ratio 21.6 (10-20); Calcium 7.1 mg/dl (8.5-10.1); Est GFR (African American) 107.6; Est GFR (Non-African American) 92.9; Phosphorus 1.9 mg/dl (2.5-4.9)
--- NOTE | 2018-11-22 18:33 | Critical Care Progress Note ---
Date of Service November 22, 2018 Assessment & Plan (1) Perforation of sigmoid colon due to diverticulitis: Impression: 1. Postop sigmoidectomy. 2. Acute diverticulitis with abscess and perforation. 3. Acute respiratory failure requiring intubation. 4. Small left-sided pleural effusion likely postop. 5. Cardiomegaly with preserved EF. 6. History of asthma according to the family, patient does have history also of GERD. Plan: 1. Continue with current antibiotics. 2. CPAP trial. The patient remained somnolent due to increased volume of distribution, he received significant doses of fentanyl and Versed. 3. Due to the increased volume of distribution, the patient has a prolonged sedation with the effect of Versed and fentanyl. 4. A trial of flumazenil and Narcan was done and the patient responded very well. 5. 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 6. ICU core measures are met including PPI, heparin subcu and vap bundle. 7. Discussed with the family in details, all their questions been answered. 8. Discussed with surgery, appreciate their input. 9. I will give the patient another day prior to attempting extubation. Critical care time spent with the patient was 35 minutes. Subjective The patient remains somnolent, however she was able to open her eyes occasionally, she responded to a dose of flumazenil, review of system was not obtainable very much as the patient was still obtunded. Physical Exam 2 Vital Signs (Past 24 Hours): Last Vital Signs Temp 37.8 C H 11/22/18 06:35 Pulse 100 H 11/22/18 18:01 Resp 21 11/22/18 17:00 BP 150/61 H 11/22/18 18:01 Pulse Ox 98 11/22/18 18:01 Physical Exam: Vital signs are stable, no fever reported, JVD is negative, S1- S2 regular rate and rhythm, distant breath sounds bilaterally, abdomen is postop , edema x4 extremities. No rash, oral mucosa is normal. Results & Data Laboratory Results Labs were reviewed which showed hyperchloremia, BUN and creatinine are normal, albumin is 1.7. Diagnostic Findings MRI of the brain did not show any intracranial catastrophe, MRI of the neck did not show also any dislodgment or cord compression. Findings were negative.
[2018-11-23] MEDS: metroNIDAZOLE 500 MG/100 ML BAG IV SCH ×3 (01:31→17:38)
[2018-11-23] MEDS: fentaNYL citrate 100 MCG/2 ML VIAL IV PRN ×10 (01:32→23:35)
[2018-11-23] MEDS: cefTRIAXone SODIUM 1,000 MG in SODIUM CHLOR 0.9% AD-VAN 50 ML IV SCH (08:01)
[2018-11-23] MEDS ORDERED: NALOXONE HCL 0.4 MG/1 ML VIAL/CARP IV STA (08:40)
[2018-11-23] MEDS ORDERED: FLUMAZENIL 0.1 MG/1 ML 10 ML VIAL IV STA ×2 (08:40→09:45)
[2018-11-23 08:43] LABS: Basophils # (auto) 0.02 K/uL (0-0.2); Basophils % (auto) 0.2 %; Eosinophils # (auto) 0.51 K/uL (0-0.5); Eosinophils % (auto) 5.2 %; Hematocrit (blood only) 27.9 % (37-47); Immature Granulocytes # (auto) 0.12 K/uL (0.00-0.02); Immature Granulocytes % (auto) 1.2 %; Lymphocytes # (auto) 0.82 K/uL (1.2-3.4); Lymphocytes % (auto) 8.3 %; Mean Corpuscular Hgb Conc 32.3 g/dL (32-36); Mean Corpuscular Volume 79.3 fL (80-100); Mean Platelet Volume 8.6 fL (7.4-10.4); Monocytes # (auto) 1.34 K/uL (0.11-0.59); Monocytes % (auto) 13.6 %; Neutrophils # (auto) 7.06 K/uL (1.4-6.5); Neutrophils % (auto) 71.5 %; Platelet Count 167 K/uL (130-400); RDW Standard Deviation 43.4 fL (36.4-46.3); Red Blood Count 3.52 M/uL (4.2-5.4); White Blood Count 9.87 K/uL (4.8-10.8)
[2018-11-23 09:13] LABS: Albumin Level 1.6 gm/dl (3.4-5.0); BUN Creatinine Ratio 31.3 (10-20); Calcium 7.5 mg/dl (8.5-10.1); Est GFR (African American) 114.4; Est GFR (Non-African American) 98.7; Magnesium 1.9 mg/dl (1.8-2.4); Potassium 3.9 mmol/L (3.5-5.1)
[2018-11-23 09:16] LABS: Albumin Globulin Ratio 0.5 (0.9-2); Bilirubin,Total 0.3 mg/dl (0.2-1); Globulin 3.5 gm/dl (2.5-4.0); Phosphorus 1.8 mg/dl (2.5-4.9); Total Protein 5.1 gm/dl (6.4-8.2)
[2018-11-23] MEDS: HEPARIN SOD 5,000 UNIT/0.5 ML VIAL SQ SCH ×2 (09:23→20:46)
[2018-11-23] MEDS: PANTOprazole 40 MG in SYRINGE 0 ML IV SCH ×2 (09:23→20:45)
--- NOTE | 2018-11-23 09:28 | Family Medicine Progress Note ---
Date of Service November 23, 2018 Assessment & Plan (1) Perforation of sigmoid colon due to diverticulitis: 68-year-old female was admitted on 18 November 2018 after complaining of acute abdominal pain. Perforated diverticulum, feculent peritonitis, intra-abdominal abscess: 16Feb underwent ex lap, sigmoid colon resection, and abdominal washout. At same time was started on Cipro and Flagyl. Cultures at that time grew E. coli. See related general surgery notes. Since been transitioned (18Feb) to Rocephin ( after reviewing sensitivities) and Flagyl (16Feb). Tolerating tube feeds. Hypoxemia and septic shock: Off pressors. 17Feb TTE noted hyperdynamic ventricles, LVEF > 70%, with normal wall motion. Extubated on Feb. Right-sided weakness: Noted as patient has become more alert. Unclear time of onset. MRI of the brain showed chronic small vessel ischemic changes without acute findings. MRA of the neck showed no focal findings. Today is moving extremities symmetrically (though slowly, more thought to be fatigue). Overall this does not seem to be a TIA but more an abundance of concern as patient was emerging from her significant sedation while intubated. Anemia: Baseline Hb around 12s. Post-surgery has stabilized around Hb 9. Monitoring. Acute kidney injury: Max Cr 2.12, resolved. Monitoring. Multiple electrolyte issues: Replacement by ICU team. Ongoing medical issues: - GERD: On Protonix. - Asthma: On home Symbicort and as needed albuterol. - Hyperlipidemia: Holding home simvastatin while NPO. - Depression: Holding home sertraline while NPO. Code status: DO NOT RESUSCITATE Diet: Was NPO while intubated. Otherwise advance per general surgery recommendations. DVT prophy: Heparin 5000 units subcu every 12 hours. PT/OT: Deferred. Disbo: Admitted for ICU care. (2) Intra-abdominal abscess: (3) Septic shock: (4) Anemia: (5) Acute kidney injury: (6) GERD (gastroesophageal reflux disease): (7) Asthma: (8) HLD (hyperlipidemia): (9) Depression: Supervising Physician Co-Signing Physician Notes I personally examined the patient and verified all carranza points of history and exam, discussed case, and agree with decision making with Dr Lim. Extubated, notes she is feeling okay. The biggest thing is she would like to drink. She denies any shortness of breath, denies any abdominal pain. She does not feel any focal weakness. Vitals noted, in general very fatigued but no distress. HEENT normocephalic atraumatic membranes are moist, voice is very hoarse. Cardio is regular no rubs murmurs gallops, lungs clear to auscultation bilaterally no rales rhonchi or wheeze with good effort. Abdomen is soft nondistended it is fairly tender but no guarding rebound or rigidity. Skin shows no rashes no pallor or icterus Peritonitis/sepsis secondary to perforated diverticulitisseptic shock, acute respiratory failure, and acute kidney injurythis is all improving. Continue supportive care and antibiotics. Speech eval for swallowing. Food since she was just recently extubated and has a very hoarse voice keep n.p.o. other than mouth sponge for the short-term. Focal weaknessMRI was negative. She has no focal weakness now. Her neuro exam is much more reliable now. This appears to be nonspecific but has resolved DVT prophylaxisheparin subcu Subjective Found patient early this morning shortly after extubation. She appears exhausted but opened her eyes to voice. When asked how she is doing she very quietly said "good". She is following commands and says that she does not have any pain. Physical Exam 2 Vital Signs (Past 24 Hours): Last Vital Signs Temp 37.8 C H 11/22/18 06:35 Pulse 98 H 11/23/18 07:15 Resp 15 11/23/18 07:15 BP 150/61 H 11/22/18 18:01 Pulse Ox 100 11/23/18 07:15 Physical Exam: General: Awake, alert, appears exhausted, but does not appear in any acute distress. CV: +S1S2 RRR, no murmur. Pulm: Decreased breath sounds but clear throughout. Abdomen: +BS, large abdominal dressing in place. NG tube in place. Aneth ostomy. Abdominal drains in place. Extremities: No pedal edema or calf tenderness. Neuro: Eyes open, following commands. Poor effort but equal metal trimmer strengths. Can move fingers and toes symmetrically and bilaterally. Results & Data Laboratory Results Laboratory Results WBC 9.87 K/uL (4.8-10.8) 11/23/18 08:31 RBC 3.52 M/uL (4.2-5.4) L 11/23/18 08:31 Hgb 9.0 g/dL (12.0-16.0) L 11/23/18 08:31 POC Hgb 13.6 g/dl (12.0-16.0) 11/18/18 01:11 Hct 27.9 % (37-47) L 11/23/18 08:31 POC Hct 40 % (37-47) 11/18/18 01:11 MCV 79.3 fL (80-100) L 11/23/18 08:31 MCH 25.6 pg (25-34) 11/23/18 08:31 MCHC 32.3 g/dL (32-36) 11/23/18 08:31 RDW Std Deviation 43.4 fL (36.4-46.3) 11/23/18 08:31 RDW Coeff of Guera 15.0 % (11.5-14.5) H 11/23/18 08:31 Plt Count 167 K/uL (130-400) 11/23/18 08:31 MPV 8.6 fL (7.4-10.4) 11/23/18 08:31 Immature Gran % (Auto) 1.2 % 11/23/18 08:31 Neut % (Auto) 71.5 % 11/23/18 08:31 Lymph % (Auto) 8.3 % 11/23/18 08:31 [place] % (Auto) 13.6 % 11/23/18 08:31 Eos % (Auto) 5.2 % 11/23/18 08:31 Baso % (Auto) 0.2 % 11/23/18 08:31 Immature Gran # (Auto) 0.12 K/uL (0.00-0.02) H 11/23/18 08:31 Neut # (Auto) 7.06 K/uL (1.4-6.5) H 11/23/18 08:31 Lymph # (Auto) 0.82 K/uL (1.2-3.4) L 11/23/18 08:31 [place] # (Auto) 1.34 K/uL (0.11-0.59) H 11/23/18 08:31 Eos # (Auto) 0.51 K/uL (0-0.5) H 11/23/18 08:31 Baso # (Auto) 0.02 K/uL (0-0.2) 11/23/18 08:31 Absolute Nucleated RBC Cancelled 11/20/18 04:30 Nucleated RBC % (auto) Cancelled 11/20/18 04:30 Neutrophils % (Manual) Cancelled 11/20/18 04:30 Band Neutrophils % Cancelled 11/20/18 04:30 Lymphocytes % (Manual) Cancelled 11/20/18 04:30 Prolymphocyte % Cancelled 11/20/18 04:30 Reactive Lymphs % (Man) Cancelled 11/20/18 04:30 Monocytes % (Manual) Cancelled 11/20/18 04:30 Eosinophils % (Manual) Cancelled 11/20/18 04:30 Basophils % (Manual) Cancelled 11/20/18 04:30 Metamyelocytes % (Man) Cancelled 11/20/18 04:30 Myelocytes % (Man) Cancelled 11/20/18 04:30 Promyelocytes % (Man) Cancelled 11/20/18 04:30 Blast Cells % (Manual) Cancelled 11/20/18 04:30 Plasma Cell % (Manual) Cancelled 11/20/18 04:30 Other Cells % Cancelled 11/20/18 04:30 Nucleated RBC % Cancelled 11/20/18 04:30 Neutrophils # (Manual) Cancelled 11/20/18 04:30 Band Neutrophils # Cancelled 11/20/18 04:30 Total Absolute Neuts Cancelled 11/20/18 04:30 Lymphocytes # (Manual) Cancelled 11/20/18 04:30 Prolymphocyte # Cancelled 11/20/18 04:30 Reactive Lymphs # Cancelled 11/20/18 04:30 Total Abs Lymphocytes Cancelled 11/20/18 04:30 Monocytes # (Manual) Cancelled 11/20/18 04:30 Eosinophils # (Manual) Cancelled 11/20/18 04:30 Basophils # (Manual) Cancelled 11/20/18 04:30 Metamyelocytes # (Man) Cancelled 11/20/18 04:30 Myelocytes # (Manual) Cancelled 11/20/18 04:30 Promyelocytes # (Man) Cancelled 11/20/18 04:30 Blast Cells # (Man) Cancelled 11/20/18 04:30 Plasma Cell # (Manual) Cancelled 11/20/18 04:30 Other Cells # Cancelled 11/20/18 04:30 Nucleated RBCs # (Man) Cancelled 11/20/18 04:30 Hypersegmented Neuts Cancelled 11/20/18 04:30 Hyposegmented Neuts Cancelled 11/20/18 04:30 Hypogranular Neuts Cancelled 11/20/18 04:30 Large Granular Lymphs Cancelled 11/20/18 04:30 # Lrg Granular Lymphs Cancelled 11/20/18 04:30 Hairy Cells Cancelled 11/20/18 04:30 Smudge Cells Cancelled 11/20/18 04:30 Toxic Granulation Cancelled 11/20/18 04:30 Toxic Vacuolation 1+ 11/19/18 12:03 Dohle Bodies 1+ 11/20/18 06:44 Adele Rods Cancelled 11/20/18 04:30 Platelet Estimate Cancelled 11/20/18 04:30 Hypogranular Platelets Cancelled 11/20/18 04:30 Clumped Platelets Cancelled 11/20/18 04:30 Giant Platelets Cancelled 11/20/18 04:30 Platelet Satelliting Cancelled 11/20/18 04:30 RBC Morphology Cancelled 11/20/18 04:30 Polychromasia Cancelled 11/20/18 04:30 Hypochromasia Cancelled 11/20/18 04:30 Poikilocytosis Cancelled 11/20/18 04:30 Basophilic Stippling Cancelled 11/20/18 04:30 Anisocytosis Cancelled 11/20/18 04:30 Microcytosis Cancelled 11/20/18 04:30 Macrocytosis Cancelled 11/20/18 04:30 Spherocytes Cancelled 11/20/18 04:30 Pappenheimer Bodies Cancelled 11/20/18 04:30 Sickle Cells Cancelled 11/20/18 04:30 Target Cells Cancelled 11/20/18 04:30 Tear Drop Cells Cancelled 11/20/18 04:30 Ovalocytes Cancelled 11/20/18 04:30 Stomatocytes Cancelled 11/20/18 04:30 Henry[place] Bodies Cancelled 11/20/18 04:30 Echinocytes 1+ 11/19/18 12:03 Acanthocytes (Spur) Cancelled 11/20/18 04:30 Rouleaux Cancelled 11/20/18 04:30 RBC Agglutinates Cancelled 11/20/18 04:30 Schistocytes Cancelled 11/20/18 04:30 RBC Morph Comment Cancelled 11/20/18 04:30 Sezary Cell Cancelled 11/20/18 04:30 PT 10.8 Seconds (9.0-12.0) 11/18/18 01:10 INR 1.1 (0.9-1.1) 11/18/18 01:10 POC Sodium 138 mEq/L (135-144) 11/18/18 01:11 Sodium 145 mmol/L (136-145) 11/23/18 08:31 POC Potassium 4.0 mEq/L (3.3-5.0) 11/18/18 01:11 Potassium 3.9 mmol/L (3.5-5.1) 11/23/18 08:31 POC Chloride 102 mEq/L (101-112) 11/18/18 01:11 Chloride 112 mmol/L (98-107) H 11/23/18 08:31 Carbon Dioxide 25 mmol/L (21-32) 11/23/18 08:31 POC Total CO2 24 mEq/l (24-31) 11/18/18 01:11 Anion Gap 8.0 (3-11) 11/23/18 08:31 POC Anion Gap 17.0 mmol/L (16-25) 11/18/18 01:11 POC BUN 32 mg/dl (7-18) H 11/18/18 01:11 BUN 15 mg/dl (7-18) 11/23/18 08:31 Creatinine 0.49 mg/dl (0.6-1.2) L 11/23/18 08:31 POC Creatinine 1.5 mg/dl (0.6-1.3) H 11/18/18 01:11 Est Cr Clr Drug Dosing 112.0 ml/min 11/23/18 08:31 Est GFR ( Amer) 114.4 11/23/18 08:31 Est GFR (Non-Af Amer) 98.7 11/23/18 08:31 BUN/Creatinine Ratio 31.3 (10-20) H 11/23/18 08:31 Glucose 98 mg/dl (70-99) 11/23/18 08:31 POC Glucose 96 (70-99) 11/22/18 11:25 POC Glucose (other) 131 mg/dl (70-99) H 11/18/18 01:11 Lactate 2.1 mmol/L (0.4-2.0) H* 11/19/18 12:03 Calcium 7.5 mg/dl (8.5-10.1) L 11/23/18 08:31 POC Ioniz Calcium Sandro 1.14 mmol/l (1.12-1.32) 11/18/18 01:11 Ionized Calcium 0.98 mmol/L (1.12-1.32) L 11/19/18 12:24 Phosphorus 1.8 mg/dl (2.5-4.9) L 11/23/18 08:31 Magnesium 1.9 mg/dl (1.8-2.4) 11/23/18 08:31 Total Bilirubin 0.3 mg/dl (0.2-1) 11/23/18 08:31 Direct Bilirubin 0.2 mg/dl (0-0.2) 11/21/18 04:37 AST 15 U/L (15-37) 11/23/18 08:31 ALT 15 U/L (12-78) 11/23/18 08:31 Alkaline Phosphatase 48 U/L (45-117) 11/23/18 08:31 Total Creatine Kinase 13 U/L (26-192) L 11/18/18 01:10 CK-MB (CK-2) < 1.0 ng/ml (0.5-3.6) 11/18/18 01:10 CK/CKMB % Calc TNP 11/18/18 01:10 Troponin I 0.102 ng/ml (0-0.045) H* 11/20/18 14:34 Total Protein 5.1 gm/dl (6.4-8.2) L 11/23/18 08:31 Albumin 1.6 gm/dl (3.4-5.0) L 11/23/18 08:31 Globulin 3.5 gm/dl (2.5-4.0) 11/23/18 08:31 Albumin/Globulin Ratio 0.5 (0.9-2) L 11/23/18 08:31 Lipase 131 U/L (73-393) 11/18/18 01:10 Random Cortisol 27.49 mcg/dl 11/19/18 12:03 Specimen Hemolysis 11/20/18 04:39 Nasal Screen MRSA (PCR) Negative (Negative) 11/18/18 22:03 Medications Administered Current Inpatient Medications Acetaminophen (Tylenol) 650 mg PO Q4H PRN PRN Reason: Fever Stop: 12/21/18 08:27 Albuterol (Ventolin 0.083% 2.5mg/3ml) 2.5 mg INH QID PRN PRN Reason: Wheezing Stop: 12/18/18 04:23 Last Admin: 11/19/18 10:05 Dose: 2.5 mg Budesonide/Formoterol Fumarate (Symbicort 160mcg/4.5mcg) 2 puffs INH BID MIRELA Stop: 12/18/18 08:59 Last Admin: 11/19/18 07:15 Dose: Not Given Fentanyl Citrate (Fentanyl Citrate) 50 mcg IV Q1H PRN PRN Reason: Severe Pain (7,8,9,10) Stop: 12/02/18 21:27 Last Admin: 11/23/18 05:59 Dose: 50 mcg Gadobutrol (Gadavist 65ml) 8.5 ml IV ONCE PRN PRN Reason: Interaction Checking Stop: 11/26/18 12:43 Last Admin: 11/22/18 12:45 Dose: 8.5 ml Heparin Sodium (Porcine) (Heparin Sodium (Porcine)) 5,000 units SQ Q12 MIRELA Stop: 12/19/18 08:59 Last Admin: 11/23/18 09:23 Dose: 5,000 units Metronidazole (Flagyl) 500 mg in 100 mls @ 100 mls/hr IV Q8H [facility] Stop: 11/28/18 09:59 Last Infusion: 11/23/18 02:33 Dose: Infused Pantoprazole Sodium 40 mg/ (Syringe) 10 mls @ 5 mls/min IV BID [facility] Stop: 12/18/18 08:59 Last Admin: 11/23/18 09:23 Dose: 5 mls/min Ceftriaxone Sodium 1,000 mg/ (Sodium Chloride) 50 mls @ 100 mls/hr IV Q24H [facility] ; Protocol Stop: 11/30/18 07:59 Last Infusion: 11/23/18 08:31 Dose: Infused Nutritional Formula (Peptamen Intense Vhp) 1,000 ml OG .CONTINUOUS MIRELA; Protocol Stop: 12/21/18 11:29 Last Admin: 11/22/18 16:12 Dose: 20 ml Ondansetron HCl (Zofran) 4 mg IV Q6H PRN PRN Reason: Nausea Stop: 12/18/18 04:23 Resident Activity Tracking Resident Involvement: Resident Care Provided Care Provided: Adult [facility] Medicine _ (1) GERD (gastroesophageal reflux disease) Esophagitis presence: esophagitis presence not specified Qualified Code(s): K21.9 - Gastro-esophageal reflux disease without esophagitis (2) Asthma Asthma complication type: unspecified Asthma persistence: unspecified Asthma severity: unspecified severity Qualified Code(s): J45.909 - Unspecified asthma, uncomplicated
[2018-11-23] MEDS ORDERED: FUROSEMIDE 40 MG in SYRINGE 0 ML IV STA (09:45)
[2018-11-23] MEDS ORDERED: POTASSIUM PHOS 3 MMOL/1 ML INFUSION IV STA (09:54)
[2018-11-23] MEDS ORDERED: POTASSIUM PHOSPHATE 30 MMOL in SODIUM CHLORIDE 0.9% 500 ML IV ONE (10:30)
--- NOTE | 2018-11-23 11:21 | Surgery Progress Note ---
Date of Service November 23, 2018 Assessment & Plan (1) Perforation of sigmoid colon due to diverticulitis: POD [address] Wesley guzman removed from incision, irrigate q shift WBC normalized, low grade temps, HR 100 ok to advance diet as janes after seen by [employer] Subjective extubated this AM, thirsty Physical Exam 2 Vital Signs (Past 24 Hours): Last Vital Signs Temp 37.8 C H 11/22/18 06:35 Pulse 100 H 11/23/18 11:00 Resp 15 11/23/18 07:15 BP 125/55 L 11/23/18 11:00 Pulse Ox 98 11/23/18 11:00 Gastrointestinal (Abdomen): Inspection/Auscultation: + abdominal surgical incision (some drainage from guzman) Percussion/Palpation: abdomen soft colostomy with output WAGNER 40 cc UOP 450 cc
--- NOTE | 2018-11-23 12:46 | Critical Care Progress Note ---
Date of Service November 23, 2018 Assessment & Plan (1) Perforation of sigmoid colon due to diverticulitis: Impression: 1. Postop sigmoidectomy. 2. Acute diverticulitis with abscess and perforation. 3. Acute respiratory failure requiring intubation. 4. Small left-sided pleural effusion likely postop. 5. Cardiomegaly with preserved EF. 6. History of asthma according to the family, patient does have history also of GERD. Plan: 1. Continue with current antibiotics. 2. Leak test was adequate, patient can proceed to extubation. In fact extubated successfully. 3. I will give the patient another dose of flumazenil today. 4. Appreciate surgery input. 5. No evidence of stridor after extubation. 6. ICU core measures are met including PPI, heparin subcu and vap bundle. 7. I will update the family once they are around. 8. Swallow eval by nursing staff. 9. Start oral diet if okay with surgery to remove the NG tube if she passes swallow eval. 10. I would administer 1 dose of Lasix. 11. Discussed with the staff on rounds and details. Critical care time spent with the patient was 35 minutes. Subjective The patient responded to flumazenil dose and become more awake. Able to answer questions and follow commands. Good air leak from around the ET tube. The patient and the been extubated without difficulty. Overnight patient has not had any events. Review of system was difficult as the patient still somewhat confused and did not answer questions properly. Physical Exam 2 Vital Signs (Past 24 Hours): Last Vital Signs Temp 36.6 C 11/23/18 12:00 Pulse 101 H 11/23/18 12:00 Resp 22 11/23/18 12:00 BP 125/55 L 11/23/18 12:00 Pulse Ox 98 11/23/18 12:00 Physical Exam: Vital signs remained stable, no fever, no JVD, S1-S2 regular rate and rhythm, distant breath sounds, abdomen is obese but benign, edema in the periphery noted. Neurologically nonfocal. Skin changes with colostomy in place. One WAGNER in place. Oral mucosa is moist. Results & Data Laboratory Results Labs were reviewed no leukocytosis, stable hematocrit, BMP is acceptable. Diagnostic Findings No new imaging, MRI without evidence of CVA.
[2018-11-24] MEDS: metroNIDAZOLE 500 MG/100 ML BAG IV SCH ×4 (02:00→23:18)
[2018-11-24 04:21] LABS: Hematocrit (blood only) 28.6 % (37-47); Mean Corpuscular Hgb Conc 31.5 g/dL (32-36); Mean Corpuscular Volume 80.1 fL (80-100); Mean Platelet Volume 8.4 fL (7.4-10.4); Platelet Count 181 K/uL (130-400); RDW Coefficient of Variation 14.8 % (11.5-14.5); RDW Standard Deviation 43.3 fL (36.4-46.3); Red Blood Count 3.57 M/uL (4.2-5.4); White Blood Count 11.41 K/uL (4.8-10.8)
[2018-11-24] MEDS: PANTOprazole 40 MG in SYRINGE 0 ML IV SCH (08:08)
[2018-11-24] MEDS: fentaNYL citrate 100 MCG/2 ML VIAL IV PRN (08:08)
[2018-11-24] MEDS: HEPARIN SOD 5,000 UNIT/0.5 ML VIAL SQ SCH ×2 (08:08→19:52)
--- NOTE | 2018-11-24 08:18 | Surgery Progress Note ---
Date of Service November 24, 2018 Assessment & Plan (1) Perforation of sigmoid colon due to diverticulitis: POD [address] Wesley irrigate incision q shift WBC 11, low grade temps, HR <100 d/c NG, can advance diet as janes PT/OT Subjective no complaints, tolerating tube feeds Physical Exam 2 Vital Signs (Past 24 Hours): Last Vital Signs Temp 37.4 C 11/24/18 04:00 Pulse 91 H 11/24/18 04:00 Resp 20 11/24/18 04:00 BP 122/58 L 11/24/18 04:00 Pulse Ox 99 11/24/18 04:00 Gastrointestinal (Abdomen): Inspection/Auscultation: + abdomen distended ( minimal) and + abdominal surgical incision (minimal drainage) Percussion/ Palpation: abdomen soft colostomy with output WAGNER 10 cc
[2018-11-24 09:20] LABS: BUN Creatinine Ratio 34.2 (10-20); Calcium 7.6 mg/dl (8.5-10.1); Creatinine Clr Calc Pharmacy 94.6 ml/min; Est GFR (African American) 108.2; Est GFR (Non-African American) 93.4; Magnesium 1.8 mg/dl (1.8-2.4); Potassium 3.7 mmol/L (3.5-5.1)
[2018-11-24] MEDS: cefTRIAXone SODIUM 1,000 MG in SODIUM CHLOR 0.9% AD-VAN 50 ML IV SCH (09:23)
[2018-11-24 09:26] LABS: Phosphorus 2.8 mg/dl (2.5-4.9)
--- NOTE | 2018-11-24 10:48 | Critical Care Progress Note ---
Date of Service November 24, 2018 Assessment & Plan (1) Perforation of sigmoid colon due to diverticulitis: Impression: 1. Postop sigmoidectomy. Colostomy in place. 2. Acute diverticulitis with abscess and perforation. 3. Acute respiratory failure requiring intubation. 4. Small left-sided pleural effusion likely postop. 5. Cardiomegaly with preserved EF. 6. History of asthma according to the family, patient does have history also of GERD. Plan: 1. Complete 7 days of antibiotics and stop them. 2. Erythromycin ointment or eyedrops to the left eye. 3. No need for further flumazenil. 4. Appreciate surgery input. 5. Maintaining her airways very well, will adjust her bronchodilators to as needed. 6. ICU core measures are met including PPI, heparin subcu and vap bundle. 7. I updated the family who were at the bedside. 8. Oral intake started with clear liquid. Advance the diet if okay with surgery. 9. Out of bed to chair. 10. Transfer to regular floor if okay with surgery. 11. Discussed with the staff on rounds and details. 12. Replace electrolytes. 13. Daily labs. Critical care time spent with the patient was 35 minutes. Subjective The patient is more awake, following commands, does not appear in any respiratory distress, she is answering questions and speaking full sentences, no events overnight, started on oral intake. Still having pain in abdomen but is subsiding slowly. Physical Exam 2 Vital Signs (Past 24 Hours): Last Vital Signs Temp 36.9 C 11/24/18 08:00 Pulse 97 H 11/24/18 08:00 Resp 20 11/24/18 08:00 BP 133/57 L 11/24/18 08:00 Pulse Ox 95 11/24/18 10:24 Physical Exam: Vital signs are stable, no fever, no JVP, S1-S2 regular rate and rhythm, lungs are distant breath sounds, abdomen is slightly tender expectedly postop. Colostomy in place, trace edema in the periphery. Neurologically she is awake and alert following commands. Mild conjunctivitis mainly in the left eye. The rest of her exam was unremarkable. Results & Data Laboratory Results Labs were noted for white count of 11.4, hematocrit of 28, platelets of 181, BMP showed potassium 3.7 and BUN and creatinine are stable. Magnesium still low. Diagnostic Findings No new imaging.
[2018-11-24] MEDS: HYDROCODONE/ACETAMOPHEN 5/325MG TAB PO PRN ×3 (11:01→19:49)
[2018-11-24] MEDS ORDERED: POTASSIUM CHLORIDE PWD 20 MEQ PACK PO ONE (11:15)
--- NOTE | 2018-11-24 18:18 | Family Medicine Progress Note ---
Date of Service November 24, 2018 Assessment & Plan (1) Perforation of sigmoid colon due to diverticulitis: 68-year-old female was admitted on 18 November 2018 after complaining of acute abdominal pain. Perforated diverticulum, feculent peritonitis, intra-abdominal abscess: 16Feb underwent ex lap, sigmoid colon resection, and abdominal washout. At same time was started on Cipro and Flagyl. Cultures at that time grew E. coli. See related general surgery notes. Since been transitioned (18Feb) to Rocephin ( after reviewing sensitivities) and Flagyl (16Feb). Tolerating tube feeds. Hypoxemia and septic shock: Off pressors. 17Feb TTE noted hyperdynamic ventricles, LVEF > 70%, with normal wall motion. Extubated on 21Feb. Right-sided weakness: resolvedm unclear etiology, considered TIA MRI of the brain showed chronic small vessel ischemic changes without acute findings. MRA of the neck showed no focal findings. (though slowly, more thought to be fatigue). Anemia: Baseline Hb around 12s. Post-surgery has stabilized around Hb 9. Monitoring. Acute kidney injury: Max Cr 2.12, resolved. Monitoring. Multiple electrolyte issues: Replacement if needed Ongoing medical issues: - FEN/GI; tolerating clears, advance diet as tolerated - GERD: restart po Protonix. - Asthma: restart home Symbicort and as needed albuterol. - Hyperlipidemia:restart simvastatin - Depression: restart home sertraline Code status: DO NOT RESUSCITATE DVT prophy: Heparin 5000 units subcu every 12 hours. PT/OT: Deferred. Dispo:Transfer to PCU (2) Intra-abdominal abscess: (3) Septic shock: (4) Anemia: (5) Acute kidney injury: (6) GERD (gastroesophageal reflux disease): (7) Asthma: (8) HLD (hyperlipidemia): (9) Depression: Supervising Physician Co-Signing Physician Notes I personally examined the patient and verified all carranza points of history and exam, discussed case, and agree with decision making with Dr Lim. Pain under control breathing okay. Vitals noted, in general very fatigued but no distress. HEENT normocephalic atraumatic membranes are moist. Cardio is regular no rubs murmurs gallops, lungs clear to auscultation bilaterally no rales rhonchi or wheeze with good effort. Abdomen is soft nondistended it is fairly tender but less than yesterday, as she is able to at least handle the weight of my stethoscope without pain although she still hurts to light palpation no guarding rebound or rigidity. Skin shows no rashes no pallor or icterus Peritonitis/sepsis secondary to perforated diverticulitisseptic shock, acute respiratory failure, and acute kidney injurythis is all improving. Continue supportive care and antibiotics. Stable to move out of ICU DVT prophylaxisheparin subcu Subjective Patient feeling significantly improved. Diet initiated by surgery. She is tolerating food. Patient denied pain, n/v. Constitutional: no fever, no chills, no fatigue and no weakness Eyes: no diplopia and no worsening vision Respiratory: no cough, no dyspnea and no wheezing Cardiovascular: no chest pain, no palpitations, no edema and no calf pain Gastrointestinal: no nausea, no vomiting and no change in stools Integumentary: no rash, no lesions and no change in skin color Neurologic: + generalized weakness Physical Exam 2 Vital Signs (Past 24 Hours): Last Vital Signs Temp 36.7 C 11/24/18 15:14 Pulse 97 H 11/24/18 15:14 Resp 20 11/24/18 15:14 BP 110/70 11/24/18 15:14 Pulse Ox 94 11/24/18 15:14 Physical Exam: GENERAL APPEARANCE: , alert and cooperative, and appears to be in no acute distress. HEAD: normocephalic. EYES: PERRL, EOMI. Fundi normal, vision is grossly intact. EARS: External auditory canals and tympanic membranes clear, hearing grossly intact. NOSE: No nasal discharge. NECK: Neck supple, non-tender without lymphadenopathy CARDIAC: Normal S1 and S2. No S3, S4 or murmurs. Rhythm is regular LUNGS: Clear to auscultation and percussion without rales, rhonchi, wheezing or diminished breath sounds. ABDOMEN: bandage in place, draining, tender along surgical wound LOWER EXTREMITY: no edema NEUROLOGICAL: CN II-XII grossly intact. SKIN: Skin normal color, texture and turgor with no lesions or eruptions. Results & Data Laboratory Results Laboratory Results WBC 11.41 K/uL (4.8-10.8) H 11/24/18 03:58 RBC 3.57 M/uL (4.2-5.4) L 11/24/18 03:58 Hgb 9.0 g/dL (12.0-16.0) L 11/24/18 03:58 POC Hgb 13.6 g/dl (12.0-16.0) 11/18/18 01:11 Hct 28.6 % (37-47) L 11/24/18 03:58 POC Hct 40 % (37-47) 11/18/18 01:11 MCV 80.1 fL (80-100) 11/24/18 03:58 MCH 25.2 pg (25-34) 11/24/18 03:58 MCHC 31.5 g/dL (32-36) L 11/24/18 03:58 RDW Std Deviation 43.3 fL (36.4-46.3) 11/24/18 03:58 RDW Coeff of [place]era 14.8 % (11.5-14.5) H 11/24/18 03:58 Plt Count 181 K/uL (130-400) 11/24/18 03:58 MPV 8.4 fL (7.4-10.4) 11/24/18 03:58 Immature Gran % (Auto) 1.2 % 11/23/18 08:31 Neut % (Auto) 71.5 % 11/23/18 08:31 Lymph % (Auto) 8.3 % 11/23/18 08:31 [place] % (Auto) 13.6 % 11/23/18 08:31 Eos % (Auto) 5.2 % 11/23/18 08:31 Baso % (Auto) 0.2 % 11/23/18 08:31 Immature Gran # (Auto) 0.12 K/uL (0.00-0.02) H 11/23/18 08:31 Neut # (Auto) 7.06 K/uL (1.4-6.5) H 11/23/18 08:31 Lymph # (Auto) 0.82 K/uL (1.2-3.4) L 11/23/18 08:31 [place] # (Auto) 1.34 K/uL (0.11-0.59) H 11/23/18 08:31 Eos # (Auto) 0.51 K/uL (0-0.5) H 11/23/18 08:31 Baso # (Auto) 0.02 K/uL (0-0.2) 11/23/18 08:31 Absolute Nucleated RBC Cancelled 11/20/18 04:30 Nucleated RBC % (auto) Cancelled 11/20/18 04:30 Neutrophils % (Manual) Cancelled 11/20/18 04:30 Band Neutrophils % Cancelled 11/20/18 04:30 Lymphocytes % (Manual) Cancelled 11/20/18 04:30 Prolymphocyte % Cancelled 11/20/18 04:30 Reactive Lymphs % (Man) Cancelled 11/20/18 04:30 Monocytes % (Manual) Cancelled 11/20/18 04:30 Eosinophils % (Manual) Cancelled 11/20/18 04:30 Basophils % (Manual) Cancelled 11/20/18 04:30 Metamyelocytes % (Man) Cancelled 11/20/18 04:30 Myelocytes % (Man) Cancelled 11/20/18 04:30 Promyelocytes % (Man) Cancelled 11/20/18 04:30 Blast Cells % (Manual) Cancelled 11/20/18 04:30 Plasma Cell % (Manual) Cancelled 11/20/18 04:30 Other Cells % Cancelled 11/20/18 04:30 Nucleated RBC % Cancelled 11/20/18 04:30 Neutrophils # (Manual) Cancelled 11/20/18 04:30 Band Neutrophils # Cancelled 11/20/18 04:30 Total Absolute Neuts Cancelled 11/20/18 04:30 Lymphocytes # (Manual) Cancelled 11/20/18 04:30 Prolymphocyte # Cancelled 11/20/18 04:30 Reactive Lymphs # Cancelled 11/20/18 04:30 Total Abs Lymphocytes Cancelled 11/20/18 04:30 Monocytes # (Manual) Cancelled 11/20/18 04:30 Eosinophils # (Manual) Cancelled 11/20/18 04:30 Basophils # (Manual) Cancelled 11/20/18 04:30 Metamyelocytes # (Man) Cancelled 11/20/18 04:30 Myelocytes # (Manual) Cancelled 11/20/18 04:30 Promyelocytes # (Man) Cancelled 11/20/18 04:30 Blast Cells # (Man) Cancelled 11/20/18 04:30 Plasma Cell # (Manual) Cancelled 11/20/18 04:30 Other Cells # Cancelled 11/20/18 04:30 Nucleated RBCs # (Man) Cancelled 11/20/18 04:30 Hypersegmented Neuts Cancelled 11/20/18 04:30 Hyposegmented Neuts Cancelled 11/20/18 04:30 Hypogranular Neuts Cancelled 11/20/18 04:30 Large Granular Lymphs Cancelled 11/20/18 04:30 # Lrg Granular Lymphs Cancelled 11/20/18 04:30 Hairy Cells Cancelled 11/20/18 04:30 Smudge Cells Cancelled 11/20/18 04:30 Toxic Granulation Cancelled 11/20/18 04:30 Toxic Vacuolation 1+ 11/19/18 12:03 Dohle Bodies 1+ 11/20/18 06:44 Adele Rods Cancelled 11/20/18 04:30 Platelet Estimate Cancelled 11/20/18 04:30 Hypogranular Platelets Cancelled 11/20/18 04:30 Clumped Platelets Cancelled 11/20/18 04:30 Giant Platelets Cancelled 11/20/18 04:30 Platelet Satelliting Cancelled 11/20/18 04:30 RBC Morphology Cancelled 11/20/18 04:30 Polychromasia Cancelled 11/20/18 04:30 Hypochromasia Cancelled 11/20/18 04:30 Poikilocytosis Cancelled 11/20/18 04:30 Basophilic Stippling Cancelled 11/20/18 04:30 Anisocytosis Cancelled 11/20/18 04:30 Microcytosis Cancelled 11/20/18 04:30 Macrocytosis Cancelled 11/20/18 04:30 Spherocytes Cancelled 11/20/18 04:30 Pappenheimer Bodies Cancelled 11/20/18 04:30 Sickle Cells Cancelled 11/20/18 04:30 Target Cells Cancelled 11/20/18 04:30 Tear Drop Cells Cancelled 11/20/18 04:30 Ovalocytes Cancelled 11/20/18 04:30 Stomatocytes Cancelled 11/20/18 04:30 Henry-Monserrate Bodies Cancelled 11/20/18 04:30 Echinocytes 1+ 11/19/18 12:03 Acanthocytes (Spur) Cancelled 11/20/18 04:30 Rouleaux Cancelled 11/20/18 04:30 RBC Agglutinates Cancelled 11/20/18 04:30 Schistocytes Cancelled 11/20/18 04:30 RBC Morph Comment Cancelled 11/20/18 04:30 Sezary Cell Cancelled 11/20/18 04:30 PT 10.8 Seconds (9.0-12.0) 11/18/18 01:10 INR 1.1 (0.9-1.1) 11/18/18 01:10 POC Sodium 138 mEq/L (135-144) 11/18/18 01:11 Sodium 143 mmol/L (136-145) 11/24/18 04:00 POC Potassium 4.0 mEq/L (3.3-5.0) 11/18/18 01:11 Potassium 3.7 mmol/L (3.5-5.1) 11/24/18 04:00 POC Chloride 102 mEq/L (101-112) 11/18/18 01:11 Chloride 109 mmol/L (98-107) H 11/24/18 04:00 Carbon Dioxide 30 mmol/L (21-32) 11/24/18 04:00 POC Total CO2 24 mEq/l (24-31) 11/18/18 01:11 Anion Gap 4.0 (3-11) 11/24/18 04:00 POC Anion Gap 17.0 mmol/L (16-25) 11/18/18 01:11 POC BUN 32 mg/dl (7-18) H 11/18/18 01:11 BUN 20 mg/dl (7-18) H 11/24/18 04:00 Creatinine 0.58 mg/dl (0.6-1.2) L 11/24/18 04:00 POC Creatinine 1.5 mg/dl (0.6-1.3) H 11/18/18 01:11 Est Cr Clr Drug Dosing 94.6 ml/min 11/24/18 04:00 Est GFR ( Amer) 108.2 11/24/18 04:00 Est GFR (Non-Af Amer) 93.4 11/24/18 04:00 BUN/Creatinine Ratio 34.2 (10-20) H 11/24/18 04:00 Glucose 110 mg/dl (70-99) H 11/24/18 04:00 POC Glucose 96 (70-99) 11/22/18 11:25 POC Glucose (other) 131 mg/dl (70-99) H 11/18/18 01:11 Lactate 2.1 mmol/L (0.4-2.0) H* 11/19/18 12:03 Calcium 7.6 mg/dl (8.5-10.1) L 11/24/18 04:00 POC Ioniz Calcium Sandro 1.14 mmol/l (1.12-1.32) 11/18/18 01:11 Ionized Calcium 0.98 mmol/L (1.12-1.32) L 11/19/18 12:24 Phosphorus 2.8 mg/dl (2.5-4.9) D 11/24/18 04:00 Magnesium 1.8 mg/dl (1.8-2.4) 11/24/18 04:00 Total Bilirubin 0.3 mg/dl (0.2-1) 11/23/18 08:31 Direct Bilirubin 0.2 mg/dl (0-0.2) 11/21/18 04:37 AST 15 U/L (15-37) 11/23/18 08:31 ALT 15 U/L (12-78) 11/23/18 08:31 Alkaline Phosphatase 48 U/L (45-117) 11/23/18 08:31 Total Creatine Kinase 13 U/L (26-192) L 11/18/18 01:10 CK-MB (CK-2) < 1.0 ng/ml (0.5-3.6) 11/18/18 01:10 CK/CKMB % Calc TNP 11/18/18 01:10 Troponin I 0.102 ng/ml (0-0.045) H* 11/20/18 14:34 Total Protein 5.1 gm/dl (6.4-8.2) L 11/23/18 08:31 Albumin 1.6 gm/dl (3.4-5.0) L 11/23/18 08:31 Globulin 3.5 gm/dl (2.5-4.0) 11/23/18 08:31 Albumin/Globulin Ratio 0.5 (0.9-2) L 11/23/18 08:31 Lipase 131 U/L (73-393) 11/18/18 01:10 Random Cortisol 27.49 mcg/dl 11/19/18 12:03 Specimen Hemolysis 11/20/18 04:39 Nasal Screen MRSA (PCR) Negative (Negative) 11/18/18 22:03 Medications Administered Acetaminophen (Tylenol) 650 mg PO Q4H PRN PRN Reason: Fever Stop: 12/21/18 08:27 Last Admin: 11/23/18 23:45 Dose: 650 mg Hydrocodone Bitart/Acetaminophen ([place] 5/325) 1 tab PO Q4H PRN PRN Reason: Pain Stop: 12/08/18 10:20 Last Admin: 11/25/18 01:20 Dose: 1 tab Admin: 11/24/18 19:49 Dose: 1 tab Admin: 11/24/18 15:16 Dose: 1 tab Admin: 11/24/18 11:01 Dose: 1 tab Albuterol (Ventolin 0.083% 2.5mg/3ml) 2.5 mg INH QID PRN PRN Reason: Wheezing Stop: 12/18/18 04:23 Last Admin: 11/19/18 10:05 Dose: 2.5 mg Budesonide/Formoterol Fumarate (Symbicort 160mcg/4.5mcg) 2 puffs INH BID MIRELA Stop: 12/18/18 08:59 Last Admin: 11/24/18 19:51 Dose: 2 puffs Admin: 11/19/18 07:15 Dose: Not Given Admin: 11/19/18 06:59 Dose: Not Given Admin: 11/18/18 08:36 Dose: 2 puffs Heparin Sodium (Porcine) (Heparin Sodium (Porcine)) 5,000 units SQ Q12 MIRELA Stop: 12/19/18 08:59 Last Admin: 11/24/18 19:52 Dose: 5,000 units Admin: 11/24/18 08:08 Dose: 5,000 units Admin: 11/23/18 20:46 Dose: 5,000 units Admin: 11/23/18 09:23 Dose: 5,000 units Admin: 11/22/18 20:52 Dose: 5,000 units Admin: 11/22/18 08:21 Dose: 5,000 units Admin: 11/21/18 20:59 Dose: 5,000 units Admin: 11/21/18 07:56 Dose: 5,000 units Admin: 11/20/18 20:52 Dose: 5,000 units Admin: 11/20/18 08:49 Dose: 5,000 units Admin: 11/19/18 22:30 Dose: 5,000 units Admin: 11/19/18 07:14 Dose: 5,000 units Metronidazole (Flagyl) 500 mg in 100 mls @ 100 mls/hr IV Q8H MIRELA Stop: 11/26/18 15:59 Last Infusion: 11/25/18 00:18 Dose: 0 mls/hr Admin: 11/24/18 23:18 Dose: 100 mls/hr Infusion: 11/24/18 17:43 Dose: 0 mls/hr Admin: 11/24/18 16:29 Dose: 100 mls/hr Magnesium Oxide (Mag-Ox) 400 mg PO BID MIRELA Stop: 12/24/18 20:59 Last Admin: 11/24/18 19:49 Dose: 400 mg Ondansetron HCl (Zofran) 4 mg IV Q6H PRN PRN Reason: Nausea Stop: 12/18/18 04:23 Last Admin: 11/24/18 13:57 Dose: 4 mg Discontinued Medications Albuterol (Ventolin 0.083% 2.5mg/3ml) 2.5 mg NEB NOW STA Stop: 11/18/18 01:31 Last Admin: 11/18/18 01:58 Dose: 2.5 mg Bupivacaine HCl (Marcaine 0.5% Mpf) Confirm Administered Dose 30 ml .ROUTE .STK- MED ONE Stop: 11/18/18 18:47 Last Admin: 11/18/18 19:39 Dose: Not Given Dextrose (Dextrose 50%) 50 ml IV NOW STA Stop: 11/19/18 06:00 Last Admin: 11/19/18 06:13 Dose: 50 ml Dextrose (Dextrose 50%) Confirm Administered Dose 50 ml IV .STK-MED ONE Stop: 11/21/18 00:19 Last Admin: 11/21/18 00:20 Dose: 50 ml Fentanyl Citrate (Fentanyl Citrate) 100 mcg IV Q2H PRN PRN Reason: Severe Pain (7,8,9,10) Stop: 12/02/18 21:27 Last Admin: 11/18/18 21:58 Dose: 100 mcg Fentanyl Citrate (Fentanyl Citrate) 100 mcg IV Q1H PRN PRN Reason: Severe Pain (7,8,9,10) Stop: 12/02/18 21:27 Last Admin: 11/19/18 13:21 Dose: 100 mcg Admin: 11/19/18 07:14 Dose: 100 mcg Admin: 11/19/18 06:00 Dose: 100 mcg Admin: 11/19/18 04:57 Dose: 100 mcg Admin: 11/19/18 01:19 Dose: 100 mcg Admin: 11/18/18 23:37 Dose: 100 mcg Fentanyl Citrate (Fentanyl Citrate) 50 mcg IV Q1H PRN PRN Reason: Severe Pain (7,8,9,10) Stop: 12/02/18 21:27 Last Admin: 11/24/18 08:08 Dose: 50 mcg Admin: 11/23/18 23:35 Dose: 50 mcg Admin: 11/23/18 20:57 Dose: 50 mcg Admin: 11/23/18 18:20 Dose: 50 mcg Admin: 11/23/18 16:32 Dose: 50 mcg Admin: 11/23/18 15:15 Dose: 50 mcg Admin: 11/23/18 13:25 Dose: 100 mcg Admin: 11/23/18 12:12 Dose: 50 mcg Admin: 11/23/18 10:26 Dose: 50 mcg Admin: 11/23/18 05:59 Dose: 50 mcg Admin: 11/23/18 01:32 Dose: 50 mcg Admin: 11/22/18 22:15 Dose: 50 mcg Admin: 11/22/18 17:34 Dose: 50 mcg Admin: 11/22/18 12:19 Dose: 50 mcg Admin: 11/22/18 10:43 Dose: 50 mcg Flumazenil (Romazicon) Confirm Administered Dose 1 mg .ROUTE .STK-MED ONE Stop: 11/22/18 17:18 Last Admin: 11/22/18 17:19 Dose: 0.2 mg Flumazenil (Romazicon) 0.2 mg IV NOW STA Stop: 11/23/18 08:41 Last Admin: 11/23/18 13:06 Dose: 0.2 mg Flumazenil (Romazicon) 0.2 mg IV NOW STA Stop: 11/23/18 09:46 Last Admin: 11/23/18 10:06 Dose: 0.2 mg Gadobutrol (Gadavist 65ml) 8.5 ml IV ONCE PRN PRN Reason: Interaction Checking Stop: 11/26/18 12:43 Last Admin: 11/22/18 12:45 Dose: 8.5 ml Hydromorphone HCl (Dilaudid) 0.5 mg IV NOW STA Stop: 11/18/18 01:03 Last Admin: 11/18/18 01:20 Dose: 0.5 mg Hydromorphone HCl (Dilaudid) 0.5 mg IV Q15M PRN PRN Reason: Pain Stop: 12/02/18 02:12 Last Admin: 11/18/18 03:35 Dose: 0.5 mg Admin: 11/18/18 02:15 Dose: 0.5 mg Hydromorphone HCl (Dilaudid) 0.5 mg IV Q2H PRN PRN Reason: Pain Stop: 12/02/18 04:23 Last Admin: 11/18/18 08:35 Dose: 0.5 mg Admin: 11/18/18 05:36 Dose: 0.5 mg Hydromorphone HCl (Dilaudid) 0.5 mg IV Q1HWA PRN PRN Reason: Pain Stop: 12/02/18 04:23 Last Admin: 11/18/18 16:38 Dose: 0.5 mg Admin: 11/18/18 15:11 Dose: 0.5 mg Admin: 11/18/18 13:40 Dose: 0.5 mg Admin: 11/18/18 11:28 Dose: 0.5 mg Admin: 11/18/18 10:12 Dose: 0.5 mg Sodium Chloride (Nss) 500 mls @ 999 mls/hr IV .Q31M MIRELA Stop: 11/18/18 01:45 Last Infusion: 11/18/18 01:56 Dose: 0 mls/hr Admin: 11/18/18 01:20 Dose: 999 mls/hr Ciprofloxacin (Cipro) 400 mg in 200 mls @ 200 mls/hr IV NOW STA Stop: 11/18/18 03:22 Last Infusion: 11/18/18 06:00 Dose: 0 mls/hr Admin: 11/18/18 03:36 Dose: 200 mls/hr Metronidazole (Flagyl) 500 mg in 100 mls @ 100 mls/hr IV NOW STA Stop: 11/18/18 03:22 Last Infusion: 11/18/18 03:36 Dose: 0 mls/hr Infusion: 11/18/18 03:30 Dose: Admin: 11/18/18 02:32 Dose: 100 mls/hr Sodium Chloride (Nss 1000ml) 1,000 mls @ 999 mls/hr IV .Q1H1M ONE Stop: 11/18/18 03:30 Last Infusion: 11/18/18 04:50 Dose: 0 mls/hr Admin: 11/18/18 03:36 Dose: 999 mls/hr Sodium Chloride (Nss 1000ml) 1,000 mls @ 80 mls/hr IV .[id number] MIRELA Stop: 11/18/18 17:14 Last Infusion: 11/18/18 10:12 Dose: 0 mls/hr Admin: 11/18/18 05:02 Dose: 80 mls/hr Ciprofloxacin (Cipro) 400 mg in 200 mls @ 100 mls/hr IV Q12H MIRELA Stop: 11/28/18 15:59 Last Infusion: 11/20/18 08:37 Dose: 0 mls/hr Admin: 11/20/18 04:51 Dose: 100 mls/hr Infusion: 11/19/18 17:30 Dose: 0 mls/hr Admin: 11/19/18 15:28 Dose: 100 mls/hr Infusion: 11/19/18 07:13 Dose: 0 mls/hr Admin: 11/19/18 05:01 Dose: 100 mls/hr Infusion: 11/18/18 18:00 Dose: 0 mls/hr Admin: 11/18/18 15:56 Dose: 100 mls/hr Metronidazole (Flagyl) 500 mg in 100 mls @ 100 mls/hr IV Q8H MIRELA Stop: 11/28/18 09:59 Last Infusion: 11/24/18 09:07 Dose: 0 mls/hr Admin: 11/24/18 08:08 Dose: 100 mls/hr Infusion: 11/24/18 03:00 Dose: 100 mls/hr Admin: 11/24/18 02:00 Dose: 100 mls/hr Infusion: 11/23/18 18:38 Dose: 0 mls/hr Admin: 11/23/18 17:38 Dose: 100 mls/hr Infusion: 11/23/18 12:07 Dose: 0 mls/hr Admin: 11/23/18 10:27 Dose: 100 mls/hr Infusion: 11/23/18 02:33 Dose: 0 mls/hr Admin: 11/23/18 01:31 Dose: 100 mls/hr Infusion: 11/22/18 18:27 Dose: 0 mls/hr Admin: 11/22/18 17:19 Dose: 100 mls/hr Infusion: 11/22/18 11:13 Dose: 0 mls/hr Admin: 11/22/18 10:01 Dose: 100 mls/hr Infusion: 11/22/18 03:18 Dose: 0 mls/hr Admin: 11/22/18 02:18 Dose: 100 mls/hr Infusion: 11/21/18 19:00 Dose: 0 mls/hr Admin: 11/21/18 17:54 Dose: 100 mls/hr Infusion: 11/21/18 10:32 Dose: 0 mls/hr Admin: 11/21/18 09:29 Dose: 100 mls/hr Infusion: 11/21/18 03:33 Dose: 0 mls/hr Admin: 11/21/18 02:33 Dose: 100 mls/hr Infusion: 11/20/18 18:32 Dose: 0 mls/hr Admin: 11/20/18 17:25 Dose: 100 mls/hr Infusion: 11/20/18 12:37 Dose: 0 mls/hr Admin: 11/20/18 10:51 Dose: 100 mls/hr Infusion: 11/20/18 02:50 Dose: 0 mls/hr Admin: 11/20/18 01:47 Dose: 100 mls/hr Infusion: 11/19/18 18:51 Dose: 0 mls/hr Admin: 11/19/18 17:53 Dose: 100 mls/hr Infusion: 11/19/18 10:40 Dose: 0 mls/hr Admin: 11/19/18 08:43 Dose: 100 mls/hr Infusion: 11/19/18 03:33 Dose: 0 mls/hr Admin: 11/19/18 02:33 Dose: 100 mls/hr Infusion: 11/18/18 19:46 Dose: Admin: 11/18/18 19:26 Dose: 100 mls/hr Infusion: 11/18/18 11:11 Dose: 0 mls/hr Admin: 11/18/18 10:11 Dose: 100 mls/hr Acetaminophen (Ofirmev) 65 mls @ 200 mls/hr IV Q8H PRN PRN Reason: pain or fever Stop: 12/18/18 04:23 Last Infusion: 11/19/18 11:47 Dose: 0 mls/hr Admin: 11/19/18 11:36 Dose: 200 mls/hr Pantoprazole Sodium 40 mg/ (Syringe) 10 mls @ 5 mls/min IV BID MIRELA Stop: 12/18/18 08:59 Last Admin: 11/24/18 08:08 Dose: 5 mls/min Admin: 11/23/18 20:45 Dose: 5 mls/min Admin: 11/23/18 09:23 Dose: 5 mls/min Admin: 11/22/18 20:51 Dose: 5 mls/min Admin: 11/22/18 08:21 Dose: 5 mls/min Admin: 11/21/18 20:59 Dose: 5 mls/min Admin: 11/21/18 08:35 Dose: 5 mls/min Admin: 11/20/18 20:52 Dose: 5 mls/min Admin: 11/20/18 08:48 Dose: 5 mls/min Admin: 11/19/18 22:30 Dose: 5 mls/min Admin: 11/19/18 08:56 Dose: 5 mls/min Admin: 11/18/18 22:16 Dose: 5 mls/min Admin: 11/18/18 10:11 Dose: 5 mls/min Sodium Chloride (Nss 1000ml) 1,000 mls @ 150 mls/hr IV .Q6H40M MIRELA Stop: 12/18/18 09:29 Last Infusion: 11/21/18 08:41 Dose: 0 mls/hr Admin: 11/21/18 07:56 Dose: 150 mls/hr Infusion: 11/21/18 07:56 Dose: 150 mls/hr Infusion: 11/21/18 03:33 Dose: 150 mls/hr Infusion: 11/21/18 02:33 Dose: 0 mls/hr Admin: 11/21/18 00:50 Dose: 150 mls/hr Infusion: 11/21/18 00:50 Dose: 0 mls/hr Admin: 11/20/18 17:15 Dose: 150 mls/hr Infusion: 11/20/18 15:32 Dose: 150 mls/hr Admin: 11/20/18 10:48 Dose: Not Given Admin: 11/20/18 08:51 Dose: 150 mls/hr Infusion: 11/20/18 07:44 Dose: 150 mls/hr Infusion: 11/20/18 06:48 Dose: 150 mls/hr Admin: 11/20/18 01:04 Dose: 150 mls/hr Infusion: 11/20/18 00:34 Dose: 0 mls/hr Admin: 11/19/18 17:53 Dose: 150 mls/hr Infusion: 11/19/18 17:38 Dose: 150 mls/hr Admin: 11/19/18 10:57 Dose: 150 mls/hr Infusion: 11/19/18 10:57 Dose: 150 mls/hr Admin: 11/19/18 04:58 Dose: 150 mls/hr Infusion: 11/19/18 04:24 Dose: 0 mls/hr Admin: 11/18/18 21:43 Dose: 150 mls/hr Infusion: 11/18/18 21:42 Dose: 0 mls/hr Infusion: 11/18/18 16:56 Dose: 175 mls/hr Infusion: 11/18/18 11:25 Dose: 110 mls/hr Infusion: 11/18/18 10:17 Dose: 0 mls/hr Admin: 11/18/18 10:16 Dose: 110 mls/hr Sodium Chloride (Nss 1000ml) 500 mls @ 999 mls/hr IV .Q31M ONE Stop: 11/18/18 17:42 Last Infusion: 11/18/18 18:18 Dose: 0 mls/hr Admin: 11/18/18 17:15 Dose: 999 mls/hr Sodium Chloride (Nss 1000ml) 500 mls @ 999 mls/hr IV .Q31M ONE Stop: 11/18/18 19:00 Last Admin: 11/19/18 06:59 Dose: Not Given Midazolam HCl (Versed) 125 mg in 250 mls @ 0 mls/hr IV .Q24H MIRELA; Protocol Stop: 12/18/18 21:59 Last Titration: 11/21/18 08:41 Dose: 0 mg/hr, 0 mls/hr Titration: 11/20/18 12:37 Dose: 0 mg/hr, 0 mls/hr Titration: 11/20/18 06:48 Dose: 4 mg/hr, 8 mls/hr Admin: 11/20/18 05:47 Dose: 4 mg/hr, 8 mls/hr Titration: 11/20/18 05:47 Dose: 0 mg/hr, 0 mls/hr Titration: 11/19/18 19:09 Dose: 4 mg/hr, 8 mls/hr Titration: 11/19/18 07:44 Dose: 4 mg/hr, 8 mls/hr Titration: 11/19/18 07:09 Dose: 1 mg/hr, 2 mls/hr Titration: 11/19/18 07:08 Dose: 2 mg/hr, 4 mls/hr Titration: 11/19/18 07:01 Dose: 5 mg/hr, 10 mls/hr Titration: 11/19/18 01:20 Dose: 5 mg/hr, 10 mls/hr Titration: 11/19/18 00:14 Dose: 4 mg/hr, 8 mls/hr Titration: 11/18/18 22:22 Dose: 3 mg/hr, 6 mls/hr Titration: 11/18/18 22:14 Dose: 2 mg/hr, 4 mls/hr Admin: 11/18/18 22:05 Dose: 1 mg/hr, 2 mls/hr Sodium Chloride (Nss 1000ml) 500 mls @ 999 mls/hr IV .Q31M ONE Stop: 11/18/18 22:30 Last Infusion: 11/18/18 22:39 Dose: 0 mls/hr Admin: 11/18/18 22:07 Dose: 999 mls/hr Sodium Chloride (Nss) 500 mls @ 999 mls/hr IV .Q31M ONE Stop: 11/18/18 23:17 Last Infusion: 11/18/18 23:43 Dose: 0 mls/hr Admin: 11/18/18 23:00 Dose: 999 mls/hr Sodium Chloride (Nss) 500 mls @ 999 mls/hr IV .Q31M ONE Stop: 11/19/18 00:32 Last Infusion: 11/19/18 01:21 Dose: 0 mls/hr Admin: 11/19/18 00:40 Dose: 999 mls/hr Sodium Chloride (Nss 1000ml) 1,000 mls @ 999 mls/hr IV .Q1H1M ONE Stop: 11/19/18 04:45 Last Infusion: 11/19/18 05:01 Dose: 0 mls/hr Admin: 11/19/18 04:00 Dose: 999 mls/hr Sodium Chloride (Nss 1000ml) 1,000 mls @ 999 mls/hr IV .Q1H1M ONE Stop: 11/19/18 06:08 Last Infusion: 11/19/18 06:37 Dose: 0 mls/hr Admin: 11/19/18 05:26 Dose: 999 mls/hr Magnesium Sulfate/Dextrose (Magnesium Sulfate / D5w) 1 gm in 100 mls @ 100 mls/ hr IV Q1H MIRELA Stop: 11/19/18 08:14 Last Infusion: 11/19/18 08:13 Dose: 0 mls/hr Admin: 11/19/18 07:13 Dose: 100 mls/hr Infusion: 11/19/18 07:13 Dose: 100 mls/hr Admin: 11/19/18 06:13 Dose: 100 mls/hr Sodium Chloride (Nss 1000ml) 1,000 mls @ 999 mls/hr IV .Q1H1M ONE Stop: 11/19/18 07:29 Last Infusion: 11/19/18 07:43 Dose: 0 mls/hr Admin: 11/19/18 06:38 Dose: 999 mls/hr Norepinephrine Bitartrate 8 mg (/ Dextrose) 508 mls @ 0 mls/hr IV .Q0M MIRELA; Protocol Stop: 12/19/18 08:24 Last Titration: 11/21/18 08:07 Dose: 0 mcg/kg/min, 0 mls/hr Titration: 11/20/18 06:48 Dose: 0 mcg/kg/min, 0 mls/hr Admin: 11/20/18 06:47 Dose: Not Given Titration: 11/19/18 11:39 Dose: 0 mcg/kg/min, 0 mls/hr Titration: 11/19/18 10:27 Dose: 0.12 mcg/kg/min, 39.5 mls/hr Titration: 11/19/18 09:41 Dose: 0.09 mcg/kg/min, 29.7 mls/hr Titration: 11/19/18 09:29 Dose: 0.07 mcg/kg/min, 23.1 mls/hr Admin: 11/19/18 08:40 Dose: 0.05 mcg/kg/min, 16.5 mls/hr Albumin Human (Albumin 25%) 50 mls @ 50 mls/hr IV ONE ONE Stop: 11/19/18 09:24 Last Infusion: 11/19/18 09:29 Dose: 0 mls/hr Admin: 11/19/18 08:44 Dose: 50 mls/hr Vasopressin 20 units/ Sodium (Chloride) 101 mls @ 0 mls/hr IV .Q0M MIRELA Stop: 12/19/18 10:59 Last Infusion: 11/21/18 08:07 Dose: 0 unit/min, 0 mls/hr Admin: 11/20/18 06:48 Dose: Not Given Infusion: 11/20/18 06:48 Dose: 0 unit/min, 0 mls/hr Infusion: 11/20/18 02:15 Dose: 0 unit/min, 0 mls/hr Infusion: 11/19/18 19:09 Dose: 0.04 unit/min, 12.1 mls/hr Admin: 11/19/18 18:20 Dose: 0.04 unit/min, 12.1 mls/hr Infusion: 11/19/18 18:20 Dose: 0.04 unit/min, 12.1 mls/hr Admin: 11/19/18 11:13 Dose: 0.04 unit/min, 12.1 mls/hr Hard Fat/Phenylephrine 20 mg/ (Dextrose) 502 mls @ 0 mls/hr IV .Q0M MIRELA; Protocol Stop: 12/19/18 10:56 Last Admin: 11/20/18 06:47 Dose: Not Given Titration: 11/20/18 02:15 Dose: 0 mcg/kg/min, 0 mls/hr Titration: 11/19/18 19:09 Dose: 0.2 mcg/kg/min, 26.1 mls/hr Titration: 11/19/18 18:02 Dose: 0.2 mcg/kg/min, 26.1 mls/hr Admin: 11/19/18 11:14 Dose: 0.5 mcg/kg/min, 65.1 mls/hr Ascorbic Acid 1,500 mg/Thiamine HCl 100 mg/ Sodium Chloride 104 mls @ 207 mls/ hr IV Q6H MIRELA Stop: 11/20/18 07:31 Last Infusion: 11/20/18 10:48 Dose: 0 mls/hr Admin: 11/20/18 08:47 Dose: 207 mls/hr Infusion: 11/20/18 01:42 Dose: 0 mls/hr Admin: 11/20/18 01:07 Dose: 207 mls/hr Infusion: 11/19/18 21:00 Dose: 0 mls/hr Admin: 11/19/18 20:26 Dose: 207 mls/hr Infusion: 11/19/18 14:13 Dose: 0 mls/hr Admin: 11/19/18 13:20 Dose: 207 mls/hr Calcium Gluconate 1,000 mg/ (Sodium Chloride) 60 mls @ 240 mls/hr IV NOW STA Stop: 11/19/18 13:00 Last Infusion: 11/19/18 13:42 Dose: 0 mls/hr Admin: 11/19/18 13:16 Dose: 240 mls/hr Potassium Phosphate 15 mmol/ (Sodium Chloride) 255 mls @ 100 mls/hr IV ONE ONE Stop: 11/20/18 10:17 Last Infusion: 11/20/18 12:37 Dose: 0 mls/hr Admin: 11/20/18 08:48 Dose: 100 mls/hr Ceftriaxone Sodium 1,000 mg/ (Sodium Chloride) 50 mls @ 100 mls/hr IV Q24H MIRELA ; Protocol Stop: 11/30/18 07:59 Last Infusion: 11/24/18 10:02 Dose: 0 mls/hr Admin: 11/24/18 09:23 Dose: 100 mls/hr Infusion: 11/23/18 08:31 Dose: 0 mls/hr Admin: 11/23/18 08:01 Dose: 100 mls/hr Infusion: 11/22/18 09:42 Dose: 0 mls/hr Admin: 11/22/18 08:20 Dose: 100 mls/hr Infusion: 11/21/18 08:40 Dose: 0 mls/hr Admin: 11/21/18 07:56 Dose: 100 mls/hr Infusion: 11/20/18 10:48 Dose: 0 mls/hr Admin: 11/20/18 08:48 Dose: 100 mls/hr Potassium Phosphate 30 mmol/ (Sodium Chloride) 510 mls @ 88 mls/hr IV ONE ONE Stop: 11/21/18 11:47 Last Infusion: 11/21/18 12:14 Dose: 0 mls/hr Admin: 11/21/18 06:17 Dose: 88 mls/hr Magnesium Sulfate/Dextrose (Magnesium Sulfate / D5w) 1 gm in 100 mls @ 100 mls/ hr IV TODAY@0800 MIRELA Stop: 11/21/18 15:00 Last Infusion: 11/21/18 09:41 Dose: 0 mls/hr Admin: 11/21/18 08:35 Dose: 100 mls/hr Furosemide 40 mg/ Syringe 4 mls @ 4 mls/min IV ONE ONE Stop: 11/21/18 09:16 Last Admin: 11/21/18 09:29 Dose: 4 mls/min Magnesium Sulfate/Dextrose (Magnesium Sulfate / D5w) 1 gm in 100 mls @ 100 mls/ hr IV Q1H MIRELA Stop: 11/22/18 09:59 Last Infusion: 11/22/18 11:04 Dose: 0 mls/hr Admin: 11/22/18 10:00 Dose: 100 mls/hr Infusion: 11/22/18 09:20 Dose: 100 mls/hr Admin: 11/22/18 08:20 Dose: 100 mls/hr Potassium Phosphate 30 mmol/ (Sodium Chloride) 510 mls @ 102 mls/hr IV 0830 ONE Stop: 11/22/18 13:29 Last Infusion: 11/22/18 15:54 Dose: 0 mls/hr Admin: 11/22/18 08:20 Dose: 102 mls/hr Potassium Phosphate 30 mmol/ (Sodium Chloride) 510 mls @ 102 mls/hr IV ONE ONE Stop: 11/22/18 23:29 Last Infusion: 11/23/18 01:01 Dose: 0 mls/hr Admin: 11/22/18 18:29 Dose: 102 mls/hr Furosemide 40 mg/ Syringe 4 mls @ 4 mls/min IV ONE STA Stop: 11/23/18 09:46 Last Admin: 11/23/18 10:28 Dose: 4 mls/min Potassium Phosphate 30 mmol/ (Sodium Chloride) 510 mls @ 102 mls/hr IV TODAY@ 1030 ONE Stop: 11/23/18 15:29 Last Infusion: 11/23/18 15:46 Dose: 0 mls/hr Admin: 11/23/18 10:28 Dose: 102 mls/hr Insulin Aspart (Novolog Flexpen) 0 units SC Q6 MIRELA Stop: 12/20/18 07:59 Last Admin: 11/21/18 06:57 Dose: Not Given Admin: 11/21/18 06:19 Dose: Not Given Admin: 11/21/18 00:38 Dose: Not Given Admin: 11/20/18 12:56 Dose: Not Given Admin: 11/20/18 08:51 Dose: Not Given Ioversol (Optiray 320 100ml) 93 ml IV ONCE PRN PRN Reason: Interaction Checking Stop: 11/22/18 01:43 Last Admin: 11/18/18 01:44 Dose: 1 ml Metoclopramide HCl (Reglan) 10 mg IV NOW STA Stop: 11/18/18 01:03 Last Admin: 11/18/18 01:20 Dose: 10 mg Midazolam HCl (Versed) Confirm Administered Dose 2 mg .ROUTE .STK-MED ONE Stop: 11/18/18 21:34 Last Admin: 11/18/18 21:41 Dose: 2 mg Naloxone HCl (Narcan) Confirm Administered Dose 0.4 mg .ROUTE .STK-MED ONE Stop: 11/22/18 17:18 Last Admin: 11/22/18 17:19 Dose: 0.4 mg Naloxone HCl (Narcan) 0.4 mg IV NOW STA Stop: 11/23/18 08:41 Last Admin: 11/23/18 20:46 Dose: Not Given Nutritional Formula (Peptamen Intense Vhp) 1,000 ml OG .CONTINUOUS MIRELA; Protocol Stop: 12/21/18 11:29 Last Admin: 11/22/18 16:12 Dose: 20 ml Admin: 11/21/18 14:51 Dose: 1,000 ml Potassium Chloride (Klor-Con M20) 80 meq PO NOW STA Stop: 11/22/18 07:45 Last Admin: 11/22/18 08:29 Dose: 80 meq Potassium Chloride (Klor-Con Pwd) 40 meq PO ONE ONE Stop: 11/24/18 11:16 Last Admin: 11/24/18 11:43 Dose: 40 meq Resident Activity Tracking Resident Involvement: Resident Care Provided Care Provided: [facility] Medicine _ (1) GERD (gastroesophageal reflux disease) Esophagitis presence: esophagitis presence not specified Qualified Code(s): K21.9 - Gastro-esophageal reflux disease without esophagitis (2) Asthma Asthma severity: unspecified severity Asthma persistence: unspecified Asthma complication type: unspecified Qualified Code(s): J45.909 - Unspecified asthma, uncomplicated
[2018-11-24] MEDS: MAGNESIUM OXIDE 400 MG TAB PO SCH (19:49)
[2018-11-24] MEDS: BUDESONIDE/FORMOTEROL FUMARATE 160/4.5 60 PUFFS/INHALER INH SCH (19:51)
[2018-11-24] MEDS ORDERED: PANTOprazole 40 MG TAB PO SCH (21:00)
[2018-11-25] MEDS: HYDROCODONE/ACETAMOPHEN 5/325MG TAB PO PRN ×4 (01:20→19:09)
[2018-11-25 05:55] LABS: Basophils # (auto) 0.02 K/uL (0-0.2); Basophils % (auto) 0.2 %; Eosinophils # (auto) 0.69 K/uL (0-0.5); Eosinophils % (auto) 6.8 %; Hematocrit (blood only) 27.6 % (37-47); Hemoglobin 9.1 g/dL (12.0-16.0); Immature Granulocytes # (auto) 0.42 K/uL (0.00-0.02); Immature Granulocytes % (auto) 4.1 %; Lymphocytes # (auto) 1.16 K/uL (1.2-3.4); Lymphocytes % (auto) 11.4 %; Mean Corpuscular Volume 80.5 fL (80-100); Mean Platelet Volume 8.3 fL (7.4-10.4); Monocytes # (auto) 1.22 K/uL (0.11-0.59); Neutrophils # (auto) 6.69 K/uL (1.4-6.5); Neutrophils % (auto) 65.5 %; Platelet Count 225 K/uL (130-400); RDW Coefficient of Variation 14.9 % (11.5-14.5); RDW Standard Deviation 43.3 fL (36.4-46.3); Red Blood Count 3.43 M/uL (4.2-5.4)
[2018-11-25 06:25] LABS: BUN Creatinine Ratio 30.4 (10-20); Calcium 7.5 mg/dl (8.5-10.1); Creatinine Clr Calc Pharmacy 92.4 ml/min; Est GFR (African American) 108.2; Est GFR (Non-African American) 93.4; Magnesium 1.8 mg/dl (1.8-2.4); Phosphorus 2.5 mg/dl (2.5-4.9)
[2018-11-25] MEDS: metroNIDAZOLE 500 MG/100 ML BAG IV SCH ×3 (07:47→23:58)
[2018-11-25] MEDS: MONTELUKAST SODIUM 10 MG TABLET PO SCH (07:48)
[2018-11-25] MEDS: PANTOprazole 40 MG TAB PO SCH (07:48)
--- NOTE | 2018-11-25 07:51 | Surgery Progress Note ---
Date of Service November 25, 2018 Assessment & Plan (1) Perforation of sigmoid colon due to diverticulitis: POD 7 will start oral intake right leg may be related to positioning in ICU for 6 days will d/c carreon OOB may shower once able to be up POD [address] Wesley irrigate incision q shift WBC 11, low grade temps, HR <100 d/c NG, can advance diet as janes PT/OT Subjective feels well wants to eat states can't flex right lower leg Physical Exam 2 Vital Signs (Past 24 Hours): Last Vital Signs Temp 36.6 C 11/25/18 06:54 Pulse 98 H 11/25/18 06:54 Resp 16 11/25/18 06:54 BP 116/69 11/25/18 06:54 Pulse Ox 91 11/25/18 06:54 Physical Exam: alert coherent in no distress Gastrointestinal (Abdomen): benign colostomy working incision with minimal residual cellulitis Musculoskeletal: unable to lift right leg grossly normal good perfusion foot and able to move toes and flex foot
[2018-11-25] MEDS: MAGNESIUM OXIDE 400 MG TAB PO SCH ×2 (07:57→20:47)
[2018-11-25] MEDS: HEPARIN SOD 5,000 UNIT/0.5 ML VIAL SQ SCH ×2 (07:58→20:47)
[2018-11-25] MEDS: BUDESONIDE/FORMOTEROL FUMARATE 160/4.5 60 PUFFS/INHALER INH SCH ×2 (08:02→20:47)
[2018-11-25] MEDS ORDERED: cefTRIAXone SODIUM 1,000 MG in SODIUM CHLOR 0.9% AD-VAN 50 ML IV SCH (09:00)
--- NOTE | 2018-11-25 09:43 | Ultrasound Report ---
US venous doppler LE RT HISTORY: 68 years-old Female Right leg fullness, post op, bed bound 7 days, acute pain and swelling of the right leg COMPARISON: None available TECHNIQUE: Multiple real-time sonographic images of the right lower extremity deep venous structures were obtained assessing grayscale appearance, color and spectral flow FINDINGS: Normal flow, compressibility, phasicity and augmentation of the right lower extremity deep venous str uctures. IMPRESSION: No sonographic evidence of deep venous thrombosis. The above report was generated using voice recognition software. It may contain grammatical, syntax o r spelling errors. Electronically signed by: Fernando Pedraza M.D. 11/25/2018 9:42 AM
--- NOTE | 2018-11-25 10:14 | Surgery Progress Note ---
Date of Service November 25, 2018 doing fine, she tolertaed diet, colostomy is working, some stool in bag, pt has some swelling on right leg, pt had U/S study today, IMPRESSION: No sonographic evidence of deep venous thrombosis. Assessment & Plan (1) Perforated diverticulum: doing fine, continue treatment, will F/U Physical Exam 2 Vital Signs (Past 24 Hours): Last Vital Signs Temp 36.6 C 11/25/18 06:54 Pulse 97 H 11/25/18 08:00 Resp 16 11/25/18 06:54 BP 116/69 11/25/18 06:54 Pulse Ox 91 11/25/18 06:54 Constitutional: WD/WN, vitals as above Neck: trachea midline, no thyromegaly Respiratory: normal respiratory effort, lungs clear to auscultation Cardiovascular: RRR, no murmur, no edema Gastrointestinal (Abdomen): Percussion/Palpation: abdomen soft NT, ND, colostomy is working, Neurologic: awake Psychiatric: Orientation: alert and oriented x 3 Results & Data Laboratory Results Abnormal lab results 11/25/18 11/25/18 Range/Units 05:37 05:37 RBC 3.43 L (4.2-5.4) M/uL Hgb 9.1 L (12.0-16.0) g/dL Hct 27.6 L (37-47) % RDW Coeff of Guera 14.9 H (11.5-14.5) % Immature Gran # (Auto) 0.42 H (0.00-0.02) K/uL Neut # (Auto) 6.69 H (1.4-6.5) K/uL Lymph # (Auto) 1.16 L (1.2-3.4) K/uL Ballard # (Auto) 1.22 H (0.11-0.59) K/uL Eos # (Auto) 0.69 H (0-0.5) K/uL Creatinine 0.58 L (0.6-1.2) mg/dl BUN/Creatinine Ratio 30.4 H (10-20) Calcium 7.5 L (8.5-10.1) mg/dl
--- NOTE | 2018-11-25 13:25 | Family Medicine Progress Note ---
Date of Service November 25, 2018 Assessment & Plan (1) Perforation of sigmoid colon due to diverticulitis: 68-year-old female was admitted on 18 November 2018 after complaining of acute abdominal pain. Perforated diverticulum, feculent peritonitis, intra-abdominal abscess: Nov underwent ex lap, sigmoid colon resection, and abdominal washout. At same time was started on Cipro and Flagyl. Cultures at that time grew E. coli. See related general surgery notes. Since been transitioned (18Feb) to Rocephin ( after reviewing sensitivities) and Flagyl (16Feb). Tolerating tube feeds. Hypoxemia and septic shock: Off pressors. 17Feb TTE noted hyperdynamic ventricles, LVEF > 70%, with normal wall motion. Extubated on Feb. {} Right-sided weakness (RUE and RLE) unclear etiology, mostly localized to RLE on 11/25/18 MRI Brain 11/22/18: chronic small vessel ischemic changes without acute findings. MRA of the neck showed no focal findings. May be related to body position during ICU stay. Will check CK in the AM. {} Anemia: Baseline Hb around 12s. Post-surgery has stabilized around Hb 9. Monitoring. {} Acute kidney injury: Max Cr 2.12, resolved. Monitoring. {} Multiple electrolyte issues: Replacement if needed {} Ongoing medical issues FEN/GI: tolerated regular diet GERD: c/wpo Protonix. Asthma: c/w home Symbicort and as needed albuterol. Hyperlipidemia: c/w simvastatin Depression: c/w home sertraline Code status: DO NOT RESUSCITATE DVT prophy: Heparin 5000 units subcu every 12 hours, SCDs PT/OT: Deferred. Dispo:PCU (2) Intra-abdominal abscess: (3) Septic shock: (4) Anemia: (5) Acute kidney injury: (6) GERD (gastroesophageal reflux disease): (7) Asthma: (8) HLD (hyperlipidemia): (9) Depression: Supervising Physician Co-Signing Physician Notes I personally examined the patient and verified all carranza points of history and exam, discussed case, and agree with decision making with Dr Jones. Called to assess emergently due to weakness. Nursing noted that her right arm was weak, however her left arm was weak as well, it was just that she was having a harder time using a spoon with the right arm. She had no facial droop. She may have been mildly confused as well. She is weak all over, but legs are symmetrically weak. She was not answering questions great for nursing , for me she is oriented to person place and time fairly well, she believes it is 2020 but knows the day of the week and her situation. In reciting the months of the year backwards she stops after August, but otherwise seems fairly oriented. General she is awake oriented as above, no distress but very fatigued appearing. HEENT normocephalic atraumatic mucous members are moist. Cardio is regular without rubs murmurs or gallops. Lungs clear to auscultation bilaterally no rales rhonchi or wheeze with good effort. No accessory muscle use. Abdomen is soft mildly distended diffusely tender but improving, now she is only tender to mild palpation whereas yesterday she was tender to even light palpation of the day before tender to even the way to my stethoscope. There is no guarding or rebound. Neurologically her cranial nerves II through XII are grossly intact she shows no facial droop or asymmetry. Motor in her arms is essentially equal bilaterally to confrontational testing is probably 3+ may be 4 - out of 5, when given a spoon she is slower and clumsy her with her right arm, but her right arm also is where her IV site is placed and a blood pressure cuff is on. She is marginally better using her left. Legs are about 3+ to 4- out of 5 strength equal bilaterally. Sensation is grossly intact diffusely to confrontational light touch all over. Peritonitis sepsis related to perforated diverticulumshe is postop and appears to be recovering fairly well from this. Continue current antibiotics and supportive care. Weaknessessentially appears to be more of a critical illness myopathy related to her time in the ICU on the vent as well as how sick she was. There is a mild degree of asymmetry, but certainly nothing that appears to be truly clinically significant, especially given that she does not have any facial droop and it is really just the arm. Should the arm weakness focally persist, certainly C-spine evaluation could be undertaken but this appears more just because of profound weakness that even the IV site and blood pressure cuff are creating too much weight for her arm. Subjective Pt was seen and examined at bedside. No acute overnight events. Pt has no complaints. Tolerating PO diet this AM. All questions answered. Johnson still in place. Tele was sinus rhythm in the 90-100s. ROS: No chest pain, no SOB, no dyspnea on exertion, no palpitations, no fevers, no chills, no nausea, no vomiting, Pt states she is passing gas. She does have an ostomy bag draining dark colored liquid. Physical Exam 2 Vital Signs (Past 24 Hours): Last Vital Signs Temp 36.8 C 11/25/18 11:48 Pulse 98 H 11/25/18 11:48 Resp 18 11/25/18 11:48 BP 111/59 L 11/25/18 11:48 Pulse Ox 96 11/25/18 11:48 Constitutional: WD/WN, vitals as above + obese ENMT: Mouth: + dentures (Partials) Neck: trachea midline, no thyromegaly Respiratory: normal respiratory effort, lungs clear to auscultation Auscultation: lungs clear to auscultation bilaterally Cardiovascular: RRR, no murmur, no edema Gastrointestinal (Abdomen): Inspection/Auscultation: + abdomen distended ( minimal) and + abdominal surgical incision Percussion/Palpation: + abdomen tender (to deep palpation) and abdomen soft; no guarding Rectal Exam: normal visual inspection of rectum (pt has a left sided ostomy bag) Musculoskeletal: Head/Neck/Chest: head atraumatic Extremities: extremities normal to inspection (no calf tenderness bilaterally, pt is wearing SCDs. Gait could not be assessed due to patient weakness) and + limited ROM of extremities (5/5 power in the UE bilaterally, RLE is noticeably weaker than the left, she can barely flex her right hip and raise her R knee of the bed, she and good handgrip strength bilaterally, with good biceps and triceps power bilaterally. ) Neurologic: normal sensation to monofilament (intact sensation to light touch over the upper and lower extremities) and awake Psychiatric: Orientation: alert and oriented x 3 Resident Activity Tracking Resident Involvement: Resident Care Provided Care Provided: [facility] Medicine _ (1) GERD (gastroesophageal reflux disease) Esophagitis presence: esophagitis presence not specified Qualified Code(s): K21.9 - Gastro-esophageal reflux disease without esophagitis (2) Asthma Asthma complication type: unspecified Asthma persistence: unspecified Asthma severity: unspecified severity Qualified Code(s): J45.909 - Unspecified asthma, uncomplicated
[2018-11-26 07:17] LABS: Basophils # (auto) 0.02 K/uL (0-0.2); Basophils % (auto) 0.2 %; Eosinophils # (auto) 0.59 K/uL (0-0.5); Eosinophils % (auto) 5.7 %; Hematocrit (blood only) 27.6 % (37-47); Hemoglobin 8.8 g/dL (12.0-16.0); Immature Granulocytes # (auto) 0.23 K/uL (0.00-0.02); Immature Granulocytes % (auto) 2.2 %; Lymphocytes # (auto) 1.18 K/uL (1.2-3.4); Lymphocytes % (auto) 11.3 %; Mean Corpuscular Hgb Conc 31.9 g/dL (32-36); Mean Platelet Volume 8.1 fL (7.4-10.4); Monocytes # (auto) 0.88 K/uL (0.11-0.59); Monocytes % (auto) 8.4 %; Neutrophils # (auto) 7.53 K/uL (1.4-6.5); Neutrophils % (auto) 72.2 %; Platelet Count 279 K/uL (130-400); RDW Coefficient of Variation 15.2 % (11.5-14.5); RDW Standard Deviation 43.5 fL (36.4-46.3); Red Blood Count 3.45 M/uL (4.2-5.4); White Blood Count 10.43 K/uL (4.8-10.8)
[2018-11-26 07:43] LABS: BUN Creatinine Ratio 24.2 (10-20); Calcium 7.6 mg/dl (8.5-10.1); Creatinine Clr Calc Pharmacy 106.2 ml/min; Est GFR (African American) 113.7; Est GFR (Non-African American) 98.1
[2018-11-26 07:46] LABS: Phosphorus 2.8 mg/dl (2.5-4.9)
[2018-11-26 07:59] LABS: Toxic Granulation 1+
--- NOTE | 2018-11-26 08:04 | Surgery Progress Note ---
Date of Service November 26, 2018 Assessment & Plan (1) Perforation of sigmoid colon due to diverticulitis: POD 8 can be transferred to reg floor from surgical point of view d/c SCD increase heparin sub cut to q8 d/c antibiotics consult social service POD 7 will start oral intake right leg may be related to positioning in ICU for 6 days will d/c carreon OOB may shower once able to be up POD [address] [place] [address] Wesley irrigate incision q shift WBC 11, low grade temps, HR <100 d/c NG, can advance diet as janes PT/OT Subjective feels much better than yesterday able to move her right leg oral intake poor Physical Exam 2 Vital Signs (Past 24 Hours): Last Vital Signs Temp 37.0 C 11/26/18 07:02 Pulse 90 11/26/18 07:02 Resp 20 11/26/18 07:02 BP 124/71 11/26/18 07:02 Pulse Ox 94 11/26/18 07:02 Physical Exam: alert coherent in no distress abd softer incision with minimal residual erythema( unable to really irrigate wound (tract in sub cut likely closed) able to move right leg without problems
[2018-11-26] MEDS: MAGNESIUM OXIDE 400 MG TAB PO SCH ×2 (08:40→20:00)
[2018-11-26] MEDS: BUDESONIDE/FORMOTEROL FUMARATE 160/4.5 60 PUFFS/INHALER INH SCH ×2 (08:40→20:00)
[2018-11-26] MEDS: MONTELUKAST SODIUM 10 MG TABLET PO SCH (08:40)
[2018-11-26] MEDS: PANTOprazole 40 MG TAB PO SCH (08:40)
[2018-11-26] MEDS: HYDROCODONE/ACETAMOPHEN 5/325MG TAB PO PRN ×3 (09:50→19:59)
--- NOTE | 2018-11-26 10:27 | Family Medicine Progress Note ---
Date of Service November 26, 2018 Assessment & Plan (1) Perforation of sigmoid colon due to diverticulitis: 68-year-old female was admitted on 18 November 2018 after complaining of acute abdominal pain. {} Perforated diverticulum, feculent peritonitis, intra-abdominal abscess 16 Feb underwent ex lap, sigmoid colon resection, and abdominal washout. At same time was started on Cipro and Flagyl. Cultures at that time grew E. coli. See related general surgery notes. Since been transitioned (18Feb) to Rocephin (after reviewing sensitivities) and Flagyl (16Feb). Tolerating tube feeds. Hypoxemia and septic shock: Off pressors. 17Feb TTE noted hyperdynamic ventricles, LVEF > 70%, with normal wall motion. Extubated on Feb. Per surgery, ok to transfer to Med Surg and DC Abx on 11/26/18. {} Right-sided weakness (RUE and RLE) unclear etiology, mostly localized to RLE MRI Brain 11/22/18: chronic small vessel ischemic changes without acute findings. MRA of the neck showed no focal findings. CK WNL. Likely related to deconditioning and body position during ICU stay. {} Anemia: Baseline Hb around 12s. Post-surgery has stabilized around Hb 9. Monitoring. {} Acute kidney injury: Max Cr 2.12, resolved. Monitoring. {} Multiple electrolyte issues: Replacement if needed {} Ongoing medical issues FEN/GI: tolerated regular diet GERD: c/w po Protonix. Asthma: c/w home Symbicort and as needed albuterol. Hyperlipidemia: c/w simvastatin Depression: c/w home sertraline Code status: DO NOT RESUSCITATE DVT proph: Hep SQ TID, DC SCDs per Dr. Wesley. PT/OT: on board Dispo: Transferred to Med Surg 11/26/18 (2) Intra-abdominal abscess: (3) Septic shock: (4) Anemia: (5) Acute kidney injury: (6) GERD (gastroesophageal reflux disease): (7) Asthma: (8) HLD (hyperlipidemia): (9) Depression: Supervising Physician Co-Signing Physician Notes I personally examined the patient and verified all carranza points of history and exam, discussed case, and agree with decision making with Dr Jones. Feeling remarkably good smiling and sitting in bed. She notes her pain is reasonably controlled, but more importantly she notes a dramatic improvement in her weakness. Whereas yesterday she was barely able to lift her arm against much of any resistance, today she is moving it well including talking with her hands, she was able to get out of bed and use a walker to walk a little bit. In general he feels remarkably improved Vitals noted, in general she is awake alert oriented x3 pleasant bright and cheery in no distress. HEENT normocephalic atraumatic mucous membranes moist. Breathing is unlabored no accessory muscle use good effort. Skin shows no rashes no pallor or icterus. Neuro shows cranial nerves II through XII be grossly intact gross motor and sensory intact. Musculoskeletal exam shows a remarkable improvement in her muscle strength where she is now able to move freely in bed with good coordination and good range of motion Peritonitis sepsis related to perforated diverticulumshe is postop and appears to be recovering fairly well from this. Ongoing IV antibiotics Weaknessessentially appears to be more of a critical illness myopathy related to her time in the ICU on the vent as well as how sick she was. Has improved incredibly. PT OT ongoing. Subjective Pt was seen and examined at bedside. No acute overnight events. Tolerating regular diet this AM. Carreon still in place. Abdominal drain in place. Ostomy draining fecund material. Pt is stating that her fine motor skills are returning, especially on her right side. She also expresses a desire to remove the folely. Pt has tried to get out of bed but needs assistance. Tele was sinus rhythm in the 90-100s. ROS: No chest pain, no SOB, no dyspnea on exertion, no palpitations, no fevers, no chills, no nausea, no vomiting, carreon in place. Physical Exam 2 Vital Signs (Past 24 Hours): Last Vital Signs Temp 37.0 C 11/26/18 07:02 Pulse 94 H 11/26/18 08:00 Resp 20 11/26/18 07:02 BP 124/71 11/26/18 07:02 Pulse Ox 94 11/26/18 07:02 Constitutional: WD/WN, vitals as above + obese Neck: trachea midline, no thyromegaly Respiratory: normal respiratory effort, lungs clear to auscultation Auscultation: lungs clear to auscultation bilaterally Cardiovascular: RRR, no murmur, no edema Gastrointestinal (Abdomen): Inspection/Auscultation: + abdomen distended ( minimal , pt has an ostomy bag) and + abdominal surgical incision Percussion/ Palpation: abdomen soft; no guarding Musculoskeletal: no cyanosis or clubbing, extremities motor strength 5/5 Head/Neck/Chest: head atraumatic Extremities: extremities normal to inspection (no calf tenderness bilaterally, pt is wearing SCDs. Gait could not be assessed due to patient weakness) and + limited ROM of extremities (5/5 power in the UE bilaterally, RLE is noticeably weaker than the left, she can barely flex her right hip and raise her R knee of the bed, she and good handgrip strength bilaterally, with good biceps and triceps power bilaterally. - There is improved strength from previous day. ) Neurologic: normal sensation to monofilament (intact sensation to light touch over the upper and lower extremities) and awake Psychiatric: Orientation: alert and oriented x 3 Resident Activity Tracking Resident Involvement: Resident Care Provided Care Provided: Adult [facility] Medicine _ (1) GERD (gastroesophageal reflux disease) Esophagitis presence: esophagitis presence not specified Qualified Code(s): K21.9 - Gastro-esophageal reflux disease without esophagitis (2) Asthma Asthma complication type: unspecified Asthma persistence: unspecified Asthma severity: unspecified severity Qualified Code(s): J45.909 - Unspecified asthma, uncomplicated
--- NOTE | 2018-11-26 13:01 | Surgery Progress Note ---
Date of Service November 26, 2018 pt is stable, she tolerated diet, Assessment & Plan (1) Perforated diverticulum: doing fine, continue treatment, will F/U 11/26/2018 Aba D/Lalit carreon continue treatment, Physical Exam 2 Vital Signs (Past 24 Hours): Last Vital Signs Temp 36.9 C 11/26/18 11:44 Pulse 90 11/26/18 11:44 Resp 18 11/26/18 11:44 BP 121/68 11/26/18 11:44 Pulse Ox 94 11/26/18 11:44 Constitutional: WD/WN, vitals as above Neck: trachea midline, no thyromegaly Respiratory: normal respiratory effort, lungs clear to auscultation Cardiovascular: RRR, no murmur, no edema Gastrointestinal (Abdomen): Percussion/Palpation: abdomen soft Neurologic: awake Psychiatric: Orientation: alert and oriented x 3
[2018-11-26] MEDS: HEPARIN SOD 5,000 UNIT/0.5 ML VIAL SQ SCH ×2 (14:32→20:54)
[2018-11-26] MEDS: metroNIDAZOLE 500 MG/100 ML BAG IV SCH (15:33)
[2018-11-27] MEDS: HEPARIN SOD 5,000 UNIT/0.5 ML VIAL SQ SCH ×3 (05:17→21:23)
[2018-11-27 06:48] LABS: Basophils # (auto) 0.01 K/uL (0-0.2); Basophils % (auto) 0.1 %; Eosinophils # (auto) 0.43 K/uL (0-0.5); Eosinophils % (auto) 4.1 %; Hematocrit (blood only) 29.7 % (37-47); Hemoglobin 9.5 g/dL (12.0-16.0); Immature Granulocytes # (auto) 0.22 K/uL (0.00-0.02); Immature Granulocytes % (auto) 2.1 %; Lymphocytes # (auto) 1.19 K/uL (1.2-3.4); Lymphocytes % (auto) 11.4 %; Mean Corpuscular Volume 79.2 fL (80-100); Mean Platelet Volume 8.2 fL (7.4-10.4); Monocytes # (auto) 0.85 K/uL (0.11-0.59); Monocytes % (auto) 8.1 %; Neutrophils # (auto) 7.77 K/uL (1.4-6.5); Neutrophils % (auto) 74.2 %; Platelet Count 307 K/uL (130-400); RDW Coefficient of Variation 15.3 % (11.5-14.5); RDW Standard Deviation 43.5 fL (36.4-46.3); Red Blood Count 3.75 M/uL (4.2-5.4); White Blood Count 10.47 K/uL (4.8-10.8)
--- NOTE | 2018-11-27 06:59 | Surgery Progress Note ---
Date of Service November 27, 2018 Assessment & Plan (1) Perforation of sigmoid colon due to diverticulitis: POD 9 can be ready to d/c in next few days decision for rehab pending talked with yesterday he is in agreement for some rehab POD 8 can be transferred to reg floor from surgical point of view d/c SCD increase heparin sub cut to q8 d/c antibiotics consult social service POD 7 will start oral intake right leg may be related to positioning in ICU for 6 days will d/c carreon OOB may shower once able to be up POD [address] Wesley irrigate incision q shift WBC 11, low grade temps, HR <100 d/c NG, can advance diet as janes PT/OT Subjective doing well was up to bathroom with walker by herself right lower extremity back to normal function and weight bearing Physical Exam 2 Vital Signs (Past 24 Hours): Last Vital Signs Temp 36.6 C 11/26/18 23:08 Pulse 97 H 11/26/18 23:08 Resp 16 11/26/18 23:08 BP 125/71 11/26/18 23:08 Pulse Ox 94 11/26/18 23:08 Physical Exam: alert coherent in no discomfort Gastrointestinal (Abdomen): soft no loc tenderness colostomy working minimal drainage serous from Pedro drain
[2018-11-27 07:21] LABS: Calcium 7.5 mg/dl (8.5-10.1); Creatinine Clr Calc Pharmacy 100.2 ml/min; Est GFR (African American) 111.5; Est GFR (Non-African American) 96.2; Phosphorus 2.9 mg/dl (2.5-4.9); Potassium 3.9 mmol/L (3.5-5.1)
[2018-11-27] MEDS: BUDESONIDE/FORMOTEROL FUMARATE 160/4.5 60 PUFFS/INHALER INH SCH ×2 (08:22→21:30)
[2018-11-27] MEDS: MONTELUKAST SODIUM 10 MG TABLET PO SCH (08:22)
[2018-11-27] MEDS: PANTOprazole 40 MG TAB PO SCH (08:22)
[2018-11-27] MEDS: MAGNESIUM OXIDE 400 MG TAB PO SCH ×2 (08:22→21:30)
[2018-11-27] MEDS: HYDROCODONE/ACETAMOPHEN 5/325MG TAB PO PRN ×2 (10:49→18:33)
--- NOTE | 2018-11-27 17:06 | Family Medicine Progress Note ---
Date of Service November 27, 2018 Assessment & Plan (1) Perforation of sigmoid colon due to diverticulitis: 68-year-old female with a history of perforation of the sigmoid colon due to diverticulitis is being followed by our service status post ex lap, sigmoid colon resection and abdominal washout. Status post ex lap, sigmoid colon resection and abdominal washout Procedures performed on November 18, the patient was subsequently transferred to ICU for hypoxia and septic shock, required pressors Completed antibiotics on 11/26/2018 Patient's general condition continues to improvecurrently arranging outpatient rehab [facility] Weakness, more predominant on right side MRI on 11/22/2018 showed chronic small vessel ischemic changes without any acute findings, MRA did not show any focal findings We will continue to follow as the patient begins to rehab. Possibly secondary to deconditioning Anemia 9.5 on 11/27/2018, baseline is around 12. Most likely secondary to surgery/ chronic Inflammation. Recommend repeat CBC intermittently following discharge BOB Resolved GERD Continue Protonix Asthma Continue Symbicort and albuterol as needed Hyperlipidemia Continue simvastatin Depression Continue home sertraline DVT prophylaxis 5000 heparin subcu, SCDs FEN Tolerating regular diet (2) Depression: (3) Anemia: (4) Septic shock: (5) Intra-abdominal abscess: (6) HLD (hyperlipidemia): (7) Asthma: (8) GERD (gastroesophageal reflux disease): (9) Perforated diverticulum: Supervising Physician Co-Signing Physician Notes Status postI saw the patient with resident physician and confirmed carranza portions of the history and physical exam. I agree with the impression and plan as noted above. Upon examination today, the patient is sleeping but easily awakens. She has some mild right-sided abdominal pain but this is not necessarily worse than yesterday. She notes flatulence through the colostomy. IMPRESSION Peritonitis, sepsis or secondary to perforated diverticulum Status post laparoscopic sigmoid resection, abdominal washout, diverting colostomy Anemia Denies weakness PLAN Anticipated discharge to inpatient rehabilitation in the next day or so Subjective 68-year-old female with a history of perforation of the sigmoid colon due to diverticulitis is being followed by our service status post ex lap, sigmoid colon resection and abdominal washout. This morning the patient is doing well. She is tolerating a regular diet. She was able to get up and shower today and says that she feels much better. She still complains of some abdominal pain. She denies any nausea/vomiting/diarrhea /fevers. Constitutional: no fever, no chills and no sweats Respiratory: no cough, no dyspnea and no wheezing Cardiovascular: no chest pain, no dyspnea on exertion and no palpitations Gastrointestinal: + abdominal pain; no nausea, no vomiting and no diarrhea/ loose stools Genitourinary (Female): no dysuria and no urinary frequency Physical Exam 2 Vital Signs (Past 24 Hours): Last Vital Signs Temp 37 C 11/27/18 14:58 Pulse 98 H 11/27/18 14:58 Resp 16 11/27/18 14:58 BP 127/76 11/27/18 14:58 Pulse Ox 99 11/27/18 14:58 Constitutional: WD/WN, vitals as above Eyes: PERRL, conjunctivae normal, anicteric sclerae ENMT: external ear and nose normal, oropharynx normal Neck: trachea midline, no thyromegaly Respiratory: normal respiratory effort, lungs clear to auscultation Cardiovascular: RRR, no murmur, no edema Gastrointestinal (Abdomen): Mild tenderness throughout with light palpitation , colostomy with brown stool left upper quadrant intact, abdominal dressings are clean, dry, intact. Abdominal drain is also intact with small amount of serous fluid. Musculoskeletal: no cyanosis or clubbing, extremities motor strength 5/5 Skin: no rashes, warm and dry Results & Data Laboratory Results Laboratory Last Values WBC 10.47 K/uL (4.8-10.8) 11/27/18 06:31 RBC 3.75 M/uL (4.2-5.4) L 11/27/18 06:31 Hgb 9.5 g/dL (12.0-16.0) L 11/27/18 06:31 POC Hgb 13.6 g/dl (12.0-16.0) 11/18/18 01:11 Hct 29.7 % (37-47) L 11/27/18 06:31 POC Hct 40 % (37-47) 11/18/18 01:11 MCV 79.2 fL (80-100) L 11/27/18 06:31 MCH 25.3 pg (25-34) 11/27/18 06:31 MCHC 32.0 g/dL (32-36) 11/27/18 06:31 RDW Std Deviation 43.5 fL (36.4-46.3) 11/27/18 06:31 RDW Coeff of Guera 15.3 % (11.5-14.5) H 11/27/18 06:31 Plt Count 307 K/uL (130-400) 11/27/18 06:31 MPV 8.2 fL (7.4-10.4) 11/27/18 06:31 Immature Gran % (Auto) 2.1 % 11/27/18 06:31 Neut % (Auto) 74.2 % 11/27/18 06:31 Lymph % (Auto) 11.4 % 11/27/18 06:31 Fleming % (Auto) 8.1 % 11/27/18 06:31 Eos % (Auto) 4.1 % 11/27/18 06:31 Baso % (Auto) 0.1 % 11/27/18 06:31 Immature Gran # (Auto) 0.22 K/uL (0.00-0.02) H 11/27/18 06:31 Neut # (Auto) 7.77 K/uL (1.4-6.5) H 11/27/18 06:31 Lymph # (Auto) 1.19 K/uL (1.2-3.4) L 11/27/18 06:31 Fleming # (Auto) 0.85 K/uL (0.11-0.59) H 11/27/18 06:31 Eos # (Auto) 0.43 K/uL (0-0.5) 11/27/18 06:31 Baso # (Auto) 0.01 K/uL (0-0.2) 11/27/18 06:31 Absolute Nucleated RBC Cancelled 11/20/18 04:30 Nucleated RBC % (auto) Cancelled 11/20/18 04:30 Neutrophils % (Manual) Cancelled 11/20/18 04:30 Band Neutrophils % Cancelled 11/20/18 04:30 Lymphocytes % (Manual) Cancelled 11/20/18 04:30 Prolymphocyte % Cancelled 11/20/18 04:30 Reactive Lymphs % (Man) Cancelled 11/20/18 04:30 Monocytes % (Manual) Cancelled 11/20/18 04:30 Eosinophils % (Manual) Cancelled 11/20/18 04:30 Basophils % (Manual) Cancelled 11/20/18 04:30 Metamyelocytes % (Man) Cancelled 11/20/18 04:30 Myelocytes % (Man) Cancelled 11/20/18 04:30 Promyelocytes % (Man) Cancelled 11/20/18 04:30 Blast Cells % (Manual) Cancelled 11/20/18 04:30 Plasma Cell % (Manual) Cancelled 11/20/18 04:30 Other Cells % Cancelled 11/20/18 04:30 Nucleated RBC % Cancelled 11/20/18 04:30 Neutrophils # (Manual) Cancelled 11/20/18 04:30 Band Neutrophils # Cancelled 11/20/18 04:30 Total Absolute Neuts Cancelled 11/20/18 04:30 Lymphocytes # (Manual) Cancelled 11/20/18 04:30 Prolymphocyte # Cancelled 11/20/18 04:30 Reactive Lymphs # Cancelled 11/20/18 04:30 Total Abs Lymphocytes Cancelled 11/20/18 04:30 Monocytes # (Manual) Cancelled 11/20/18 04:30 Eosinophils # (Manual) Cancelled 11/20/18 04:30 Basophils # (Manual) Cancelled 11/20/18 04:30 Metamyelocytes # (Man) Cancelled 11/20/18 04:30 Myelocytes # (Manual) Cancelled 11/20/18 04:30 Promyelocytes # (Man) Cancelled 11/20/18 04:30 Blast Cells # (Man) Cancelled 11/20/18 04:30 Plasma Cell # (Manual) Cancelled 11/20/18 04:30 Other Cells # Cancelled 11/20/18 04:30 Nucleated RBCs # (Man) Cancelled 11/20/18 04:30 Hypersegmented Neuts Cancelled 11/20/18 04:30 Hyposegmented Neuts Cancelled 11/20/18 04:30 Hypogranular Neuts Cancelled 11/20/18 04:30 Large Granular Lymphs Cancelled 11/20/18 04:30 # Lrg Granular Lymphs Cancelled 11/20/18 04:30 Hairy Cells Cancelled 11/20/18 04:30 Smudge Cells Cancelled 11/20/18 04:30 Toxic Granulation 1+ 11/26/18 06:42 Toxic Vacuolation 1+ 11/19/18 12:03 Dohle Bodies 1+ 11/20/18 06:44 Adele Rods Cancelled 11/20/18 04:30 Platelet Estimate Cancelled 11/20/18 04:30 Hypogranular Platelets Cancelled 11/20/18 04:30 Clumped Platelets Cancelled 11/20/18 04:30 Giant Platelets Cancelled 11/20/18 04:30 Platelet Satelliting Cancelled 11/20/18 04:30 RBC Morphology Cancelled 11/20/18 04:30 Polychromasia Cancelled 11/20/18 04:30 Hypochromasia Cancelled 11/20/18 04:30 Poikilocytosis Cancelled 11/20/18 04:30 Basophilic Stippling Cancelled 11/20/18 04:30 Anisocytosis Cancelled 11/20/18 04:30 Microcytosis Cancelled 11/20/18 04:30 Macrocytosis Cancelled 11/20/18 04:30 Spherocytes Cancelled 11/20/18 04:30 Pappenheimer Bodies Cancelled 11/20/18 04:30 Sickle Cells Cancelled 11/20/18 04:30 Target Cells Cancelled 11/20/18 04:30 Tear Drop Cells Cancelled 11/20/18 04:30 Ovalocytes Cancelled 11/20/18 04:30 Stomatocytes Cancelled 11/20/18 04:30 [place] Bodies Cancelled 11/20/18 04:30 Echinocytes 1+ 11/19/18 12:03 Acanthocytes (Spur) Cancelled 11/20/18 04:30 Rouleaux Cancelled 11/20/18 04:30 RBC Agglutinates Cancelled 11/20/18 04:30 Schistocytes Cancelled 11/20/18 04:30 RBC Morph Comment Cancelled 11/20/18 04:30 Sezary Cell Cancelled 11/20/18 04:30 PT 10.8 Seconds (9.0-12.0) 11/18/18 01:10 INR 1.1 (0.9-1.1) 11/18/18 01:10 POC Sodium 138 mEq/L (135-144) 11/18/18 01:11 Sodium 139 mmol/L (136-145) 11/27/18 06:31 POC Potassium 4.0 mEq/L (3.3-5.0) 11/18/18 01:11 Potassium 3.9 mmol/L (3.5-5.1) 11/27/18 06:31 POC Chloride 102 mEq/L (101-112) 11/18/18 01:11 Chloride 107 mmol/L (98-107) 11/27/18 06:31 Carbon Dioxide 25 mmol/L (21-32) 11/27/18 06:31 POC Total CO2 24 mEq/l (24-31) 11/18/18 01:11 Anion Gap 7.0 (3-11) 11/27/18 06:31 POC Anion Gap 17.0 mmol/L (16-25) 11/18/18 01:11 POC BUN 32 mg/dl (7-18) H 11/18/18 01:11 BUN 9 mg/dl (7-18) 11/27/18 06:31 Creatinine 0.53 mg/dl (0.6-1.2) L 11/27/18 06:31 POC Creatinine 1.5 mg/dl (0.6-1.3) H 11/18/18 01:11 Est Cr Clr Drug Dosing 100.2 ml/min 11/27/18 06:31 Est GFR ( Amer) 111.5 11/27/18 06:31 Est GFR (Non-Af Amer) 96.2 11/27/18 06:31 BUN/Creatinine Ratio 17.0 (10-20) 11/27/18 06:31 Glucose 83 mg/dl (70-99) 11/27/18 06:31 POC Glucose 89 (70-99) 11/25/18 13:41 POC Glucose (other) 131 mg/dl (70-99) H 11/18/18 01:11 Lactate 2.1 mmol/L (0.4-2.0) H* 11/19/18 12:03 Calcium 7.5 mg/dl (8.5-10.1) L 11/27/18 06:31 POC Ioniz Calcium Sandro 1.14 mmol/l (1.12-1.32) 11/18/18 01:11 Ionized Calcium 0.98 mmol/L (1.12-1.32) L 11/19/18 12:24 Phosphorus 2.9 mg/dl (2.5-4.9) 11/27/18 06:31 Magnesium 2.0 mg/dl (1.8-2.4) 11/27/18 06:31 Total Bilirubin 0.3 mg/dl (0.2-1) 11/23/18 08:31 Direct Bilirubin 0.2 mg/dl (0-0.2) 11/21/18 04:37 AST 15 U/L (15-37) 11/23/18 08:31 ALT 15 U/L (12-78) 11/23/18 08:31 Alkaline Phosphatase 48 U/L (45-117) 11/23/18 08:31 Total Creatine Kinase 20 U/L (26-192) L 11/26/18 06:42 CK-MB (CK-2) < 1.0 ng/ml (0.5-3.6) 11/18/18 01:10 CK/CKMB % Calc TNP 11/18/18 01:10 Troponin I 0.102 ng/ml (0-0.045) H* 11/20/18 14:34 Total Protein 5.1 gm/dl (6.4-8.2) L 11/23/18 08:31 Albumin 1.6 gm/dl (3.4-5.0) L 11/23/18 08:31 Globulin 3.5 gm/dl (2.5-4.0) 11/23/18 08:31 Albumin/Globulin Ratio 0.5 (0.9-2) L 11/23/18 08:31 Lipase 131 U/L (73-393) 11/18/18 01:10 Random Cortisol 27.49 mcg/dl 11/19/18 12:03 Specimen Hemolysis 11/20/18 04:39 Nasal Screen MRSA (PCR) Negative (Negative) 11/18/18 22:03 Resident Activity Tracking Resident Involvement: Resident Care Provided Care Provided: Adult [facility] Medicine _ (1) GERD (gastroesophageal reflux disease) Esophagitis presence: esophagitis presence not specified Qualified Code(s): K21.9 - Gastro-esophageal reflux disease without esophagitis (2) Asthma Asthma complication type: unspecified Asthma persistence: unspecified Asthma severity: unspecified severity Qualified Code(s): J45.909 - Unspecified asthma, uncomplicated
[2018-11-28] MEDS: HEPARIN SOD 5,000 UNIT/0.5 ML VIAL SQ SCH (05:31)
[2018-11-28] MEDS: BUDESONIDE/FORMOTEROL FUMARATE 160/4.5 60 PUFFS/INHALER INH SCH (07:28)
[2018-11-28] MEDS: MONTELUKAST SODIUM 10 MG TABLET PO SCH (07:29)
[2018-11-28] MEDS: MAGNESIUM OXIDE 400 MG TAB PO SCH (07:29)
[2018-11-28] MEDS: PANTOprazole 40 MG TAB PO SCH (07:29)
[2018-11-28 08:18] LABS: Basophils # (auto) 0.02 K/uL (0-0.2); Basophils % (auto) 0.2 %; Eosinophils # (auto) 0.51 K/uL (0-0.5); Eosinophils % (auto) 4.8 %; Hematocrit (blood only) 26.8 % (37-47); Hemoglobin 8.6 g/dL (12.0-16.0); Immature Granulocytes # (auto) 0.15 K/uL (0.00-0.02); Immature Granulocytes % (auto) 1.4 %; Lymphocytes # (auto) 1.28 K/uL (1.2-3.4); Mean Corpuscular Hgb Conc 32.1 g/dL (32-36); Mean Platelet Volume 8.2 fL (7.4-10.4); Monocytes # (auto) 0.99 K/uL (0.11-0.59); Monocytes % (auto) 9.3 %; Neutrophils # (auto) 7.68 K/uL (1.4-6.5); Neutrophils % (auto) 72.3 %; Platelet Count 382 K/uL (130-400); RDW Coefficient of Variation 15.5 % (11.5-14.5); Red Blood Count 3.35 M/uL (4.2-5.4); White Blood Count 10.63 K/uL (4.8-10.8)
[2018-11-28 08:56] LABS: BUN Creatinine Ratio 14.7 (10-20); Calcium 7.7 mg/dl (8.5-10.1); Creatinine Clr Calc Pharmacy 94.9 ml/min; Est GFR (African American) 109.5; Est GFR (Non-African American) 94.5; Magnesium 2.1 mg/dl (1.8-2.4); Potassium 3.9 mmol/L (3.5-5.1)
[2018-11-28 09:03] LABS: Phosphorus 3.6 mg/dl (2.5-4.9)
--- NOTE | 2018-11-28 10:36 | Surgery Progress Note ---
Date of Service November 28, 2018 Assessment & Plan (1) Perforation of sigmoid colon due to diverticulitis: POD #10 Pt doing well. Ready for discharge today. Drain can be d/c Pt accepted to rehab and can be discharged today. Return precautions reviewed with patient. Patient to follow up in our clinic later this week for incision check and possible staple/suture removal. All questions answered. POD 9 can be ready to d/c in next few days decision for rehab pending talked with yesterday he is in agreement for some rehab POD 8 can be transferred to reg floor from surgical point of view d/c SCD increase heparin sub cut to q8 d/c antibiotics consult social service POD 7 will start oral intake right leg may be related to positioning in ICU for 6 days will d/c carreon OOB may shower once able to be up POD [address] Wesley irrigate incision q shift WBC 11, low grade temps, HR <100 d/c NG, can advance diet as janes PT/OT Subjective Resting comfortably in bed- no new concern or complaints. Ambulating, tolerating regular diet Physical Exam Vital Signs (Past 24 Hours): Last Vital Signs Temp 37.0 C 11/28/18 07:38 Pulse 93 H 11/28/18 07:38 Resp 16 11/28/18 07:38 BP 135/75 11/28/18 07:38 Pulse Ox 97 11/28/18 07:38 Gastrointestinal (Abdomen): Inspection/Auscultation: + abdominal surgical incision Percussion/Palpation: abdomen soft; abdomen nontender and no guarding colostomy with good output
--- NOTE | 2018-11-28 11:35 | Discharge Summary ---
Date of Service November 28, 2018 Admission HPI Per Admitting Provider Patient is a 68yo female with history of diverticulosis, asthma, GERD, HLP presenting with acute abdominal pain. Pain began suddenly this AM while patient was at rest. Pain located in middle and right side of the abdomen. 10/ 10 in severity. Associated with nausea, vomiting x 1 episode, lightheadedness. No diarrhea. Last normal BM Tuesday AM. No additional complaints. Workup in the ER with sigmoid diverticulitis with 2.7cm abscess and scattered pneumoperitoneum consistent with perforation ER Course: NSS x 1 liter, Cipro x 400mg, Dilaudid, Flagyl, ALbuterol, Reglan Admission Exam Per Admitting Provider Physical Exam: General: patient resting, in mild distress secondary to pain , non-toxic in appearance, AA&O x 4 Skin: warm, dry, intact, no rashes or lesions HEENT: NC/AT, PERRL, EOMI, anicteric sclera, conjunctiva without injection, external ear normal to inspection and nontender, nares patent, moist mucus membranes, dentition intact, no oropharyngeal lesions, neck supple, trachea midline, no LAD, no thyromegaly, no JVD Heart: +S1/S2, regular, no m/r/g Lungs: equal air entry bilaterally, no rales/rhonchi/wheezes Abd: hypoactive bowel sounds, abdomen distended, firm, diffusely tender with voluntary guarding, no masses/organomegaly/ascites Ext: warm, 2+ pulses in UE/LE bilaterally, no clubbing/cyanosis or edema Neuro: nonfocal, patient AA&O x 4, speech intact, no facial droop, moving all extremities on command with equal strength 5/5 Principal Diagnosis Perforated diverticulum status post Mary procedure Discharge Exam Constitutional: WD/WN, vitals as above Eyes: PERRL, conjunctivae normal, anicteric sclerae ENMT: external ear and nose normal, oropharynx normal Neck: trachea midline, no thyromegaly Respiratory: normal respiratory effort, lungs clear to auscultation Cardiovascular: RRR, no murmur, no edema Gastrointestinal (Abdomen): Mild tenderness throughout with light palpitation, colostomy with brown stool left upper quadrant intact, abdominal dressings are clean, dry, intact. Abdominal drain is also intact with small amount of serous fluid. Musculoskeletal: no cyanosis or clubbing, extremities motor strength 5/5 Discharge Data Allergies Allergy/AdvReac Type Severity Reaction Status Date / Time Penicillins Allergy Intermediate HIVES Verified 11/18/18 02:14 Consultations 11/18/18 04:24 Consult General Surgery Routine 11/18/18 21:28 Consult Case Management - Discharge Planning Routine 11/19/18 07:11 Consult City Secretary Routine Procedures Performed Operation Date: 11/18/18 18:15 Actual Procedures p Exploratory Laparotomy, Sigmoid Colon Resection, Abdominal Washout (Bonilla Procedure)(Not Applicable) - Thanh Wesley MD, FACS [place], [place] [phone] CT Scan Report Patient: KRISTI PELLETIER Date: 11/18/18 MR#: [id number]: [address] Acct ID:[id number]: Date: 1950[facility] Zip: [place] [address] Age: 68Location: 2N Sex: F Room/Bed: [facility] Att Phy: Angie Murry D.O.Diagnosis: PERFORATED DIVERTICULI Shelbie Phy: Primo Bojorquez M.D.Service Date: 11/18/18 Fam Phy: Interpreting Phy: Sharad Ocasio MD Admit Phy: Angie Murry D.O. Ordering Phy: Gary Dejesus MD cc: ~ CT OF THE ABDOMEN AND PELVIS WITH CONTRAST CLINICAL HISTORY: Diffuse abdominal pain. COMPARISON STUDY: CT of the abdomen and pelvis February 17, 2018. TECHNIQUE: Following IV administration of 93 mL of Optiray-320, axial images of the abdomen and pelvis were obtained from the lung bases to the proximal femurs. Images were reviewed in the axial, sagittal, and coronal planes. IV contrast was administered without complication. Automated exposure control was utilized for the study. A dose lowering technique was utilized adhering to the principles of ALARA. CT DOSE: 541.36 mGy.cm FINDINGS: A moderate sized hiatal hernia is noted. A small amount of pneumoperitoneum is present. The liver, spleen, adrenal glands, left kidney and pancreas are normal. There is marked right renal atrophy. Note is made of wall thickening of the mid sigmoid colon. There is an associated 2.7 cm fluid and gas containing pericolonic focus of suggest phlegmon/developing abscess. There is associated pneumoperitoneum. This represents perforated diverticulitis. There is no evidence for a bowel obstruction. There are no suspicious osseous lesions. There is moderate plaque of the abdominal aorta which is normal in caliber. The appendix is normal. Extensive colonic diverticulosis is noted. IMPRESSION: Findings consistent with perforated acute sigmoid diverticulitis. Small amount of pneumoperitoneum with moderate pericolonic infiltration and an associated 2.7 cm fluid and gas containing pericolonic focus which suggests phlegmon/developing diverticular abscess. [place], [place] [phone] Magnetic Resonance Report Patient: KRISTI PELLETIER Date: 11/18/18 MR#: [id number]: [address] Acct ID:[id number]: Date: [address] Zip: [place] [address] Age: 68Location: 1E Sex: F Room/Bed: [facility] Att Phy: Nikhil Pimentel D.O.Diagnosis: PERFORATED DIVERTICULI Shelbie Phy: Primo Bojorquez M.D.Service Date: 11/22/18 Fam Phy: Interpreting Phy: Alexis Pedraza Admit Phy: Angie Murry D.O. Ordering Phy: Kenneth Green MD cc: ~ MR angio neck wo/w con HISTORY: 68 years-old Female intubation w/t sed, R arm paralysis acutely altered mental status with right arm paralysis COMPARISON: MRI brain of same day TECHNIQUE: MRA of the neck was obtained both with and without the use of 8.5 mL Gadavist utilizing 3-D [id number]-vn-[id number] sequencing with MIP reformats. All measurements were obtained according to NASCET criteria. FINDINGS: The bilateral common and internal carotid arteries are widely patent. The vertebral arteries are codominant and are also widely patent and within normal limits. There is no aneurysm, dissection, high-grade stenosis or proximal branch occlusion identified. The internal jugular veins appear unremarkable. IMPRESSION: Unremarkable MRA of the neck without aneurysm, dissection, high- grade stenosis or proximal branch occlusion. The above report was generated using voice recognition software. It may contain grammatical, syntax or spelling errors. Electronically signed by: Fernando Pedraza M.D. 11/22/2018 1:06 PM Dictated: 11/22/18 1257 Transcribed: 11/22/18 1257 Patient: KRISTI PELLETIER Date: 11/18/18 MR#: [id number]: [address] Acct ID:[id number]: Date: 1950City Zip: [place] [address] Age: 68Location: 1E Sex: F Room/Bed: [facility] Att Phy: Nikhil Pimentel D.O.Diagnosis: PERFORATED DIVERTICULI Shelbie Phy: Primo Bojorquez M.D.Service Date: 11/22/18 Fam Phy: Interpreting Phy: Kenney Cooley MD Admit Phy: Angie Murry D.ONayely Ordering Phy: Kenneth Green MD cc: ~ MR brain wo/w con CLINICAL HISTORY: 68 years-old Female presenting with intubated, R arm paralysis , history of colon rupture with recent surgery since 11/18/2018. TECHNIQUE: Multisequence, multiplanar MR imaging of the brain was performed before and after the administration of intravenous contrast. IV contrast: 8.5 mL of Gadavist. COMPARISON: None. FINDINGS: Localizer images: Unremarkable. Proportional ventricular and sulcal prominence, likely age-related parenchymal volume loss. Periventricular and subcortical white matter T2/FLAIR hyperintensity, nonspecific but likely indicative of chronic small vessel ischemic change. No abnormal parenchymal enhancement. No mass effect or midline shift. No restricted diffusion to suggest acute ischemia. No hemorrhage. No extra-axial fluid collection. T2 skull base flow voids preserved. Bone marrow signal intensity within the calvarium within normal limits. Bilateral [place] lenses are absent. Air-fluid level noted in the right maxillary sinus as well as the sphenoid sinus with mucosal thickening noted elsewhere in the paranasal sinuses. Trace fluid in the mastoid air cells. Endotracheal tube and nasogastric tube in place. IMPRESSION: 1. Chronic small vessel ischemic change. No acute intracranial abnormality. No abnormal enhancement. 2. Findings in the sinuses most likely relate to intubation rather than sinusitis Electronically signed by: Kenney Cooley M.D. 11/22/2018 12:54 PM Ordered Studies 11/18/18 01:02 CT abd pelvis IV con only Urgent 11/22/18 10:21 MR angio neck wo/w con Urgent 11/22/18 10:39 MR brain wo/w con Urgent 11/25/18 08:55 US venous doppler LE RT Stat Hospital Course (1) Perforated diverticulum: 68-year-old female with a history of perforation of the sigmoid colon due to diverticulitis, status post ex lap, sigmoid colon resection, abdominal washout (Mary procedure). The patient is being discharged on postop day 10 to a acute rehab facility Status post Mary procedure Procedures performed on November 18, the patient was subsequently transferred to ICU for hypoxia and septic shock, required pressors Completed antibiotics on 11/26/2018, received Cipro/Flagyl initially, transitioned to Rocephin/flagyl following cultures Weakness, more predominant on right side MRI on 11/22/2018 showed chronic small vessel ischemic changes without any acute findings, MRA did not show any focal findings Continuing to improve prior to discharge, weakness may be an element of deconditioning. Continue to follow. Anemia 9.5 on 11/27/2018, baseline is around 12. Most likely secondary to surgery/ chronic Inflammation. Recommend repeat CBC in 1 week BOB Resolved Would recommend repeat BMP in 1 week GERD Continue Protonix Asthma Patient was on Levaquin/prednisone 10 mg on admission for a suspected respiratory infection/exacerbation of asthmathe time of admission the patient did not have respiratory distress or clinical/diagnostic signs of pneumonia and therefore these medications were discontinued. Continue Symbicort and albuterol as needed Hyperlipidemia Continue simvastatin Depression Continue home sertraline , (2) Intra-abdominal abscess: (3) Acute colitis: Total Time Total Time Spent Total Time Spent (In Minutes): Less than 30 minutes Total Time Includes: Examination of the Patient, Discharge Planning, Medication Reconciliation and Communication With Other Providers Discharge Plan Discharge Items Patient Disposition: Transfer Inpatient Rehab Fac Reason For Visit: PERFORATED DIVERTICULI Discharge Diagnosis: Perforated diverticulum, status post Mary procedure Discharge Goals: Improve disease control and Therapeutic intervention Activity: As commented below Lifting: Wait until after follow-up appointment Bathing Comment: You may shower, but do not soak or scrub your incision. Non-emergency contact: Surgeon Call non-emergency contact if: you have any medication questions, your pain is not controlled, your temperature is above 101.5, your wound has increased redness and your wound has increased drainage Follow-up/Referrals: Thanh Wesley MD, FACS [Surgeon] - (Please call the General Surgery clinic at [phone] to schedule a follow up appointment for incision check and possible staple/suture removal. Please call the General Surgery with any questions or concerns. ) Diet: Low Fiber Addtl Provider Instructions: Mrs. Pelletier Your admitted for a abdominal infection and subsequent perforation of your large bowel. You required surgery to remove the infected portion of bowel. After the large bowel heals, he will be following up with surgery for a second procedure to reconnect the portions. You completed a course of antibiotics here at the hospital and have been recovering quite well. Nonetheless, we see it fit that you continue your recovery at a inpatient rehabilitation center where your recovery can be supervised and where physical therapy is readily available. Surgery recommendation You may shower, but do not soak or scrub your incision. Do not submerge your incision in any pools, baths, or hot tubs. Please call the General Surgery clinic at [phone] to schedule an appointment for an incision check and possible staple/suture removal. Please call the General Surgery clinic at [phone] with any questions or concerns. Prescriptions: Continue albuterol sulfate 90 mcg/actuation HFA aerosol inhaler 2 puff Inhalation Q4H PRN (Reason: Shortness Of Breath) RF: 0 albuterol sulfate 2.5 mg /3 mL (0.083 %) Solution For Nebulization 2.5 mg INHALATION QID PRN (Reason: Wheezing) RF: 0 budesonide-formoterol [Symbicort] 160-4.5 mcg/actuation Hfa Aerosol Inhaler 2 puff INHALATION BID RF: 0 pantoprazole 40 mg tablet,delayed release (DR/EC) 40 mg PO BID RF: 0 simvastatin 20 mg tablet 20 mg PO HS RF: 0 montelukast 10 mg tablet 10 mg PO DAILY RF: 0 sertraline 100 mg tablet 100 mg PO DAILY RF: 0 Discontinued levofloxacin 500 mg tablet 500 mg PO DAILY RF: 0 prednisone 10 mg tablets,dose pack PO UD RF: 0 Stand-Alone Forms: Call Back Authorization, My [facility] Discharge Orders: Discharge Order (Routine); Ordered 11/28/18 Ordered By: Imtiaz Williamson Skilled Items Patient informed of condition?: Yes DNR: Yes Discharge Level of Care: Acute rehab Communicable Disease: No Discharge Prognosis: Improving Admission Data Admit Date/Time: 11/18/18 03:22 Attending Provider: Nathanael Vazquez Admit Provider: Angie Murry Primary Care Provider: Primo Villanueva Other Providers: Angie Murry ; Na Aguilar ; Thanh Wesley ; Jarrett Whitehead Service: Medical Other Interventions: Discharge Summary Assessment (RN) Last Done: 11/28/18 12:07 Pending Studies at Discharge: No Supervising Physician Co-Signing Physician Notes I saw the patient with resident physician and confirmed carranza portions of the history and physical exam. I agree with the impression and plan as noted above. Upon examination today, the patient is feeling well after just showering. She has some general abdominal soreness, but denies pain. She notes that she is easily fatigued. IMPRESSION Peritonitis, sepsis or secondary to perforated diverticulum Status post laparoscopic sigmoid resection, abdominal washout, diverting colostomy Anemia PLAN Anticipated discharge to [facility]. I anticipate she will do well there with eventual disposition to home. Resident Activity Tracking Resident Involvement: Resident Care Provided Care Provided: Adult Hospital Medicine
[2018-11-28] MEDS: HYDROCODONE/ACETAMOPHEN 5/325MG TAB PO PRN (12:30)
--- NOTE | 2018-11-30 08:14 | Coding Query ---
PRESENT ON ADMISSION QUERY To promote full compliance with coding requirements relating to pateint care, physician participation is requested in all cases of anvilsmith uncertainty. Please assist us with the question(s) below: Please place an X within the parenthesis (x). The following diagnoses were first listed in this patient's post-op consult. Please advise for each diagnosis whether it was present on admission, not present on admission, or if it was clinically undetermined. Thank you for your help! 1. Sepsis (X ) Present On Admission ( ) Not Present On Admission ( ) Clinically Undetermined 2. Acute Kidney Failure (X ) Present On Admission ( ) Not Present On Admission ( ) Clinically Undetermined 3. Acute respiratory failure ( ) Present On Admission ( X) Not Present On Admission ( ) Clinically Undetermined Thank you! Yari Mcneill *Definition of the present on admission (POA)-Present on admission is defined as present at the time the order for inpatient admission occurs. Conditions that develop during an outpatient encounter prior to a written order for inpatient admission (including emergency department, observation, or outpatient surgery) are considered present on admission. DOM
== END 2018-11-28 13:27 | DRG 853 ==
LOC: ED 00:57 → 2N 03:22 → SUATTDRO 03:22 → 2N 03:52 → 1E 21:16 → 2S 11-24 13:30 → 3N 11-26 16:07

== ENCOUNTER 2019-03-20 06:48 | Inpatient (IN) ==
--- NOTE | 2019-03-13 14:50 | Anesthesiology Consultation ---
Date of Service March 13, 2019 Assessment & Plan (1) Encounter for pre-operative examination: Most recent EKG in system (11/20) had significant baseline artifact. Consider rpt AM DOS. Most recent CXR showed congestive changes and worsened aeration--done 11/20/18 while patient admitted for bowel perforation requiring emergent ex lap. Evaluate clinical status AM DOS and consider rpt CXR. Chart Review Chart Review: Acceptable Risk for Surgery and Patient NOT seen in Pre Admission Testing History Surgery Operation Date: 03/20/19 09:20 Proposed Procedures p Laparoscopic Closure of Colostomy, - Thanh Wesley MD s Possible Open Closure of Colostomy - Thanh Wesley MD Height/Weight Height: 5 ft 3 in Weight: 64.864 kg Allergies Allergy/AdvReac Type Severity Reaction Status Date / Time Penicillins Allergy Intermediate HIVES Verified 02/28/19 12:19 Medications Home Medications Medication Instructions Recorded Confirmed Last Taken Symbicort 2 puff INHALATION BID 11/18/18 02/28/19 Unknown albuterol sulfate 2 puff INHALATION Q4H PRN 11/18/18 02/28/19 Unknown albuterol sulfate 2.5 mg INHALATION QID PRN 11/18/18 02/28/19 Unknown montelukast 10 mg PO DAILY 11/18/18 02/28/19 Unknown pantoprazole 40 mg PO BID 11/18/18 02/28/19 Unknown sertraline 100 mg PO DAILY 11/18/18 02/28/19 Unknown simvastatin 20 mg PO HS 11/18/18 02/28/19 Unknown cetirizine [Zyrtec] 10 mg PO QAM PRN 02/28/19 02/28/19 Unknown prednisone 40 mg PO DAILY 02/28/19 02/28/19 Unknown Past Medical History Medical History Ovarian cyst Asthma Diverticulitis HX GERD (gastroesophageal reflux disease) Hyperlipidemia Past Family History Family History Other Family history non-contributory Past Surgical History Surgical History H/O breast surgery H/O tubal ligation History of back surgery History of colectomy History of colostomy 11/2018 2/2 RUPTURED BOWEL Status post Mary procedure 11/18/18 MAC #3, ETT 7.0, GRADE VIEW III. Note: Patient kept intubated and sedated and she had a large bowel surgery and fluid shifts expected that could affect her respiratory status. Social History Smoking Status: Unknown if ever smoked Smoking cigarettes per day: 0 Do You Dip or Chew Tobacco: No Hx Alcohol Use: No Alcohol type: wine alcohol intake frequency: holidays/special occasions only Hx Substance Use: No substance use type: does not use Testing Laboratory Results 03/07/19 WBC: 9.03 H/H: 10.3/33.6 PLATELETS: 262 SODIUM: 142 POTASSIUM: 4.1 CHLORIDE: 109 CO2: 28 BUN: 20 CREATININE: 0.92 GLUCOSE: 74 Electrocardiogram Date: 11/20/18 Findings: + ST @ (102) Nonspecific T wave abnormality. Poor data quality, interpretation may be adversely affected. Chest X-Ray Date: 11/20/18 FINDINGS: Endotracheal tube terminates in the upper thoracic trachea over 5 cm from the delta. Nasogastric tube descends below the diaphragm, looped within the gastric fundus, terminus not visualized. Sidehole contained within the gastric lumen. Atherosclerosis of the aortic arch. Cardiac silhouette moderately enlarged. Pulmonary vascular prominence is stable to slightly worse than on prior exam. Bronchial wall thickening may be present. Decreased aeration of the left lung base. Small left pleural effusion stable to slightly increased in size. No large pneumothorax. Calcification in the region of the right rotator cuff tendons indicating calcific tendinitis. Upper abdomen normal. IMPRESSION: 1. Cardiomegaly with slightly worsened volume overload/congestive change. No navin pulmonary edema. 2. Worsened aeration of the left lung base with stable to slight increase size of presumed underlying left pleural effusion. 3. Tubes appropriately positioned. Echocardiogram Date: 11/19/18 EF: > 70% Left ventricle is normal in size. There is normal left ventricular wall thickness. The left ventricular wall segments are hyperdynamic. The left ventricular wall motion is normal. The right ventricle is normal in size and function. Some valves not well visualized but all are grossly normal.
[~2019-03-20 06:48] MED LIST changes: -ALUMCHW2 PO; -HYDR-5688 PO; +LR 15ML/HR IV SCH; -PANT40TA2 PO; -POLY335019 PO; -PROAIR INH; -SIMV-151 PO; -SNG10 PO; -SYMIN160 INH
[2019-03-20] MEDS ORDERED: ePHEDrine sulfate 50 MG/ML AMP IV PRN (08:22)
[2019-03-20] MEDS ORDERED: fentaNYL citrate 100 MCG/2 ML VIAL IV PRN ×2 (08:22→14:30)
[2019-03-20] MEDS ORDERED: ONDANSETRON INJ 2 MG/ML 2 ML VIAL IV PRN (08:22)
[2019-03-20] MEDS ORDERED: HYDROmorphone INJ 1 MG/ML SYRINGE IV PRN (08:22)
[2019-03-20] MEDS ORDERED: ATROPINE SULFATE 0.1 MG/ML 10ML SYR IV PRN (08:22)
[2019-03-20] MEDS ORDERED: fentaNYL citrate 100 MCG/2 ML VIAL ONE ×5 (08:57→14:26)
--- NOTE | 2019-03-20 09:02 | History & Physical Bridge Note ---
Date of Service March 20, 2019 History & Physical Bridge Note I have examined the patient, reviewed the History & Physical and in the interval since the performance of the History & Physical I have noted the following changes of clinical significance: no changes noted 6 family members at bedside all questions answered
[2019-03-20] MEDS ORDERED: BUPIVACAINE 0.5 % 5 MG/1 ML MPF 30ML VIAL ONE (09:28)
[2019-03-20] MEDS ORDERED: ACETAMINOPHEN 1000 MG/100 ML IV IV ONE (10:31)
[2019-03-20] MEDS ORDERED: cefOXitin 2,000 MG in DEXTROSE 5% 50 ML IV STA (10:49)
[2019-03-20] MEDS ORDERED: LIDOCAINE HCL/D5W 2000 MG/500 ML BAG IV ONE (12:45)
[2019-03-20] MEDS ORDERED: LIDOCAINE HCL 2% 2 ML VIAL/AMP(20MG/ML) INFIL ONE ×2 (12:52→13:33)
[2019-03-20] MEDS ORDERED: LIDOCAINE IV BOLUS & DRIP IV STA (13:16)
[2019-03-20] MEDS ORDERED: LIDOCAINE/D5W DRIP 4MG/ML 2,000 MG/500 ML BAG IV PRN (13:16)
[2019-03-20] MEDS ORDERED: ePHEDrine sulfate 50 MG/ML AMP ONE (13:33)
[2019-03-20] MEDS ORDERED: PROPOFOL IV EMULSION 10 MG/ML 20 ML VIAL IV ONE (13:33)
[2019-03-20] MEDS ORDERED: GLYCOPYRROLATE 0.2 MG/ML VIAL ONE (13:33)
[2019-03-20] MEDS ORDERED: ONDANSETRON INJ 2 MG/ML 2 ML VIAL ONE (13:33)
[2019-03-20] MEDS ORDERED: PHENYLEPHRINE HCL 10 MG/ML VIAL ONE (13:33)
[2019-03-20] MEDS ORDERED: DEXAMETHASONE SOD INJ 4 MG/ML VIAL ONE (13:33)
[2019-03-20] MEDS ORDERED: NEOSTIGMINE METHYLSULFATE 5 MG/5 ML SYR ONE (13:33)
[2019-03-20] MEDS ORDERED: SUCCINYLCHOLINE CHLORIDE 20 MG/ML 10 ML VIAL ONE (13:33)
[2019-03-20] MEDS ORDERED: SUGAMMADEX SODIUM 200 MG/2 ML VIAL IV ONE (13:35)
--- NOTE | 2019-03-20 13:46 | Post Operative Brief Note ---
Immediate Post Op Note v1 Date of Surgery March 20, 2019 Pre & Post Diagnosis Operation Date: 03/20/19 08:50 Pre-Op Diagnosis: Colostomy status post jimmy Post-Op Diagnosis: Colostomy status post jimmy Procedure Operation Date: 03/20/19 08:50 Actual Procedures p Laparoscopy, Closure of Colostomy, Extensive lysis of abdominal adhesions, colon resection - Thanh Wesley MD Surgeon Thanh Wesley MD [employer] b hang mcdonald Estimated Blood Loss 200 Findings Consistent with Post-Op Diagnosis Drains Pedro Drain and Johnson Catheter
--- NOTE | 2019-03-20 14:08 | Operative Report ---
Post Operative Report Pre & Post Diagnosis Operation Date: 03/20/19 08:50 Pre-Op Diagnosis: Colostomy status post jimmy Post-Op Diagnosis: Colostomy status post jimmy Procedure Operation Date: 03/20/19 08:50 Actual Procedures p Laparoscopy, Closure of Colostomy, Extensive lysis of abdominal adhesions, colon resection - Thanh Wesley MD Patient was brought into the operating room theater supine position general endotracheal anesthesia Johnson catheter inserted the patient's abdomen was prepped after we placed in lithotomy position with stomach antibiotics given a timeout was had patient identified this point we made a small incision supraumbilically sufficient enough to place a 5 mm trocar inflated with a Veress needle when we entered the abdomen was largely identified any significant planes this seems like there was a lot of omental adhesions to the anterior abdominal wall we then we were able to systematically try to create a window down towards the pelvic area with remodeling loops of small bowel was suspended to the anterior abdominal wall with fibrous adhesions find bands placed in the right lower quadrant 5 mm trocar with preemptive local analgesic and then we worked our way around to create a window down in that area placed another 5 mm in the right flank area and using these 3 were able then to expose down towards the pelvic area where the patient had significant small bowel adhered to the pelvic area. We also had at the omentum and the transverse colon was systemically elevated by omentum adherent to the anterior abdominal wall at the level of the umbilicus above x-ray of trocar was quite near the transverse colon but we once we freed everything up we did not notice notice any injury to the area. Needless to say we spent a significant amount of time probably. Once we have completed we were able then to we made an elliptical incision around the resected and subcutaneous tissue to the point that we were able to mobilize and bring the right of the using intestinal clamp proximally we freshened up the edges of the colon probably 2 inches away from the opening of the colostomy we felt that the vasculature was fine although the patient did have some it diverticular disease leaving her line of resection we will tell them back a little bit further to the point that we were able then to get rid of any diverticular problem identify placed a Prolene suture circumferentially around it that we be able to then put the anvil we then measured out a 25cm. The anvil was secured in place and tied. At this point we returned the and will sign into the abdomen and closed the colostomy site with #1 PDS [id number] the distal sigmoid colon and actually the rectum we felt that we had anoxic mobility that these were coming together but we did not appreciate and I did not appreciate the redundancy still the persisted down the sigmoid down the pelvis from below we placed a #25 dilator to see what we could introduce in the area and it was very hard to even come to the definitive outline of the anatomy. At this point I felt that the best avenue would be then to approach is more open I took down the sutures that we have placed in the colostomy site enlarged the incision down towards the symphysis pubis and actually the patient had a little hernia with some omentum stuck to the abdominal incision they have from previous surgery at this point we placed the Bookwalter retractor and then I was able to palpate the sigmoid colon which the performance were gone but the rectum was pretty redundant. We had enough mobility that I felt to probably just to do eye hand anastomosis which we did with the by resecting the previous line of resection where we had the Prolene suture from the Jimmy side to an area that seemed very viable the area that we have placed the anvil I took back and then used a CASSY stapler to freshen up the edges the staple line was oversewn with 3 interrupted suture we did a side and anastomoses using 3-0 silk our layer 3-0 chromic interlayer. On the anterior surface of the anastomosis there was a little bit of serosal separation which we from her incision that we were able then to incorporate to using a 3-0 silk suture from the proximal colon overlying the distal aspect. The area was then checked hemostasis appeared satisfactory individual trochars removed as was the packing I elected to drain the area where of 19 Pedro drain that physician underwent a trocar site and left flank down in the cul-de-sac attached to skin edge of 2-0 silk the wound was closed interrupted #1 PDS [id number] Sutton drain was placed in the subcu petey for skin edges dressing was applied procedure was tolerated well by the patient estimated blood loss approximately 200 cc addendumB Huma mcdonald was present throughout the procedure helped with exposure camera work wound closure thank you Surgeon Thanh Wesley MD Service Observer magen mcdonald Estimated Blood Loss 200 Findings Consistent with Post-Op Diagnosis Specimens colon Description of Procedure merda I attest to the content of the Intraoperative Record and any orders documented therein. Any exceptions are noted below.
[2019-03-20] MEDS ORDERED: HYDROmorphone INJ 1 MG/ML SYRINGE ONE (14:26)
[2019-03-20] MEDS ORDERED: HYDROmorphone INJ 2 MG/ML SYR/VIAL IV PRN (14:30)
--- NOTE | 2019-03-20 14:47 | Anesthesiology Progress Note ---
Date of Service March 20, 2019 Anesthesia Post Procedure Vital Signs Vital Signs: Temp Pulse Resp BP BP Pulse Ox 03/20/19 14:30 99 H 22 154/78 H 100 03/20/19 14:20 96 H 20 140/74 100 03/20/19 14:10 36.8 C 95 H 13 136/51 L 100 03/20/19 07:14 37 C 95 H 18 140/70 99 Pain Intensity Abdomen: Pain Intensity: 8 Transfer of Care Handoff Completed per policy Notes Mental Status: alert / awake / arousable and participated in evaluation Patient Amnestic to Procedure: Yes Nausea / Vomiting: adequately controlled Pain: improving with treatment Airway Patency, RR, SpO2: stable & adequate BP & HR: stable & adequate Hydration State: stable & adequate Anesthetic Complications: no major complications apparent and Pt Satisfied with anesthetic care
[2019-03-20] MEDS ORDERED: ALBUTEROL 0.083% NEBU SOLN 3 ML VIAL INH PRN (15:47)
[2019-03-20] MEDS ORDERED: NALOXONE HCL 0.4 MG/1 ML VIAL/CARP IV PRN (15:47)
[2019-03-20] MEDS ORDERED: ALBUTEROL HFA 8 GM INHALER INH PRN (15:47)
[2019-03-20] MEDS: MoRPHine SULFATE PCA 50 MG/50ML IV PRN (17:00)
[2019-03-20 17:03] LABS: INR 1.1 (0.9-1.1); Partial Thromboplastin Ratio 0.9; Partial Thromboplastin Time 24.4 Seconds (21.0-31.0); Prothrombin Time 10.9 Seconds (9.0-12.0)
[2019-03-20] MEDS: LACTATED RINGER'S 1,000 ML IV SCH (17:22)
[2019-03-20] MEDS: cefOXitin 2,000 MG in DEXTROSE 5% 50 ML IV SCH ×2 (17:22→21:36)
[2019-03-20] MEDS: SODIUM CHLORIDE 0.9% 1000ML 1,000 ML IV SCH (17:22)
[2019-03-20] MEDS: ACETAMINOPHEN 1,000 MG/100 ML VIAL IV SCH (17:27)
[2019-03-20] MEDS: PANTOprazole 40 MG TAB PO SCH (21:35)
[2019-03-20] MEDS: BUDESONIDE/FORMOTEROL FUMARATE 160/4.5 60 PUFFS/INHALER INH SCH (21:35)
[2019-03-20] MEDS: HEPARIN SOD 5,000 UNIT/0.5 ML VIAL SQ SCH (21:41)
[2019-03-21] MEDS: LACTATED RINGER'S 1,000 ML IV SCH ×4 (01:25→23:21)
[2019-03-21] MEDS: ACETAMINOPHEN 1,000 MG/100 ML VIAL IV SCH ×2 (01:26→10:10)
[2019-03-21] MEDS: cefOXitin 2,000 MG in DEXTROSE 5% 50 ML IV SCH ×2 (04:02→10:13)
[2019-03-21 06:56] LABS: Basophils # (auto) 0.01 K/uL (0-0.2); Basophils % (auto) 0.1 %; Eosinophils # (auto) 0.03 K/uL (0-0.5); Eosinophils % (auto) 0.3 %; Hematocrit (blood only) 29.9 % (37-47); Hemoglobin 9.5 g/dL (12.0-16.0); Immature Granulocytes # (auto) 0.02 K/uL (0.00-0.02); Immature Granulocytes % (auto) 0.2 %; Lymphocytes % (auto) 15.9 %; Mean Corpuscular Hgb Conc 31.8 g/dL (32-36); Mean Corpuscular Volume 72.2 fL (80-100); Mean Platelet Volume 8.6 fL (7.4-10.4); Monocytes # (auto) 1.09 K/uL (0.11-0.59); Monocytes % (auto) 12.4 %; Neutrophils # (auto) 6.25 K/uL (1.4-6.5); Neutrophils % (auto) 71.1 %; Platelet Count 201 K/uL (130-400); RDW Coefficient of Variation 17.1 % (11.5-14.5); RDW Standard Deviation 45.4 fL (36.4-46.3); Red Blood Count 4.14 M/uL (4.2-5.4)
[2019-03-21 07:28] LABS: Potassium 4.1 mmol/L (3.5-5.1)
[2019-03-21 07:29] LABS: BUN Creatinine Ratio 9.7 (10-20); Creatinine Clr Calc Pharmacy 34.2 ml/min; Est GFR (African American) 44.8; Est GFR (Non-African American) 38.6
--- NOTE | 2019-03-21 08:07 | Anesthesiology Progress Note ---
Date of Service March 21, 2019 Anesthesia Post Procedure Vital Signs Vital Signs: Temp Pulse Pulse Resp BP Pulse Ox 03/21/19 06:54 36.9 C 80 15 103/64 90 03/21/19 03:44 36.7 C 80 18 117/65 93 03/20/19 23:45 36.5 C 77 18 115/65 92 03/20/19 19:58 36.5 C 89 17 125/69 99 03/20/19 19:10 37.0 C 96 H 20 118/71 99 03/20/19 17:48 36.8 C 98 H 18 121/71 98 03/20/19 16:55 37.0 C 98 H 17 121/68 98 03/20/19 16:26 37.2 C 99 H 17 132/75 100 03/20/19 15:50 36.6 C 101 H 20 132/76 99 03/20/19 15:30 95 H 20 142/69 H 100 03/20/19 15:20 96 H 20 133/66 100 03/20/19 15:10 36.3 C L 97 H 16 128/64 100 03/20/19 15:00 94 H 22 140/64 100 03/20/19 14:50 99 H 21 132/68 100 03/20/19 14:40 96 H 22 140/64 100 03/20/19 14:30 99 H 22 154/78 H 100 03/20/19 14:20 96 H 20 140/74 100 03/20/19 14:10 36.8 C 95 H 13 136/51 L 100 Pain Intensity Abdomen: Pain Intensity: 2 Notes Mental Status: alert / awake / arousable and participated in evaluation Nausea / Vomiting: adequately controlled Pain: adequately controlled Airway Patency, RR, SpO2: stable & adequate BP & HR: stable & adequate Hydration State: stable & adequate
[2019-03-21] MEDS: BUDESONIDE/FORMOTEROL FUMARATE 160/4.5 60 PUFFS/INHALER INH SCH ×2 (08:38→20:50)
[2019-03-21] MEDS: SERTRALINE HCL 100 MG TABLET PO SCH (08:38)
[2019-03-21] MEDS: MONTELUKAST SODIUM 10 MG TABLET PO SCH (08:38)
[2019-03-21] MEDS: HEPARIN SOD 5,000 UNIT/0.5 ML VIAL SQ SCH ×2 (08:39→20:57)
[2019-03-21] MEDS: PANTOprazole 40 MG TAB PO SCH ×2 (08:39→20:57)
--- NOTE | 2019-03-21 09:17 | Surgery Progress Note ---
Date of Service March 21, 2019 Assessment & Plan (1) Colostomy in place: POD#1 lap lyses of adhesion open reversal colostomy op findings discussed with pt will d/c carreon increase activity, keep on sips and chips for today (2) Perforation of sigmoid colon due to diverticulitis: POD #10 Pt doing well. Ready for discharge today. Drain can be d/c Pt accepted to rehab and can be discharged today. Return precautions reviewed with patient. Patient to follow up in our clinic later this week for incision check and possible staple/suture removal. All questions answered. POD 9 can be ready to d/c in next few days decision for rehab pending talked with yesterday he is in agreement for some rehab POD 8 can be transferred to reg floor from surgical point of view d/c SCD increase heparin sub cut to q8 d/c antibiotics consult social service POD 7 will start oral intake right leg may be related to positioning in ICU for 6 days will d/c carreon OOB may shower once able to be up POD [address] Wesley irrigate incision q shift WBC 11, low grade temps, HR <100 d/c NG, can advance diet as janes PT/OT Subjective some pain right lower groin area otherwise no complaints Review of Systems Review of Systems: no respiratory problems belly ok overal Physical Exam Physical Exam: alert coherent in no distress abd softly distended dressing dry minimal rafita drainage Results & Data Vital Signs (Past 12 Hours) Vital Signs Temp Pulse Resp BP Pulse Ox 03/21/19 06:54 36.9 C 80 15 103/64 90 03/21/19 03:44 36.7 C 80 18 117/65 93 03/20/19 23:45 36.5 C 77 18 115/65 92 lab noted
[2019-03-21] MEDS ORDERED: ACETAMINOPHEN SOLN 500 MG/15.62 ML UDP PO PRN (14:42)
[2019-03-21] MEDS: SODIUM CHLORIDE 0.9% 1000ML 1,000 ML IV SCH (16:06)
[2019-03-21] MEDS ORDERED: ACETAMINOPHEN SOLN 160 MG/5 ML BTL PO PRN (16:30)
[2019-03-21] MEDS: ONDANSETRON INJ 2 MG/ML 2 ML VIAL IV PRN (20:49)
--- NOTE | 2019-03-22 05:55 | Surgery Progress Note ---
Date of Service March 22, 2019 Assessment & Plan (1) Colostomy in place: POD #2 expected slow return Gi function due to extensive lyses of adhesions go slow with diet encourage ambulation in halls POD#1 lap lyses of adhesion open reversal colostomy op findings discussed with pt will d/c carreon increase activity, keep on sips and chips for today (2) Perforation of sigmoid colon due to diverticulitis: POD #10 Pt doing well. Ready for discharge today. Drain can be d/c Pt accepted to rehab and can be discharged today. Return precautions reviewed with patient. Patient to follow up in our clinic later this week for incision check and possible staple/suture removal. All questions answered. POD 9 can be ready to d/c in next few days decision for rehab pending talked with yesterday he is in agreement for some rehab POD 8 can be transferred to reg floor from surgical point of view d/c SCD increase heparin sub cut to q8 d/c antibiotics consult social service POD 7 will start oral intake right leg may be related to positioning in ICU for 6 days will d/c carreon OOB may shower once able to be up POD [address] [place] [address] Wesley irrigate incision q shift WBC 11, low grade temps, HR <100 d/c NG, can advance diet as janes PT/OT Subjective no major complaints, slept well up to bathroom few times to void, had sherbert and popsicles Review of Systems Review of Systems: no flatus or bm yet some nausea last night , no true emesis Physical Exam Physical Exam: aslep but easily awakened and oriented no complaints verbalized, pain right grpoin area gone some pain left lower quadrant Gastrointestinal (Abdomen): softly distended no loc tenderness Results & Data Vital Signs (Past 12 Hours) Vital Signs Temp Pulse Resp BP Pulse Ox 03/22/19 03:25 36.7 C 95 H 18 101/66 97 03/21/19 23:23 36.9 C 103 H 16 106/65 92 03/21/19 19:42 37.5 C 108 H 17 121/66 95 i and o noted lab pending
[2019-03-22] MEDS: LACTATED RINGER'S 1,000 ML IV SCH ×3 (07:30→23:17)
[2019-03-22 07:41] LABS: Basophils # (auto) 0.02 K/uL (0-0.2); Basophils % (auto) 0.2 %; Eosinophils # (auto) 0.37 K/uL (0-0.5); Eosinophils % (auto) 4.2 %; Hematocrit (blood only) 30.7 % (37-47); Hemoglobin 9.1 g/dL (12.0-16.0); Immature Granulocytes # (auto) 0.02 K/uL (0.00-0.02); Immature Granulocytes % (auto) 0.2 %; Lymphocytes # (auto) 1.24 K/uL (1.2-3.4); Lymphocytes % (auto) 14.2 %; Mean Corpuscular Hgb Conc 29.6 g/dL (32-36); Mean Corpuscular Volume 75.1 fL (80-100); Mean Platelet Volume 8.5 fL (7.4-10.4); Monocytes % (auto) 13.7 %; Neutrophils # (auto) 5.91 K/uL (1.4-6.5); Neutrophils % (auto) 67.5 %; Platelet Count 203 K/uL (130-400); RDW Coefficient of Variation 17.5 % (11.5-14.5); Red Blood Count 4.09 M/uL (4.2-5.4); White Blood Count 8.76 K/uL (4.8-10.8)
[2019-03-22 08:28] LABS: BUN Creatinine Ratio 11.6 (10-20); Calcium 8.4 mg/dl (8.5-10.1); Creatinine Clr Calc Pharmacy 59.7 ml/min; Est GFR (African American) 88.6; Est GFR (Non-African American) 76.5; Potassium 4.1 mmol/L (3.5-5.1)
[2019-03-22] MEDS: PANTOprazole 40 MG TAB PO SCH ×2 (08:38→20:09)
[2019-03-22] MEDS: HEPARIN SOD 5,000 UNIT/0.5 ML VIAL SQ SCH ×2 (08:39→20:19)
[2019-03-22] MEDS: BUDESONIDE/FORMOTEROL FUMARATE 160/4.5 60 PUFFS/INHALER INH SCH ×2 (08:39→20:08)
[2019-03-22] MEDS: MONTELUKAST SODIUM 10 MG TABLET PO SCH (08:39)
[2019-03-22] MEDS: SERTRALINE HCL 100 MG TABLET PO SCH (08:39)
[2019-03-22] MEDS: SODIUM CHLORIDE 0.9% 1000ML 1,000 ML IV SCH (15:34)
[2019-03-22] MEDS: ONDANSETRON INJ 2 MG/ML 2 ML VIAL IV PRN (15:52)
[2019-03-23] MEDS: ONDANSETRON INJ 2 MG/ML 2 ML VIAL IV PRN (05:28)
[2019-03-23] MEDS: MoRPHine SULFATE PCA 50 MG/50ML IV PRN ×2 (07:03→21:58)
[2019-03-23 07:13] LABS: Basophils # (auto) 0.02 K/uL (0-0.2); Basophils % (auto) 0.3 %; Eosinophils # (auto) 0.26 K/uL (0-0.5); Eosinophils % (auto) 3.5 %; Hematocrit (blood only) 28.9 % (37-47); Hemoglobin 8.7 g/dL (12.0-16.0); Immature Granulocytes # (auto) 0.01 K/uL (0.00-0.02); Immature Granulocytes % (auto) 0.1 %; Lymphocytes # (auto) 0.88 K/uL (1.2-3.4); Mean Corpuscular Hgb Conc 30.1 g/dL (32-36); Mean Corpuscular Volume 74.5 fL (80-100); Mean Platelet Volume 8.6 fL (7.4-10.4); Monocytes # (auto) 0.61 K/uL (0.11-0.59); Monocytes % (auto) 8.3 %; Neutrophils # (auto) 5.56 K/uL (1.4-6.5); Neutrophils % (auto) 75.8 %; Platelet Count 197 K/uL (130-400); RDW Coefficient of Variation 17.3 % (11.5-14.5); RDW Standard Deviation 47.7 fL (36.4-46.3); Red Blood Count 3.88 M/uL (4.2-5.4); White Blood Count 7.34 K/uL (4.8-10.8)
[2019-03-23 07:36] LABS: RBC Morphology Unremarkable
--- NOTE | 2019-03-23 07:40 | Surgery Progress Note ---
Date of Service March 23, 2019 Assessment & Plan (1) Colostomy in place: POD#3 guzman from sub cut removed increase activity will start on clear liquids hg noted likely dilutional Dr Tran covering weekend POD #2 expected slow return Gi function due to extensive lyses of adhesions go slow with diet encourage ambulation in halls POD#1 lap lyses of adhesion open reversal colostomy op findings discussed with pt will d/c carreon increase activity, keep on sips and chips for today (2) Perforation of sigmoid colon due to diverticulitis: POD #10 Pt doing well. Ready for discharge today. Drain can be d/c Pt accepted to rehab and can be discharged today. Return precautions reviewed with patient. Patient to follow up in our clinic later this week for incision check and possible staple/suture removal. All questions answered. POD 9 can be ready to d/c in next few days decision for rehab pending talked with yesterday he is in agreement for some rehab POD 8 can be transferred to reg floor from surgical point of view d/c SCD increase heparin sub cut to q8 d/c antibiotics consult social service POD 7 will start oral intake right leg may be related to positioning in ICU for 6 days will d/c carreon OOB may shower once able to be up POD [address] Wesley irrigate incision q shift WBC 11, low grade temps, HR <100 d/c NG, can advance diet as janes PT/OT Subjective overall feels well no abd complaints some nausea passing flatus Review of Systems Review of Systems: no respiratory complaints no abd complaints Physical Exam Physical Exam: alert coherent in no distress abd softly distended(less than yesterday) no loc tenderness incision healing well rafita drainage serous Results & Data Vital Signs (Past 12 Hours) Vital Signs Temp Pulse Resp BP Pulse Ox 03/23/19 07:27 36.8 C 87 16 121/71 90 03/23/19 04:04 37.1 C 95 H 18 124/68 97 03/22/19 23:05 95 03/22/19 23:03 36.8 C 96 H 16 113/66 83 L 03/22/19 20:00 36.9 C 97 H 17 118/73 95 lab noted
[2019-03-23 07:48] LABS: Calcium 8.3 mg/dl (8.5-10.1); Creatinine Clr Calc Pharmacy 78.9 ml/min; Est GFR (African American) 106.9; Est GFR (Non-African American) 92.2
[2019-03-23] MEDS: LACTATED RINGER'S 1,000 ML IV SCH ×3 (07:49→23:37)
[2019-03-23] MEDS: PANTOprazole 40 MG TAB PO SCH ×2 (08:42→20:28)
[2019-03-23] MEDS: MONTELUKAST SODIUM 10 MG TABLET PO SCH (08:43)
[2019-03-23] MEDS: BUDESONIDE/FORMOTEROL FUMARATE 160/4.5 60 PUFFS/INHALER INH SCH ×2 (08:43→20:29)
[2019-03-23] MEDS: SERTRALINE HCL 100 MG TABLET PO SCH (08:44)
[2019-03-23] MEDS: HEPARIN SOD 5,000 UNIT/0.5 ML VIAL SQ SCH ×2 (08:47→20:29)
[2019-03-23] MEDS: SODIUM CHLORIDE 0.9% 1000ML 1,000 ML IV SCH (15:33)
[2019-03-24] MEDS: MoRPHine SULFATE PCA 50 MG/50ML IV PRN ×3 (06:50→23:09)
[2019-03-24 07:33] LABS: Basophils # (auto) 0.02 K/uL (0-0.2); Basophils % (auto) 0.4 %; Eosinophils # (auto) 0.77 K/uL (0-0.5); Eosinophils % (auto) 13.7 %; Hematocrit (blood only) 29.2 % (37-47); Hemoglobin 8.9 g/dL (12.0-16.0); Immature Granulocytes # (auto) 0.01 K/uL (0.00-0.02); Immature Granulocytes % (auto) 0.2 %; Lymphocytes # (auto) 1.24 K/uL (1.2-3.4); Mean Corpuscular Hgb Conc 30.5 g/dL (32-36); Mean Corpuscular Volume 73.6 fL (80-100); Mean Platelet Volume 8.6 fL (7.4-10.4); Monocytes # (auto) 0.66 K/uL (0.11-0.59); Monocytes % (auto) 11.7 %; Neutrophils # (auto) 2.94 K/uL (1.4-6.5); Platelet Count 236 K/uL (130-400); RDW Coefficient of Variation 17.3 % (11.5-14.5); RDW Standard Deviation 46.9 fL (36.4-46.3); Red Blood Count 3.97 M/uL (4.2-5.4); White Blood Count 5.64 K/uL (4.8-10.8)
[2019-03-24] MEDS: LACTATED RINGER'S 1,000 ML IV SCH (07:40)
[2019-03-24 07:53] LABS: RBC Morphology Unremarkable
[2019-03-24 08:20] LABS: BUN Creatinine Ratio 10.1 (10-20); Calcium 8.5 mg/dl (8.5-10.1); Creatinine Clr Calc Pharmacy 84.7 ml/min; Est GFR (African American) 109.4; Est GFR (Non-African American) 94.4; Potassium 3.3 mmol/L (3.5-5.1)
[2019-03-24] MEDS: BUDESONIDE/FORMOTEROL FUMARATE 160/4.5 60 PUFFS/INHALER INH SCH ×2 (09:05→20:51)
[2019-03-24] MEDS: HEPARIN SOD 5,000 UNIT/0.5 ML VIAL SQ SCH ×2 (09:06→20:51)
[2019-03-24] MEDS: SERTRALINE HCL 100 MG TABLET PO SCH (09:06)
[2019-03-24] MEDS: PANTOprazole 40 MG TAB PO SCH ×2 (09:06→20:51)
[2019-03-24] MEDS: MONTELUKAST SODIUM 10 MG TABLET PO SCH (09:06)
--- NOTE | 2019-03-24 10:07 | Surgery Progress Note ---
Date of Service March 24, 2019 Assessment & Plan (1) Colostomy in place: doing well awaiting full return of bowel fx can advance to full liquids ( pt hungry) continue to increase activity Subjective feeling ok... no new complaints. no n/v. +flatus and small liquid bm. Physical Exam Physical Exam: alert. nad abd: soft. expected tenderness. wounds c/d/i Results & Data Vital Signs (Past 12 Hours) Vital Signs Temp Pulse Resp BP BP Pulse Ox 03/24/19 07:33 36.7 C 90 16 130/57 L 91 03/24/19 03:01 36.4 C L 91 H 16 129/69 91 03/23/19 22:56 36.6 C 93 H 16 127/65 92
[2019-03-24] MEDS: SODIUM CHLORIDE 0.9% 1000ML 1,000 ML IV SCH (11:53)
[2019-03-25] MEDS: BUDESONIDE/FORMOTEROL FUMARATE 160/4.5 60 PUFFS/INHALER INH SCH ×2 (09:31→20:30)
[2019-03-25] MEDS: PANTOprazole 40 MG TAB PO SCH ×2 (09:31→20:30)
[2019-03-25] MEDS: SERTRALINE HCL 100 MG TABLET PO SCH (09:31)
[2019-03-25] MEDS: MONTELUKAST SODIUM 10 MG TABLET PO SCH (09:31)
[2019-03-25] MEDS: HEPARIN SOD 5,000 UNIT/0.5 ML VIAL SQ SCH ×2 (09:32→20:30)
--- NOTE | 2019-03-25 10:42 | Surgery Progress Note ---
Date of Service March 25, 2019 Assessment & Plan (1) Colostomy in place: doing well not interested in regular food yet increase activity no acute post op problems. d/c planning Subjective feeling better each day. janes full liquids but no appetite. continues with small /loose bm's. Physical Exam Physical Exam: alert. nad abd: soft. wound clean/dry. nondistended Results & Data Vital Signs (Past 12 Hours) Vital Signs Temp Pulse Resp BP Pulse Ox 03/25/19 07:13 36.9 C 86 17 136/76 93 03/25/19 03:04 36.8 C 84 16 129/75 92 03/24/19 22:57 37.0 C 87 16 132/75 92
[2019-03-26 06:24] LABS: Hematocrit (blood only) 26.9 % (37-47); Hemoglobin 8.3 g/dL (12.0-16.0); Mean Corpuscular Hgb Conc 30.9 g/dL (32-36); Mean Corpuscular Volume 73.1 fL (80-100); Mean Platelet Volume 8.3 fL (7.4-10.4); Platelet Count 251 K/uL (130-400); RDW Coefficient of Variation 17.4 % (11.5-14.5); RDW Standard Deviation 46.5 fL (36.4-46.3); Red Blood Count 3.68 M/uL (4.2-5.4); White Blood Count 5.19 K/uL (4.8-10.8)
[2019-03-26 07:12] LABS: Basophils # (auto) 0.02 K/uL (0-0.2); Basophils % (auto) 0.4 %; Eosinophils # (auto) 0.78 K/uL (0-0.5); Eosinophils % (auto) 14.8 %; Immature Granulocytes # (auto) 0.01 K/uL (0.00-0.02); Immature Granulocytes % (auto) 0.2 %; Lymphocytes # (auto) 1.31 K/uL (1.2-3.4); Lymphocytes % (auto) 24.9 %; Monocytes # (auto) 0.69 K/uL (0.11-0.59); Monocytes % (auto) 13.1 %; Neutrophils # (auto) 2.45 K/uL (1.4-6.5); Neutrophils % (auto) 46.6 %
[2019-03-26 08:06] LABS: BUN Creatinine Ratio 7.9 (10-20); Calcium 8.5 mg/dl (8.5-10.1); Creatinine Clr Calc Pharmacy 84.7 ml/min; Est GFR (African American) 109.4; Est GFR (Non-African American) 94.4; Potassium 2.8 mmol/L (3.5-5.1)
[2019-03-26 08:13] LABS: Hypochromasia Present
[2019-03-26] MEDS: SODIUM CHLORIDE 0.9% 1000ML 1,000 ML IV SCH (08:52)
[2019-03-26] MEDS: PANTOprazole 40 MG TAB PO SCH (08:54)
[2019-03-26] MEDS: MONTELUKAST SODIUM 10 MG TABLET PO SCH (08:54)
[2019-03-26] MEDS: SERTRALINE HCL 100 MG TABLET PO SCH (08:54)
[2019-03-26] MEDS: BUDESONIDE/FORMOTEROL FUMARATE 160/4.5 60 PUFFS/INHALER INH SCH (08:54)
[2019-03-26] MEDS: HEPARIN SOD 5,000 UNIT/0.5 ML VIAL SQ SCH (08:54)
[2019-03-26] MEDS ORDERED: OXYCODONE/ACETAMINOPHEN 5mg/325mg TAB PO PRN (09:46)
[2019-03-26] MEDS ORDERED: POTASSIUM CHLORIDE 10 MEQ TABCR PO STA (10:15)
--- NOTE | 2019-03-26 12:00 | Surgery Progress Note ---
Date of Service March 26, 2019 Assessment & Plan (1) Colostomy in place: POD 6 colostomy takedown advance diet replace K+ seen earlier by Dr. Wesley drain removed, will recheck this afternoon Subjective tolerating full liquids, no BM yet today, ok without NUT THREADER Physical Exam Gastrointestinal (Abdomen): Inspection/Auscultation: + abdominal surgical incision (dry, no erythema) and + abdominal surgical drain present (15 cc); abdomen not distended Percussion/Palpation: abdomen soft Results & Data Vital Signs (Past 12 Hours) Vital Signs Temp Pulse Resp BP BP Pulse Ox 03/26/19 07:20 36.9 C 82 16 131/70 95 03/26/19 03:05 36.9 C 78 16 130/76 92
[2019-03-26] MEDS ORDERED: POTASSIUM CHLORIDE 20 MEQ TABCR PO STA (15:19)
--- NOTE | 2019-03-31 01:13 | Discharge Summary ---
PRIMARY DISCHARGE DIAGNOSES: 1. Colostomy for history of perforated diverticulitis. 2. Chronic anemia. 3. Hypokalemia. SECONDARY DISCHARGE DIAGNOSES: 1. Gastroesophageal reflux disease. 2. Asthma. 3. Depression. PROCEDURE PERFORMED: Laparoscopy with closure of colostomy, extensive lysis of adhesions. HOSPITAL COURSE: The patient is a 69-year-old female status post Mary's for perforated diverticulitis, now taken back to the operating room for colostomy closure. The procedure was well tolerated. She was transferred to the surgical floor. Prophylactic antibiotics were continued for 24 hours. Subcutaneous heparin was used for DVT prophylaxis. Her bowel function was slow to return, but she otherwise was doing well. She was able to start clear liquids on postoperative day #3. She was advanced to full liquids on day 4. Her hemoglobin had drifted slightly from 9.5, but equilibrated at 8.3. She did not require transfusion. By postoperative day #6, her bowels were moving. She was able to tolerate a regular diet. Pedro drain was removed. She was stable for discharge later in the day. Her incision was clean and dry. DISCHARGE INSTRUCTIONS: Discharge home. Follow up with Dr. Wesley in 1 week. DISCHARGE MEDICATIONS: Percocet 1-2 tablets every 4 hours as needed, potassium chloride 20 mEq p.o. b.i.d. x3 days. Continue her home medications Albuterol inhaler every 4 hours as needed, Zyrtec 10 mg daily, Singulair 10 mg daily, Protonix 40 mg b.i.d., simvastatin 20 mg at bedtime, Symbicort 2 puffs b.i.d., Zoloft 100 mg daily.
== END 2019-03-26 16:45 | disposition home or self-care (01) | DRG 331 ==
LOC: ASU 06:48 → 3N 14:27
DX: Z43.3 Encounter for attention to colostomy

== ENCOUNTER 2019-10-11 05:13 | Inpatient (IN) ==
--- NOTE | 2019-10-05 16:24 | Anesthesiology Consultation ---
Date of Service October 05, 2019 Assessment & Plan (1) Encounter for pre-operative examination: - Most recent CXR showed congestive changes and worsened aeration--done 11/20/18 while patient admitted for bowel perforation requiring emergent ex lap. Patient subsequently evaluated by anesthesia 03/20/19 and felt "Respiratory: + respiratory effort normal and + clear to auscultation bilaterally." Evaluate clinical status AM DOS and consider repeat CXR at anesthesiologist discretion. - Hx glidescope intubation: S/P laparoscopic closure of colostomy: 03/20/19: Grade 2 view with elective glidescope #3, ETT 7.0 at [facility] Chart Review Chart Review: Acceptable Risk for Surgery (pending evaluation AM DOS) and Patient NOT seen in Pre Admission Testing History Surgery Operation Date: 10/11/19 10:10 Proposed Procedures p Open Incisional Hernia Repair with Compartment Separation and Mesh Reinforcement - Thanh Wesley MD Height/Weight Height: 5 ft 3 in Weight: 66.224 kg Allergies Allergy/AdvReac Type Severity Reaction Status Date / Time Penicillins Allergy Intermediate HIVES Verified 10/05/19 13:09 Medications Home Medications Medication Instructions Recorded Confirmed Last Taken Symbicort 2 puff INHALATION BID 11/18/18 10/05/19 03/20/19 06:15 albuterol sulfate 2 puff INHALATION Q4H PRN 11/18/18 10/05/19 03/20/19 06:15 albuterol sulfate 2.5 mg INHALATION QID PRN 11/18/18 10/05/19 Unknown montelukast 10 mg PO QAM 11/18/18 10/05/19 03/20/19 06:15 pantoprazole 40 mg PO BID 11/18/18 10/05/19 03/20/19 06:15 sertraline 100 mg PO QAM 11/18/18 10/05/19 03/17/19 20:00 simvastatin 20 mg PO HS 11/18/18 10/05/19 03/17/19 20:00 metronidazole 500 mg tablet 500 mg PO .COMPLEX #3 tab 10/05/19 10/05/19 Unknown neomycin 500 mg tablet 1 gm PO .COMPLEX #6 tab 10/05/19 10/05/19 Unknown Past Medical History Medical History Anxiety Asthma Colostomy in place Diverticulitis HX GERD (gastroesophageal reflux disease) Hyperlipidemia Ovarian cyst Past Family History Family History Brother Family history of diabetes mellitus Brother Family history of diabetes mellitus Brother Family history of diabetes mellitus Other Family history non-contributory Past Surgical History Surgical History (Updated 10/05/19 @ 16:29 by Yoli Eubanks) H/O breast surgery LEFT-BENIGN H/O tubal ligation History of back surgery LOWER NO METAL History of colectomy History of colonoscopy History of colostomy 11/2018 RUPTURED BOWEL S/P laparoscopic closure of colostomy: 03/20/19: Grade 2 view with elective glidescope #3, ETT 7.0 at [facility] History of esophagogastroduodenoscopy (EGD) Status post Mary procedure 11/18/18 MAC #3, ETT 7.0, GRADE VIEW III. Note: Patient kept intubated and sedated and she had a large bowel surgery and fluid shifts expected that could affect her respiratory status. Past Anesthesia History Difficult Airway (S/P laparoscopic closure of colostomy: 03/20/19: Grade 2 view with elective glidescope #3, ETT 7.0 at [facility]) Social History Smoking Status: Never smoker Smoking cigarettes per day: 0 Do You Dip or Chew Tobacco: No Hx Alcohol Use: Yes Alcohol type: wine alcohol intake frequency: holidays/special occasions only Hx Substance Use: No substance use type: does not use Testing Laboratory Results 10/05/19 WBC 9.55 H/H 9.6/32.8 PLATELETS 363 SODIUM 142 POTASSIUM 4.2 CHLORIDE 108 CO2 30 BUN 17 CREATININE 1.05 GLUCOSE 78 Electrocardiogram Date: 11/20/18 ST at 102bpm. NS TWA. Chest X-Ray Date: 11/20/18 Cardiomegaly with slightly worsened volume overload/congestive change. No navin pulmonary edema. Worsened aeration of the left lung base with stable to slight increase size of presumed underlying left pleural effusion. Tubes appropriately positioned. Patient subsequently evaluated by anesthesia 03/20/19 and felt "Respiratory: + respiratory effort normal and + clear to auscultation bilaterally" Echocardiogram Date: 11/19/18 LVEF >70%. No RWMA. Mild LAD. No significant valvular disease.
[2019-10-11] MEDS ORDERED: LR 15ML/HR IV SCH (06:00)
--- NOTE | 2019-10-11 06:35 | History & Physical Bridge Note ---
Date of Service October 11, 2019 History & Physical Bridge Note I have examined the patient, reviewed the History & Physical and in the interval since the performance of the History & Physical I have noted the following changes of clinical significance: no changes noted pt marked, admit order written, at bedside all questions answered
[2019-10-11] MEDS ORDERED: fentaNYL citrate 100 MCG/2 ML VIAL IV PRN (06:37)
[2019-10-11] MEDS ORDERED: ATROPINE SULFATE 0.1 MG/ML 10ML SYR IV PRN (06:37)
[2019-10-11] MEDS ORDERED: ONDANSETRON INJ 2 MG/ML 2 ML VIAL IV PRN ×2 (06:37→11:11)
[2019-10-11] MEDS ORDERED: ePHEDrine sulfate 50 MG/ML AMP IV PRN (06:37)
[2019-10-11] MEDS ORDERED: HYDROmorphone INJ 1 MG/ML SYRINGE IV PRN (06:37)
[2019-10-11] MEDS ORDERED: MIDAZOLAM HCL 1 MG/ML 2ML VIAL ONE (06:47)
[2019-10-11] MEDS ORDERED: fentaNYL citrate 100 MCG/2 ML VIAL ONE ×3 (06:47→09:29)
[2019-10-11] MEDS ORDERED: BUPIVACAINE 0.5 % 5 MG/1 ML MPF 30ML VIAL ONE (06:58)
[2019-10-11] MEDS ORDERED: BACITRACIN INJ 50,000 UNIT VIAL ONE (06:58)
[2019-10-11] MEDS ORDERED: LIDOCAINE HCL 2% 2 ML VIAL/AMP(20MG/ML) INFIL ONE (07:28)
[2019-10-11] MEDS ORDERED: ONDANSETRON INJ 2 MG/ML 2 ML VIAL ONE (07:28)
[2019-10-11] MEDS ORDERED: NEOSTIGMINE METHYLSULFATE 5 MG/5 ML SYR ONE (07:28)
[2019-10-11] MEDS ORDERED: PROPOFOL IV EMULSION 10 MG/ML 20 ML VIAL IV ONE (07:28)
[2019-10-11] MEDS ORDERED: CEFAZOLIN 250 MG/ML 1 GM VIAL ONE (07:28)
[2019-10-11] MEDS ORDERED: DEXAMETHASONE SOD INJ 4 MG/ML VIAL ONE (07:28)
[2019-10-11] MEDS ORDERED: GLYCOPYRROLATE 0.2 MG/ML VIAL ONE (07:28)
[2019-10-11] MEDS ORDERED: ROCURONIUM BROMIDE 10 MG/ML 5 ML VIAL ONE (07:28)
[2019-10-11] MEDS ORDERED: CEFAZOLIN 2000MG 2,000 MG/15 ML SYR IV ONE (07:39)
--- NOTE | 2019-10-11 09:27 | Post Operative Brief Note ---
PG Immediate Post Op with CF Date of Surgery October 11, 2019 Pre & Post Diagnosis Operation Date: 10/11/19 07:00 Pre-Op Diagnosis: Incisional Hernia Post-Op Diagnosis: Incisional Hernia I identified the patient and participated in the time-out.: Yes Procedure Operation Date: 10/11/19 07:00 Actual Procedures p Open Incisional Hernia Repair with Compartment Separation and Mesh Reinforcement, Abdominal Lysis of Adhesions(Not Applicable) - Thanh Wesley MD Surgeon Thnah Wesley MD [employer] b hang mcdonald Estimated Blood Loss 150 Findings Consistent with Post-Op Diagnosis Specimens Specimen Description: none per surgeon Drains Carreon Catheter (A 16 Maltese carreon catheter was inserted by Chyna Do RN, without difficulty, clear yellow urine obtained, output to be monitored by Anesthesia.) and Kai-Chin Drain (19 rafita drains x2)
--- NOTE | 2019-10-11 09:51 | Operative Report ---
PG Post Operative Report Pre & Post Diagnosis Operation Date: 10/11/19 07:00 Pre-Op Diagnosis: Incisional Hernia Post-Op Diagnosis: Incisional Hernia I identified the patient and participated in the time-out.: Yes Procedure Operation Date: 10/11/19 07:00 Actual Procedures p Open Incisional Hernia Repair with Compartment Separation and Mesh Reinforceme nt, Abdominal Lysis of Adhesions(Not Applicable) - Thanh Wesley MD The patient was brought into the operating theater supine position general endotracheal anesthesia systemic antibiotics given Johnson catheter inserted the abdomen was prepped Betadine scrub and solution properly draped timeout was had patient was identified this point we made an incision around the umbilicus being very careful not to go through the deep since patient had a very large incisional hernia with the only thing cover the intestine was probably the subcutaneous tissue and skin were able then to enter the peritoneal cavity position without any difficulty we then enlarged the incision as we went on lysing adhesions that were attached to the anterior abdominal wall mostly these were lysed small bowel adhesions pretty much we freed the whole incision from around above the umbilicus down to the symphysis pubis intra-abdominal resultant small bowel was adherent to multiple areas the anterior abdominal wall there were we meticulous dissecting out these fibrous adhesion which the majority could be just fractured finger fractured some were sharply divided from the ligament of Treitz all the way down to the cecum the appendix was seen there was a very fibrotic less than (X we certainly did not touch it in the left lower quadrant where the colostomy site once we receive omentum stuck to the adherent to the anterior abdominal wall we freed that up and we could identify that the patient had about a 2 cm hernia at the previous colostomy site. Once we meticulously dissected everything out we are left with the quite an open last abdominal wall with the defect in the muscles quite a bit from the midline at the end we presented with closing the defect using the anterior rectus sheath which we freed circumferentially on both sides to the point that we were able then to close over the intestine. The hernia site in the left lower quadrant was closed with interrupted PDS suture. Once we had closed the fascia which we flipped over and closing in the midline which was done with #0 PDS it was not tight that was quite pliable as far as abdominal closure we make sure there was not any development of compartment. We then brought in a sheet of Marlex mesh, the largest piece and accommodated and sutured with #2-0 nylon placing poor stitches and running in a continuous fashion to the edge of the previous cuts rectus on the lateral aspect the abdomen was fairly loose and was not tight we then we placed 2 Pedro drains in both subcutaneous tissue through stab wounds left lower quadrant anterior to the mesh prior to closing we attached the mesh in a few interrupted places with 2-0 silk sutures of 2-0 Vicryl sutures and then reapproximated the elevated edges of the abdominal wall subcutaneous tissue sutured on the mesh interrupted with 2-0 Vicryl suture in a continuous fashion closing the midline aspects of it on the left side we excised with the redundant skin therefore we went on it took out approximately 3 cm of skin to the left of the umbilicus down to the symphysis pubis petey are approximated to the skin edges dressing was applied procedure was tolerated well by the patient estimated blood loss approximately 50 cc addendum the opening itself is probably 20 x 15 cm. Deshawn mcdonald was present throughout the procedure and helped with exposure retraction and skin closure Addendum lysis of the abdominal adhesions took over 45 minutes of the operating time Surgeon Thanh Wesley MD Software Engineer Web Services mgaen mcdonald Estimated Blood Loss 150 Findings Consistent with Post-Op Diagnosis Specimens skin and sub cut Description of Procedure jaydon I attest to the content of the Intraoperative Record and any orders documented therein. Any exceptions are noted below.
[2019-10-11] MEDS ORDERED: NALOXONE HCL 0.4 MG/1 ML VIAL/CARP IV PRN (11:11)
[2019-10-11] MEDS ORDERED: HYDROmorphone PCA 30 MG/30 ML IV PRN (11:11)
[2019-10-11] MEDS: SODIUM CHLORIDE 0.9% 1000ML 1,000 ML IV SCH (11:25)
[2019-10-11] MEDS: ACETAMINOPHEN 1,000 MG/100 ML VIAL IV SCH ×2 (11:31→19:11)
[2019-10-11] MEDS: LACTATED RINGER'S 1,000 ML IV SCH ×2 (11:32→19:10)
[2019-10-11] MEDS: CEFAZOLIN 2000MG 2,000 MG/15 ML SYR IV SCH ×2 (14:39→22:39)
--- NOTE | 2019-10-11 14:57 | Anesthesiology Progress Note ---
Date of Service October 11, 2019 Anesthesia Post Procedure Vital Signs Vital Signs: Temp Pulse Pulse Resp BP BP Pulse Ox 10/11/19 14:08 67 18 106/62 96 10/11/19 12:55 36.4 C L 64 19 106/65 93 10/11/19 11:55 36.6 C 63 18 91/55 L 96 10/11/19 11:25 36.6 C 62 20 109/66 97 10/11/19 10:55 36.8 C 66 16 103/63 95 10/11/19 10:30 36.9 C 67 16 114/51 L 93 10/11/19 10:20 66 13 117/56 L 99 10/11/19 10:10 62 14 108/56 L 100 10/11/19 10:00 65 20 120/54 L 100 10/11/19 09:51 36.9 C 69 14 135/56 L 100 10/11/19 05:43 37 C 75 20 155/62 H 100 Pain Intensity Abdomen: Pain Intensity: 10 Transfer of Care Handoff Completed per policy Notes Mental Status: alert / awake / arousable and participated in evaluation Patient Amnestic to Procedure: Yes Nausea / Vomiting: adequately controlled Pain: adequately controlled Airway Patency, RR, SpO2: stable & adequate BP & HR: stable & adequate Hydration State: stable & adequate Anesthetic Complications: no major complications apparent and Pt Satisfied with anesthetic care
[2019-10-11] MEDS: BUDESONIDE/FORMOTEROL FUMARATE 160/4.5 60 PUFFS/INHALER INH SCH (20:45)
[2019-10-11] MEDS: SIMVASTATIN 20 MG TAB PO SCH (20:49)
[2019-10-11] MEDS ORDERED: PANTOprazole 40 MG TAB PO SCH (21:00)
[2019-10-11] MEDS: HEPARIN SOD 5,000 UNIT/0.5 ML VIAL SQ SCH (21:24)
[2019-10-12] MEDS: LACTATED RINGER'S 1,000 ML IV SCH ×3 (03:18→18:36)
[2019-10-12] MEDS: ACETAMINOPHEN 1,000 MG/100 ML VIAL IV SCH ×3 (03:19→18:36)
[2019-10-12] MEDS: CEFAZOLIN 2000MG 2,000 MG/15 ML SYR IV SCH (06:08)
[2019-10-12 06:31] LABS: Basophils # (auto) 0.02 K/uL (0-0.2); Basophils % (auto) 0.2 %; Eosinophils % (auto) 0.9 %; Hematocrit (blood only) 30.1 % (37-47); Hemoglobin 8.8 g/dL (12.0-16.0); Immature Granulocytes # (auto) 0.02 K/uL (0.00-0.02); Immature Granulocytes % (auto) 0.2 %; Lymphocytes # (auto) 1.29 K/uL (1.2-3.4); Lymphocytes % (auto) 11.7 %; Mean Corpuscular Hemoglobin 20.9 pg (25-34); Mean Corpuscular Hgb Conc 29.2 g/dL (32-36); Mean Corpuscular Volume 71.3 fL (80-100); Mean Platelet Volume 8.4 fL (7.4-10.4); Monocytes # (auto) 1.31 K/uL (0.11-0.59); Monocytes % (auto) 11.9 %; Neutrophils # (auto) 8.31 K/uL (1.4-6.5); Neutrophils % (auto) 75.1 %; Platelet Count 248 K/uL (130-400); RDW Coefficient of Variation 17.2 % (11.5-14.5); RDW Standard Deviation 44.6 fL (36.4-46.3); Red Blood Count 4.22 M/uL (4.2-5.4); White Blood Count 11.05 K/uL (4.8-10.8)
[2019-10-12 07:06] LABS: BUN Creatinine Ratio 14.1 (10-20); Calcium 8.1 mg/dl (8.5-10.1); Creatinine Clr Calc Pharmacy 35.9 ml/min; Est GFR (African American) 48.2; Est GFR (Non-African American) 41.6; Potassium 3.8 mmol/L (3.5-5.1)
[2019-10-12 07:14] LABS: Microcytosis Present
[2019-10-12] MEDS ORDERED: COUGH DROP (SUGAR FREE) LOZ 24 LOZ/1 BOX BUCCAL PRN (07:21)
--- NOTE | 2019-10-12 07:26 | Surgery Progress Note ---
Date of Service October 12, 2019 Assessment & Plan (1) S/P repair of ventral hernia: POD#1 ventral hernia repair , lysis of adhesions, and component separation Doing as expected POD#1 Wagner 1 (70cc), WAGNER 2 (135cc) serosang. Will keep these in place NGT with ~150cc bilious output Will plan to keep NGT in place for today Remove carreon catheter today Cepacol lozenges prn sore throat Continue current pain regimen Activity as tolerates. Incentive spirometry Patient seen and examined with Dr. Wesley Subjective Patient states she is feeling okay. Has complaints of a sore throat from NGT. Physical Exam Physical Exam: awake/alert Constitutional: no acute distress Gastrointestinal (Abdomen): Inspection/Auscultation: + abdominal surgical incision (c/d/i with surgical petey) and + abdominal surgical drain present (WAGNER x2 serosang.) Percussion/Palpation: + abdomen tender (mildly tender micheal- incisionally) and abdomen soft NGT with bilious drainage Results & Data Vital Signs (Past 12 Hours) Vital Signs Temp Pulse Resp BP Pulse Ox 10/12/19 03:15 36.9 C 91 H 14 113/70 90 10/11/19 23:05 36.8 C 82 19 121/69 92 10/11/19 19:28 36.3 C L 74 16 124/72 95 PG Care Time/CCT Total # of Minutes Spent Total Time Spent with Patient: Total time spent is greater than 50% in coordination of care (as documented) at patient's floor/unit and/or counseling patient:
[2019-10-12] MEDS: HEPARIN SOD 5,000 UNIT/0.5 ML VIAL SQ SCH ×2 (08:58→20:23)
[2019-10-12] MEDS ORDERED: MONTELUKAST SODIUM 10 MG TABLET PO SCH (09:00)
[2019-10-12] MEDS: MONTELUKAST SOD 5 MG CHEWABLE TAB NG SCH (09:00)
[2019-10-12] MEDS: LANSOPRAZOLE 30 MG SOLTAB NG SCH ×2 (09:03→20:24)
[2019-10-12] MEDS: SERTRALINE HCL 100 MG TABLET PO SCH (09:05)
[2019-10-12] MEDS: BUDESONIDE/FORMOTEROL FUMARATE 160/4.5 60 PUFFS/INHALER INH SCH ×2 (09:05→20:24)
[2019-10-12] MEDS: SODIUM CHLORIDE 0.9% 1000ML 1,000 ML IV SCH (11:27)
--- NOTE | 2019-10-12 16:35 | Consultation ---
Date of Consultation October 12, 2019 Assessment & Plan (1) Elevated serum creatinine: Cr up slightly from baseline at 1.29 likely from surgery with some fluid loss and volume shifts carreon pulled this morning, had good output prior, has not urinated since instructed RN to straight cath q shift if no void or if post void residual > 300 continue LR at 125cc/hr will repeat BMP in the morning, electrolytes stable (2) Hypoxia: most likely due to atelectasis, decrease breath sounds in the bases encouraged patient to utilize bedside spirometer several times every hour to expand lungs discussed that it is important for her to control abdominal pain so that she can take deep breaths and cough if needed this does not represent acute hypoxic respiratory failure, she is not in distress, she only has some hypoxia (3) Acute blood loss as cause of postoperative anemia: Hb is down slightly at 8.8 will repeat in the morning BP stable (4) S/P repair of ventral hernia: pain is controlled with Dilaudid WEBSITE ADMIN patient is to remain NPO with NGT in place WAGNER drains with serosanguinous fluid management per surgery encouraged her to use bedside spirometer to help re-expand lungs (5) GERD (gastroesophageal reflux disease): continue Protonix (6) Asthma: no wheezing on exam no distress continue inhaled treatments (7) Depression: continue SSRI History of Present Illness Requesting Physician: Dr. Wesley Reason for Consultation: Medical management Attending Physician: Thanh Wesley MD History of Present Illness 69 yo female with medical history of asthma, hyperlipidemia, GERD, depression who is here after ventral hernia repair, lysis of adhesions and component separation. She is feeling okay today, pain is reasonably controlled. She only used her Dilaudid WEBSITE ADMIN 4 times since 7am. No nausea, NGT is in place. She has WAGNER drains in place with serosanguinous drainage. She does not have any dyspnea or cough, she has been trying to use her bedside incentive spirometer. No chest pain or pressure, no fever/chills. No flatus yet. Reviewed labs, Cr up slightly at 1.2, WBC is 11k, Hb 8.8. Patient is admitted after elective repair of ventral hernia that was symptomatic. Allergies Allergy/AdvReac Type Severity Reaction Status Date / Time Penicillins Allergy Intermediate HIVES Verified 10/11/19 05:40 Home Medications Home Medications Medication Instructions Recorded Confirmed Type Symbicort 2 puff INHALATION BID 11/18/18 10/11/19 History albuterol sulfate 2.5 mg INHALATION QID PRN 11/18/18 10/11/19 History montelukast 10 mg PO QAM 11/18/18 10/11/19 History pantoprazole 40 mg PO BID 11/18/18 10/11/19 History sertraline 100 mg PO QAM 11/18/18 10/11/19 History simvastatin 20 mg PO HS 11/18/18 10/11/19 History metronidazole 500 mg tablet 500 mg PO .COMPLEX #3 tab 10/05/19 10/11/19 Rx neomycin 500 mg tablet 1 gm PO .COMPLEX #6 tab 10/05/19 10/11/19 Rx oxycodone-acetaminophen [Percocet] 1 - 2 tab PO Q4H PRN #15 tab 10/11/19 Rx Patient History Medical History (Updated 10/12/19 @ 20:14 by Kilo Ochoa DO) Anxiety Asthma Colostomy in place Diverticulitis HX GERD (gastroesophageal reflux disease) Hyperlipidemia Ovarian cyst Surgical History (Updated 10/12/19 @ 07:23 by Anita Corrales PA-C) H/O breast surgery LEFT-BENIGN H/O hernia repair Open Incisional Hernia Repair with Compartment Separation and Mesh Reinforcement, Abdominal Lysis of Adhesions Dr. Wesley 10/11/19 H/O tubal ligation History of back surgery LOWER NO METAL History of colectomy History of colonoscopy History of colostomy 11/2018 2/2 RUPTURED BOWEL S/P laparoscopic closure of colostomy: 03/20/19: Grade 2 view with elective glidescope #3, ETT 7.0 at [facility] History of esophagogastroduodenoscopy (EGD) Status post Mary procedure 11/18/18 MAC #3, ETT 7.0, GRADE VIEW III. Note: Patient kept intubated and sedated and she had a large bowel surgery and fluid shifts expected that could affect her respiratory status. 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 Beliefs That Will Affect Care: None marital status: Current Living Situation: Spouse current occupational status: retired Other Information That Helps Us Care for You: No Feels Safe at Home: Yes Safety Concerns: Feels Safe At This Time Smoking Status: Never smoker Cigarettes Per Day: 0 ; Do You Dip or Chew Tobacco: No ; Second Hand Exposure: Yes (PARENTS GROWING UP) ; Hx Alcohol Use: Yes Alcohol type: wine Hx Substance Use: No Review of Systems Review of Systems: All systems reviewed & are unremarkable except as noted in HPI & below Constitutional: + fatigue and + weakness; no fever, no chills and no sweats Respiratory: no cough, no dyspnea, no snoring and no wheezing Cardiovascular: no chest pain, no palpitations, no syncope and no edema Gastrointestinal: + abdominal pain and + constipation; no nausea, no vomiting and no diarrhea/loose stools Genitourinary: no dysuria Musculoskeletal: no back pain and no muscle weakness Physical Exam Constitutional: WD/WN, vitals as above Eyes: PERRL, conjunctivae normal, anicteric sclerae ENMT: external ear and nose normal, oropharynx normal (NGT in place) Neck: trachea midline, no thyromegaly Respiratory: normal respiratory effort, lungs clear to auscultation (decreased BS in bases) Cardiovascular: RRR, no murmur, no edema Gastrointestinal (Abdomen): Inspection/Auscultation: normal bowel sounds, + abdominal surgical incision and + abdominal surgical drain present Percussion/Palpation: + abdomen tender and abdomen soft; no guarding and abdomen not rigid Musculoskeletal: no cyanosis or clubbing, extremities motor strength 5/5 Skin: no rashes, warm and dry Neurologic: patellar DTR's 2+ bilat, sensation intact and PERRL, EOMI, accommodation nl, no face palsy, no dysarthria Psychiatric: A+Ox3, euthymic affect Lymphatic: no cervical or axillary lymphadenopathy Results & Data Vital Signs (Past 12 Hours) Vital Signs Temp Pulse Pulse Resp BP Pulse Ox 10/12/19 15:15 36.8 C 89 18 117/63 92 10/12/19 12:02 36.9 C 86 16 120/60 91 10/12/19 07:45 36.5 C 83 16 130/70 91 01/10/20 07:30 37.2 C 68 16 167/73 H 94 Laboratory Results Laboratory Results - last 24 hr 10/12/19 10/12/19 06:11 06:11 WBC 11.05 H RBC 4.22 Hgb 8.8 L Hct 30.1 L MCV 71.3 L MCH 20.9 L MCHC 29.2 L RDW Std Deviation 44.6 RDW Coeff of Guera 17.2 H Plt Count 248 MPV 8.4 Immature Gran % (Auto) 0.2 Neut % (Auto) 75.1 Lymph % (Auto) 11.7 Morrill % (Auto) 11.9 Eos % (Auto) 0.9 Baso % (Auto) 0.2 Immature Gran # (Auto) 0.02 Neut # (Auto) 8.31 H Lymph # (Auto) 1.29 Morrill # (Auto) 1.31 H Eos # (Auto) 0.10 Baso # (Auto) 0.02 Microcytosis Present Sodium 140 Potassium 3.8 Chloride 108 H Carbon Dioxide 27 Anion Gap 6.0 BUN 18 Creatinine 1.29 H Est Cr Clr Drug Dosing 35.9 Est GFR ( Amer) 48.2 Est GFR (Non-Af Amer) 41.6 BUN/Creatinine Ratio 14.1 Glucose 88 Calcium 8.1 L Medications Administered Current Inpatient Medications Albuterol (Ventolin 0.083% 2.5mg/3ml) 2.5 mg INH QID PRN PRN Reason: Wheezing Stop: 11/10/19 11:10 Budesonide/Formoterol Fumarate (Symbicort 160mcg/4.5mcg) 2 puffs INH BID [facility] Stop: 11/10/19 20:59 Last Admin: 10/12/19 09:05 Dose: 2 puffs Documented by: Heparin Sodium (Porcine) (Heparin Sodium (Porcine)) 5,000 units SQ Q12 MIRELA Stop: 11/10/19 20:59 Last Admin: 10/12/19 08:58 Dose: 5,000 units Documented by: Hydromorphone HCl () 30 mg IV PRN PRN; Protocol PRN Reason: WEBSITE ADMIN Pain Titration Stop: 10/25/19 11:10 Last Admin: 10/11/19 11:32 Dose: 30 mg Documented by: Acetaminophen (Ofirmev) 1,000 mg in 100 mls @ 400 mls/hr IV Q8H [facility] Stop: 10/14/19 11:29 Last Infusion: 10/12/19 18:51 Dose: Infused Documented by: Lactated Ringer's (Lr) 1,000 mls @ 125 mls/hr IV .Q8H MIRELA Stop: 11/10/19 11:10 Last Infusion: 10/12/19 18:37 Dose: 0 mls/hr Documented by: Sodium Chloride (Nss 1000ml) 1,000 mls @ 15 mls/hr IV .Q24H [facility] Stop: 10/25/19 11:12 Last Admin: 10/12/19 11:27 Dose: Not Given Documented by: Lansoprazole (Prevacid) 30 mg NG BID [facility] Stop: 11/11/19 08:59 Last Admin: 10/12/19 09:03 Dose: 30 mg Documented by: Menthol (Nice) 1 thais BUCCAL Q4H PRN PRN Reason: Sore Throat Stop: 11/11/19 07:20 Last Admin: 10/12/19 08:01 Dose: 1 thais Documented by: Montelukast Sodium (Singulair) 10 mg NG QAM [facility] Stop: 11/11/19 08:59 Last Admin: 10/12/19 09:00 Dose: 10 mg Documented by: Naloxone HCl (Narcan) 0.1 mg IV Q5M PRN; Protocol PRN Reason: Oversedation/Resp Depression Stop: 10/25/19 11:10 Ondansetron HCl (Zofran) 4 mg IV Q4H PRN PRN Reason: Nausea And Vomiting Stop: 11/10/19 11:10 Sertraline HCl (Zoloft) 100 mg PO QAM [facility] Stop: 11/11/19 08:59 Last Admin: 10/12/19 09:05 Dose: 100 mg Documented by: Simvastatin (Zocor) 20 mg PO HS [facility] Stop: 11/10/19 20:59 Last Admin: 10/11/19 20:49 Dose: 20 mg Documented by: PG Care Time/CCT Total # of Minutes Spent Total Time Spent with Patient: Total time spent is greater than 50% in coordination of care (as documented) at patient's floor/unit and/or counseling patient: (1) GERD (gastroesophageal reflux disease) Esophagitis presence: esophagitis presence not specified Qualified Code(s): K21.9 - Gastro-esophageal reflux disease without esophagitis (2) Asthma Asthma severity: unspecified severity Asthma persistence: unspecified Asthma complication type: unspecified Qualified Code(s): J45.909 - Unspecified asthma, uncomplicated
[2019-10-12] MEDS: SIMVASTATIN 20 MG TAB PO SCH (20:24)
[2019-10-13] MEDS: LACTATED RINGER'S 1,000 ML IV SCH ×2 (01:49→09:52)
[2019-10-13] MEDS: ACETAMINOPHEN 1,000 MG/100 ML VIAL IV SCH ×3 (03:51→19:56)
--- NOTE | 2019-10-13 05:48 | Surgery Progress Note ---
Date of Service October 13, 2019 Assessment & Plan (1) S/P repair of ventral hernia: pt awake, vitals stable NG- 100-120 per shift- bilious some abd distention, decreased bs cont IV fluid, NG- will try clamping schedule check labs Results & Data Vital Signs (Past 12 Hours) Vital Signs Temp Pulse Pulse Resp BP BP Pulse Ox 10/13/19 03:45 36.2 C L 93 H 16 134/70 99 10/12/19 23:50 92 10/12/19 23:45 78 L 10/12/19 23:44 36.5 C 86 16 130/68 PG Care Time/CCT Total # of Minutes Spent Total Time Spent with Patient: Total time spent is greater than 50% in coordination of care (as documented) at patient's floor/unit and/or counseling patient:
[2019-10-13 06:50] LABS: BUN Creatinine Ratio 14.1 (10-20); Calcium 7.9 mg/dl (8.5-10.1); Creatinine Clr Calc Pharmacy 60.9 ml/min; Est GFR (African American) 91.5; Est GFR (Non-African American) 78.9; Potassium 3.8 mmol/L (3.5-5.1)
[2019-10-13] MEDS: HEPARIN SOD 5,000 UNIT/0.5 ML VIAL SQ SCH ×2 (09:35→20:47)
[2019-10-13] MEDS: LANSOPRAZOLE 30 MG SOLTAB NG SCH ×2 (09:38→20:47)
[2019-10-13] MEDS: MONTELUKAST SOD 5 MG CHEWABLE TAB NG SCH (09:38)
[2019-10-13] MEDS: SERTRALINE HCL 100 MG TABLET PO SCH (09:39)
[2019-10-13] MEDS: BUDESONIDE/FORMOTEROL FUMARATE 160/4.5 60 PUFFS/INHALER INH SCH ×2 (09:39→20:47)
[2019-10-13] MEDS: SODIUM CHLORIDE 0.9% 1000ML 1,000 ML IV SCH (11:05)
--- NOTE | 2019-10-13 11:30 | Hospitalist Progress Note ---
Date of Service October 13, 2019 Assessment & Plan (1) Elevated serum creatinine: Creatinine now much improved from previous, cysts agree with previous provider that this was secondary to fluid loss of volume shift. Can recheck in the morning, patient remains on lactated Ringer's at 125 cc an hour. (2) Hypoxia: Hypoxia is likely secondary to atelectasis, which also account for her cough. I did move the incentive spirometry close to the patient and encouraged her to use it more frequently. (3) Acute blood loss as cause of postoperative anemia: No repeat lab work today, will recheck CBC. Previously stable on expect a mild drop in hemoglobin was secondary to surgical loss. 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 She does continue to have a mild cough, which exacerbates pain in her lower abdomen. She is not short of breath although she is on 3 L nasal cannula. O2 sat is 97%. I do not think she has been compliant with incentive spirometry as it was located out of reach on the bedside table. Physical Exam Constitutional: cooperative; no acute distress Neck: trachea midline, no thyromegaly Respiratory: normal respiratory effort (Somewhat limited effort) Auscultation: lungs clear to auscultation bilaterally; no crackles, no rales, no rhonchi and no wheezes Cardiovascular: Rate/Rhythm: regular rate and regular rhythm Heart Sounds: normal S1 and normal S2 Gastrointestinal (Abdomen): Inspection/Auscultation: abdomen normal to inspe ction Percussion/Palpation: abdomen nontender, no guarding, abdomen not rigid and no hepatosplenomegaly Surgical wound is previously documented. NG tube in place Skin: no rashes, warm and dry Results & Data Vital Signs (Past 12 Hours) Vital Signs Temp Pulse Pulse Resp BP BP Pulse Ox 10/13/19 11:09 36.9 C 84 18 131/71 97 10/13/19 07:25 36.3 C L 86 18 122/69 99 01/11/20 03:45 36.2 C L 93 H 16 134/70 99 10/12/19 23:50 92 10/12/19 23:45 78 L 10/12/19 23:44 36.5 C 86 16 130/68 PG Care Time/CCT Total # of Minutes Spent Total Time Spent with Patient: Total time spent is greater than 50% in coordination of care (as documented) at patient's floor/unit and/or counseling p atient: (1) GERD (gastroesophageal reflux disease) Esophagitis presence: esophagitis presence not specified Qualified Code(s): K21.9 - Gastro-esophageal reflux disease without esophagitis (2) Asthma Asthma severity: unspecified severity Asthma persistence: unspecified Asthma complication type: unspecified Qualified Code(s): J45.909 - Unspecified asthma, uncomplicated
[2019-10-13] MEDS: D5W AND 1/2NSS 1,000 ML IV SCH ×2 (12:22→19:56)
[2019-10-13] MEDS: SIMVASTATIN 20 MG TAB PO SCH (20:46)
[2019-10-14] MEDS: ACETAMINOPHEN 1,000 MG/100 ML VIAL IV SCH (03:23)
[2019-10-14] MEDS: D5W AND 1/2NSS 1,000 ML IV SCH ×3 (03:23→18:40)
[2019-10-14 05:39] LABS: Basophils # (auto) 0.02 K/uL (0-0.2); Basophils % (auto) 0.2 %; Eosinophils # (auto) 1.48 K/uL (0-0.5); Eosinophils % (auto) 14.8 %; Hemoglobin 8.5 g/dL (12.0-16.0); Immature Granulocytes # (auto) 0.03 K/uL (0.00-0.02); Immature Granulocytes % (auto) 0.3 %; Mean Corpuscular Hgb Conc 29.3 g/dL (32-36); Mean Corpuscular Volume 71.6 fL (80-100); Mean Platelet Volume 8.5 fL (7.4-10.4); Monocytes # (auto) 0.96 K/uL (0.11-0.59); Monocytes % (auto) 9.6 %; Neutrophils # (auto) 6.41 K/uL (1.4-6.5); Neutrophils % (auto) 64.1 %; Platelet Count 225 K/uL (130-400); RDW Coefficient of Variation 17.2 % (11.5-14.5); RDW Standard Deviation 44.9 fL (36.4-46.3); Red Blood Count 4.05 M/uL (4.2-5.4)
[2019-10-14 06:01] LABS: BUN Creatinine Ratio 7.2 (10-20); Calcium 7.7 mg/dl (8.5-10.1); Creatinine Clr Calc Pharmacy 70.2 ml/min; Est GFR (Non-African American) 88.9; Potassium 3.3 mmol/L (3.5-5.1)
[2019-10-14 06:03] LABS: Hypochromasia Present
--- NOTE | 2019-10-14 06:31 | Surgery Progress Note ---
Date of Service October 14, 2019 Assessment & Plan (1) S/P repair of ventral hernia: tolerated NG clamping- will d/c- give ice and popsicles for now pt tolerating binder, drains serous encourage ambulation, slow progress Results & Data Vital Signs (Past 12 Hours) Vital Signs Temp Pulse Resp BP BP Pulse Ox 10/14/19 04:27 36.8 C 78 17 124/70 99 10/13/19 22:45 36.6 C 78 16 124/69 96 10/13/19 20:43 36.6 C 88 18 122/67 92 10/13/19 19:20 36.6 C 89 18 125/69 90 PG Care Time/CCT Total # of Minutes Spent Total Time Spent with Patient: Total time spent is greater than 50% in coordination of care (as documented) at patient's floor/unit and/or counseling patient:
--- NOTE | 2019-10-14 08:28 | Surgery Progress Note ---
Date of Service October 14, 2019 Physical Exam Gastrointestinal (Abdomen): Inspection/Auscultation: + abdominal surgical incision (clean, dry, skin flaps viable, left WAGNER had been completely pulled out) Results & Data Vital Signs (Past 12 Hours) Vital Signs Temp Pulse Resp BP BP Pulse Ox 10/14/19 08:00 36.6 C 75 17 113/68 98 10/14/19 04:27 36.8 C 78 17 124/70 99 10/13/19 22:45 36.6 C 78 16 124/69 96 10/13/19 20:43 36.6 C 88 18 122/67 92 PG Care Time/CCT Total # of Minutes Spent Total Time Spent with Patient: Total time spent is greater than 50% in coordination of care (as documented) at patient's floor/unit and/or counseling patient:
[2019-10-14] MEDS: LANSOPRAZOLE 30 MG SOLTAB NG SCH ×2 (08:45→21:24)
[2019-10-14] MEDS: SERTRALINE HCL 100 MG TABLET PO SCH (08:45)
[2019-10-14] MEDS: BUDESONIDE/FORMOTEROL FUMARATE 160/4.5 60 PUFFS/INHALER INH SCH ×2 (08:45→21:25)
[2019-10-14] MEDS: MONTELUKAST SOD 5 MG CHEWABLE TAB NG SCH (08:45)
[2019-10-14] MEDS: HEPARIN SOD 5,000 UNIT/0.5 ML VIAL SQ SCH ×2 (08:46→21:25)
[2019-10-14] MEDS: SODIUM CHLORIDE 0.9% 1000ML 1,000 ML IV SCH (08:55)
--- NOTE | 2019-10-14 10:22 | Hospitalist Progress Note ---
Date of Service October 14, 2019 Assessment & Plan (1) Elevated serum creatinine: Creatinine now much improved from previous, agree with previous provider that this was secondary to fluid loss of volume shift. Fluids changed yesterday to D5 half-normal saline secondary to hypoglycemia. Glucose was improved today while patient remains n.p.o. (2) Hypoxia: Hypoxia is likely secondary to atelectasis, which also account for her cough. O2 sat is now 98% on room air, continue to use incentive spirometry. No other sign of acute lung infection at this time. (3) Acute blood loss as cause of postoperative anemia: Mild anemia, likely acute blood loss from surgery. Continue to monitor. 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 (5) GERD (gastroesophageal reflux disease): continue Protonix (6) Asthma: no wheezing on exam no distress continue inhaled treatments (7) Depression: continue SSRI Subjective Patient seen with in room. Patient has no new complaints. She is sitting in a chair. Her NG tube is been removed patient is tolerating small amounts of liquids. She denies any significant abdominal pain feels she can likely handle more. She will denies any chest pain, shortness of breath. She feels her cough is improved and she admits she is using the incentive spirometry. Physical Exam Constitutional: cooperative; no acute distress Neck: trachea midline, no thyromegaly Respiratory: normal respiratory effort Auscultation: lungs clear to auscultation bilaterally; no crackles, no rales, no rhonchi and no wheezes Cardiovascular: Rate/Rhythm: regular rate and regular rhythm Heart Sounds: normal S1, normal S2 and + murmur Gastrointestinal (Abdomen): Inspection/Auscultation: abdomen normal to inspection Somewhat tender to touch. Has abdominal binder on. WAGNER drain since removed. Skin: no rashes, warm and dry Results & Data Vital Signs (Past 12 Hours) Vital Signs Temp Pulse Resp BP BP Pulse Ox 10/14/19 08:00 36.6 C 75 17 113/68 98 10/14/19 04:27 36.8 C 78 17 124/70 99 10/13/19 22:45 36.6 C 78 16 124/69 96 PG Care Time/CCT Total # of Minutes Spent Total Time Spent with Patient: Total time spent is greater than 50% in coordination of care (as documented) at patient's floor/unit and/or counseling patient: (1) GERD (gastroesophageal reflux disease) Esophagitis presence: esophagitis presence not specified Qualified Code(s): K21.9 - Gastro-esophageal reflux disease without esophagitis (2) Asthma Asthma severity: unspecified severity Asthma persistence: unspecified Asthma complication type: unspecified Qualified Code(s): J45.909 - Unspecified asthma, uncomplicated
[2019-10-14] MEDS: POTASSIUM CHLORIDE / WTR 10 MEQ/100 ML PLCT IV SCH ×4 (11:00→14:46)
[2019-10-14] MEDS: SIMVASTATIN 20 MG TAB PO SCH (21:24)
[2019-10-14] MEDS: ALBUTEROL 0.083% NEBU SOLN 3 ML VIAL INH PRN (22:26)
[2019-10-15] MEDS: D5W AND 1/2NSS 1,000 ML IV SCH (02:10)
[2019-10-15] MEDS: ALBUTEROL 0.083% NEBU SOLN 3 ML VIAL INH PRN ×4 (02:31→16:07)
[2019-10-15 05:27] LABS: Hematocrit (blood only) 28.8 % (37-47); Hemoglobin 8.3 g/dL (12.0-16.0); Mean Corpuscular Hgb Conc 28.8 g/dL (32-36); Mean Corpuscular Volume 72.7 fL (80-100); Mean Platelet Volume 8.2 fL (7.4-10.4); Platelet Count 235 K/uL (130-400); RDW Coefficient of Variation 17.3 % (11.5-14.5); RDW Standard Deviation 46.1 fL (36.4-46.3); Red Blood Count 3.96 M/uL (4.2-5.4); White Blood Count 11.18 K/uL (4.8-10.8)
[2019-10-15 05:38] LABS: Basophils # (auto) 0.03 K/uL (0-0.2); Basophils % (auto) 0.3 %; Eosinophils # (auto) 1.47 K/uL (0-0.5); Eosinophils % (auto) 13.1 %; Hypochromasia Present; Immature Granulocytes # (auto) 0.04 K/uL (0.00-0.02); Immature Granulocytes % (auto) 0.4 %; Lymphocytes % (auto) 8.9 %; Microcytosis Present; Monocytes # (auto) 0.92 K/uL (0.11-0.59); Monocytes % (auto) 8.2 %; Neutrophils # (auto) 7.72 K/uL (1.4-6.5); Neutrophils % (auto) 69.1 %
[2019-10-15 05:39] LABS: BUN Creatinine Ratio 3.7 (10-20); Calcium 7.7 mg/dl (8.5-10.1); Creatinine Clr Calc Pharmacy 74.7 ml/min; Est GFR (African American) 105.1; Est GFR (Non-African American) 90.7; Magnesium 1.8 mg/dl (1.8-2.4); Potassium 3.6 mmol/L (3.5-5.1)
[2019-10-15] MEDS ORDERED: OXYCODONE/ACETAMINOPHEN 5mg/325mg TAB PO PRN (07:40)
--- NOTE | 2019-10-15 07:51 | Surgery Progress Note ---
Date of Service October 15, 2019 Assessment & Plan (1) S/P repair of ventral hernia: POD [address] Wesley advance diet remaining rafita drain removed may shower d/c IVF and CHILD NUTRITION DIRECTOR increase activity Subjective Had BM, no nausea Physical Exam Gastrointestinal (Abdomen): Inspection/Auscultation: + abdominal surgical incision (clean, dry); abdomen not distended Percussion/Palpation: abdomen soft WAGNER 25 cc Results & Data Vital Signs (Past 12 Hours) Vital Signs Temp Pulse Pulse Resp BP Pulse Ox 10/15/19 07:24 37.1 C 88 18 122/70 100 10/15/19 06:57 86 16 99 10/15/19 03:51 36.9 C 88 16 122/74 100 10/15/19 02:33 93 H 24 95 10/14/19 23:05 36.7 C 95 H 16 139/81 98 10/14/19 22:27 95 H 14 96 PG Care Time/CCT Total # of Minutes Spent Total Time Spent with Patient: Total time spent is greater than 50% in coordination of care (as documented) at patient's floor/unit and/or counseling patient:
[2019-10-15] MEDS: BUDESONIDE/FORMOTEROL FUMARATE 160/4.5 60 PUFFS/INHALER INH SCH ×2 (09:12→21:03)
[2019-10-15] MEDS: SERTRALINE HCL 100 MG TABLET PO SCH (09:13)
[2019-10-15] MEDS: MONTELUKAST SOD 5 MG CHEWABLE TAB NG SCH (09:13)
[2019-10-15] MEDS: HEPARIN SOD 5,000 UNIT/0.5 ML VIAL SQ SCH ×2 (09:13→21:04)
[2019-10-15] MEDS: LANSOPRAZOLE 30 MG SOLTAB NG SCH ×2 (09:13→21:03)
[2019-10-15 16:37] LABS: Base Excess VBG 4.9 mEq/L; Oxygen Saturation VBG 62.8 %; pH VBG 7.45 (7.36-7.41)
--- NOTE | 2019-10-15 16:55 | XRay Report ---
XR chest 1V portable CLINICAL HISTORY: shortness of breath COMPARISON STUDY: November 2018 FINDINGS: The heart is enlarged. There is a retrocardiac opacity consistent with a hiatal hernia. The re is subtle upper lung zone interstitial thickening, a finding which is likely chronic.. There is no lobar consolidation. There are no pleural effusions. IMPRESSION: 1. Mild cardiomegaly 2. Hiatal hernia 3. Subtle upper lung interstitial thickening a finding which is likely chronic ACT 112: Negative or not required by law. Electronically signed by: Augusto Leyva M.D. 10/15/2019 4:54 PM
[2019-10-15] MEDS: LEVALBUTEROL HCL 1.25 MG/3 ML NEB NEB SCH (20:13)
[2019-10-15] MEDS: SIMVASTATIN 20 MG TAB PO SCH (21:03)
--- NOTE | 2019-10-15 22:07 | Hospitalist Progress Note ---
Date of Service October 15, 2019 Assessment & Plan (1) Asthma: currenlty wheezing. placed round the clock xopenex. if continues will order steroid in the AM. (2) Elevated serum creatinine: Creatinine now much improved from previous, agree with previous provider that this was secondary to fluid loss of volume shift. (3) Hypoxia: Hypoxia is likely secondary to atelectasis, which also account for her cou gh. O2 sat is now 98% on room air, continue to use incentive spirometry. No other sign of acute lung infection at this time. (4) Acute blood loss as cause of postoperative anemia: Mild anemia, likely acute blood loss from surgery. Continue to monitor. 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 (6) GERD (gastroesophageal reflux disease): continue Protonix (7) Depression: continue SSRI Subjective Pleasant 69 yo female who reports she has asthma. She states it is "controlled", however reports having to use short acting inhaler daily for past 2 months. Review of Systems Review of Systems: All systems reviewed & are unremarkable except as noted in HPI & below Physical Exam Physical Exam: Constitutional: cooperative; no acute distress Neck: trachea midline, no thyromegaly Respiratory: normal respiratory effort Auscultation: wheezing bilaterally.; no crackles, no rales, no rhonchi and no wheezes Cardiovascular: Rate/Rhythm: regular rate and regular rhythm Heart Sounds: normal S1, normal S2 and + murmur Gastrointestinal (Abdomen): Inspection/Auscultation: abdomen normal to inspection Somewhat tender to touch. Has abdominal binder on. WAGNER drain since removed. Skin: no rashes, warm and dry Results & Data Vital Signs (Past 12 Hours) Vital Signs Temp Pulse Resp BP Pulse Ox 10/15/19 21:33 87 18 96 10/15/19 19:48 37.3 C 95 H 18 131/76 93 10/15/19 16:07 101 H 18 98 10/15/19 15:30 37.0 C 102 H 18 139/73 97 10/15/19 10:33 99 H 18 97 PG Care Time/CCT Total # of Minutes Spent Total Time Spent with Patient: Total time spent is greater than 50% in coordination of care (as documented) at patient's floor/unit and/or counseling patient: (1) GERD (gastroesophageal reflux disease) Esophagitis presence: esophagitis presence not specified Qualified Code(s): K21.9 - Gastro-esophageal reflux disease without esophagitis (2) Asthma Asthma complication type: unspecified Asthma persistence: unspecified Asthma severity: unspecified severity Qualified Code(s): J45.909 - Unspecified asthma, uncomplicated
[2019-10-16] MEDS: LEVALBUTEROL HCL 1.25 MG/3 ML NEB NEB SCH ×2 (01:07→05:57)
[2019-10-16] MEDS: HEPARIN SOD 5,000 UNIT/0.5 ML VIAL SQ SCH (09:03)
[2019-10-16] MEDS: LANSOPRAZOLE 30 MG SOLTAB NG SCH (09:03)
[2019-10-16] MEDS: MONTELUKAST SOD 5 MG CHEWABLE TAB NG SCH (09:03)
[2019-10-16] MEDS: BUDESONIDE/FORMOTEROL FUMARATE 160/4.5 60 PUFFS/INHALER INH SCH (09:03)
[2019-10-16] MEDS: SERTRALINE HCL 100 MG TABLET PO SCH (09:03)
--- NOTE | 2019-10-16 10:04 | Surgery Progress Note ---
Date of Service October 16, 2019 Assessment & Plan (1) S/P repair of ventral hernia: POD#5 ventral hernia repair doing well from surgical standpoint tolerating diet and having bowel function pain controlled weaned off supplemental O2 this AM; continue to encourage IS & pulmonary toilet anticipate possible discharge today pending medicine clearance Patient has f/u scheduled in surgery clinic next wk for staple removal pt seen & examined Dr. Wesley this AM Subjective Patient states she is feeling well. Tolerating a diet without n/v. Passing flatus and having BM's. Pain manageable. Physical Exam Physical Exam: awake/alert Gastrointestinal (Abdomen): Inspection/Auscultation: + abdominal surgical incision (c/d/i with surgical petey in place); abdomen not distended Percussion/Palpation: abdomen soft Results & Data Vital Signs (Past 12 Hours) Vital Signs Temp Pulse Resp BP Pulse Ox 10/16/19 08:55 98 10/16/19 07:40 36.9 C 94 H 16 151/73 H 99 10/16/19 05:57 81 16 99 10/16/19 01:07 83 16 99 10/15/19 23:21 36.8 C 85 16 106/64 99 PG Care Time/CCT Total # of Minutes Spent Total Time Spent with Patient: Total time spent is greater than 50% in coordination of care (as documented) at patient's floor/unit and/or counseling patient:
[2019-10-16] MEDS ORDERED: AZITHROMYCIN 250 MG TAB PO ONE (10:12)
[2019-10-16] MEDS ORDERED: predniSONE 50 MG TAB PO STA (10:13)
--- NOTE | 2019-10-16 10:58 | Hospitalist Progress Note ---
Date of Service October 16, 2019 Assessment & Plan (1) Asthma: Decreased wheezing. Improved with round the clock xopenex. Ok to discharge patient with steroid taper and azithromycin. Gave patient instructions and she showed understanding. will schedule PCP followup. (2) Elevated serum creatinine: Creatinine now much improved from previous, agree with previous provider that this was secondary to fluid loss of volume shift. (3) Hypoxia: Hypoxia is likely secondary to atelectasis, which also account for her cough. O2 sat is now 98% on room air, continue to use incentive spirometry. No other sign of acute lung infection at this time. (4) Acute blood loss as cause of postoperative anemia: Mild anemia, likely acute blood loss from surgery. Continue to monitor. 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 (6) GERD (gastroesophageal reflux disease): continue Protonix (7) Depression: continue SSRI DVT proph as per primary service. Subjective Patient reports her breathing has improved. She feels well enough for discharge. Review of Systems 2 Review of Systems: All systems reviewed & are unremarkable except as noted in HPI & below Physical Exam Physical Exam: Constitutional: cooperative; no acute distress Neck: trachea midline, no thyromegaly Respiratory: normal respiratory effort Auscultation: decreased wheezing bilaterally.; no crackles, no rales, no rhonchi and no wheezes Cardiovascular: Rate/Rhythm: regular rate and regular rhythm Heart Sounds: normal S1, normal S2 and + murmur Gastrointestinal (Abdomen): Inspection/Auscultation: abdomen normal to inspection Somewhat tender to touch. Has abdominal binder on. WAGNER drain since removed. Skin: no rashes, warm and dry Results & Data Vital Signs (Past 12 Hours) Vital Signs Temp Pulse Resp BP Pulse Ox 10/16/19 08:55 98 10/16/19 07:40 36.9 C 94 H 16 151/73 H 99 10/16/19 05:57 81 16 99 10/16/19 01:07 83 16 99 10/15/19 23:21 36.8 C 85 16 106/64 99 PG Care Time/CCT Total # of Minutes Spent Total Time Spent with Patient: Total time spent is greater than 50% in coordination of care (as documented) at patient's floor/unit and/or counseling patient: (1) Asthma Asthma severity: unspecified severity Asthma persistence: unspecified Asthma complication type: unspecified Qualified Code(s): J45.909 - Unspecified asthma, uncomplicated (2) GERD (gastroesophageal reflux disease) Esophagitis presence: esophagitis presence not specified Qualified Code(s): K21.9 - Gastro-esophageal reflux disease without esophagitis
--- NOTE | 2019-10-16 14:22 | Discharge Summary ---
Date of Service October 16, 2019 Principal Diagnosis Incisional hernia Discharge Exam Gastrointestinal (Abdomen) Inspection/Auscultation: + abdominal surgical incision (clean, dry); abdomen not distended Percussion/Palpation: abdomen soft Discharge Data Allergies Allergy/AdvReac Type Severity Reaction Status Date / Time Penicillins Allergy Intermediate HIVES Verified 10/11/19 05:40 Consultations 10/12/19 14:56 Consult Hospitalist Routine Procedures Performed Operation Date: 10/11/19 07:00 Actual Procedures p Open Incisional Hernia Repair with Compartment Separation and Mesh Reinforcement, Abdominal Lysis of Adhesions(Not Applicable) - Thanh Wesley MD Hospital Course (1) S/P repair of ventral hernia: 69 y/o female with history of perforated diverticulitis now taken to the operating room for incisional hernia repair with mesh and compartment separation. She was transferred to the surgical floor. 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 Johnson was removed on POD 1. Hospitalist was consulted for some hypoxia and history of asthma. Creatine was also elevated briefly post op but returned to normal. She had some bloating which improved and NG was removed on POD 3. Her bowels were moving by day 4 and she was able to begin diet and oral analgesics. She continued to require supplemental oxygen and also had some wheezing. She was started on Xopenex, and was also increasing activity and I.S. By day 5 she was weaned from oxygen and was stable for dis charge on prednisone taper and azithromycin. Pedro drains had been removed by day 4. Total Time Total Time Spent Total Time Spent (In Minutes): 15 Discharge Plan Discharge Items Patient Disposition: Home - Self-Care Reason For Visit: Incisional Hernia Discharge Diagnosis: ventral hernia repair Activity: As commented below Lifting: No more than 10 pounds Bathing Comment: May shower. No soaking in tubs Exercise/Sports: Wait until after follow-up appointment Driving/Machine Use: do not resume driving while taking narcotics for pain Non-emergency contact: Surgeon Call non-emergency contact if: you have any medication questions, your pain is not controlled, you have a fever, your temperature is above 101.5, your wound has increased redness and your wound has increased drainage Follow-up/Referrals: Thanh Wesley MD [Surgeon] - (Call to make an appt in 1 week, or in 2-3 days if you still have a drain) Primo Villanueva MD [Primary Care Provider] - 10/23/19 11:00 am (Please, follow up with Dr. Chloe Murray on TuesdayOctober 23 at 11:00 am. *If you need to change this appointment, call the office at [phone].) Diet: Regular Addtl Attending Provider Instructions: Start antibiotics and prednisone tomorrow per medicine team. Pending Studies at Discharge: No Stand-Alone Forms: My [facility] Medications and DC Order Prescriptions: New oxycodone-acetaminophen [Percocet] 5-325 mg tablet 1 - 2 tab PO Q4H PRN (Reason: pain, initial therapy, max 8 daily) Qty: 15 RF: 0 prednisone 10 mg tablet 10 mg PO UD Qty: 20 RF: 0 azithromycin 250 mg tablet 250 mg PO DAILY 4 Days Qty: 4 RF: 0 Continued neomycin 500 mg tablet 1 gm PO .COMPLEX Qty: 6 RF: 0 metronidazole [Flagyl] 500 mg tablet 500 mg PO .COMPLEX Qty: 3 RF: 0 albuterol sulfate 2.5 mg /3 mL (0.083 %) Solution For Nebulization 2.5 mg INHALATION QID PRN (Reason: Wheezing) RF: 0 Symbicort 160-4.5 mcg/actuation Hfa Aerosol Inhaler 2 puff INHALATION BID RF: 0 pantoprazole 40 mg tablet,delayed release (DR/EC) 40 mg PO BID RF: 0 simvastatin 20 mg tablet 20 mg PO HS RF: 0 montelukast 10 mg tablet 10 mg PO QAM RF: 0 sertraline 100 mg tablet 100 mg PO QAM RF: 0 Discharge Orders: Discharge Order (Routine); Ordered 10/16/19 Ordered By: Anita Corrales Admission Data Admit Date/Time: 10/11/19 09:57 Attending Provider: Thanh Wesley Admit Provider: Thanh Wesley Primary Care Provider: Primo Villanueva Other Providers: Kalyan Gannon ; Trini Pettit ; Radha Fields ; Yunior Alford ; Julito Baldwin ; Jazzy Renae ; Don Smith ; Nikhil Pimentel ; Kilo Ochoa ; Tata Hansen ; Hanh Saunders ; Berna Delarosa ; Skyler Harris ; Angie Murry ; Pavan Tobias ; Nathanael Vazquez ; Trini Buchanan ; Charles Hernadez ; Frances Ramirez ; Minal [place] ; Alex Whitten ; Yunior Schafer ; Trena Brennan ; Na Aguilar ; Jose Alfredo Stern ; Eleno Nunez ; Freddie Phelan ; Romario Reina ; Mo Hernandez ; Rommel Ladd Other Interventions: Discharge Summary Assessment (RN) Last Done: 10/16/19 12:18 DC Date/Time DO NOT enter until pt leaves facility: 10/16/19 12:10
== END 2019-10-16 12:10 | disposition home or self-care (01) | DRG 354 ==
LOC: ASU 05:13 → 3N 09:57

== ENCOUNTER 2023-05-25 15:39 | Inpatient (IN) ==
[2023-05-25] MEDS ORDERED: MoRPHine SULFATE 2 MG/ML CARP IV PRN ×2 (16:06→22:24)
[2023-05-25] MEDS ORDERED: SODIUM CHLORIDE 0.9% 1000ML 1,000 ML IV SCH (16:15)
[2023-05-25] MEDS: MoRPHine SULFATE 4 MG/ML 1 ML CARP\\VIAL IV PRN ×3 (16:17→21:31)
[2023-05-25 16:46] LABS: Basophils # (auto) 0.02 K/uL (0.00-0.20); Basophils % (auto) 0.2 %; Hematocrit (blood only) 42.3 % (37.0-47.0); Hemoglobin 13.8 g/dl (12.0-16.0); Immature Granulocytes # (auto) 0.04 K/uL (0.01-0.20); Immature Granulocytes % (auto) 0.4 %; Lymphocytes # (auto) 1.79 K/uL (1.20-3.40); Lymphocytes % (auto) 19.2 %; Mean Corpuscular Hemoglobin 26.6 pg (25.0-34.0); Mean Corpuscular Hgb Conc 32.6 g/dL (32.0-36.0); Mean Corpuscular Volume 81.5 fL (80.0-100.0); Monocytes % (auto) 8.6 %; Neutrophils # (auto) 6.65 K/uL (1.40-6.50); Neutrophils % (auto) 71.6 %; Platelet Count 210 K/uL (130-400); RDW Coefficient of Variation 14.8 % (11.5-14.5); Red Blood Count 5.19 M/uL (4.20-5.40)
--- NOTE | 2023-05-25 17:00 | XRay Report ---
XR femur RT 2V routine CLINICAL HISTORY: fall TECHNIQUE: 2 radiographic views of the right femur were obtained. Comparison: Comparison is made to CT abdomen pelvis 05/20/2021 FINDINGS: Comminuted right intratrochanteric fracture is seen. Degenerative changes are seen in the hip and kne e joints. Soft tissue swelling is seen. IMPRESSION: Comminuted right intratrochanteric fracture is seen. ACT 112: Negative or not required by law. Electronically signed by: Kilo Mix M.D. 05/25/2023 4:59 PM
[2023-05-25 17:08] LABS: Albumin Globulin Ratio 1.4 (0.9-2); Albumin Level 4.3 gm/dl (3.4-5.0); BUN Creatinine Ratio 24.6 (10-20); Bilirubin,Total 0.6 mg/dl (0.2-1.0); Calcium 9.2 mg/dl (8.6-10.3); Creatinine Clr Calc Pharmacy 40.9 ml/min; Est GFR (African American) 54.5 ml/min; Potassium 4.5 mmol/L (3.5-5.1); Total Protein 7.3 gm/dl (6.0-8.3)
--- NOTE | 2023-05-25 17:13 | XRay Report ---
XR chest 1V portable HISTORY: Right hip and femur pain. Fall. Right hip fracture. fall COMPARISON: Chest and left rib series 03/05/2022. FINDINGS: No pneumothorax. No pleural effusions. There is a large hiatus hernia, unchanged. The heart remains mildly enlarged. No new focal lung consolidations to suggest a pneumonia. No evidence for pu lmonary edema. No acute fractures identified. Left lateral basilar pleural thickening/scarring remain s unchanged IMPRESSION: No significant change compared to the prior study. No acute process. ACT 112: Negative or not required by law. Electronically signed by: Iftikhar Chen M.D. 05/25/2023 5:12 PM
[2023-05-25 17:27] LABS: Partial Thromboplastin Ratio 0.8; Partial Thromboplastin Time 23.6 Seconds (21.0-31.0); Prothrombin Time 11.1 Seconds (9.0-12.0)
[2023-05-25] MEDS ORDERED: ONDANSETRON INJ 2 MG/ML 2 ML VIAL IV PRN (18:03)
[2023-05-25] MEDS ORDERED: ONDANSETRON INJ 2 MG/ML 2 ML VIAL IV STA (18:03)
[2023-05-25] MEDS ORDERED: ONDANSETRON INJ 2 MG/ML 2 ML VIAL ONE (18:04)
[2023-05-25 18:07] LABS: Appearance Urine Clear (Clear); Bilirubin Urine Negative (Negative); Blood Urine Negative (Negative); Color Urine Yellow; Glucose Urine UA Negative (Negative); Ketones Urine Negative (Negative); Leukocyte Esterase Urine Negative (Negative); Nitrite Urine Negative (Negative); Protein Urine Negative (Negative); Specific Gravity Urine 1.018 (1.000-1.030); Urobilinogen Urine Negative (Negative)
--- NOTE | 2023-05-25 18:19 | History & Physical Report ---
Date of Service May 25, 2023 Assessment & Plan (1) Femur fracture, right: Plan: Patient is 73 y/o F with PMH asthma, GERD, David's esophagus, CKD III, osteoporosis presented to ER after mechanical fall and right hip R femur xray: Comminuted right intratrochanteric fracture is seen CXR: no acute infiltrate Bed rest Has Johnson cath in place Tylenol, oxycodone, morphine prn pain NPO midnight Ortho consult. Spoke to Dr Hayes who is aware CBC, BMP in am Patient without h/o CAD, CHF, CVA, DM, severe CKD. Revised Cardiac Risk Index Class I with 3.9% for 30 day risk of [place], cardiac arrest or . Acceptable for surgical procedure (2) Severe persistent asthma: Plan: No signs current exacerbation Continue home inhalers (3) GERD (gastroesophageal reflux disease): Plan: Continue PPI (4) CKD (chronic kidney disease), stage III: Plan: Cr: 1.1. Baseline 1.1-1.2 per outpatient chart review Monitor renal functions, avoid nephrotoxic agents when possible (5) Osteoporosis: Plan: On Reclast DVT Prophylaxis SCDs DNR/DNI as per discussion with pt Follows with Dr Melania Williamson for routine care Pt was seen and care coordinated with Dr Damon. See addendum I spent a total of 75 minutes reviewing notes, outpatient records, labs, medication, coordinating, documenting and providing care for this patient excluding time spent in the performance of separately billed services. History of Present Illness Chief Complaint: fall, hip pain Primary Care Provider: Melania Williamson MD Patient is 73 y/o F with PMH asthma, GERD, David's esophagus, CKD III, osteoporosis presented to ER with complaint of fall and right hip pain. Patient states today was trying to attach her daughter's dog to leash when dog pulled causing patient to fall onto right side. Patient reports instant right hip pain and was unable to get up. Denies leg paresthesias. Denies hitting head, loss consciousness, denies any other known injury. Denies history of prior right hip or extremity injury. Denies fever/chills, diaphoresis, N/V/D/C, LAIRD, dizziness, syncope, neck pain, CP, SOB, orthopnea, palpitations, cough, rhinorrhea, abdominal pain, extremity edema, rashes, urinary symptoms. Allergies Allergy/AdvReac Type Severity Reaction Status Date / Time Penicillins Allergy Intermediate HIVES Verified 05/25/23 16:44 Home Medications Medication Instructions Recorded Confirmed Type albuterol sulfate 2.5 mg/3 mL 2.5 mg inhalation Q6 PRN Wheezing 11/18/18 05/25/23 History (0.083 %) solution for nebulization montelukast 10 mg tablet 10 mg PO QAM 11/18/18 05/25/23 History pantoprazole 40 mg tablet,delayed 40 mg PO AMHS 11/18/18 05/25/23 History release sertraline 100 mg tablet 100 mg PO QAM 11/18/18 05/25/23 History benralizumab 30 mg/mL subcutaneous See Rx Instructions subcut 07/08/20 05/25/23 Rx syringe (Jo) .COMPLEX #1 mL brimonidine 0.15 % eye drops 1 drp OPL QID 05/25/23 05/25/23 History dicyclomine 20 mg tablet 20 mg PO AMHS 05/25/23 05/25/23 History dorzolamide 2 % eye drops 1 drp OPL QID 05/25/23 05/25/23 History fluticasone furoate 100 1 ea inhalation QPM 05/25/23 05/25/23 History mcg-vilanterol 25 mcg/dose inhalation powder (Breo Ellipta) Past Med/Surg History Medical History (Updated 05/25/23 @ 22:54 by Ghazala Winter PA-C) Anxiety Asthma CKD (chronic kidney disease), stage III Colostomy in place Diverticulitis HX GERD (gastroesophageal reflux disease) Hyperlipidemia Osteoporosis Ovarian cyst Surgical History H/O breast surgery LEFT-BENIGN H/O hernia repair Open Incisional Hernia Repair with Compartment Separation and Mesh Reinforcement, Abdominal Lysis of Adhesions Dr. Wesley 10/11/19 H/O tubal ligation History of back surgery LOWER NO METAL History of colectomy History of colonoscopy History of colostomy 11/2018 2/2 RUPTURED BOWEL S/P laparoscopic closure of colostomy: 03/20/19: Grade 2 view with elective glidescope #3, ETT 7.0 at [facility] History of esophagogastroduodenoscopy (EGD) Status post Mary procedure 11/18/18 MAC #3, ETT 7.0, GRADE VIEW III. Note: Patient kept intubated and sedated and she had a large bowel surgery and fluid shifts expected that could affect her respiratory status. Family History Brother Family history of diabetes mellitus Brother Family history of diabetes mellitus Brother Family history of diabetes mellitus Other Family history non-contributory Social History Smoking Status: Never smoker Second Hand Exposure: Yes (PARENTS GROWING UP); Do You Dip or Chew Tobacco: No; Hx Alcohol Use: Yes Alcohol type: wine Hx Substance Use: No Preferred Language: Tristanian Communication Ability: Effective Visual Impairment: No Limitations Imitation Marble Mechanic Required: No Beliefs That Will Affect Care: None marital status: Current Living Situation: Spouse current occupational status: retired Feels Safe at Home: Yes Assistive Devices: None Review of Systems Review of Systems: All systems reviewed & are unremarkable except as noted in HPI & below Physical Exam Physical Exam: General: no distress, WDWN Head: normocephalic, atraumatic Eyes: onjunctiva non-injected, anicteric ENT: normal inspection external ears, nose, mucous membranes moist Neck: supple, trachea midline Lungs: clear, no respiratory distress, no wheezing/rhonchi/rales CV: RRR, no murmur, no pretibial edema Abd: normal BS, soft, non-tender Ext: RLE: +shortened and externally rotated, +tenderness right anterior/lateral hip, distal pulses palpable, sensation to light touch intact. LLE and BUE: without deformity and ROM intact Neuro: A&O x 3, no focal deficits noted, normal affect Skin: warm, dry Results & Data Results & Data Vital Signs (Past 12 Hours) Vital Signs Temp Pulse Pulse Resp BP BP Pulse Ox 05/25/23 17:45 66 20 151/68 H 98 05/25/23 15:55 75 05/25/23 15:47 36.5 C 74 23 186/100 H 98 O2 Del Method 05/25/23 17:45 Room Air 05/25/23 15:55 05/25/23 15:47 Room Air Laboratory Results Short CBC 05/25/23 Range/Units 15:55 WBC 9.30 (4.8-10.8) K/ul Hgb 13.8 (12.0-16.0) g/dl Hct 42.3 (37.0-47.0) % Plt Count 210 (130-400) K/uL BMP 05/25/23 15:55 Sodium 140 Potassium 4.5 Chloride 106 Carbon Dioxide 24 BUN 28 H Creatinine 1.14 Glucose 77 Calcium 9.2 Liver Function 05/25/23 Range/Units 15:55 Total Bilirubin 0.6 (0.2-1.0) mg/dl AST 16 (13-39) U/L ALT 14 (7-52) U/L Alkaline Phosphatase 71 (34-104) U/L Albumin 4.3 (3.4-5.0) gm/dl Urine 05/25/23 Range/Units 17:42 Urine Color Yellow Urine Appearance Clear (Clear) Urine pH 6.0 (4.5-7.5) Ur Specific [place] 1.018 (1.000-1.030) Urine Protein Negative (Negative) Urine Glucose (UA) Negative (Negative) Diagnostic Findings Chest X-Ray 05/25/23 16:07 XR chest 1V portable HISTORY: Right hip and femur pain. Fall. Right hip fracture. fall COMPARISON: Chest and left rib series 03/05/2022. FINDINGS: No pneumothorax. No pleural effusions. There is a large hiatus hernia, unchanged. The heart remains mildly enlarged. No new focal lung consolidations to suggest a pneumonia. No evidence for pulmonary edema. No acute fractures identified. Left lateral basilar pleural thickening/scarring remains unchanged IMPRESSION: No significant change compared to the prior study. No acute process. ACT 112: Negative or not required by law. Electronically signed by: Iftikhar Chen M.D. 05/25/2023 5:12 PM Femur X-Ray 05/25/23 16:07 XR femur RT 2V routine CLINICAL HISTORY: fall TECHNIQUE: 2 radiographic views of the right femur were obtained. Comparison: Comparison is made to CT abdomen pelvis 05/20/2021 FINDINGS: Comminuted right intratrochanteric fracture is seen. Degenerative changes are seen in the hip and knee joints. Soft tissue swelling is seen. IMPRESSION: Comminuted right intratrochanteric fracture is seen. ACT 112: Negative or not required by law. Electronically signed by: Kilo Mix M.D. 05/25/2023 4:59 PM ECG Additional Comments: Per my interpretation: Poor tracing, sinus rhythm, rate 77, no significant ST changes noted Supervising Physician Co-Signing Physician Notes I have seen and discussed the case with the collaborating PAT. I agree with the above H&P. I have reviewed and confirmed the patients medical history, the findings on physical examination, and the patients diagnosis and treatment plan [facility] and agree with the information documented. In short, Ms Pelletier is a 73 year old woman with severe asthma who is presenting after sustaining a fall. Imaging revealed right intertrochanteric fracture. Vital signs stable. Labs without acute metabolic or electrolyte derangement. Physical exam with clear lungs/no wheezing or respiratory distress and right lower extremity shortened/externally rotated, exam limited 2/2 pain. Plan for aggressive pain management, SCDS, and ORTHO consult for operative intervention. Respiratory status appears stable-, will resume home regimen . (1) Femur fracture, right Encounter type: initial encounter Femur location: unspecified portion of femur (3) GERD (gastroesophageal reflux disease) Esophagitis presence: esophagitis presence not specified Qualified Code(s): K21.9 - Gastro-esophageal reflux disease without esophagitis
[2023-05-25] MEDS ORDERED: MoRPHine SULFATE 2 MG/ML CARP IV STA (19:02)
--- NOTE | 2023-05-25 19:46 | Emergency Department Note ---
History of Present Illness General Chief complaint: Fall Time Seen by Provider: 05/25/23 15:52 History of Present Illness Provider complaint: Right hip pain Onset (ago): minute(s) (90) Location: lower extremity and right Radiation: non-radiation Severity: severe Maximum Pain Intensity: 10 Current Pain Intensity: 10 Quality: + stabbing and + sharp 73-year-old female presents emergency department for right hip pain. Patient reports she had a mechanical fall tripping on her daughter's dog at approximately 2:30 PM. She is not on blood thinners. Patient reports she did not hit her head. No loss of consciousness. Patient's reports that her pain is in her right hip and does not radiate. Home Medications Medication Instructions Recorded Confirmed Type albuterol sulfate 2.5 mg/3 mL 2.5 mg inhalation Q6 PRN Wheezing 11/18/18 05/25/23 History (0.083 %) solution for nebulization montelukast 10 mg tablet 10 mg PO QAM 11/18/18 05/25/23 History pantoprazole 40 mg tablet,delayed 40 mg PO AMHS 11/18/18 05/25/23 History release sertraline 100 mg tablet 100 mg PO QAM 11/18/18 05/25/23 History benralizumab 30 mg/mL subcutaneous See Rx Instructions subcut 07/08/20 05/25/23 Rx syringe (Fasenra) .COMPLEX #1 mL brimonidine 0.15 % eye drops 1 drp OPL QID 05/25/23 05/25/23 History dicyclomine 20 mg tablet 20 mg PO AMHS 05/25/23 05/25/23 History dorzolamide 2 % eye drops 1 drp OPL QID 05/25/23 05/25/23 History fluticasone furoate 100 1 ea inhalation QPM 05/25/23 05/25/23 History mcg-vilanterol 25 mcg/dose inhalation powder (Breo Ellipta) Allergies Allergy/AdvReac Type Severity Reaction Status Date / Time Penicillins Allergy Intermediate HIVES Verified 05/25/23 16:44 Past Med/Surg History Medical History (Updated 05/25/23 @ 19:58 by Chalo Villegas MD) Anxiety Asthma Colostomy in place Diverticulitis HX GERD (gastroesophageal reflux disease) Hyperlipidemia Ovarian cyst Surgical History H/O breast surgery LEFT-BENIGN H/O hernia repair Open Incisional Hernia Repair with Compartment Separation and Mesh Reinforcement, Abdominal Lysis of Adhesions Dr. Wesley 10/11/19 H/O tubal ligation History of back surgery LOWER NO METAL History of colectomy History of colonoscopy History of colostomy 11/2018 2 RUPTURED BOWEL S/P laparoscopic closure of colostomy: 03/20/19: Grade 2 view with elective glidescope #3, ETT 7.0 at [facility] History of esophagogastroduodenoscopy (EGD) Status post Mary procedure 11/18/18 MAC #3, ETT 7.0, GRADE VIEW III. Note: Patient kept intubated and sedated and she had a large bowel surgery and fluid shifts expected that could affect her respiratory status. Family History Brother Family history of diabetes mellitus Brother Family history of diabetes mellitus Brother Family history of diabetes mellitus Other Family history non-contributory Social History Smoking Status: Never smoker Second Hand Exposure: Yes (PARENTS GROWING UP); Do You Dip or Chew Tobacco: No; Hx Alcohol Use: Yes Alcohol type: wine Hx Substance Use: No Preferred Language: Khmer Communication Ability: Effective Visual Impairment: No Limitations Herbarium Curator Required: No Beliefs That Will Affect Care: None marital status: Current Living Situation: Spouse current occupational status: retired Feels Safe at Home: Yes Assistive Devices: None Physical Exam Vital Signs Vital Signs - 24 hr 05/25/23 15:47 05/25/23 15:55 05/25/23 17:45 Temperature 36.5 C Temperature Source Oral Pulse Rate 74 75 Pulse Rate [Apical] 66 Pulse Rhythm Regular Pulse Strength Normal Respiratory Rate 23 20 Respiratory Effort / Characteristics Non-Labored Spontaneous Respiratory Depth Normal Respiratory Pattern Regular Blood Pressure 186/100 H Blood Pressure [Left Arm] 151/68 H Blood Pressure Mean 128 Blood Pressure Mean [Left Arm] 95 Blood Pressure Position Lying Pulse Oximetry 98 98 Oxygen Delivery Method Room Air Room Air Sepsis Recent Fever Within 48 Hours No Sepsis New/Unexplained Change in Mental Status No Sepsis Action Taken by Nursing No Action Required 05/25/23 19:00 Temperature Temperature Source Pulse Rate Pulse Rate [Apical] 70 Pulse Rhythm Pulse Strength Respiratory Rate 17 Respiratory Effort / Characteristics Non-Labored Spontaneous Respiratory Depth Normal Respiratory Pattern Regular Blood Pressure Blood Pressure [Left Arm] 152/69 H Blood Pressure Mean Blood Pressure Mean [Left Arm] 96 Blood Pressure Position Pulse Oximetry 97 Oxygen Delivery Method Room Air Sepsis Recent Fever Within 48 Hours Sepsis New/Unexplained Change in Mental Status Sepsis Action Taken by Nursing Physical Exam HENT: Exam performed. -Head: Normocephalic and atraumatic. EYES: Conjunctivae and EOM are normal. Pupils are equal, round, and reactive to light. Right eye exhibits no discharge. Left eye exhibits no discharge. No scleral icterus. NECK: Normal range of motion. Neck supple. No JVD present. No spinous process tenderness present. CV: Normal rate, regular rhythm, normal heart sounds and intact distal pulses. There is no peripheral edema. Palpable radial pulses bue. PULM/CHEST: Effort normal and breath sounds normal. No respiratory distress. No stridor. She has no wheezes. She has no rales. ABD: The abdomen is soft. There is no tenderness. There is no rebound, no guarding. MUSC/SKEL: Pain on palpation of the right hip. Right lower extremity is shortened and externally rotated. NEURO: She is alert and oriented to person, place, and time. No cranial nerve deficit or sensory deficit. GCS eye subscore is 4. GCS verbal subscore is 5. GCS motor subscore is 6. SKIN: Skin is warm and dry. She is not diaphoretic. Course Course 1552: The patient was evaluated in room B11A. A complete history and physical exam was performed Administered Medications Sodium Chloride (Nss 1000ml) 1,000 mls @ 75 mls/hr IV .[id number] [facility] Stop: 05/26/23 05:34 Last Admin: 05/25/23 16:32 Dose: 75 mls/hr Documented By: ML Morphine Sulfate (Morphine Sulfate 4 Mg/Ml 1 Ml Carp\Vial) 4 mg IV Q1H PRN PRN Reason: Severe Pain (Rating 7,8,9,10) Stop: 06/08/23 16:05 Last Admin: 05/25/23 17:30 Dose: 4 mg Documented By: Admin: 05/25/23 16:17 Dose: 4 mg Documented By: ML Discontinued Medications Morphine Sulfate (Morphine Sulfate 2 Mg/Ml Carp) 2 mg IV NOW STA Stop: 05/25/23 19:03 Last Admin: 05/25/23 19:10 Dose: 2 mg Documented By: VIH Ondansetron HCl (Ondansetron Inj 2 Mg/Ml 2 Ml Vial) 4 mg IV NOW STA Stop: 05/25/23 18:04 Last Admin: 05/25/23 18:10 Dose: 4 mg Documented By: ML Ondansetron HCl (Ondansetron Inj 2 Mg/Ml 2 Ml Vial) Confirm Administered Dose 4 mg .ROUTE .STK-MED ONE Stop: 05/25/23 18:05 Last Admin: 05/25/23 18:10 Dose: Not Given Documented By: ALEX Medical Decision Making Laboratory Data Attestation: I reviewed the patient's lab results. 05/25/23 15:55 05/25/23 15:55 Lab Results 05/25/23 05/25/23 05/25/23 Range/Units 15:55 15:55 16:20 WBC 9.30 (4.8-10.8) K/ul RBC 5.19 (4.20-5.40) M/uL Hgb 13.8 (12.0-16.0) g/dl Hct 42.3 (37.0-47.0) % MCV 81.5 (80.0-100.0) fL MCH 26.6 (25.0-34.0) pg MCHC 32.6 (32.0-36.0) g/dL RDW Std Deviation 44.0 (36.4-46.3) fL RDW Coeff of Guera 14.8 H (11.5-14.5) % Plt Count 210 (130-400) K/uL MPV 9.0 L (9.4-12.4) fL Immature Gran % (Auto) 0.4 % Neut % (Auto) 71.6 % Lymph % (Auto) 19.2 % [place] % (Auto) 8.6 % Eos % (Auto) 0.0 % Baso % (Auto) 0.2 % Neut # (Auto) 6.65 H (1.40-6.50) K/uL Lymph # (Auto) 1.79 (1.20-3.40) K/uL [place] # (Auto) 0.80 H (0.11-0.59) K/uL Eos # (Auto) 0.00 (0.00-0.50) K/uL Baso # (Auto) 0.02 (0.00-0.20) K/uL Immature Gran # (Auto) 0.04 (0.01-0.20) K/uL PT 11.1 (9.0-12.0) Seconds INR 1.0 (0.9-1.1) APTT 23.6 (21.0-31.0) Seconds PTT Ratio 0.8 Sodium 140 (136-145) mmol/L Potassium 4.5 (3.5-5.1) mmol/L Chloride 106 (98-107) mmol/L Carbon Dioxide 24 (21-32) mmol/L Anion Gap 10 (3-11) BUN 28 H (6-23) mg/dl Creatinine 1.14 (0.6-1.2) mg/dl Est Cr Clr Drug Dosing 40.9 ml/min Est GFR ( Amer) 54.5 ml/min Est GFR (Non-Af Amer) 47.0 ml/min BUN/Creatinine Ratio 24.6 H (10-20) Glucose 77 (70-99(Fasting)) mg/dl Calcium 9.2 (8.6-10.3) mg/dl Total Bilirubin 0.6 (0.2-1.0) mg/dl AST 16 (13-39) U/L ALT 14 (7-52) U/L Alkaline Phosphatase 71 (34-104) U/L Total Protein 7.3 (6.0-8.3) gm/dl Albumin 4.3 (3.4-5.0) gm/dl Globulin 3.0 (2.5-4.0) gm/dl Albumin/Globulin Ratio 1.4 (0.9-2) Urine Color Urine Appearance (Clear) Urine pH (4.5-7.5) Ur Specific [place] (1.000-1.030) Urine Protein (Negative) Urine Glucose (UA) (Negative) Urine Ketones (Negative) Urine Blood (Negative) Urine Nitrite (Negative) Urine Bilirubin (Negative) Urine Urobilinogen (Negative) Ur Leukocyte Esterase (Negative) 05/25/23 Range/Units 17:42 WBC (4.8-10.8) K/ul RBC (4.20-5.40) M/uL Hgb (12.0-16.0) g/dl Hct (37.0-47.0) % MCV (80.0-100.0) fL MCH (25.0-34.0) pg MCHC (32.0-36.0) g/dL RDW Std Deviation (36.4-46.3) fL RDW Coeff of [place]era (11.5-14.5) % Plt Count (130-400) K/uL MPV (9.4-12.4) fL Immature Gran % (Auto) % Neut % (Auto) % Lymph % (Auto) % [place] % (Auto) % Eos % (Auto) % Baso % (Auto) % Neut # (Auto) (1.40-6.50) K/uL Lymph # (Auto) (1.20-3.40) K/uL [place] # (Auto) (0.11-0.59) K/uL Eos # (Auto) (0.00-0.50) K/uL Baso # (Auto) (0.00-0.20) K/uL Immature Gran # (Auto) (0.01-0.20) K/uL PT (9.0-12.0) Seconds INR (0.9-1.1) APTT (21.0-31.0) Seconds PTT Ratio Sodium (136-145) mmol/L Potassium (3.5-5.1) mmol/L Chloride (98-107) mmol/L Carbon Dioxide (21-32) mmol/L Anion Gap (3-11) BUN (6-23) mg/dl Creatinine (0.6-1.2) mg/dl Est Cr Clr Drug Dosing ml/min Est GFR ( Amer) ml/min Est GFR (Non-Af Amer) ml/min BUN/Creatinine Ratio (10-20) Glucose (70-99(Fasting)) mg/dl Calcium (8.6-10.3) mg/dl Total Bilirubin (0.2-1.0) mg/dl AST (13-39) U/L ALT (7-52) U/L Alkaline Phosphatase (34-104) U/L Total Protein (6.0-8.3) gm/dl Albumin (3.4-5.0) gm/dl Globulin (2.5-4.0) gm/dl Albumin/Globulin Ratio (0.9-2) Urine Color Yellow Urine Appearance Clear (Clear) Urine pH 6.0 (4.5-7.5) Ur Specific [place] 1.018 (1.000-1.030) Urine Protein Negative (Negative) Urine Glucose (UA) Negative (Negative) Urine Ketones Negative (Negative) Urine Blood Negative (Negative) Urine Nitrite Negative (Negative) Urine Bilirubin Negative (Negative) Urine Urobilinogen Negative (Negative) Ur Leukocyte Esterase Negative (Negative) Imaging Data Attestation: I personally reviewed and interpreted this imaging study as follows: My Impression: Femur x-ray: Right-sided femur fracture Radiologist's Impression: Chest X-Ray 05/25/23 16:07 XR chest 1V portable HISTORY: Right hip and femur pain. Fall. Right hip fracture. fall COMPARISON: Chest and left rib series 03/05/2022. FINDINGS: No pneumothorax. No pleural effusions. There is a large hiatus hernia, unchanged. The heart remains mildly enlarged. No new focal lung consolidations to suggest a pneumonia. No evidence for pulmonary edema. No acute fractures identified. Left lateral basilar pleural thickening/scarring remains unchanged IMPRESSION: No significant change compared to the prior study. No acute process. ACT 112: Negative or not required by law. Electronically signed by: Iftikhar Chen M.D. 05/25/2023 5:12 PM Femur X-Ray 05/25/23 16:07 XR femur RT 2V routine CLINICAL HISTORY: fall TECHNIQUE: 2 radiographic views of the right femur were obtained. Comparison: Comparison is made to CT abdomen pelvis 05/20/2021 FINDINGS: Comminuted right intratrochanteric fracture is seen. Degenerative changes are seen in the hip and knee joints. Soft tissue swelling is seen. IMPRESSION: Comminuted right intratrochanteric fracture is seen. ACT 112: Negative or not required by law. Electronically signed by: Kilo Mix M.D. 05/25/2023 4:59 PM ECG Data Attestation: I personally reviewed and interpreted this ECG as follows: Rate (beats per minute): 78 Rhythm: + normal sinus ECG Intervals/blocks: + Normal NV and + Normal QT-c ECG ST segments: + Normal ST segments Additional Comments: QRS 74 MDM Narrative Vital signs stable. Imaging shows right-sided hip fracture. Patient will be admitted to the medicine team with orthopedics on-call Dr. Hayes on consult. Spoke with Bharti who stated to admit to Dr. Damon. Impression & Plan Femur fracture, right Discharge Plan Visit Data Chief Complaint: Fall ED Provider: Chalo Villegas Discharge Problem: Femur fracture, right Patient Disposition: Admitted As Inpatient Forms Stand Alone Forms: [facility] [place] [employer] Prescriptions Prescriptions: No Action Fasenra 30 mg/mL syringe See Rx Instructions subcut .COMPLEX Qty: 1 11RF Rx Instructions: 30mg SQ every 4 weeks x 3 doses, then 30mg sq every 8 weeks Buy and Bill albuterol sulfate 2.5 mg /3 mL (0.083 %) Solution For Nebulization 2.5 mg INHALATION Q6 PRN (Reason: Wheezing) pantoprazole 40 mg tablet,delayed release (DR/EC) 40 mg PO AMHS montelukast 10 mg tablet 10 mg PO QAM sertraline 100 mg tablet 100 mg PO QAM dicyclomine 20 mg tablet 20 mg PO AMHS fluticasone furoate-vilanterol [Breo Ellipta] 100-25 mcg/dose blister with device 1 ea INHALATION QPM dorzolamide 2 % drops 1 drp OPL QID brimonidine 0.15 % drops 1 drp OPL QID Referrals Referrals: Melania Williamson MD [Primary Care Provider] -
[2023-05-25] MEDS ORDERED: MAGNESIUM HYDROXIDE SUSP 30 ML UDC PO PRN (22:24)
[2023-05-25] MEDS ORDERED: ALBUTEROL 0.083% NEBU SOLN 3 ML VIAL NEB PRN (22:24)
[2023-05-25] MEDS ORDERED: bisacodyL 10 MG SUPP PR PRN (22:24)
[2023-05-25] MEDS ORDERED: NALOXONE HCL 0.4 MG/1 ML VIAL/CARP IV PRN (22:24)
[2023-05-25] MEDS ORDERED: oxyCODONE HCL IR 5 MG TAB (IMMEDIATE RELEASE) PO PRN (22:24)
[2023-05-25] MEDS ORDERED: LACTATED RINGER'S 1,000 ML IV SCH (23:00)
[2023-05-25] MEDS: oxyCODONE HCL IR 5 MG TAB (IMMEDIATE RELEASE) PO PRN (23:05)
[2023-05-25] MEDS: DORZOLAMIDE HCL 2% OPH SOLN 10 ML BTL OPL SCH (23:06)
[2023-05-25] MEDS: FLUTICASONE/VILANTEROL 100/25MCG 14 PUFFS/INHALER INH SCH (23:07)
[2023-05-25] MEDS: BRIMONIDINE TARTRATE-P 0.15% 5 ML BTL OPL SCH (23:07)
[2023-05-25] MEDS: DICYCLOMINE HCL 20 MG TAB PO SCH (23:07)
[2023-05-25] MEDS: PANTOprazole 40 MG TAB PO SCH (23:08)
[2023-05-26] MEDS ORDERED: 600mg Preop IV SCH (06:00)
[2023-05-26] MEDS ORDERED: CLINDAMYCIN/D5W 900 MG/50 ML BAG IV SCH (06:00)
[2023-05-26] MEDS ORDERED: 300mg Preop IV SCH (06:00)
[2023-05-26] MEDS: MoRPHine SULFATE 4 MG/ML 1 ML CARP\\VIAL IV PRN ×2 (06:04→12:57)
--- NOTE | 2023-05-26 06:15 | Orthopedic Consultation ---
Date of Service May 26, 2023 Assessment & Plan (1) Femur fracture, right: I discussed the diagnosis and treatment options with her at bedside. I recommended intramedullary nail fixation of her right hip. She understands the risk, benefits, and alternatives to procedures elected proceed. Questions were answered at bedside. She is currently NPO. She was placed on the operative schedule for later today. History of Present Illness Reason for Consultation: Right intertrochanteric hip fracture. Requesting Physician: . Attending Physician: Fide Damon MD Ankita is a pleasant 73-year-old female who is a community ambulator without assistance. She lives in a single house with her . She was taking her daughter's cat out yesterday when she fell directly onto her right hip. She had immediate right hip pain. She came to the emergency room and radiographs demonstrated an intertrochanteric right hip fracture. She was admitted to the medical service. Orthopedics was consulted to evaluate and treat.. Allergies Allergy/AdvReac Type Severity Reaction Status Date / Time Penicillins Allergy Intermediate HIVES Verified 05/25/23 16:44 Home Medications Medication Instructions Recorded Confirmed Type albuterol sulfate 2.5 mg/3 mL 2.5 mg inhalation Q6 PRN Wheezing 11/18/18 05/25/23 History (0.083 %) solution for nebulization montelukast 10 mg tablet 10 mg PO QAM 11/18/18 05/25/23 History pantoprazole 40 mg tablet,delayed 40 mg PO AMHS 11/18/18 05/25/23 History release sertraline 100 mg tablet 100 mg PO QAM 11/18/18 05/25/23 History benralizumab 30 mg/mL subcutaneous See Rx Instructions subcut 07/08/20 05/25/23 Rx syringe (Fasenra) .COMPLEX #1 mL brimonidine 0.15 % eye drops 1 drp OPL QID 05/25/23 05/25/23 History dicyclomine 20 mg tablet 20 mg PO AMHS 05/25/23 05/25/23 History dorzolamide 2 % eye drops 1 drp OPL QID 05/25/23 05/25/23 History fluticasone furoate 100 1 ea inhalation QPM 05/25/23 05/25/23 History mcg-vilanterol 25 mcg/dose inhalation powder (Breo Ellipta) Past Med/Surg History Medical History Anxiety Asthma CKD (chronic kidney disease), stage III Colostomy in place Diverticulitis HX GERD (gastroesophageal reflux disease) Hyperlipidemia Osteoporosis Ovarian cyst Surgical History H/O breast surgery LEFT-BENIGN H/O hernia repair Open Incisional Hernia Repair with Compartment Separation and Mesh Reinforcement, Abdominal Lysis of Adhesions Dr. Wesley 10/11/19 H/O tubal ligation History of back surgery LOWER NO METAL History of colectomy History of colonoscopy History of colostomy 11/2018 RUPTURED BOWEL S/P laparoscopic closure of colostomy: 03/20/19: Grade 2 view with elective glidescope #3, ETT 7.0 at [facility] History of esophagogastroduodenoscopy (EGD) Status post Mary procedure 11/18/18 MAC #3, ETT 7.0, GRADE VIEW III. Note: Patient kept intubated and sedated and she had a large bowel surgery and fluid shifts expected that could affect her respiratory status. 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 Physical Exam On physical examination of the right hip, her right leg is shortened and externally rotated. She has a lot of pain with logroll of the right hip. There are no abrasions, lesions, or lacerations of the skin.. Constitutional WD/WN, vitals as above Eyes PERRL, conjunctivae normal, anicteric sclerae ENMT external ear and nose normal, oropharynx normal Neck trachea midline, no thyromegaly Respiratory normal respiratory effort, lungs clear to auscultation Cardiovascular RRR, no murmur, no edema Gastrointestinal (Abdomen) normal bowel sounds, soft, nontender, no hepatosplenomegaly Skin no rashes, warm and dry Psychiatric A+Ox3, euthymic affect Results & Data Results & Data Laboratory Results . Diagnostic Findings X-rays of the right hip do show a displaced intertrochanteric right hip fracture.. PG Care Time/CCT Total # of Minutes Spent Total Time Spent with Patient: Total time spent is greater than 50% in coordination of care (as documented) at patient's floor/unit and/or counseling patient: Coding Level of Care Code 85314 IN/OBS CONSULT LVL 4,60M (57 - DECISION FOR SURGERY) Diagnoses Femur fracture, right [id number] Encounter type: initial encounter Femur location: unspecified portion of femur (1) Femur fracture, right Encounter type: initial encounter Femur location: unspecified portion of femur
[2023-05-26 06:27] LABS: Hematocrit (blood only) 37.3 % (37.0-47.0); Hemoglobin 12.1 g/dl (12.0-16.0); Mean Corpuscular Hemoglobin 26.8 pg (25.0-34.0); Mean Corpuscular Hgb Conc 32.4 g/dL (32.0-36.0); Mean Corpuscular Volume 82.7 fL (80.0-100.0); Platelet Count 162 K/uL (130-400); RDW Coefficient of Variation 15.1 % (11.5-14.5); RDW Standard Deviation 45.9 fL (36.4-46.3); Red Blood Count 4.51 M/uL (4.20-5.40); White Blood Count 7.34 K/ul (4.8-10.8)
[2023-05-26 06:46] LABS: BUN Creatinine Ratio 24.2 (10-20); Calcium 7.8 mg/dl (8.6-10.3); Creatinine Clr Calc Pharmacy 51.3 ml/min; Est GFR (African American) 71.5 ml/min; Est GFR (Non-African American) 61.7 ml/min; Potassium 4.3 mmol/L (3.5-5.1)
[2023-05-26] MEDS: oxyCODONE HCL IR 5 MG TAB (IMMEDIATE RELEASE) PO PRN (09:32)
[2023-05-26] MEDS: BRIMONIDINE TARTRATE-P 0.15% 5 ML BTL OPL SCH ×4 (09:34→20:57)
[2023-05-26] MEDS: SERTRALINE HCL 100 MG TABLET PO SCH (09:35)
[2023-05-26] MEDS: PANTOprazole 40 MG TAB PO SCH ×2 (09:35→20:57)
[2023-05-26] MEDS: MONTELUKAST SODIUM 10 MG TABLET PO SCH (09:36)
[2023-05-26] MEDS: DICYCLOMINE HCL 20 MG TAB PO SCH ×2 (09:36→20:56)
[2023-05-26] MEDS: DORZOLAMIDE HCL 2% OPH SOLN 10 ML BTL OPL SCH ×4 (09:38→20:58)
[2023-05-26] MEDS ORDERED: LACTATED RINGER'S 1,000 ML IV SCH (12:15)
[2023-05-26] MEDS ORDERED: BUPIVACAINE/EPINEPHRINE 0.5% MPF 1:200,000 30 ML VIAL ONE (13:42)
[2023-05-26] MEDS ORDERED: fentaNYL citrate PF 100 MCG/2 ML VIAL ONE ×2 (14:05→16:03)
[2023-05-26] MEDS ORDERED: ONDANSETRON INJ 2 MG/ML 2 ML VIAL ONE (14:09)
[2023-05-26] MEDS ORDERED: PROPOFOL IV EMULSION 10 MG/ML 20 ML VIAL IV ONE (14:09)
[2023-05-26] MEDS ORDERED: LIDOCAINE 2% 2 ML VIAL/AMP(20MG/ML) INFIL ONE (14:09)
[2023-05-26] MEDS ORDERED: DEXAMETHASONE SOD INJ 4 MG/ML VIAL ONE (14:09)
--- NOTE | 2023-05-26 14:29 | History & Physical Bridge Note ---
Date of Service May 26, 2023 History & Physical Bridge Note I have examined the patient, reviewed the History & Physical and in the interval since the performance of the History & Physical I have noted the following changes of clinical significance: no changes noted. I discussed the case with Dr. Hayes. We are in agreement to proceed today with surgery. I reviewed the risks, benefits, and typical treatment plan for the right hip intertrochanteric fracture. Patient was agreeable to to proceed with surgery today, as recommended by both me and Dr. Hayes. Informed consent was performed in the preoperative holding area for right hip open or close reduction and internal fixation with a long trochanteric fixation nail.
--- NOTE | 2023-05-26 14:29 | Hospitalist Progress Note ---
Date of Service May 26, 2023 Assessment & Plan (1) Femur fracture, right: Plan 73 y/o F with PMH of asthma, GERD, David's esophagus, CKD III, osteoporosis presented to ER 05/25 after mechanical fall and right hip pain. She is being managed for the following: Femur fracture, right: Likely Age-related osteoporotic intratrochanteric fracture of right femur R femur xray: Comminuted right intratrochanteric fracture is seen CXR: no acute infiltrate. EKG NSR. Bed rest, Has Johnson cath in place Tylenol, oxycodone, morphine prn pain NPO for possible OR, can resume diet after OR. Ortho on board, appreciate recs. follow labs, HnH. Patient without h/o CAD, CHF, CVA, DM, severe CKD. Revised Cardiac Risk Index Class I with 3.9% for 30 day risk of [place], cardiac arrest or . Acceptable for surgical procedure Severe persistent asthma: No signs current exacerbation. Continue home inhalers. GERD (gastroesophageal reflux disease): Continue PPI CKD (chronic kidney disease), stage III: Baseline 1.1-1.2 per outpatient chart review. Monitor renal functions, avoid nephrotoxic agents when possible Osteoporosis: On Reclast DVT Prophylaxis: SCDs, Chemo Px after OR per Ortho recs. DNR/DNI Follows with Dr Melania Williamson for routine care Admission and Anticipated Discharge Date Admission Date: May 25, 2023 Subjective Patient seen and examined at bedside as a follow-up of right femur fracture. Patient was lying in bed, on room air, NAD, reports pain under control at right hip, is n.p.o. for possible OR today, can resume diet after the OR, denies any fever or chills or headache or dizziness or chest pain. Physical Exam Physical Exam: GENERAL: Alert and oriented x3. NAD, on RA. HEENT: No pallor, no icterus. Pupils equal, round and reactive to light. Oral mucosa moist. NECK: No JVD, no neck masses. HEART: S1 and S2 heard. Regular rate and rhythm. No murmur, no gallop. RESPIRATORY SYSTEM: Normal AP diameter. No accessory muscle use. No wheezing, no crackles. ABDOMEN: Soft, bowel sounds present, nontender, no distention. CENTRAL NERVOUS SYSTEM: No facial droop. Speech is clear. Obeys simple commands. Moves extremities. EXTREMITIES: No edema, no erythema seen. Rt hip - tender, painful rom. distal NV status wnl. Urinary catheter in situ with yellow urine collection noted in the bag. Results & Data Results & Data Vital Signs (Past 12 Hours) Vital Signs Temp Pulse Resp BP Pulse Ox O2 Del Method 05/26/23 13:57 37.8 C H 90 22 148/68 H 91 Room Air 05/26/23 07:02 36.7 C 80 18 119/55 L 91 Room Air (1) Femur fracture, right Encounter type: initial encounter Femur location: unspecified portion of femur
[2023-05-26] MEDS ORDERED: SODIUM CHLORIDE 0.9% PF INJ 10 ML VIAL ONE (15:09)
[2023-05-26] MEDS ORDERED: ePHEDrine sulfate 50 MG/ML AMP ONE (15:09)
[2023-05-26] MEDS ORDERED: PHENYLEPHRINE HCL 10 MG/ML VIAL ONE (15:24)
[2023-05-26] MEDS ORDERED: ALBUTEROL HFA 8 GM INHALER INH ONE (15:26)
[2023-05-26] MEDS ORDERED: ONDANSETRON INJ 2 MG/ML 2 ML VIAL IV PRN (15:29)
[2023-05-26] MEDS ORDERED: ePHEDrine sulfate 50 MG/ML AMP IV PRN (15:29)
[2023-05-26] MEDS ORDERED: ATROPINE SULFATE 0.1 MG/ML 10ML SYR IV PRN (15:29)
[2023-05-26] MEDS ORDERED: fentaNYL citrate PF 100 MCG/2 ML VIAL IV PRN (15:29)
--- NOTE | 2023-05-26 15:29 | Anesthesiology Consultation ---
Date of Service May 26, 2023 Assessment & Plan Chart Review Chart Review: Acceptable Risk for Surgery and Patient NOT seen in Pre Admission Testing Consults Requested none ASA ASA2 Proposed Anesthesia Anesthesia Type: General Risk / Benefits Reviewed With: PT / POA / Parent / Guardian, Accepts Plan and Informed Consent Obtained History Surgery Operation Date: 05/26/23 08:20 Proposed Procedures p Right Hip Intramedullary Trochanteric Nail - Gary Rao MD Height/Weight Height: 5 ft 3 in Weight: 73.5 kg Allergies Allergy/AdvReac Type Severity Reaction Status Date / Time Penicillins Allergy Intermediate HIVES Verified 05/25/23 16:44 Medications Home Medications Medication Instructions Recorded Confirmed Last Taken albuterol sulfate 2.5 mg/3 mL 2.5 mg inhalation Q6 PRN Wheezing 11/18/18 05/25/23 Unknown (0.083 %) solution for nebulization montelukast 10 mg tablet 10 mg PO QAM 11/18/18 05/25/23 10/11/19 04:20 pantoprazole 40 mg tablet,delayed 40 mg PO AMHS 11/18/18 05/25/23 10/11/19 04:20 release sertraline 100 mg tablet 100 mg PO QAM 11/18/18 05/25/23 10/11/19 04:20 benralizumab 30 mg/mL subcutaneous See Rx Instructions subcut 07/08/20 05/25/23 05/23/23 syringe (Fasenra) .COMPLEX #1 mL brimonidine 0.15 % eye drops 1 drp OPL QID 05/25/23 05/25/23 Unknown dicyclomine 20 mg tablet 20 mg PO AMHS 05/25/23 05/25/23 Unknown dorzolamide 2 % eye drops 1 drp OPL QID 05/25/23 05/25/23 Unknown fluticasone furoate 100 1 ea inhalation QPM 05/25/23 05/25/23 Unknown mcg-vilanterol 25 mcg/dose inhalation powder (Breo Ellipta) Active Medications Generic Name Dose Route Start Last Admin Trade Name Freq PRN Reason Stop Dose Admin Brimonidine Tartrate 1 drops 05/25/23 22:24 05/26/23 13:41 Brimonidine Tartrate-P 0.15% 5 Ml Btl OPL 06/24/23 22:23 1 drops QID MIRELA Administration Dicyclomine HCl 20 mg 05/25/23 22:24 05/26/23 09:36 Dicyclomine Hcl 20 Mg Tab PO 06/24/23 22:23 20 mg AMHS MIRELA Administration Dorzolamide HCl 1 drops 05/25/23 22:24 05/26/23 13:41 Dorzolamide Hcl 2% Oph Soln 10 Ml Btl OPL 06/24/23 22:23 1 drops QID IMRELA Administration Fluticasone/Vilanterol 1 puffs 05/25/23 22:24 05/25/23 23:07 Fluticasone/Vilanterol 100/25mcg 14 Puffs/Inhaler INH 06/24/23 22:23 1 puffs QPM MIRELA Administration Clindamycin Phosphate 300 mg in 50 mls @ 100 mls/hr 05/26/23 06:00 05/26/23 14:29 Cleocin/D5w IV 05/26/23 18:00 100 mls/hr TODAY@0600 MIRELA Administration Clindamycin Phosphate 600 mg in 50 mls @ 100 mls/hr 05/26/23 06:00 05/26/23 14:29 Cleocin/D5w IV 05/26/23 18:00 100 mls/hr TODAY@0600 MIRELA Administration Lactated Ringer's 1,000 mls @ 80 mls/hr 05/26/23 12:15 05/26/23 13:46 Lr IV 05/27/23 13:14 0 mls/hr .[id number] MIRELA Infusion Montelukast Sodium 10 mg 05/26/23 09:00 05/26/23 09:36 Montelukast Sodium 10 Mg Tablet PO 06/25/23 08:59 10 mg QAM MIRELA Administration Morphine Sulfate 4 mg 05/25/23 22:24 05/26/23 12:57 Morphine Sulfate 4 Mg/Ml 1 Ml Carp\Vial IV 06/08/23 22:23 4 mg Q3H PRN Administration Pain (6,7,8,9,10) Oxycodone HCl 10 mg 05/25/23 22:24 05/26/23 09:32 Oxycodone Hcl Ir 5 Mg Tab (Immediate Release) PO 06/08/23 22:23 10 mg Q4H PRN Administration SEVERE Pain (7,8,9,10) Pantoprazole Sodium 40 mg 05/25/23 22:24 05/26/23 09:35 Pantoprazole 40 Mg Tab PO 06/24/23 22:23 40 mg AMHS MIRELA Administration Sertraline HCl 100 mg 05/26/23 09:00 05/26/23 09:35 Sertraline Hcl 100 Mg Tablet PO 06/25/23 08:59 100 mg QAM MIRELA Administration NPO Date Last Intake of Fluids: 05/25/23 Time Last Intake of Fluids: 12:00 Last Intake of Fluids Comment: sip of water 15 w/med Date Last Intake of Solids: 05/25/23 Time Last Intake of Solids: 12:00 Past Medical History Medical History Anxiety Asthma CKD (chronic kidney disease), stage III Colostomy in place Diverticulitis HX GERD (gastroesophageal reflux disease) Hyperlipidemia Osteoporosis Ovarian cyst Exercise / Class Metabolic Activity II 4-5 Yardwork/Stairs/Walk up hill Past Family History Family History Brother Family history of diabetes mellitus Brother Family history of diabetes mellitus Brother Family history of diabetes mellitus Other Family history non-contributory Past Surgical History Surgical History H/O breast surgery LEFT-BENIGN H/O hernia repair Open Incisional Hernia Repair with Compartment Separation and Mesh Reinforcement, Abdominal Lysis of Adhesions Dr. Wesley 10/11/19 H/O tubal ligation History of back surgery LOWER NO METAL History of colectomy History of colonoscopy History of colostomy 11/2018 2/2 RUPTURED BOWEL S/P laparoscopic closure of colostomy: 03/20/19: Grade 2 view with elective glidescope #3, ETT 7.0 at [facility] History of esophagogastroduodenoscopy (EGD) Status post Mary procedure 11/18/18 MAC #3, ETT 7.0, GRADE VIEW III. Note: Patient kept intubated and sedated and she had a large bowel surgery and fluid shifts expected that could affect her respiratory status. Past Anesthesia History No Hx of Anesthesia Complications and No Family Hx of Anesthesia Complications History of PONV No Hx of PONV and No Hx of Motion Sickness Social History Smoking Status: Never smoker Do You Dip or Chew Tobacco: No Hx Alcohol Use: Yes Alcohol type: wine alcohol intake frequency: holidays/special occasions only Hx Substance Use: No substance use type: does not use Physical Exam Vital Signs Last Vital Signs Temp 37.8 C H 05/26/23 13:57 Pulse 90 05/26/23 13:57 Resp 22 05/26/23 13:57 BP 148/68 H 05/26/23 13:57 Pulse Ox 91 05/26/23 13:57 O2 Del Method Room Air 05/26/23 13:57 ENMT Mouth: no dentition abnormality Thyromental Distance: > or= 3.5 Finger Breadths Mallampati Class: II Neck normal visual inspection Respiratory normal respiratory effort Auscultation: lungs clear to auscultation bilaterally Cardiovascular Rate/Rhythm: regular rate and regular rhythm Psychiatric Orientation: alert Testing Laboratory Results 05/26/23 05:49 05/26/23 05:49 PT 11.1 Seconds (9.0-12.0) 05/25/23 16:20 INR 1.0 (0.9-1.1) 05/25/23 16:20 APTT 23.6 Seconds (21.0-31.0) 05/25/23 16:20 Urine Color Yellow 05/25/23 17:42 Urine Appearance Clear (Clear) 05/25/23 17:42 Urine pH 6.0 (4.5-7.5) 05/25/23 17:42 Ur Specific [place] 1.018 (1.000-1.030) 05/25/23 17:42 Urine Protein Negative (Negative) 05/25/23 17:42 Urine Glucose (UA) Negative (Negative) 05/25/23 17:42 Urine Ketones Negative (Negative) 05/25/23 17:42 Urine Nitrite Negative (Negative) 05/25/23 17:42 Ur Leukocyte Esterase Negative (Negative) 05/25/23 17:42 Blood Type AB Positive 05/26/23 05:49 Antibody Screen NEGATIVE 05/26/23 05:49
[2023-05-26] MEDS ORDERED: diphenhydrAMINE 50 MG/ML VIAL ONE (15:34)
[2023-05-26] MEDS ORDERED: TRANEXAMIC ACID / 0.7% NACL 1,000 MG/100 ML BAG IV STA (15:35)
[2023-05-26] MEDS ORDERED: SUGAMMADEX SODIUM 200 MG/2 ML VIAL IV ONE (16:05)
--- NOTE | 2023-05-26 16:25 | Operative Report ---
PG Post Operative Report Pre & Post Diagnosis Operation Date: 05/26/23 08:20 Pre-Op Diagnosis: Right intertrochanteric femur fracture with subtrochanteric extension Post-Op Diagnosis: Right intertrochanteric femur fracture with subtrochanteric extension I identified the patient and participated in the time-out.: Yes Procedure Operation Date: 05/26/23 08:20 Actual Procedures p Right Hip Closed Reduction and Internal Fixation with Long Trochanteric Fixation Nail Advanced(Right) - Gary Rao MD Surgeon Gary Rao MD Light Technician Fili Escalante PA-C Estimated Blood Loss 200 Findings See Below Comminuted intertrochanteric fracture with subtrochanteric extension. All Synthes implants: 10 mm/130 degree titanium cannulated trochanteric fixation nail of 360 mm length. 11.0 mm titanium helical blade of 95 mm length. Distal interlock screw measuring 40 mm. Specimens none Anesthesia Type MAC Spinal Regional Complications none Disposition Accompanied Patient To Recovery: No Disposition: Recovery Room Indications 73-year-old female sustained a trip and fall at home resulting immediate pain and inability to bear weight on the right lower extremity. Emergency room work- up revealed an intertrochanteric femur fracture. She was seen this morning by my partner, Dr. Hayes. She was indicated for surgery. I saw her in the preoperative holding area. Reviewed the diagnosis and recommended surgical management. Reviewed the risks and benefits in detail and informed consent was obtained as she desired to proceed with surgery. The risks we discussed include but are not limited to, infection, nerve or vessel injury, arthrofibrosis, blood loss requiring transfusion, implant complications or migration, nonunion, malunion, need for repeat or revision surgery, blood clots, pain syndromes, and complications related anesthesia. Her and her asked appropriate questions, demonstrated a good understanding, and wanted to proceed with surgery. Description of Procedure On the day of surgery should be was greeted in the preoperative holding area and the informed consent was reviewed and confirmed. The surgical site was then identified by the patient and signed by myself. The patient was taken to the operating placed by the OR table and anesthesia was induced. The patient is then positioned on the fracture table. All cody prominences were well padded. The operative foot was placed in the fracture boot with abundant padding. The well leg was secured. We then positioned the lower extremities in a scissor fashion with a non-op leg flexed down to allow visualization with fluoroscopy which was confirmed before we prepped and draped. Surgical timeout was called and verified by all present. Antibiotics were infused, and equipment was available and functional. The procedure was initiated with a closed reduction maneuvers. Gentle in-line traction pulled the fracture out to length. The limb was then internally rotated to reduce the proximal femur. Flexion and adduction were used to adjust the reduction and allow access to the greater trochanter. We had adequate reduction prior to prepping and draping. The leg was then prepped and draped in usual sterile fashion. Surgical timeout was reconfirmed. We initiated the surgical internal fixation portion with finding the start point with the tip of the greater trochanter. Fluoroscopic guidance was used and a small poke hole was established. The start point was confirmed on fluoroscopy in AP and lateral planes and the pin was advanced using a mallet. An incision was made about the pin to allow access for the reamers. The pin was then advanced past the lesser trochanter, and its position was confirmed using AP and lateral fluoroscopy. Using the protective sleeve, the opening reamer was advanced under power with fluoroscopic guidance over the guidepin. It was advanced slowly. The reduction wire was then advanced down the distal femur to the level of the superior pole of the patella. Measurement was taken from the tip of the trochanter down to the end of the guidewire, and the nail length was selected. We then began sequential reaming. We started with 10.0 and used fluoroscopy to guide our reaming. We advanced the reaming in gradual increments up to a 11.5. An 10 mm nail was loaded onto the jig and advanced manually down the canal, while ensuring maintenance of the reduction on fluoroscopy. We then tapped it down into place until we achieve the good position for our cephalo-medullary screw. The cannula was placed on the jig to allow positioning of the cephalo-medullary screw. The skin incision was made in the appropriate spot. The jig cannulas were then placed against the lateral cortex. The cephalo-medullary screw guidepin was advanced towards the femoral head. The center-center position was confirmed on fluoroscopy in AP and lateral planes. The length of the screw was measured off the guide. The helical blade screw was then opened on the back table and prepared on the screwdriver. The lateral cortical opening drill, followed by the triple drill reamer for the helical blade was advanced under fluoroscopic guidance. The helical blade was advanced over the guidepin to appropriate position. The helical blade was locked in rotation and then the traction was taken off. Fluoroscopy confirmed maintenance of reduction and adequate position of the implant. The compression sleeve was then advanced against the lateral femur to improve the trochanteric-shaft reduction and compress the intertrochanteric region fracture. Attention was then directed distally to perform the interlock screws in using perfect [place] technique. 1 interlock screw was placed with a 5 mm diameter. The length was measured using a depth gauge, with fluoroscopic guidance. This completed the fixation. This completed the fixation of the fracture. Fluoroscopy was used in both AP and lateral planes to evaluate the entirety of the fracture and implant. Reduction and implant positions were acceptable. The wounds were then thoroughly irrigated with bulb syringe and normal saline. The deep fascial layer was approximated with 0 Vicryl suture. The dermal layer was approximated using 2-0 Vicryl suture. The final skin closure was completed with petey. Wounds were dressed with sterile Xeroform, sterile gauze, and Ioban over ABDs. The patient tolerated procedure well, awoke from anesthesia without complication, was extubated in the operating room, and transferred to the PACU in stable condition. Disposition: The patient be weightbearing as tolerated. I recommended routine DVT prophylaxis consisting of oral aspirin therapy. DVT prophylaxis should last 6 weeks. 24 hours of antibiotic prophylaxis should be continued. Physician education assistant attestation: Fili Escalante PA-C was present and scrubbed for the duration of the case. He was essential to prepping/draping, patient positioning, retraction, and assistance with wound closure. I attest to the content of the Intraoperative Record and any orders documented therein. Any exceptions are noted below.
--- NOTE | 2023-05-26 16:43 | Electrocardiogram Report ---
Test Reason : Blood Pressure : / mmHG Vent. Rate : 077 BPM Atrial Rate : 077 BPM P-R Int : 130 ms QRS Dur : 074 ms QT Int : 394 ms P-R-T Axes : 048 068 050 degrees QTc Int : 445 ms Normal sinus rhythm Normal ECG When compared with ECG of 20-NOV-2018 06:18, Nonspecific T wave abnormality no longer evident in Anterior leads Confirmed by Anupam Hoffman ([id number]) on 05/26/2023 4:42:48 PM Referred By: REFERRED SELF Confirmed By:Anupam Hoffman
--- NOTE | 2023-05-26 17:37 | Anesthesiology Progress Note ---
Date of Service May 26, 2023 Anesthesia Post Procedure Vital Signs Vital Signs: Temp Pulse Pulse Pulse Resp BP Pulse Ox 05/26/23 17:15 101 H 17 144/71 H 97 05/26/23 16:55 103 H 16 137/67 98 05/26/23 17:05 101 H 16 131/66 97 05/26/23 16:45 107 H 17 134/69 95 05/26/23 16:35 37 C 110 H 10 L 106/58 L 91 05/26/23 13:57 37.8 C H 90 22 148/68 H 91 05/26/23 07:02 36.7 C 80 18 119/55 L 91 05/25/23 22:05 36.6 C 79 16 145/74 H 98 05/25/23 21:00 72 17 154/72 H 98 05/25/23 20:50 73 05/25/23 19:00 70 17 152/69 H 97 05/25/23 17:45 66 20 151/68 H 98 O2 Del Method O2 Flow Rate 05/26/23 17:15 Oxymask 4 05/26/23 16:55 Oxymask 8 05/26/23 17:05 Oxymask 6 05/26/23 16:45 Oxymask 10 05/26/23 16:35 Oxymask 15 05/26/23 13:57 Room Air 05/26/23 07:02 Room Air 05/25/23 22:05 Room Air 05/25/23 21:00 Room Air 05/25/23 20:50 05/25/23 19:00 Room Air 05/25/23 17:45 Room Air Pain Intensity Right Hip: Pain Intensity: 8 Transfer of Care Handoff Completed per policy Notes Mental Status: alert / awake / arousable Patient Amnestic to Procedure: Yes Nausea / Vomiting: adequately controlled Pain: adequately controlled Airway Patency, RR, SpO2: stable & adequate BP & HR: stable & adequate Hydration State: stable & adequate Anesthetic Complications: no major complications apparent
[2023-05-26] MEDS ORDERED: COUGH DROP (SUGAR FREE) LOZ 24 LOZ/1 BOX BUCCAL PRN (17:58)
--- NOTE | 2023-05-26 19:10 | Fluoroscopy Report ---
FL hip RT 2-3V CLINICAL HISTORY: RT FX IM ORIFacute fracture of the right proximal femur COMPARISON STUDY: 05/25/2023 FLUOROSCOPY TIME: 135.0 seconds FLUOROSCOPY IMAGES: 6 EXPOSURE DOSE: 25.22 mGy FINDINGS: Status post placement of a trochanteric nail with medullary bari fixating the acute proximal femoral fracture. There is improved near anatomic alignment. Expected postoperative soft tissue swel ling with deep tissue air. IMPRESSION: Fluoroscopic assistance as above. ACT 112: Negative or not required by law. Electronically signed by: Alexis Pedraza M.D. 05/26/2023 7:09 PM
[2023-05-26] MEDS: FLUTICASONE/VILANTEROL 100/25MCG 14 PUFFS/INHALER INH SCH (20:57)
[2023-05-26] MEDS: ASPIRIN 81 MG ECTAB PO SCH (20:58)
[2023-05-26] MEDS ORDERED: TRANEXAMIC ACID / 0.7% NACL 1,000 MG/100 ML BAG IV ONE (22:39)
[2023-05-26] MEDS: CLINDAMYCIN/D5W 600 MG/50 ML BAG IV SCH (22:50)
[2023-05-27] MEDS ORDERED: SODIUM CHLORIDE 0.9% 1000ML 1,000 ML IV ONE (03:22)
[2023-05-27 04:17] LABS: Basophils # (auto) 0.01 K/uL (0.00-0.20); Basophils % (auto) 0.1 %; Hemoglobin 10.9 g/dl (12.0-16.0); Immature Granulocytes # (auto) 0.04 K/uL (0.01-0.20); Immature Granulocytes % (auto) 0.5 %; Lymphocytes # (auto) 0.75 K/uL (1.20-3.40); Lymphocytes % (auto) 8.6 %; Mean Corpuscular Hgb Conc 32.1 g/dL (32.0-36.0); Mean Corpuscular Volume 84.2 fL (80.0-100.0); Mean Platelet Volume 8.8 fL (9.4-12.4); Monocytes # (auto) 0.98 K/uL (0.11-0.59); Monocytes % (auto) 11.2 %; Neutrophils # (auto) 6.96 K/uL (1.40-6.50); Neutrophils % (auto) 79.6 %; Platelet Count 147 K/uL (130-400); RDW Coefficient of Variation 14.9 % (11.5-14.5); Red Blood Count 4.04 M/uL (4.20-5.40); White Blood Count 8.74 K/ul (4.8-10.8)
[2023-05-27 04:29] LABS: Calcium 7.4 mg/dl (8.6-10.3); Creatinine Clr Calc Pharmacy 51.9 ml/min; Est GFR (African American) 72.5 ml/min; Est GFR (Non-African American) 62.5 ml/min; Magnesium 2.2 mg/dl (1.7-2.4); Phosphorus 3.3 mg/dl (2.5-4.9); Potassium 4.5 mmol/L (3.5-5.1)
[2023-05-27] MEDS: oxyCODONE HCL IR 5 MG TAB (IMMEDIATE RELEASE) PO PRN (05:32)
[2023-05-27] MEDS: CLINDAMYCIN/D5W 600 MG/50 ML BAG IV SCH (05:45)
[2023-05-27] MEDS: MoRPHine SULFATE 4 MG/ML 1 ML CARP\\VIAL IV PRN (06:12)
--- NOTE | 2023-05-27 07:08 | XRay Report ---
XR hip RT min 2V HISTORY: 73 years-old Female Post-Operative implant position, femur right hip ORIF COMPARISON: 05/25/2023 TECHNIQUE: 2 views of the right hip FINDINGS: Status post placement of an intertrochanteric nail with medullary bari fixating the acute intratrochan teric fracture. Greater trochanteric fracture fragment is displaced laterally measuring up to 10 mm a nd volarly measuring up to 12 mm. Lateral skin petey with expected postoperative soft tissue swelli ng with deep tissue air. IMPRESSION: Status post ORIF of the acute intertrochanteric right femoral fracture. ACT 112: Negative or not required by law. The above report was generated using voice recognition software. It may contain grammatical, syntax o r spelling errors. Electronically signed by: Alexis Pedraza M.D. 05/27/2023 7:07 AM
[2023-05-27] MEDS: MONTELUKAST SODIUM 10 MG TABLET PO SCH (08:09)
[2023-05-27] MEDS: DICYCLOMINE HCL 20 MG TAB PO SCH ×2 (08:09→20:41)
[2023-05-27] MEDS: SERTRALINE HCL 100 MG TABLET PO SCH (08:09)
[2023-05-27] MEDS: ASPIRIN 81 MG ECTAB PO SCH ×2 (08:09→20:41)
[2023-05-27] MEDS: PANTOprazole 40 MG TAB PO SCH ×2 (08:09→20:41)
[2023-05-27] MEDS: DORZOLAMIDE HCL 2% OPH SOLN 10 ML BTL OPL SCH ×4 (08:10→20:41)
[2023-05-27] MEDS: BRIMONIDINE TARTRATE-P 0.15% 5 ML BTL OPL SCH ×4 (08:10→20:41)
--- NOTE | 2023-05-27 13:01 | Orthopedic Progress Note ---
Date of Service May 27, 2023 Assessment & Plan (1) Femur fracture, right: (2) History of hip surgery: Plan POD1. Making uncomplicated progress - WBAT and ROMAT, PT/OT consults - Pain control per primary team - doing well - Finish 24h antibiotic periop ppx today - Discontinue carroen - Monitor Hct - ryan expected 48-72 hrs - DVT ppx: ASA should be sufficient x 6 weeks Dispo: Progress depending on performance with PT/OT evaluations. Subjective Pain tolerable. Tolerating breakfast. No new issues. Stood up yesterday. Review of Systems All systems reviewed & are unremarkable except as noted in HPI & below. Physical Exam RLE: dressing c/d/i, DNVI. +quad set Constitutional WD/WN, vitals as above no acute distress and not intoxicated appearing Respiratory normal respiratory effort; no labored breathing Cardiovascular Extremities: normal capillary refill Results & Data Results & Data Laboratory Results . Diagnostic Findings Laboratory Tests 05/26/23 05/27/23 05:49 03:55 Hgb 10.9 L Hct 37.3 34.0 L PG Care Time/CCT Total # of Minutes Spent Total Time Spent with Patient: Total time spent is greater than 50% in coordination of care (as documented) at patient's floor/unit and/or counseling patient: Coding Level of Care Code 79750 Post Operative Follow-Up Diagnoses Femur fracture, right S72.91XA Encounter type: initial encounter Femur location: unspecified portion of femur History of hip surgery Z98.890 (1) Femur fracture, right Encounter type: initial encounter Femur location: unspecified portion of femur
[2023-05-27] MEDS ORDERED: ALBUMIN 25% 25 GM/100 ML VIAL IV ONE (13:45)
[2023-05-27] MEDS: ACETAMINOPHEN 1,000 MG/100 ML VIAL IV PRN (14:50)
--- NOTE | 2023-05-27 15:43 | Hospitalist Progress Note ---
Date of Service May 27, 2023 Assessment & Plan (1) Femur fracture, right: Plan 73 y/o F with PMH of asthma, GERD, David's esophagus, CKD III, osteoporosis presented to ER 05/25 after mechanical fall and right hip pain. She is being managed for the following: Femur fracture, right: Likely Age-related osteoporotic intratrochanteric fracture of right femur R femur xray: Comminuted right intratrochanteric fracture is seen CXR: no acute infiltrate. EKG NSR. Bed rest, Has Johnson cath in place Tylenol p.o. [IV perioperatively], oxycodone, morphine prn pain Status post right hip closed reduction and internal fixation with long trochanteric fixation nail 05/26/[address] Gary Rao Tolerating diet Ortho on board, appreciate recs. follow labs, HnH. DVT prophylaxis in the form of aspirin twice daily per Ortho PT/OT, to rehab. Severe persistent asthma: No signs current exacerbation. Continue home inhalers. GERD (gastroesophageal reflux disease): Continue PPI CKD (chronic kidney disease), stage III: Baseline 1.1-1.2 per outpatient chart review. Monitor renal functions, avoid nephrotoxic agents when possible Osteoporosis: On Reclast DVT Prophylaxis: asp bid DNR/DNI Follows with Dr Melania Williamson for routine care pt/ot, snf. Admission and Anticipated Discharge Date Admission Date: May 25, 2023 Subjective Patient seen and examined at bedside as a follow-up of right femur fracture. Patient was lying in bed, on room air, NAD, reports pain under control at right hip, status post repeat her 05/26, eating okay, blood pressure running soft, will trial IV albumin, will use IV Tylenol until blood pressure remains soft instead of narcotics, denies any fever or chills or headache or dizziness or chest pain. Physical Exam Physical Exam: GENERAL: Alert and oriented x3. NAD, on RA. HEENT: No pallor, no icterus. Pupils equal, round and reactive to light. Oral mucosa moist. NECK: No JVD, no neck masses. HEART: S1 and S2 heard. Regular rate and rhythm. No murmur, no gallop. RESPIRATORY SYSTEM: Normal AP diameter. No accessory muscle use. No wheezing, no crackles. ABDOMEN: Soft, bowel sounds present, nontender, no distention. CENTRAL NERVOUS SYSTEM: No facial droop. Speech is clear. Obeys simple commands. Moves extremities. EXTREMITIES: No edema, no erythema seen. Rt hip - tender, painful rom. distal NV status wnl. Urinary catheter in situ with yellow urine collection noted in the bag. Results & Data Results & Data Vital Signs (Past 12 Hours) Vital Signs Temp Pulse Resp BP Pulse Ox O2 Del Method O2 Flow Rate 05/27/23 12:04 81 20 91/51 L 96 Nasal Cannula 3 05/27/23 10:50 36.8 C 88 22 94/56 L 92 Nasal Cannula 3 05/27/23 08:54 90 90/55 L 05/27/23 07:45 36.5 C 87 19 95/55 L 90 Room Air (1) Femur fracture, right Encounter type: initial encounter Femur location: unspecified portion of femur
[2023-05-27] MEDS: FLUTICASONE/VILANTEROL 100/25MCG 14 PUFFS/INHALER INH SCH (20:41)
[2023-05-28] MEDS: ACETAMINOPHEN 1,000 MG/100 ML VIAL IV PRN ×2 (05:49→13:51)
[2023-05-28 07:47] LABS: Hematocrit (blood only) 28.3 % (37.0-47.0); Hemoglobin 9.2 g/dl (12.0-16.0); Mean Corpuscular Hgb Conc 32.5 g/dL (32.0-36.0); Mean Platelet Volume 9.1 fL (9.4-12.4); Platelet Count 132 K/uL (130-400); RDW Coefficient of Variation 14.7 % (11.5-14.5); RDW Standard Deviation 45.1 fL (36.4-46.3); Red Blood Count 3.41 M/uL (4.20-5.40); White Blood Count 7.87 K/ul (4.8-10.8)
[2023-05-28 08:18] LABS: BUN Creatinine Ratio 20.8 (10-20); Creatinine Clr Calc Pharmacy 60.6 ml/min; Est GFR (African American) 87.5 ml/min; Est GFR (Non-African American) 75.5 ml/min; Magnesium 2.1 mg/dl (1.7-2.4); Phosphorus 1.9 mg/dl (2.5-4.9)
[2023-05-28] MEDS: ASPIRIN 81 MG ECTAB PO SCH ×2 (09:00→20:42)
[2023-05-28] MEDS: SERTRALINE HCL 100 MG TABLET PO SCH (09:00)
[2023-05-28] MEDS: MONTELUKAST SODIUM 10 MG TABLET PO SCH (09:00)
[2023-05-28] MEDS: DICYCLOMINE HCL 20 MG TAB PO SCH ×2 (09:00→20:42)
[2023-05-28] MEDS: BRIMONIDINE TARTRATE-P 0.15% 5 ML BTL OPL SCH ×4 (09:01→20:43)
[2023-05-28] MEDS: PANTOprazole 40 MG TAB PO SCH ×2 (09:01→20:42)
[2023-05-28] MEDS: DORZOLAMIDE HCL 2% OPH SOLN 10 ML BTL OPL SCH ×4 (09:02→20:43)
--- NOTE | 2023-05-28 11:27 | Orthopedic Progress Note ---
Date of Service May 28, 2023 Assessment & Plan (1) Femur fracture, right: (2) History of hip surgery: Plan POD2. Making uncomplicated progress - WBAT and ROMAT, PT/OT ongoing - dispo per their recs - Maintain dressing with changes during hygeine while inpatient - Pain control per primary team - doing well - DVT ppx: ASA should be sufficient x 6 weeks Dispo: Per Hospitalists and PT/OT recs. F/U per discharge instructions. Contact me directly via [facility] w questions. Subjective Reports improved pain profile today. She able to sit up comfortably. No new issues. Does not feel lightheaded. Review of Systems All systems reviewed & are unremarkable except as noted in HPI & below. Physical Exam RLE: Hip dressing taken down. No active drainage. No thigh edema. Good quad set. DNVI. Constitutional WD/WN, vitals as above no acute distress and not intoxicated appearing Respiratory normal respiratory effort; no labored breathing Cardiovascular Extremities: normal capillary refill Results & Data Results & Data Laboratory Results Laboratory Tests 05/27/23 05/28/23 03:55 06:55 Hct 34.0 L 28.3 L Diagnostic Findings . PG Care Time/CCT Total # of Minutes Spent Total Time Spent with Patient: Total time spent is greater than 50% in coordination of care (as documented) at patient's floor/unit and/or counseling patient: Coding Level of Care Code 16928 Post Operative Follow-Up Diagnoses Femur fracture, right S72.91XA Encounter type: initial encounter Femur location: unspecified portion of femur History of hip surgery Z98.890 (1) Femur fracture, right Encounter type: initial encounter Femur location: unspecified portion of femur
[2023-05-28] MEDS: oxyCODONE HCL IR 5 MG TAB (IMMEDIATE RELEASE) PO PRN (11:42)
--- NOTE | 2023-05-28 16:40 | Hospitalist Progress Note ---
Date of Service May 28, 2023 Assessment & Plan (1) Femur fracture, right: Plan 73 y/o F with PMH of asthma, GERD, David's esophagus, CKD III, osteoporosis presented to ER 05/25 after mechanical fall and right hip pain. She is being managed for the following: Femur fracture, right: Likely Age-related osteoporotic intratrochanteric fracture of right femur Likely Ac Bl Loss anemia: d/t periop blood loss complicated by hemodilution. Monitor HnH. R femur xray: Comminuted right intratrochanteric fracture is seen CXR: no acute infiltrate. EKG NSR. Bed rest, Has Johnson cath in place Tylenol p.o. [IV perioperatively], oxycodone, morphine prn pain; favor narcotics less due to soft bp. Status post right hip closed reduction and internal fixation with long trochanteric fixation nail 05/26/[address] Gary Rao Tolerating diet Ortho on board, appreciate recs. follow labs, HnH. DVT prophylaxis in the form of aspirin twice daily per Ortho PT/OT, to rehab. Severe persistent asthma: No signs current exacerbation. Continue home inhalers. GERD (gastroesophageal reflux disease): Continue PPI CKD (chronic kidney disease), stage III: Baseline 1.1-1.2 per outpatient chart review. Monitor renal functions, avoid nephrotoxic agents when possible Osteoporosis: On Reclast DVT Prophylaxis: asp bid DNR/DNI Follows with Dr Melania Williamson for routine care pt/ot, snf. Admission and Anticipated Discharge Date Admission Date: May 25, 2023 Subjective Patient seen and examined at bedside as a follow-up of right femur fracture. Patient was lying in bed, on room air, NAD, reports pain under control at right hip, eating okay, blood pressure running soft/slightly better - expect to improve w/ less use of pain meds, will use IV Tylenol until blood pressure remains soft instead of narcotics, denies any fever or chills or headache or dizziness or chest pain. Physical Exam Physical Exam: GENERAL: Alert and oriented x3. NAD, on RA. HEENT: No pallor, no icterus. Pupils equal, round and reactive to light. Oral mucosa moist. NECK: No JVD, no neck masses. HEART: S1 and S2 heard. Regular rate and rhythm. No murmur, no gallop. RESPIRATORY SYSTEM: Normal AP diameter. No accessory muscle use. No wheezing, no crackles. ABDOMEN: Soft, bowel sounds present, nontender, no distention. CENTRAL NERVOUS SYSTEM: No facial droop. Speech is clear. Obeys simple commands. Moves extremities. EXTREMITIES: No edema, no erythema seen. Rt hip - tender, painful rom. distal NV status wnl. Urinary catheter in situ with yellow urine collection noted in the bag. Results & Data Results & Data Vital Signs (Past 12 Hours) Vital Signs Temp Pulse Resp BP Pulse Ox O2 Del Method 05/28/23 15:06 36.8 C 83 18 97/62 L 94 Room Air 05/28/23 07:48 36.7 C 89 16 115/66 91 Room Air (1) Femur fracture, right Encounter type: initial encounter Femur location: unspecified portion of femur
[2023-05-28] MEDS: POT PHOSPHATE MONOBASIC W/ SOD TAB PO SCH ×2 (17:33→20:42)
[2023-05-28] MEDS: FLUTICASONE/VILANTEROL 100/25MCG 14 PUFFS/INHALER INH SCH (20:43)
[2023-05-29 05:56] LABS: Hematocrit (blood only) 29.9 % (37.0-47.0); Hemoglobin 9.6 g/dl (12.0-16.0); Mean Corpuscular Hemoglobin 26.4 pg (25.0-34.0); Mean Corpuscular Hgb Conc 32.1 g/dL (32.0-36.0); Mean Corpuscular Volume 82.1 fL (80.0-100.0); Mean Platelet Volume 9.2 fL (9.4-12.4); Platelet Count 158 K/uL (130-400); RDW Coefficient of Variation 14.7 % (11.5-14.5); RDW Standard Deviation 44.5 fL (36.4-46.3); Red Blood Count 3.64 M/uL (4.20-5.40); White Blood Count 7.41 K/ul (4.8-10.8)
[2023-05-29 06:14] LABS: BUN Creatinine Ratio 18.6 (10-20); Creatinine Clr Calc Pharmacy 66.7 ml/min; Est GFR (African American) 98.2 ml/min; Est GFR (Non-African American) 84.8 ml/min; Phosphorus 2.8 mg/dl (2.5-4.9); Potassium 3.8 mmol/L (3.5-5.1)
[2023-05-29] MEDS: DORZOLAMIDE HCL 2% OPH SOLN 10 ML BTL OPL SCH ×2 (08:08→12:38)
[2023-05-29] MEDS: BRIMONIDINE TARTRATE-P 0.15% 5 ML BTL OPL SCH ×2 (08:09→12:38)
[2023-05-29] MEDS: ASPIRIN 81 MG ECTAB PO SCH (08:12)
[2023-05-29] MEDS: PANTOprazole 40 MG TAB PO SCH (08:13)
[2023-05-29] MEDS: MONTELUKAST SODIUM 10 MG TABLET PO SCH (08:13)
[2023-05-29] MEDS: DICYCLOMINE HCL 20 MG TAB PO SCH (08:13)
[2023-05-29] MEDS: POT PHOSPHATE MONOBASIC W/ SOD TAB PO SCH ×2 (08:14→12:38)
[2023-05-29] MEDS: SERTRALINE HCL 100 MG TABLET PO SCH (08:15)
[2023-05-29] MEDS: oxyCODONE HCL IR 5 MG TAB (IMMEDIATE RELEASE) PO PRN (10:10)
--- NOTE | 2023-05-29 12:26 | Discharge Summary ---
Date of Service May 29, 2023 Admission HPI Per Admitting Provider Patient is 73 y/o F with PMH asthma, GERD, David's esophagus, CKD III, osteoporosis presented to ER with complaint of fall and right hip pain. Patient states today was trying to attach her daughter's dog to leash when dog pulled causing patient to fall onto right side. Patient reports instant right hip pain and was unable to get up. Denies leg paresthesias. Denies hitting head, loss consciousness, denies any other known injury. Denies history of prior right hip or extremity injury. Denies fever/chills, diaphoresis, N/V/D/C, LAIRD, dizziness, syncope, neck pain, CP, SOB, orthopnea, palpitations, cough, rhinorrhea, abdominal pain, extremity edema, rashes, urinary symptoms. Admission Exam Per Admitting Provider General: no distress, WDWN Head: normocephalic, atraumatic Eyes: onjunctiva non-injected, anicteric ENT: normal inspection external ears, nose, mucous membranes moist Neck: supple, trachea midline Lungs: clear, no respiratory distress, no wheezing/rhonchi/rales CV: RRR, no murmur, no pretibial edema Abd: normal BS, soft, non-tender Ext: RLE: +shortened and externally rotated, +tenderness right anterior/lateral hip, distal pulses palpable, sensation to light touch intact. LLE and BUE: without deformity and ROM intact Neuro: A&O x 3, no focal deficits noted, normal affect Skin: warm, dry Principal Diagnosis Age Related osteoporotic intertrochanteric fracture of right femur Acute blood loss anemia, secondary to perioperative blood loss Discharge Exam GENERAL: Alert and oriented x3. NAD, on RA. HEENT: No pallor, no icterus. Pupils equal, round and reactive to light. Oral mucosa moist. NECK: No JVD, no neck masses. HEART: S1 and S2 heard. Regular rate and rhythm. No murmur, no gallop. RESPIRATORY SYSTEM: Normal AP diameter. No accessory muscle use. No wheezing, no crackles. ABDOMEN: Soft, bowel sounds present, nontender, no distention. CENTRAL NERVOUS SYSTEM: No facial droop. Speech is clear. Obeys simple commands. Moves extremities. EXTREMITIES: No edema, no erythema seen. Rt hip - tender, painful rom. distal NV status wnl. Urinary catheter in situ with yellow urine collection noted in the bag. Discharge Data Allergies Allergy/AdvReac Type Severity Reaction Status Date / Time Penicillins Allergy Intermediate HIVES Verified 05/25/23 16:44 Consultations 05/25/23 17:18 ED Decision to Admit Stat 05/25/23 22:24 Consult Anesthesiology Routine Consult Orthopedic Surgery Routine Procedures Performed Operation Date: 05/26/23 08:20 Actual Procedures p Right Hip Closed Reduction and Internal Fixation with Long Trochanteric Fixation Nail Advanced(Right) - Gary Rao MD Ordered Studies 05/26/23 14:00 FL hip RT 2-3V Routine Hospital Course (1) Femur fracture, right: Plan 73 y/o F with PMH of asthma, GERD, David's esophagus, CKD III, osteoporosis presented to ER 05/25 after mechanical fall and right hip pain. She was managed for the following: Femur fracture, right: Likely Age-related osteoporotic intratrochanteric fracture of right femur Likely Ac Bl Loss anemia: d/t periop blood loss complicated by hemodilution. HnH stable around 9.5. R femur xray: Comminuted right intratrochanteric fracture is seen CXR: no acute infiltrate. EKG NSR. Bed rest, Has Johnson cath in place Tylenol p.o. , oxycodone, morphine prn pain; now BP has improved. Status post right hip closed reduction and internal fixation with long trochanteric fixation nail 05/26/[address] Gary Rao Tolerating diet Ortho evaluated, appreciate recs. follow labs, HnH. DVT prophylaxis in the form of aspirin twice daily per Ortho PT/OT, to rehab. Severe persistent asthma: No signs current exacerbation. Continue home inhalers. GERD (gastroesophageal reflux disease): Continue PPI CKD (chronic kidney disease), stage III: Baseline 1.1-1.2 per outpatient chart review. Monitor renal functions, avoid nephrotoxic agents when possible Osteoporosis: On Reclast DVT Prophylaxis: asp bid DNR/DNI Follows with Dr Melania Williamson for routine care pt/ot, snf. Patient is being discharged to rehab with following instruction at the point of discharge: Follow-up with your primary care physician within a week time and likely you will need labs CBC/CMP/magnesium/phosphorus. You were managed for right femur fracture. Follow-up with orthopedics upon discharge in about 2 weeks. You are being discharged on baby aspirin twice a day for 6 weeks for prevention of blood clot. Take it with food. Continue with your physical therapy, activity as per orthopedics instruction. You can use [id number] Tylenol for mild to moderate pain, you will be discharged on few days of opiates for moderate to severe pain. If ongoing pain or worsening pain, you will need further evaluation by your PCP for further pain management prescription. Take your medications as prescribed. Please make sure that you are able to get your medications today by calling your pharmacy before you leave the hospital so that your treatment continuity is not broken. Home Health Attestation I certify that this patient is under my care and that I, or a physicians telecom assistant working with me, had a face to-face encounter that meets the home health [id number] encounter requirements with this patient. The encounter with the patient was in whole, or in part, for the following medical condition, which is the primary reason for home health care (list medical condition): I certify that, based on my findings, the following services are medically necessary home health services: My clinical findings support the need for the above services because: Further, I certify that my clinical findings support that this patient is homebound (i.e. absences from home require considerable and taxing effort and are for medical reasons or taoism services or infrequently or of short duration when for other reasons) because: Certification for Home Health Services: Based on the above findings, I certify that this patient is confined to the home and needs intermittent fci care, physical therapy and/or speech therapy or continues to need occupational therapy. The patient is under my care, and I have initiated the establishment of the plan of care. This patient will be followed by a physician who will periodically review the plan of care. Total Time Total Time Spent Total Time Spent (In Minutes): 35 Discharge Plan Discharge Items Patient Disposition: Transfer Inpatient Rehab Fac Reason For Visit: FEMUR FX Discharge Diagnosis: Age Related osteoporotic intertrochanteric fracture of right femur Acute blood loss anemia, secondary to perioperative blood loss Activity: As commented below Activity Comment: Weightbearing as tolerated, range of motion as tolerated,continue w PT & OT Non-emergency contact: Primary Care Provider Call non-emergency contact if: you have any medication questions, your symptoms worsen, your pain is not controlled and your temperature is above 101 Follow-up/Referrals: Gary Rao MD [Surgeon] - Melania Williamson MD [Primary Care Provider] - Diet: Regular Addtl Attending Provider Instructions: Orthopaedic Instructions after Hip Fracture Surgery: Please keep your wound clean and dry. Do not remove any of the vicky. Vicky were removed at your follow-up appointment with orthopedic surgery. Please continue daily dressing changes until your follow-up appointment. If there is no drainage onto the dressing for total of 24 hours, you may shower after 5 days from surgery. Allow soap and water to run over the incision, no scrubbing, and pat dry. Do not submerse (sitting in bathtub, hot tub, jacuzzi, pool, etc) the wound for at least 3 weeks. You may bear weight on your lower extremities as tolerated. Please use the walker or as instructed by physical therapy. For pain control please use Tylenol as needed. You may also have a stronger pain medication prescribed to you at discharge. You can also apply ice to the surgical site. To reduce the risk of dangerous blood clots please continue aspirin 325 mg by mouth daily or the medication for blood clots recommended by your medical team. Orthopedic clinic follow-up should be in 2-3 weeks after surgery for repeat x- ray. Vicky can be removed at the orthopedic follow-up. If necessary, vicky can be removed by a nurse at home or at a nursing facility upon our order. Please contact the clinic. Addtl [facility] Provider Instructions: Follow-up with your primary care physician within a week time and likely you will need labs CBC/CMP/magnesium/phosphorus. You were managed for right femur fracture. Follow-up with orthopedics upon discharge in about 2 weeks. You are being discharged on baby aspirin twice a day for 6 weeks for prevention of blood clot. Take it with food. Continue with your physical therapy, activity as per orthopedics instruction. You can use [id number] Tylenol for mild to moderate pain, you will be discharged on few days of opiates for moderate to severe pain. If ongoing pain or worsening pain, you will need further evaluation by your PCP for further pain management prescription. Take your medications as prescribed. Please make sure that you are able to get your medications today by calling your pharmacy before you leave the hospital so that your treatment continuity is not broken. Pending Studies at Discharge: No Stand-Alone Forms: [facility] Skilled Items Patient informed of condition?: Yes DNR: Yes Discharge Level of Care: Acute rehab Communicable Disease: No Discharge Prognosis: Stable Lines: None Urinary Catheter: No Medications and DC Order Prescriptions: New aspirin 81 mg Tablet,Delayed Release (Dr/Ec) 81 mg PO BID 42 Days Qty: 84 0RF Rx Instructions: take twice a day with food. oxycodone 5 mg Tablet 5 mg PO Q8H PRN (Reason: moderate to severe pain) 5 Days Qty: 15 0RF Phospha 250 Neutral 250 mg Tablet 2 tab PO QID 3 Days Qty: 24 0RF docusate sodium [Colace] 100 mg capsule 100 mg PO BID PRN (Reason: laxative effect) 7 Days Qty: 14 0RF Continued Fasenra 30 mg/mL syringe See Rx Instructions subcut .COMPLEX Qty: 1 11RF Rx Instructions: 30mg SQ every 4 weeks x 3 doses, then 30mg sq every 8 weeks Buy and Bill albuterol sulfate 2.5 mg /3 mL (0.083 %) Solution For Nebulization 2.5 mg INHALATION Q6 PRN (Reason: Wheezing) pantoprazole 40 mg tablet,delayed release (DR/EC) 40 mg PO [facility] montelukast 10 mg tablet 10 mg PO QAM sertraline 100 mg tablet 100 mg PO QAM dicyclomine 20 mg tablet 20 mg PO [facility] fluticasone furoate-vilanterol [Breo Ellipta] 100-25 mcg/dose blister with device 1 ea INHALATION QPM dorzolamide 2 % drops 1 drp OPL QID brimonidine 0.15 % drops 1 drp OPL QID Discharge Orders: Discharge Order (Routine); Ordered 05/29/23 Ordered By: Farhan Murrell Admission Data Admit Date/Time: 05/25/23 19:22 Attending Provider: Farhan Murrell Admit Provider: Fide Damon Primary Care Provider: Melania Williamson. Other Providers: [facility] ; Fide Damon ; Sánchez Blair ; Jarrett Hayes
== END 2023-05-29 15:30 | DRG 481 ==
LOC: ED 15:39 → SUATTDRO 19:22 → 3N 19:22

== ENCOUNTER 2024-03-06 23:51 | Inpatient (IN) ==
--- NOTE | 2024-03-07 00:31 | Emergency Department Note ---
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 Vital Signs: reviewed and remarkable for hypotension Additional History obtained from: patient's who is at the bedside Chronic Medical/Social Conditions affecting care: previous episode of diverticulitis with perforated viscus and resultant colostomy and reversal Prior/ Outside/ External records reviewed: previous inpatient notes from a fall in 2022 Differential Diagnosis: perforated viscus, small bowel obstruction,diverticulitis, diverticular abscess Diagnostics, independently interpreted by me: ECG: normal sinus rhythm at a rate of [address] segment elevation or signs of ischemia. There is no ectopy. Cardiac Monitoring: Normal sinus rhythm at 72 Imaging studies: CT scan of the abdomen/pelvis: As per stat rad HPI: 73 year old Female arrives for evaluation of abdominal pain and syncope. This is a 73-year-old female patient who presents to the emergency department with worsening abdominal pain and an episode of syncope. patient continues to complain of pain in the left lower quadrant and has had dry heaves. PAST MEDICAL HISTORY: See Below, PAST SURGICAL HISTORY: See Below, SOCIAL HISTORY: See Below, HOME MEDICATIONS: See list ALLERGIES: penicillin VITALS: See Below PHYSICAL EXAMINATION: HEENT: Head - normocephalic and atraumatic. Pupils are equal, round, and reactive to light. Extraocular eye muscles are intact, and sclera are anicteric. Nose - moist nasal mucosa without discharge. Mouth - moist buccal mucosa. Oropharynx is nonerythematous and there is no tonsillar exudate or edema noted. Neck: Supple; no JVD or cervical lymphadenopathy Heart: Regular rate and rhythm. There is a normal S1 and S2 with no murmurs, clicks, or gallops appreciated. Lungs: Clear to auscultation bilaterally with no wheezes, rales, or rhonchi. Abdomen: Soft, Acute abdomen with peritoneal signs. Pain seems to be concentrated in the left lower quadrant of the abdomen.There are no palpable pulsatile masses or hepatosplenomegaly. There is no guarding, rigidity, or rebound noted. Extremities: No evidence of cyanosis, clubbing, or edema. There are easily palpable peripheral pulses. Skin: warm and dry with good turgor and no rashes. emergency department course: The patient was evaluated in room B-12. An IV lock was initiated and labs were drawn as above. An order was placed for continuous cardiac monitoring. The patient was in a normal sinus rhythm at a rate of 72. A twelve-lead EKG was obtained as described above. Previous electronic medical records were reviewed. Patient was given a dose of IV fentanyl and IV Zofran. She was started on a normal saline bolus. Patient will go for CT scan of the abdomen/pelvis. I reviewed the results of the laboratory studies with the patient and her . I reviewed the results of the CT scan with the general surgery PA. Past Med/Surg History Problem List (Updated 03/07/24 @ 06:27 by Sarah Johnson DO) Small bowel obstruction (Acute) Small bowel obstruction History of hip surgery 05/26/23 (aJlen) Right long trochanteric fixation nail Osteoporosis CKD (chronic kidney disease), stage III Femur fracture, right (Acute) Severe persistent asthma Eosinophilia Acute blood loss as cause of postoperative anemia Hypoxia Elevated serum creatinine S/P repair of ventral hernia Vulvar itching (Acute) GERD (gastroesophageal reflux disease) Asthma (Chronic) Anemia Depression Encounter for pre-operative examination Disc degeneration (Acute 05/17/13) Pneumonia (Acute 05/17/13) Perforated diverticulum of large intestine (Acute) Papilloma of breast (Acute) Lichen sclerosus et atrophicus (Acute) Bronchitis (Acute 05/17/13) History of bilateral tubal ligation (Acute 05/17/13) Allergic rhinitis (Chronic) Incisional hernia Colostomy in place Ovarian cyst Medical History Anxiety Hyperlipidemia GERD (gastroesophageal reflux disease) Asthma Diverticulitis HX Surgical History H/O hernia repair Open Incisional Hernia Repair with Compartment Separation and Mesh Reinforcement, Abdominal Lysis of Adhesions Dr. Wesley 10/11/19 History of esophagogastroduodenoscopy (EGD) History of colonoscopy Status post Mary procedure 11/18/18 MAC #3, ETT 7.0, GRADE VIEW III. Note: Patient kept intubated and sedated and she had a large bowel surgery and fluid shifts expected that could affect her respiratory status. History of colostomy 11/2018 2 RUPTURED BOWEL S/P laparoscopic closure of colostomy: 03/20/19: Grade 2 view with elective glidescope #3, ETT 7.0 at [facility] History of colectomy H/O breast surgery LEFT-BENIGN H/O tubal ligation History of back surgery LOWER NO METAL Family History Brother Family history of diabetes mellitus Brother Family history of diabetes mellitus Brother Family history of diabetes mellitus Other Family history non-contributory Social History Smoking Status: Never smoker Second Hand Exposure: Yes (PARENTS GROWING UP); Do You Dip or Chew Tobacco: No; Hx Alcohol Use: Yes Alcohol type: wine Hx Substance Use: No Preferred Language: Telugu Communication Ability: Effective Visual Impairment: No Limitations Talent Agent Required: No Beliefs That Will Affect Care: None marital status: Current Living Situation: Spouse current occupational status: retired Feels Safe at Home: Yes Assistive Devices: Raised Toilet Seat and Walker Allergies Allergies Allergy/AdvReac Type Severity Reaction Status Date / Time Penicillins Allergy Intermediate HIVES Verified 03/07/24 01:08 Home Meds Home Medications Medication Instructions Recorded Confirmed albuterol sulfate 2.5 mg/3 mL 2.5 mg inhalation Q6 PRN Wheezing 11/18/18 03/07/24 (0.083 %) solution for nebulization montelukast 10 mg tablet 10 mg PO QAM 11/18/18 03/07/24 sertraline 100 mg tablet 100 mg PO QAM 11/18/18 03/07/24 brimonidine 0.15 % eye drops 1 drp OPL BID 05/25/23 03/07/24 dicyclomine 20 mg tablet 20 mg PO AMHS 05/25/23 03/07/24 dorzolamide 2 % eye drops 1 drp OPL BID 05/25/23 03/07/24 fluticasone furoate 100 1 ea inhalation QPM 05/25/23 03/07/24 mcg-vilanterol 25 mcg/dose inhalation powder (Breo Ellipta) Previous Rx's Medication Instructions Recorded benralizumab 30 mg/mL subcutaneous See Rx Instructions subcut 07/08/20 syringe (Fasenra) .COMPLEX #1 mL Results & Data (ED) Vital Signs Vital Signs - 24 hr 03/06/24 23:55 03/07/24 00:15 03/07/24 00:22 Temperature 36.4 C L Temperature Source Temporal Artery Scan Pulse Rate 73 69 Pulse Rate [Apical] 75 Pulse Rhythm [Apical] Regular Pulse Strength [Apical] Normal Respiratory Rate 16 Respiratory Effort / Characteristics Non-Labored Spontaneous Respiratory Depth Normal Respiratory Pattern Blood Pressure 76/52 L Blood Pressure [Right Arm] 147/68 H Blood Pressure Mean 60 Blood Pressure Mean [Right Arm] 94 Blood Pressure Position [Right Arm] Lying Pulse Oximetry 96 98 Oxygen Delivery Method Room Air Room Air Sepsis Recent Fever Within 48 Hours No Sepsis New/Unexplained Change in Mental Status No Sepsis Action Taken by Nursing No Action Required 03/07/24 02:00 03/07/24 03:00 03/07/24 05:00 Temperature Temperature Source Pulse Rate Pulse Rate [Apical] 62 67 68 Pulse Rhythm [Apical] Regular Regular Regular Pulse Strength [Apical] Normal Normal Normal Respiratory Rate 14 16 17 Respiratory Effort / Characteristics Non-Labored Spontaneous Non-Labored Spontaneous Non-Labored Spontaneous Respiratory Depth Normal Normal Normal Respiratory Pattern Regular Regular Regular Blood Pressure Blood Pressure [Right Arm] 141/77 H 158/68 H 163/84 H Blood Pressure Mean Blood Pressure Mean [Right Arm] 98 98 110 Blood Pressure Position [Right Arm] Lying Lying Lying Pulse Oximetry 97 96 97 Oxygen Delivery Method Room Air Room Air Room Air Sepsis Recent Fever Within 48 Hours Sepsis New/Unexplained Change in Mental Status Sepsis Action Taken by Nursing 03/07/24 06:18 Temperature Temperature Source Pulse Rate 60 Pulse Rate [Apical] Pulse Rhythm [Apical] Pulse Strength [Apical] Respiratory Rate Respiratory Effort / Characteristics Respiratory Depth Respiratory Pattern Blood Pressure Blood Pressure [Right Arm] Blood Pressure Mean Blood Pressure Mean [Right Arm] Blood Pressure Position [Right Arm] Pulse Oximetry Oxygen Delivery Method Sepsis Recent Fever Within 48 Hours Sepsis New/Unexplained Change in Mental Status Sepsis Action Taken by Nursing Laboratory Data 03/07/24 01:05 03/07/24 01:05 Lab Results 03/07/24 03/07/24 03/07/24 Range/Units 01:05 03:14 05:43 WBC 9.68 (4.8-10.8) K/ul RBC 5.26 (4.20-5.40) M/uL Hgb 13.2 (12.0-16.0) g/dl Hct 41.5 (37.0-47.0) % MCV 78.9 L (80.0-100.0) fL MCH 25.1 (25.0-34.0) pg MCHC 31.8 L (32.0-36.0) g/dL RDW Std Deviation 42.7 (36.4-46.3) fL RDW Coeff of Guera 15.0 H (11.5-14.5) % Plt Count 196 (130-400) K/uL MPV 8.9 L (9.4-12.4) fL Immature Gran % (Auto) 0.4 % Neut % (Auto) 79.7 % Lymph % (Auto) 11.6 % [place] % (Auto) 8.2 % Eos % (Auto) 0.0 % Baso % (Auto) 0.1 % Neut # (Auto) 7.72 H (1.40-6.50) K/uL Lymph # (Auto) 1.12 L (1.20-3.40) K/uL [place] # (Auto) 0.79 H (0.11-0.59) K/uL Eos # (Auto) 0.00 (0.00-0.50) K/uL Baso # (Auto) 0.01 (0.00-0.20) K/uL Immature Gran # (Auto) 0.04 (0.01-0.20) K/uL Sodium 138 (136-145) mmol/L Potassium 4.1 (3.5-5.1) mmol/L Chloride 100 (98-107) mmol/L Carbon Dioxide 28 (21-32) mmol/L Anion Gap 10 (3-11) BUN 26 H (6-23) mg/dl Creatinine 1.35 H (0.6-1.2) mg/dl Est Cr Clr Drug Dosing Not Reportable Est GFR ( Amer) 44.4 ml/min Est GFR (Non-Af Amer) 38.3 ml/min BUN/Creatinine Ratio 19.3 (10-20) Glucose 137 H (70-99(Fasting)) mg/dl Lactate 1.4 (0.4-2.0) mmol/L Calcium 9.6 (8.6-10.3) mg/dl Magnesium 2.2 (1.7-2.4) mg/dl Total Bilirubin 0.8 (0.2-1.0) mg/dl AST 13 (13-39) U/L ALT 12 (7-52) U/L Alkaline Phosphatase 63 (34-104) U/L Troponin I High Sens 3.6 (0-14) pg/ml Total Protein 7.4 (6.0-8.3) gm/dl Albumin 4.1 (3.4-5.0) gm/dl Globulin 3.3 (2.5-4.0) gm/dl Albumin/Globulin Ratio 1.2 (0.9-2) Lipase 28 (11-82) U/L Urine Color Yellow Urine Appearance Clear (Clear) Urine pH 8.0 H (4.5-7.5) Ur Specific [place] 1.033 H (1.000-1.030) Urine Protein Negative (Negative) Urine Glucose (UA) Negative (Negative) Urine Ketones Negative (Negative) Urine Blood Negative (Negative) Urine Nitrite Negative (Negative) Urine Bilirubin Negative (Negative) Urine Urobilinogen Negative (Negative) Ur Leukocyte Esterase Negative (Negative) Administered Medications Acetaminophen (Ofirmev) 1,000 mg in 100 mls @ 400 mls/hr IV Q8H PRN PRN Reason: pain/fever Stop: 03/10/24 04:14 Last Infusion: 03/07/24 05:16 Dose: Infused Documented By: Admin: 03/07/24 04:59 Dose: 400 mls/hr Documented By: KELLEY Sodium Chloride (Nss) 1,000 mls @ 100 mls/hr IV .Q10H MIRELA Stop: 04/06/24 04:29 Last Admin: 03/07/24 04:59 Dose: 100 mls/hr Documented By: KELLEY Discontinued Medications Fentanyl Citrate (Fentanyl Citrate Pf 100 Mcg/2 Ml Vial) 50 mcg IV NOW STA Stop: 03/07/24 00:33 Last Admin: 06/05/24 01:02 Dose: 50 mcg Documented By: KELLEY Sodium Chloride (Nss) 1,000 mls @ 999 mls/hr IV .Q1H1M ONE Stop: 03/07/24 03:11 Last Infusion: 03/07/24 03:18 Dose: Infused Documented By: Admin: 03/07/24 02:17 Dose: 999 mls/hr Documented By: KELLEY Ioversol (Optiray 320 100ml) 95 ml IV ONCE ONE Stop: 03/07/24 02:09 Last Admin: 03/07/24 02:08 Dose: 95 ml Documented By: JERRY Miscellaneous (Patient's Height &/Or Weight Needed) 1 each N/A NOW STA Stop: 03/07/24 04:20 Last Admin: 03/07/24 04:28 Dose: Not Given Documented By: KELLEY Ondansetron HCl (Ondansetron Inj 2 Mg/Ml 2 Ml Vial) 4 mg IV NOW STA Stop: 03/07/24 00:33 Last Admin: 03/07/24 01:02 Dose: 4 mg Documented By: KELLEY Imaging Data Radiologist's Impression: Abdomen/Pelvis CT 03/07/24 00:24 Exam(s): CT ABDOMEN + PELVIS With Contrast IV Amt: 95 ml opti 320 EXAM: CT Abdomen and Pelvis With Intravenous Contrast CLINICAL HISTORY: Reason for exam: eval for perforated divertic. TECHNIQUE: Axial computed tomography images of the abdomen and pelvis with intravenous contrast. Automated exposure control was utilized for the study. A dose lowering technique was utilized adhering to the principles of ALARA. CONTRAST: Patient received 95 ml opti 320 of IV contrast COMPARISON: No relevant prior studies available. FINDINGS: Lung bases: Unremarkable. No mass. No consolidation. ABDOMEN: Liver: Hepatic steatosis. Gallbladder and bile ducts: Unremarkable. No calcified stones. No ductal dilation. Pancreas: Unremarkable. No mass. No ductal dilation. Spleen: Unremarkable. No splenomegaly. Adrenals: Unremarkable. No mass. Kidneys and ureters: Unremarkable. No solid mass. No hydronephrosis. Stomach and bowel: Dilated small bowel measures up to 3.5 cm, consistent with small bowel obstruction. The area of obstruction is in the LEFT lower quadrant (series 2 image 52) where there is fecal distended small bowel with perienteric edema. Surgical evaluation recommended. PELVIS: Appendix: No findings to suggest acute appendicitis. Bladder: Unremarkable. No mass. Reproductive: Unremarkable as visualized. ABDOMEN and PELVIS: Intraperitoneal space: Unremarkable. No free air. No significant fluid collection. Bones/joints: RIGHT hip ORIF. Degenerative changes of the spine. No acute fracture. No dislocation. Soft tissues: Unremarkable. Vasculature: Atherosclerotic changes of the aorta. No abdominal aortic aneurysm. Lymph nodes: Unremarkable. No enlarged lymph nodes. IMPRESSION: Dilated small bowel measures up to 3.5 cm, consistent with small bowel obstruction. The area of obstruction is in the LEFT lower quadrant (series 2 image 52) where there is fecal distended small bowel with perienteric edema. Surgical evaluation recommended. Electronically signed by: Dane Cortés MD 03/07/24 03:36 AM Discharge Plan Visit Data Chief Complaint: Abdominal Pain Stated Complaint: ABDOMINAL PAIN,DRY HEAVES,BLACKED OUT, FELL ED Provider: Sarah Johnson Discharge Problem: Small bowel obstruction Forms Stand Alone Forms: My [facility] Collusion Prescriptions Prescriptions: No Action Fasenra 30 mg/mL syringe See Rx Instructions subcut .COMPLEX Qty: 1 11RF Rx Instructions: DUE MARCH 23, 2024. TAKES 30mg sq every 8 weeks Buy and Bill albuterol sulfate 2.5 mg /3 mL (0.083 %) Solution For Nebulization 2.5 mg INHALATION Q6 PRN (Reason: Wheezing) montelukast 10 mg tablet 10 mg PO QAM sertraline 100 mg tablet 100 mg PO QAM dicyclomine 20 mg tablet 20 mg PO AMHS fluticasone furoate-vilanterol [Breo Ellipta] 100-25 mcg/dose blister with device 1 ea INHALATION QPM dorzolamide 2 % drops 1 drp OPL BID brimonidine 0.15 % drops 1 drp OPL BID Referrals Referrals: Melania Williamson MD [Primary Care Provider] -
[2024-03-07] MEDS: ONDANSETRON INJ 2 MG/ML 2 ML VIAL IV STA (01:02)
[2024-03-07] MEDS: fentaNYL citrate PF 100 MCG/2 ML VIAL IV STA (01:02)
[2024-03-07 01:53] LABS: Basophils # (auto) 0.01 K/uL (0.00-0.20); Basophils % (auto) 0.1 %; Hematocrit (blood only) 41.5 % (37.0-47.0); Hemoglobin 13.2 g/dl (12.0-16.0); Immature Granulocytes # (auto) 0.04 K/uL (0.01-0.20); Immature Granulocytes % (auto) 0.4 %; Lymphocytes # (auto) 1.12 K/uL (1.20-3.40); Lymphocytes % (auto) 11.6 %; Mean Corpuscular Hemoglobin 25.1 pg (25.0-34.0); Mean Corpuscular Hgb Conc 31.8 g/dL (32.0-36.0); Mean Corpuscular Volume 78.9 fL (80.0-100.0); Mean Platelet Volume 8.9 fL (9.4-12.4); Monocytes # (auto) 0.79 K/uL (0.11-0.59); Monocytes % (auto) 8.2 %; Neutrophils # (auto) 7.72 K/uL (1.40-6.50); Neutrophils % (auto) 79.7 %; Platelet Count 196 K/uL (130-400); RDW Standard Deviation 42.7 fL (36.4-46.3); Red Blood Count 5.26 M/uL (4.20-5.40); White Blood Count 9.68 K/ul (4.8-10.8)
[2024-03-07 01:57] LABS: Alanine Aminotransferase 12 U/L (7-52); Albumin Globulin Ratio 1.2 (0.9-2); Albumin Level 4.1 gm/dl (3.4-5.0); Alkaline Phosphatase 63 U/L (34-104); Anion Gap 10 (3-11); Aspartate Aminotransferase 13 U/L (13-39); BUN Creatinine Ratio 19.3 (10-20); Bilirubin,Total 0.8 mg/dl (0.2-1.0); Blood Urea Nitrogen 26 mg/dl (6-23); Calcium 9.6 mg/dl (8.6-10.3); Carbon Dioxide 28 mmol/L (21-32); Chloride 100 mmol/L (98-107); Est GFR (African American) 44.4 ml/min; Est GFR (Non-African American) 38.3 ml/min; Globulin 3.3 gm/dl (2.5-4.0); Glucose 137 mg/dl (70-99(Fasting)); Lipase 28 U/L (11-82); Potassium 4.1 mmol/L (3.5-5.1); Sodium 138 mmol/L (136-145); Total Protein 7.4 gm/dl (6.0-8.3)
[2024-03-07 02:04] LABS: Troponin I High Sensitivity 3.6 pg/ml (0-14)
[2024-03-07] MEDS: OPTIRAY 320 100ml IV ONE (02:08)
[2024-03-07] MEDS: SODIUM CHLORIDE 0.9% 1,000 ML IV ONE (02:17)
[2024-03-07 03:22] LABS: Appearance Urine Clear (Clear); Bilirubin Urine Negative (Negative); Blood Urine Negative (Negative); Color Urine Yellow; Glucose Urine UA Negative (Negative); Ketones Urine Negative (Negative); Leukocyte Esterase Urine Negative (Negative); Nitrite Urine Negative (Negative); Protein Urine Negative (Negative); Specific Gravity Urine 1.033 (1.000-1.030); Urobilinogen Urine Negative (Negative)
--- NOTE | 2024-03-07 03:37 | CT Scan Report ---
Exam(s): CT ABDOMEN + PELVIS With Contrast IV Amt: 95 ml opti 320 EXAM: CT Abdomen and Pelvis With Intravenous Contrast CLINICAL HISTORY: Reason for exam: eval for perforated divertic. TECHNIQUE: Axial computed tomography images of the abdomen and pelvis with intravenous contrast. Automated exposure control was utilized for the study. A dose lowering technique was utilized adhering to the principles of ALARA. CONTRAST: Patient received 95 ml opti 320 of IV contrast COMPARISON: No relevant prior studies available. FINDINGS: Lung bases: Unremarkable. No mass. No consolidation. ABDOMEN: Liver: Hepatic steatosis. Gallbladder and bile ducts: Unremarkable. No calcified stones. No ductal dilation. Pancreas: Unremarkable. No mass. No ductal dilation. Spleen: Unremarkable. No splenomegaly. Adrenals: Unremarkable. No mass. Kidneys and ureters: Unremarkable. No solid mass. No hydronephrosis. Stomach and bowel: Dilated small bowel measures up to 3.5 cm, consistent with small bowel obstruction. The area of obstruction is in the LEFT lower quadrant (series 2 image 52) where there is fecal distended small bowel with perienteric edema. Surgical evaluation recommended. PELVIS: Appendix: No findings to suggest acute appendicitis. Bladder: Unremarkable. No mass. Reproductive: Unremarkable as visualized. ABDOMEN and PELVIS: Intraperitoneal space: Unremarkable. No free air. No significant fluid collection. Bones/joints: RIGHT hip ORIF. Degenerative changes of the spine. No acute fracture. No dislocation. Soft tissues: Unremarkable. Vasculature: Atherosclerotic changes of the aorta. No abdominal aortic aneurysm. Lymph nodes: Unremarkable. No enlarged lymph nodes. IMPRESSION: Dilated small bowel measures up to 3.5 cm, consistent with small bowel obstruction. The area of obstruction is in the LEFT lower quadrant (series 2 image 52) where there is fecal distended small bowel with perienteric edema. Surgical evaluation recommended. Electronically signed by: Dane Cortés MD 03/07/24 03:36 AM
[2024-03-07] MEDS: Patient's HEIGHT &/or WEIGHT Needed STA (04:28)
--- NOTE | 2024-03-07 04:30 | Surgery Consultation ---
Date of Consultation March 07, 2024 Assessment & Plan (1) Small bowel obstruction: I discussed with the treating emergency room physician and the patient is being admitted on the hospitalist service. From surgery perspective we recommend the following: Implement n.p.o. status Provide IV fluid for hydration I discussed with the patient the possibility of utilizing an NG tube. The patient has not had any emesis since arrival to the hospital and she wishes to hold on this modality. I did discuss with the patient that if there is no improvement of her abdominal exam, worsening of her abdominal exam, or if she has any emesis the use of this modality will need to be reconsidered. Serial labs should be followed We will check a lactic acid level at this time I discussed with the patient and her that the patient has a small bowel obstruction and may be on the basis of adhesions from her multiple abdominal surgeries described in the history of present illness. At the present time the patient is nontoxic-appearing as she is normotensive without tachycardia or fever. She also does not have elevated white blood cell count. She does have a slight elevation of her BUN and creatinine but I suspect that this may be secondary to poor oral intake over the past 24 hours. I also discussed with the patient that it is under determine at this time whether or not the patient will require operative intervention and this will depend on her clinical course as it unfolds as well as evaluation by my surgical attending physician. Utilize SCDs for DVT prevention, no chemical means until it is ascertained whether or not patient will require any procedural intervention. Please contact general surgery if patient has any further emesis or has increased pain requiring persistent or escalating doses of analgesics as above. pt feeling somewhat better since ngt placed. they got approx 900 cc's out with insertion. will continue conservative management. npo/ngt/ivf recheck kub tomorrow. History of Present Illness Reason for Consultation: Small bowel obstruction History of Present Illness This is a 73-year-old female who presented to the hospital secondary to abdominal pain. Patient notes that her most recent oral intake was at approximate 1:00 PM on 03/06/2024. Patient said that then throughout the day she began to feel gradually unwell but felt that this was from from spoiled fruit that she ate. No other close contacts were ill. Patient ultimately developed some lower abdominal pain and then she had some nausea without vomiting. She did feel as though she was going to have emesis so she went to the restroom at approximately 11:00 PM and describes a syncopal episode. Patient says that she was in the restroom and then came to when her was checking on her. Prior to this happening she denied any chest pain or shortness of breath. She said that she did not hit her head but did hit her left arm. Following this episode the patient then noted that she had some lower abdominal pain. She said that she had her most recent bowel movement in the morning of 03/06/2024 and has not passed any flatus since that time. She says that she has had multiple abdominal surgeries including a Mary procedure on 11/18/2018 secondary to perforated diverticulitis (this was performed by Dr. Wesley), a colostomy reversal on 03/20/2019, laparoscopic paraesophageal hernia repair without mesh and 270 degree fundoplication(this was performed at [facility] in [place], [place]), and an EGD with dilation. Since arrival to the emergency department the patient has not had any nausea or vomiting. She does continue to report some generalized lower abdominal pain. Since arrival to the emergency department the patient has had labs and imaging which I independent reviewed. A CBC revealed white blood count was normal at 9.6. Her hemoglobin and hematocrit were 13.2 and 41.50, also within the normal range. Platelet count was normal at 196,000. Chemistry profile showed sodium and potassium were normal. Her BUN and creatinine both had a slight elevation of 26 and 1.35 respectively. There is no elevation of patient's LFTs or lipase. Urinalysis was not indicative of infection. A CT scan of the abdomen pelvis was performed. This showed that patient had some dilated small bowel consistent with a small bowel obstruction. The area of obstruction was felt to be in the left lower quadrant where there is some perienteric edema. There is no intraperitoneal free air or intraperitoneal free fluid. Chest x-ray showed no intraperitoneal free air, no pneumonia, no pleural effusions. At the time of my interview the patient was resting in bed and she was in no distress. Allergies Allergy/AdvReac Type Severity Reaction Status Date / Time Penicillins Allergy Intermediate HIVES Verified 03/07/24 01:08 Home Medications Medication Instructions Recorded Confirmed Type albuterol sulfate 2.5 mg/3 mL 2.5 mg inhalation Q6 PRN Wheezing 11/18/18 03/07/24 History (0.083 %) solution for nebulization montelukast 10 mg tablet 10 mg PO QAM 11/18/18 03/07/24 History sertraline 100 mg tablet 100 mg PO QAM 11/18/18 03/07/24 History benralizumab 30 mg/mL subcutaneous See Rx Instructions subcut 07/08/20 03/07/24 Rx syringe (SegmentenEDMdesigner) .COMPLEX #1 mL brimonidine 0.15 % eye drops 1 drp OPL BID 05/25/23 03/07/24 History dicyclomine 20 mg tablet 20 mg PO AMHS 05/25/23 03/07/24 History dorzolamide 2 % eye drops 1 drp OPL BID 05/25/23 03/07/24 History fluticasone furoate 100 1 ea inhalation QPM 05/25/23 03/07/24 History mcg-vilanterol 25 mcg/dose inhalation powder (Breo Ellipta) Patient History Medical History Anxiety Hyperlipidemia GERD (gastroesophageal reflux disease) Asthma Diverticulitis HX Surgical History H/O hernia repair Open Incisional Hernia Repair with Compartment Separation and Mesh Reinforcement, Abdominal Lysis of Adhesions Dr. Wesley 10/11/19 History of esophagogastroduodenoscopy (EGD) History of colonoscopy Status post Mary procedure 11/18/18 MAC #3, ETT 7.0, GRADE VIEW III. Note: Patient kept intubated and sedated and she had a large bowel surgery and fluid shifts expected that could affect her respiratory status. History of colostomy 11/2018 RUPTURED BOWEL S/P laparoscopic closure of colostomy: 03/20/19: Grade 2 view with elective glidescope #3, ETT 7.0 at [facility] History of colectomy H/O breast surgery LEFT-BENIGN H/O tubal ligation History of back surgery LOWER NO METAL Family History Brother Family history of diabetes mellitus Brother Family history of diabetes mellitus Brother Family history of diabetes mellitus Other Family history non-contributory Social History Smoking Status: Never smoker Second Hand Exposure: Yes (PARENTS GROWING UP); Do You Dip or Chew Tobacco: No; Hx Alcohol Use: Yes Alcohol type: wine Hx Substance Use: No Preferred Language: Welsh Communication Ability: Effective Visual Impairment: No Limitations Janitorial Services Supervisor Required: No Beliefs That Will Affect Care: None marital status: Current Living Situation: Spouse current occupational status: retired Feels Safe at Home: Yes Safety Concerns: Feels Safe At This Time Assistive Devices: Glasses Review of Systems Constitutional: no fever and no chills Eyes: no corrective lenses Ear, Nose, Mouth, Throat: no hearing loss Respiratory: no cough Cardiovascular: + syncope; no chest pain Gastrointestinal: as per Subjective / HPI Genitourinary: no dysuria Musculoskeletal: no back pain Integumentary: no rash Neurologic: no localized weakness Physical Exam Constitutional: WD/WN, vitals as above Eyes: Wears glasses ENMT: Ears: no hearing impairment and no external ear abnormality Mouth: no oropharynx abnormality Neck: trachea midline Respiratory: normal respiratory effort; no respiratory distress and no labored breathing Cardiovascular: Rate/Rhythm: regular rate and regular rhythm Vessels: radial pulses present Gastrointestinal (Abdomen): Abdomen is noted to be moderately distended and tympanic to percussion. Bowel sounds are markedly hypoactive. There is no rebound tenderness or guarding but patient had pain with palpation greatest in the left lower quadrant of her abdomen. Patient had a well-healed midline incision from previous surgeries. I did not appreciate any hernias. Musculoskeletal: No calf tenderness Skin: no rashes Neurologic: moves all extremities Psychiatric: A+Ox3, euthymic affect Results & Data Vital Signs (Past 12 Hours) Vital Signs Temp Pulse Pulse Resp BP BP Pulse Ox 03/07/24 03:00 67 16 158/68 H 96 03/07/24 02:00 62 14 141/77 H 97 03/07/24 00:22 75 16 147/68 H 98 03/07/24 00:15 69 03/06/24 23:55 36.4 C L 73 76/52 L 96 O2 Del Method 03/07/24 03:00 Room Air 03/07/24 02:00 Room Air 03/07/24 00:22 Room Air 03/07/24 00:15 03/06/24 23:55 Room Air PG Care Time/CCT Total # of Minutes Spent Total Time Spent with Patient: Total time spent is greater than 50% in coordination of care (as documented) at patient's floor/unit and/or counseling patient: Coding Level of Care Code 23638 INT INP/OBS CARE 3/75MIN Diagnoses Small bowel obstruction K56.609
[2024-03-07 04:34] LABS: Magnesium 2.2 mg/dl (1.7-2.4)
--- NOTE | 2024-03-07 04:46 | History & Physical Report ---
Date of Service March 07, 2024 Assessment & Plan (1) Small bowel obstruction: Plan: Likely secondary to adhesions from multiple intra-abdominal surgeries. ARF secondary to illness Syncopal event likely secondary to orthostasis (patient hypotensive upon arrival at the ER), vagal response from vomiting hyperlipidemia, not on statin Rx as per patient preference bronchial asthma, stable on regimen GERD status post surgery. Hyperglycemia likely prediabetes, hemoglobin A1c of 5.9 from 2022 Medical telemetry given syncope Monitor creatinine response to IVF TTE Re: Syncope Bowel rest General surgery consult Re: SBO (Patient already seen at the ED by provider.) DVT prophylaxis. SCDs as per surgery recommendations Re: Possible procedure DNR Text document was generated using [employer] voice recognition software. It may contain grammatical or spelling errors. Kindly contact undersigned for clarification of any documentation item in question. History of Present Illness Chief Complaint: Syncope, worsening abdominal pain Primary Care Provider: Melania Williamson MD History obtained from patient and records. Medical history significant for hyperlipidemia, bronchial asthma, GERD status post surgery. Last confinement May 2023 for traumatic right hip fracture status post surgery. Unremarkable postop course. Yesterday, patient noted achy left-sided abdominal pain followed by nausea and emesis. Bowel movements okay. Unwitnessed syncopal event while vomiting close to the commode. Denies headache, chest pain, SOB. No witnessed seizures or incontinence. Patient initially did not want to come to ER due to planned travel for [place] today. Patient brought to ER for evaluation. SBP 70s upon arrival at the ER. Medical History as above Surgical History : Paraesophageal hernia repair, colectomy/colostomy, BTL, hip surgery, breast surgery, back surgery Family History : DM Personal/Social history : Non-smoker, no EtOH intake, lives with Allergies Allergy/AdvReac Type Severity Reaction Status Date / Time Penicillins Allergy Intermediate HIVES Verified 03/07/24 01:08 Home Medications Medication Instructions Recorded Confirmed Type albuterol sulfate 2.5 mg/3 mL 2.5 mg inhalation Q6 PRN Wheezing 11/18/18 03/07/24 History (0.083 %) solution for nebulization montelukast 10 mg tablet 10 mg PO QAM 11/18/18 03/07/24 History sertraline 100 mg tablet 100 mg PO QAM 11/18/18 03/07/24 History benralizumab 30 mg/mL subcutaneous See Rx Instructions subcut 07/08/20 03/07/24 Rx syringe (Fasenra) .COMPLEX #1 mL brimonidine 0.15 % eye drops 1 drp OPL BID 05/25/23 03/07/24 History dicyclomine 20 mg tablet 20 mg PO AMHS 05/25/23 03/07/24 History dorzolamide 2 % eye drops 1 drp OPL BID 05/25/23 03/07/24 History fluticasone furoate 100 1 ea inhalation QPM 05/25/23 03/07/24 History mcg-vilanterol 25 mcg/dose inhalation powder (Breo Ellipta) Past Med/Surg History Problem List (Updated 03/07/24 @ 06:27 by Sarah Johnson DO) Small bowel obstruction (Acute) Small bowel obstruction History of hip surgery 05/26/23 ([facility]) Right long trochanteric fixation nail Osteoporosis CKD (chronic kidney disease), stage III Femur fracture, right (Acute) Severe persistent asthma Eosinophilia Acute blood loss as cause of postoperative anemia Hypoxia Elevated serum creatinine S/P repair of ventral hernia Vulvar itching (Acute) GERD (gastroesophageal reflux disease) Asthma (Chronic) Anemia Depression Encounter for pre-operative examination Disc degeneration (Acute 05/17/13) Pneumonia (Acute 05/17/13) Perforated diverticulum of large intestine (Acute) Papilloma of breast (Acute) Lichen sclerosus et atrophicus (Acute) Bronchitis (Acute 05/17/13) History of bilateral tubal ligation (Acute 05/17/13) Allergic rhinitis (Chronic) Incisional hernia Colostomy in place Ovarian cyst Medical History Anxiety Hyperlipidemia GERD (gastroesophageal reflux disease) Asthma Diverticulitis HX Surgical History H/O hernia repair Open Incisional Hernia Repair with Compartment Separation and Mesh Reinforcement, Abdominal Lysis of Adhesions Dr. Wesley 10/11/19 History of esophagogastroduodenoscopy (EGD) History of colonoscopy Status post Mary procedure 11/18/18 MAC #3, ETT 7.0, GRADE VIEW III. Note: Patient kept intubated and sedated and she had a large bowel surgery and fluid shifts expected that could affect her respiratory status. History of colostomy 11/2018 2/2 RUPTURED BOWEL S/P laparoscopic closure of colostomy: 03/20/19: Grade 2 view with elective glidescope #3, ETT 7.0 at [facility] History of colectomy H/O breast surgery LEFT-BENIGN H/O tubal ligation History of back surgery LOWER NO METAL Family History Brother Family history of diabetes mellitus Brother Family history of diabetes mellitus Brother Family history of diabetes mellitus Other Family history non-contributory Social History Smoking Status: Never smoker Second Hand Exposure: Yes (PARENTS GROWING UP); Do You Dip or Chew Tobacco: No; Hx Alcohol Use: Yes Alcohol type: wine Hx Substance Use: No Preferred Language: Danish Communication Ability: Effective Visual Impairment: No Limitations Game Manager Required: No Beliefs That Will Affect Care: None marital status: Current Living Situation: Spouse current occupational status: retired Feels Safe at Home: Yes Assistive Devices: Raised Toilet Seat and Walker Review of Systems Review of Systems: As per HPI, all other systems reviewed and negative Physical Exam Physical Exam: GENERAL: Slightly uncomfortable, tearful, no respiratory distress SKIN: Normal color, warm HEENT: Bespectacled, pink palpebral conjunctivae, no ptosis, dry buccal mucosa NECK : Supple, no tenderness CHEST : CTA, no tenderness HEART : RRR, no obvious murmurs ABDOMEN: Some distention, left-sided abdominal tenderness EXTREMITIES : No LE swelling/tenderness, no other conspicuous deformities noted NEUROLOGIC : Coherent, no facial asymmetry, no other gross focality Results & Data Results & Data Vital Signs (Past 12 Hours) Vital Signs Temp Pulse Pulse Resp BP BP Pulse Ox 03/07/24 03:00 67 16 158/68 H 96 03/07/24 02:00 62 14 141/77 H 97 03/07/24 00:22 75 16 147/68 H 98 03/07/24 00:15 69 03/06/24 23:55 36.4 C L 73 76/52 L 96 O2 Del Method 03/07/24 03:00 Room Air 03/07/24 02:00 Room Air 03/07/24 00:22 Room Air 03/07/24 00:15 03/06/24 23:55 Room Air Laboratory Results Laboratory Results WBC 9.68 K/ul (4.8-10.8) 03/07/24 01:05 RBC 5.26 M/uL (4.20-5.40) 03/07/24 01:05 Hgb 13.2 g/dl (12.0-16.0) 03/07/24 01:05 Hct 41.5 % (37.0-47.0) 03/07/24 01:05 MCV 78.9 fL (80.0-100.0) L 03/07/24 01:05 MCH 25.1 pg (25.0-34.0) 03/07/24 01:05 MCHC 31.8 g/dL (32.0-36.0) L 03/07/24 01:05 RDW Std Deviation 42.7 fL (36.4-46.3) 03/07/24 01:05 RDW Coeff of Guera 15.0 % (11.5-14.5) H 03/07/24 01:05 Plt Count 196 K/uL (130-400) 03/07/24 01:05 MPV 8.9 fL (9.4-12.4) L 03/07/24 01:05 Immature Gran % (Auto) 0.4 % 03/07/24 01:05 Neut % (Auto) 79.7 % 03/07/24 01:05 Lymph % (Auto) 11.6 % 03/07/24 01:05 [place] % (Auto) 8.2 % 03/07/24 01:05 Eos % (Auto) 0.0 % 03/07/24 01:05 Baso % (Auto) 0.1 % 03/07/24 01:05 Neut # (Auto) 7.72 K/uL (1.40-6.50) H 03/07/24 01:05 Lymph # (Auto) 1.12 K/uL (1.20-3.40) L 03/07/24 01:05 [place] # (Auto) 0.79 K/uL (0.11-0.59) H 03/07/24 01:05 Eos # (Auto) 0.00 K/uL (0.00-0.50) 03/07/24 01:05 Baso # (Auto) 0.01 K/uL (0.00-0.20) 03/07/24 01:05 Immature Gran # (Auto) 0.04 K/uL (0.01-0.20) 03/07/24 01:05 Sodium 138 mmol/L (136-145) 03/07/24 01:05 Potassium 4.1 mmol/L (3.5-5.1) 03/07/24 01:05 Chloride 100 mmol/L (98-107) 03/07/24 01:05 Carbon Dioxide 28 mmol/L (21-32) 03/07/24 01:05 Anion Gap 10 (3-11) 03/07/24 01:05 BUN 26 mg/dl (6-23) H 03/07/24 01:05 Creatinine 1.35 mg/dl (0.6-1.2) H 03/07/24 01:05 Est Cr Clr Drug Dosing Not Reportable 03/07/24 01:05 Est GFR ( Amer) 44.4 ml/min 03/07/24 01:05 Est GFR (Non-Af Amer) 38.3 ml/min 03/07/24 01:05 BUN/Creatinine Ratio 19.3 (10-20) 03/07/24 01:05 Glucose 137 mg/dl (70-99(Fasting)) H 03/07/24 01:05 Calcium 9.6 mg/dl (8.6-10.3) 03/07/24 01:05 Magnesium 2.2 mg/dl (1.7-2.4) 03/07/24 01:05 Total Bilirubin 0.8 mg/dl (0.2-1.0) 03/07/24 01:05 AST 13 U/L (13-39) 03/07/24 01:05 ALT 12 U/L (7-52) 03/07/24 01:05 Alkaline Phosphatase 63 U/L (34-104) 03/07/24 01:05 Troponin I High Sens 3.6 pg/ml (0-14) 03/07/24 01:05 Total Protein 7.4 gm/dl (6.0-8.3) 03/07/24 01:05 Albumin 4.1 gm/dl (3.4-5.0) 03/07/24 01:05 Globulin 3.3 gm/dl (2.5-4.0) 03/07/24 01:05 Albumin/Globulin Ratio 1.2 (0.9-2) 03/07/24 01:05 Lipase 28 U/L (11-82) 03/07/24 01:05 Urine Color Yellow 03/07/24 03:14 Urine Appearance Clear (Clear) 03/07/24 03:14 Urine pH 8.0 (4.5-7.5) H 03/07/24 03:14 Ur Specific Friendly 1.033 (1.000-1.030) H 03/07/24 03:14 Urine Protein Negative (Negative) 03/07/24 03:14 Urine Glucose (UA) Negative (Negative) 03/07/24 03:14 Urine Ketones Negative (Negative) 03/07/24 03:14 Urine Blood Negative (Negative) 03/07/24 03:14 Urine Nitrite Negative (Negative) 03/07/24 03:14 Urine Bilirubin Negative (Negative) 03/07/24 03:14 Urine Urobilinogen Negative (Negative) 03/07/24 03:14 Ur Leukocyte Esterase Negative (Negative) 03/07/24 03:14 Impressions Abdomen/Pelvis CT 03/07/24 00:24 Exam(s): CT ABDOMEN + PELVIS With Contrast IV Amt: 95 ml opti 320 EXAM: CT Abdomen and Pelvis With Intravenous Contrast CLINICAL HISTORY: Reason for exam: eval for perforated divertic. TECHNIQUE: Axial computed tomography images of the abdomen and pelvis with intravenous contrast. Automated exposure control was utilized for the study. A dose lowering technique was utilized adhering to the principles of ALARA. CONTRAST: Patient received 95 ml opti 320 of IV contrast COMPARISON: No relevant prior studies available. FINDINGS: Lung bases: Unremarkable. No mass. No consolidation. ABDOMEN: Liver: Hepatic steatosis. Gallbladder and bile ducts: Unremarkable. No calcified stones. No ductal dilation. Pancreas: Unremarkable. No mass. No ductal dilation. Spleen: Unremarkable. No splenomegaly. Adrenals: Unremarkable. No mass. Kidneys and ureters: Unremarkable. No solid mass. No hydronephrosis. Stomach and bowel: Dilated small bowel measures up to 3.5 cm, consistent with small bowel obstruction. The area of obstruction is in the LEFT lower quadrant (series 2 image 52) where there is fecal distended small bowel with perienteric edema. Surgical evaluation recommended. PELVIS: Appendix: No findings to suggest acute appendicitis. Bladder: Unremarkable. No mass. Reproductive: Unremarkable as visualized. ABDOMEN and PELVIS: Intraperitoneal space: Unremarkable. No free air. No significant fluid collection. Bones/joints: RIGHT hip ORIF. Degenerative changes of the spine. No acute fracture. No dislocation. Soft tissues: Unremarkable. Vasculature: Atherosclerotic changes of the aorta. No abdominal aortic aneurysm. Lymph nodes: Unremarkable. No enlarged lymph nodes. IMPRESSION: Dilated small bowel measures up to 3.5 cm, consistent with small bowel obstruction. The area of obstruction is in the LEFT lower quadrant (series 2 image 52) where there is fecal distended small bowel with perienteric edema. Surgical evaluation recommended. Electronically signed by: Dane Cortés MD 03/07/24 03:36 AM Diagnostic Findings EKG as per my interpretation :Rate 60, NSR, normal axis, no ischemia
[2024-03-07] MEDS ORDERED: LORazepam 0.25 MG in SYRINGE 0.25 ML IV PRN (04:50)
[2024-03-07] MEDS: SODIUM CHLORIDE 0.9% 1,000 ML IV SCH (04:59)
[2024-03-07] MEDS: ACETAMINOPHEN 1,000 MG/100 ML VIAL IV PRN (04:59)
--- NOTE | 2024-03-07 07:29 | XRay Report ---
SINGLE VIEW CHEST CLINICAL HISTORY: Acute renal insufficiency FINDINGS: An AP, portable, upright chest radiograph is compared to study dated 05/25/2023. The heart i s enlarged noting atherosclerotic calcification of the thoracic aorta. The pulmonary vasculature is n oncongested. Chronic residual thickening is similar to previous. There is bibasilar scarring/atelecta sis. The lungs and pleural spaces are otherwise clear. No pneumothorax is seen. The skeletal structur es are osteopenic. The bony thorax is grossly intact. IMPRESSION: Cardiomegaly with no active disease in the chest. ACT 112: Negative or not required by law. Electronically signed by: Jeet Pennington M.D. 03/07/2024 7:28 AM
[2024-03-07] MEDS: ONDANSETRON INJ 2 MG/ML 2 ML VIAL IV PRN (08:04)
[2024-03-07] MEDS: HYDROmorphone INJ 0.5 MG/0.5 ML SYR IV PRN (08:11)
[2024-03-07] MEDS: PROMETHAZINE HCL 6.25 MG in SODIUM CHLORIDE 0.9% 50 ML IV PRN (09:56)
[2024-03-07] MEDS: DORZOLAMIDE HCL 2% OPH SOLN 10 ML BTL OPL SCH (10:28)
[2024-03-07] MEDS: MONTELUKAST SODIUM 10 MG TABLET PO SCH (11:20)
[2024-03-07] MEDS: SERTRALINE HCL 100 MG TABLET PO SCH (11:20)
[2024-03-07] MEDS: BRIMONIDINE TARTRATE-P 0.15% 5 ML BTL OPL SCH (11:20)
--- NOTE | 2024-03-07 12:10 | XRay Report ---
KUB HISTORY: Status post placement of an enteric tube NG tube COMPARISON: CT of same day FINDINGS: Distal tip of enteric tube projects over the distal gastric body. Contrast noted within the renal collecting systems bilaterally. Cardiomegaly. Persistent small bowel distention. No renal desean culi. No ureteral calculi. No pneumoperitoneum or pneumatosis. No fracture. IMPRESSION: 1. Distal tip of enteric tube projects over the gastric body. 2. Small bowel obstruction better evaluated on the same day CT abdomen and pelvis. ACT 112: Negative or not required by law. The above report was generated using voice recognition software. It may contain grammatical, syntax o r spelling errors. Electronically signed by: Alexis Pedraza M.D. 03/07/2024 12:09 PM
--- OUTSIDE RECORDS SUMMARY | 2024-03-07 13:01 | External Medical Summary | Summary of Care ---
Author Name Unknown Organization [facility] Address [address] [place] [address] Phone [phone] Care Team Providers Care Military Technician Name Role Phone Melania Williamson MD Primary Care Provid er Reason for Visit * Reason Comments eRx-Medication Refill Encounter Details Date Type Department Care Team (Late st Contact Info) Description 01/29/2024 Refill [place] [place] [address] [place] [address] Melania Williamson MD [address] [place] [address] David's esophagus with dysplasia Allergies Active Allergy Reactions Criticality Noted Date Comments Penicillins Hives High 06/14/2022 Other reaction(s): hives documented as of this encounter (statuses as of 01/31/2024) Medications Medication Sig Dispensed Refills Start Date End Date Status Fasenra 30 MG/ML Subcutaneous Solution Prefilled Syringe (Benralizumab) Inject 1 mL under the skin every 8 weeks. 0 Active Brimonidine Tartrate 0.15 % Ophthalmic Solution (Alphagan P) Start: 06/22/22 16:50:00 EDT, 1 drop, left eye, qid, Disp# 10 mL, Refills: 6, Note to Pharmacy: may substitute another size bottle, Pharmacy: [facility]/pharmacy #[id number] 06/22/2022 Active Dorzolamide HCl 2 % Ophthalmic Solution (Trusopt Ocumeter Plus) Start: 06/22/22 16:50:00 EDT, 1 drop, left eye, qid, Disp# 10 mL, Refills: 6, Note to Pharmacy: may substitute another size bottle, Pharmacy: [facility]/pharmacy #[id number] 06/22/2022 Active Albuterol Sulfate HFA 108 (90 Base) MCG/ACT Inhalation Aerosol SolutionIndications :Moderate persistent asthma without complication Inhale 2 Puffs by mouth every 6 hours as needed for Congestion, Cough or Wheezing. 18 g 1 09/30/2022 Active Dicyclomine HCl 20 MG Oral Tablet (Bentyl)Indications :Spasm of colon TAKE BY MOUTH 1 TABLET IN THE MORNING AND 1 TABLET BEFORE BEDTIME. 180 Tablet 3 02/17/2023 Active Additional Information Patient not taking.Reported on 10/17/2023 Ondansetron HCl 4 MG Oral Tablet (Zofran)Indications :Nausea without vomiting Take 1 Tablet by mouth every 8 hours as needed for Nausea. 20 Tablet 0 06/17/2023 Active Additional Information Patient not taking.Reported on 12/26/2023 Sertraline HCl 100 MG Oral Tablet (Zoloft) TAKE 1 TABLET BY MOUTH EVERY DAY IN THE MORNING 90 Tablet 3 07/07/2023 Active Montelukast Sodium 10 MG Oral Tablet (Singulair) TAKE 1 TABLET BY MOUTH EVERYDAY AT BEDTIME 90 Tablet 3 12/15/2023 Active Scopolamine 1 MG/3DAYS Transdermal Patch 72 Hour (Transderm Scop) Place 1 Patch over 72 hours topically on the skin every 3 days. 10 Patch 1 01/02/2024 Active Fluticasone Furoate-Vilanterol 100-25 MCG/ACT Inhalation Aerosol Powder Breath Activated (BREO ellipta) Inhale 1 Puff by mouth every evening. 180 Each 5 01/26/2024 Active documented as of this encounter (statuses as of 01/31/2024) Active Problems Problem Noted Date Diagnosed Date H/O hiatal hernia 12/26/2023 Age-related osteoporosis with current pathologic al fracture 12/26/2023 Fear of falling 12/26/2023 Muscular deconditioning 12/26/2023 Statin declined 12/26/2023 Chronic kidney disease, stage 3a 02/07/2023 Overview: Per CKD protocol Senile osteoporosis 02/02/2023 Allergic rhinitis 08/03/2022 Eosinophilia 08/03/2022 Hiatal hernia 08/03/2022 Lichen sclerosus et atrophicus 08/03/2022 Papilloma of breast 08/03/2022 David's esophagus 08/03/2022 Astigmatism due to surgery 06/22/2022 Secondary glaucoma of left eye 06/22/2022 Gastroesophageal reflux disease 03/09/2022 Retinal tear of left eye 03/09/2022 Asthma, moderate persistent 01/19/2022 GERD (gastroesophageal reflux disease) 2 documented as of this encounter (statuses as of 01/31/2024) Resolved Problems Problem Noted Date Diagnosed Date Resolved Date Colostomy in place 08/03/2022 2 documented as of this encounter (statuses as of 01/31/2024) Immunizations Name Administration Dates Next Due COVID-19 mRNA, LNP-s, No Pre serve, 2-Dose Series (CombineNet) 01/29/2021,01/08/2021 Pneumococcal Conjugate Vaccine, 20-valent (Prevn ar20) 12/06/2022 Seasonal Influenza, Quadrivalent Hd (Fluzone Hd) 06/17/2023,08/03/2022 documented as of this encounter Social History Tobacco Use Types Packs/Day Years Used Date Smoking Tobacco: Never Smokeless Tobacco: Never Alcohol Use Standard Drinks/Week Comments Yes 0 (1 standard drink = 0.6 oz pur e alcohol) occasionally Sex and Gender Information Value Date Recorded Sex Assigned at Not on file Gender Identity Not on file Sexual Orientation Not on file Job Start Date Occupation Industry Not on file Not on file Not on file documented as of this encounter Functional Status Functional Status Response Date of Assess ment Are you deaf or do you have serious difficulty h earing? No 10/05/2023 Are you blind or do you have serious difficulty seeing, even when wearing glasses? No 10/05/2023 Do you have serious difficul ty walking or climbing stairs? (5 years old or older) No 10/05/2023 Do you have difficulty dress ing or bathing? (5 years old or older) No 10/05/2023 Because of a physical, menta l, or emotional condition, do you have difficulty doing errands alone such as visiting a doctor s office or shopping? (15 years old or older) No 10/05/19 Cognitive Status Response Date of Assessm ent Because of a physical, menta l, or emotional condition, do you have serious difficulty concentrating, remembering, or making decisions? (5 years old or older) No 10/05/2023 documented as of this encounter Miscellaneous Notes * Telephone Encounter - Katie Grant RPh - 01/31/2024 7:59 AM EDTRefused Prescriptions: Disp Refills Pantoprazole Sodium 40 MG Oral Tablet Sammie*180 Ta*3 Sig: TAKE 1TABLET BY MOUTH IN THE MORNING AND BEFORE BEDTIMERefused By: KATIE GRANTNReason for Refusal:Course of treatment complete documented in this encounter Plan of Treatment Upcoming Encounters Date Type Department Care Team (Late st Contact Info) Description 02/06/2024 10:00 AM EDT Office Visit Rheumatology [address] [place] [address] Tyree Peterson CRNP [address] [place] [address] [place], [place] [address] 02/16/2024 9:30 AM EDT Office Visit General Surgery, [facility] [address] [facility] [place] [address] Bryon Pham MD [address] [place] [address] 12/20/2024 11:30 AM EDT Laboratory Laboratory, [place] [address] [place] [id number] [place] [address] [place] [address] 12/28/2024 9:00 AM EDT Office Visit [facility] [address] [place] [address] Melania Williamson MD [address], [place] [id number] Health Maintenance Due Date Last Done Comments Depression Screening 1962 Albumin/Creatinine Ratio 1966 CKD PHOS USE SMARTSET 26392 1966 Hepatitis C Screening 1966 DTaP,Tdap,and Td Vaccines (1 - Tdap) 1967 Zoster Vaccines (1 of 2) 1998 *SPIROMETRY ONCE FOR ASTHMA-ADULT 01/22/2022 COVID-19 Vaccine (2022- season) 2023 01/29/2021, 01/08/2021 GFR 04/06/2024 10/07/2023, 01/2024, 09/19/2023, Additional history exists CKD HGB USE SMARTSET 94975 10/07/202410/07, 10/07/2023, 10/06/2023, Additional history exists DXA Scan 01/19/2025 01/19/2023, 01/19/2023 David's Esophagus Surveilance 10/05/2026 10/05/2023, 10/05/2023, 07/05/2023, Additional history exists Colonoscopy Discontinued 02/25/2021, 02/01, 08/12/2017 Colorectal Cancer Screening Discontinued Pneumococcal Vaccine: 65+ Years Completed 12/06/2022, 08/13/2019 VITAMIN D LEVEL ONCE IN A LIFETIME-USE SMARTSET# [id number] Completed 04/25/2023, 02/02/2023 Influenza Vaccine (FLU shot) Completed 06/17/2023, 08/03/2022, 08/03/2022, Additional history exists Cologuard Discontinued Fecal Occult Blood Test Discontinued GARDASIL-HPV IMMUNIZATION SERIES Aged Out No longer eligible based on patient's age to complete this topic Hepatitis B Aged Out No longer eligi ble based on patient's age to complete this topic MENINGOCOCCAL (MENACTRA/MENVEO) Aged Out No longer eligible based on patient's age to complete this topic Sigmoidoscopy Discontinued documented as of this encounter Medical Devices Not on filedocumented as of this encounter Visit Diagnoses Diagnosis David's esophagus with dysplasia David's esophagus documented in this encounter Advance Directives Latest Code Status on File Code Status Date Activated Date Inactivated Comments Full Code 10/05/2023 3:58 PM 10/08/2023 12:54 AM This o rder reflects the patients wishes and were consensually agreed upon. Question Answer Comments Discussion of Advance Directives occurred with: Patient Code Status History Code Status Date Activated Date Inactivated Comments Full Code 10/05/2023 9:25 AM 10/05/2023 3:58 PM This or brennan reflects the patients wishes and were consensually agreed upon. Question Answer Comments Discussion of Advance Directives occurred with: Not Discussed due to patient's condition Care Teams Military Technician Relationship Specialty Start Date End Date Melania Williamson MD [address] [place] [address] PCP - General Family Medicine 03/09/22 documented as of this encounter
--- OUTSIDE RECORDS SUMMARY | 2024-03-07 13:01 | External Medical Summary | Summary of Care ---
Author Name Unknown Organization [facility] Address [address] [place] [address] Phone [phone] Care Team Providers Care Home Mission Worker Name Role Phone Melania Williamson MD Primary Care Provid er Reason for Visit * Auth/Cert Specialty Diagnoses / Procedures Referred By Alec buchanan Referred To Contact Diagnoses Dysphagia Dysphagia [R13.10] Procedures EGD, FLEXIBLE, DIAGNOSTIC EGD, FLEXIBLE, TRANSENDOSCOPIC DILATION <30MM ESOPHAGOGASTRODUODENOSCOPY (EGD), FLEXIBLE, TRANSORAL, DIAGNOSTIC ESOPHAGOGASTRODUODENOSCOPY (EGD), FLEXIBLE, TRANSORAL, BALLOON DILATION LESS THAN 30MM Bryon Pham MD [address] [place] [address] [place] [facility] [place] [address] [place] [address] Referral ID Status Reason Start Date Expiration Date Visits Re quested Visits Authorized [id number] Encounter Details Date Type Department Care Team (Latest Contact Info) Description 02/22/2024 12:01 PM EDT - 02/22/2024 4:16 PM EDT Hospital Encounter OR [facility], OPERATING ROOM [facility] [address] [place] [address] Bryon Pham MD [address] [place] [address] Discharge Disposition: Home - Self Care Allergies Active Allergy Reactions Criticality Noted Date Comments Penicillins Hives High 06/14/2022 Other reaction(s): hives documented as of this encounter (statuses as of 02/23/2024) Medications Medication Sig Dispensed Refills Start Date End Date Status Fasenra 30 MG/ML Subcutaneous Solution Prefilled Syringe (Benralizumab) Inject 1 mL under the skin every 8 weeks. Active Brimonidine Tartrate 0.15 % Ophthalmic Solution (Alphagan P) Start: 06/22/22 16:50:00 EDT, 1 drop, left eye, qid, Disp# 10 mL, Refills: 6, Note to Pharmacy: may substitute another size bottle, Pharmacy: [facility]/pharmacy #[id number] 06/22/2022 Active Dorzolamide HCl 2 % Ophthalmic Solution (Trusopt Ocumeter Plus) Start: 06/22/22 16:50:00 EDT, 1 drop, left eye, qid, Disp# 10 mL, Refills: 6, Note to Pharmacy: may substitute another size bottle, Pharmacy: [facility]/pharmacy #[id number] 06/22/2022 Active Albuterol Sulfate HFA 108 (90 Base) MCG/ACT Inhalation Aerosol SolutionIndications :Moderate persistent asthma without complication Inhale 2 Puffs by mouth every 6 hours as needed for Congestion, Cough or Wheezing. 18 g 1 09/30/2022 Active Sertraline HCl 100 MG Oral Tablet (Zoloft) [...] 3 days. 10 Patch 1 01/02/2024 Active Additional Information Patient not taking.Reported on 02/16/2024 Fluticasone Furoate-Vilanterol 100-25 MCG/ACT Inhalation Aerosol Powder Breath Activated (BREO ellipta) Inhale 1 Puff by mouth every evening. 180 Each 5 01/26/2024 Active Carboxymethylcellul ose Sod PF 0.5 % Ophthalmic Solution (Refresh Plus) Instill 1 Drop into the right eye daily as needed. Active Nystatin [id number] UNIT/ML Mouth/Throat Suspension Swish and swallow 5 mL in the morning and 5 mL at noon and 5 mL in the evening and 5 mL before bedtime. Do all this for 10 days. 200 mL 02/22/2024 03/03/2024 Active documented as of this encounter (statuses as of 02/23/2024) Active Problems Problem Noted Date Diagnosed Date [...] as of this encounter (statuses as of 02/23/2024) Resolved Problems Problem Noted Date Diagnosed Date Resolved Date Colostomy in place 08/03/2022 2 documented as of this encounter (statuses as of 02/23/2024) Immunizations Name Administration Dates Next Due COVID-19 mRNA, LNP-s, No Pre serve, 2-Dose Series (Pfizer) 01/29/2021,01/08/2021 Pneumococcal Conjugate Vaccine, 20-valent (Prevn ar20) [...] on file documented as of this encounter Last Filed Vital Signs Vital Sign Reading Time Taken Comments Blood Pressure 152/72 02/22/2024 4:00 PM EDT Pulse 68 02/22/2024 4:00 PM EDT Temperature 36.4 C (97.5 F) 02/22/2024 3:45 PM ED T Respiratory Rate 17 02/22/2024 4:00 PM EDT Oxygen Saturation 100% 02/22/2024 4:00 PM EDT Inhaled Oxygen Concentration - - Weight 66.2 kg (146 lb) 02/22/2024 12:09 PM EDT Height 160 cm (5' 3") 02/22/2024 12:09 PM EDT Body Mass Index 25.86 02/22/2024 12:09 PM EDT documented in this encounter Functional Status Functional Status Response [...] No 10/05/2023 documented as of this encounter Discharge Instructions * Discharge Instr - AVS* Yessica Brown MD - 02/22/2024 3:42 PM EDT Discharge Date: 02/22/2024 If you have any questions during regular business hours (weekdays 8:00 AM to 4:30 PM), please contact the Bariatric Nurse Coordinator, Walter Workman at [phone]. If you are unable to reach the nurse coordinator, contact the surgical clinic at [phone] During non-business hours (weekdays before 8:00 AM and after 4:30 PM and on weekends) call [phone] and ask to speak to the MIS/Bariatric Fellow industrial automation specialist. If the Fellow is unavailable, ask for thesurgical resident industrial automation specialist. If the surgical device sales representative is unavailable, ask for the attending MIS/Bariatric surgeon industrial automation specialist. If you are still unable to reach someone, ask the shirt operator to call Dr. Bryon Pham. The information below provides you with the instructions and the list of medications you need to betaking following discharge from the hospital. If you have any questions, please ask before leaving.Please carry this letter with you when you see your doctor in the clinic. If you have questions, you can reach us at the numbers above. You have been started on Nystatin oral solution. Please swish and swallow with the solution 4 timesa day for 10 days and follow up with your PCP regarding oral candidiasis (yeast). Diet: Start with clear liquids (jello, tea, apple juice), avoid dairy products (milk, cheese, pudding, ice cream) and fried, greasy foods. Progress to prescribed diet as tolerated. If nausea should occur, have clear liquids only until soft foods can be tolerated. Activity: A responsible adult must be with the patient for 24 hours after surgery. Rest today and tomorrow, and then increase activity as tolerated. DO NOT drive, operate any appliances and/or machinery or sign legal documents for 24 hours. Warnings: Call your surgeon promptly in case of: A. Excessive bleeding B. Fever greater than 101 degrees F (38.3 degrees centigrade) C. Persistent nausea and vomiting D. Pain unrelieved by Tylenol Date you may return to work or school: 02/23/24 See your primary care physician (Melania Williamson MD) in 2 week(s). documented in this encounter H&P Notes * Yessica Brown MD - 02/22/2024 6:12 AM EDT HISTORY AND PHYSICAL EXAMINATION - Minimally Invasive Surgery [address] [address] Name: [facility] Location: Room/bed info not found Date: 02/22/2024 Time: 6:12 AM [facility] AT [facility] CLINIC VISIT 02/16/2024 [facility] [id number] 73 year old PCP: Melania Williamson MD Consult requested by: ARLYN Lynch Surgical History: 1) Laparoscopy; Repair Paraesophageal Hernia; for hiatal hernia repair; 10/05/23 2) Laparoscopy, Esophageal Fundoplication; Rc 270 degree anterior Fundoplication 3) Upper GI Endoscopy, simple primary examination Findings: Type 3 Hiatal Hernia with 70% of stomach within mediastinum Diastasis of Crura: 5 cm HPI: This patient presents for follow up after Laparoscopic Paraesophageal Hernia Repair without Johnny Gastroplasty Rc Fundoplication without placement of mesh. The patient is currently not taking PPI's. The main preoperative symptoms included Heartburn, Chest pain, and Nausea/vomiting. Symptoms that are resolved or significantly improved include Heartburn, Dysphagia, Chest pain, and Nausea/vomiting.Preoperative Reflux Symptom Index score was 14. Preoperative GERD-Health Related Quality of Life sco re was 22. Patient reports the heartburn is significantly improved. Patient does have persistent dysphagia with emesis 2-3 per week Reflux Symptom Index Evaluation (0-5): Hoarseness or problem with voice: 0 Throat Clearin Excess throat mucus/post-nasal drip: 2 Difficulty swallowing food, liquid, pills: 4 Coughing after eating or lying down: 4 Breathing difficulties or choking episodes: 4 Troublesome or annoying cough: 0 Globus sensation: 4 Heartburn, chest pain, indigestion, or stomach acid coming up: 4 Current RSI Total Score: 22 GERD-HRQL Evaluation (0-5) Global heartburn severity: 2 Supine heartburn: 0 Upright heartburn: 2 Post-parandial heartburn: 3 Does heartburn require dietary modification? 0 Does heartburn awaken from sleep? 0 Difficulty swallowin Pain with swallowin Feelings of gassiness or bloatin Impact of taking medication on daily life:0 Current GERD-HRQL score: 16 Burping or belching Yes Tolerating a Full liquids. We have DISCONTINUED her Protonix . Any history of David's esophagitis?No- LISTED on problem list but pathology from 07/2023 and 01/2021 negative for intestinal metaplasia. No positive biopsies that I can find in records; Follow up EGD? No Complications: Postoperative complications include: 0 - NONE Clavien Score: N/A Unplanned admission to ICU within 30 days? no Readmission with in 30 days? no Interventions/Re-operations within 30 days? no We have obtained the following NEW STUDIES Current Medications Current Outpatient Medications Medication Sig Dispense Refill Fasenra 30 MG/ML Subcutaneous Solution Prefilled Syringe (Benralizumab) Inject 1 mL under the skin every 8 weeks. Brimonidine Tartrate 0.15 % Ophthalmic Solution (Alphagan P) Start: 06/22/22 16:50:00 EDT, 1 drop, left eye, qid, Disp# 10 mL, Refills: 6, [facility], Pharmacy: [facility]/pharmacy #[id number] Dorzolamide HCl 2 % Ophthalmic Solution (Trusopt Ocumeter Plus) Start: 06/22/22 16:50:00 EDT, 1 drop, left eye, qid, Disp# 10 mL, Refills: 6, [facility], Pharmacy: [facility]/pharmacy #[id number] Albuterol Sulfate HFA 108 (90 Base) MCG/ACT Inhalation Aerosol Solution Inhale 2 Puffs by mouth every 6 hours as needed for Congestion, Cough or Wheezing. 18 g 1 Sertraline HCl 100 MG Oral Tablet (Zoloft) TAKE 1 TABLET BY MOUTH EVERY DAY IN THE MORNING 90 Tablet 3 Montelukast Sodium 10 MG Oral Tablet (Singulair) TAKE 1 TABLET BY MOUTH EVERYDAY AT BEDTIME 90 Tablet 3 Fluticasone Furoate-Vilanterol 100-25 MCG/ACT Inhalation Aerosol Powder Breath Activated (BREO ellipta) Inhale 1 Puff by mouth every evening. 180 Each 5 Carboxymethylcellulose Sod PF 0.5 % Ophthalmic Solution (Refresh Plus) Instill 1 Drop into the right eye daily as needed. Scopolamine 1 MG/3DAYS Transdermal Patch 72 Hour (Transderm Scop) Place 1 Patch over 72 hours topically on the skin every 3 days. (Patient not taking: Reported on 02/16/2024) 10 Patch 1 No current facility-administered medications for this visit. Allergies as of 02/16/2024 - Reviewed 02/16/2024 Allergen Reaction Noted Penicillins Hives 06/14/2022 Physical Exam: 02/16/2024 BP 159/72 | Pulse 70 | Temp 36.7 C (98.1 F) | Wt 66.3 kg (146 lb 1.6 oz) | BMI 25.88 kg/m | BSA 1.72 m 10/17/2023: BP 158/70 | Pulse 74 | Temp 36.8 C (98.2 F)| Ht 1.6 m (5' 3") | Wt 63.1 kg (139 lb 1.6 oz) | BMI 24.64 kg/m | BSA 1.67 m General: Alert and appropriate. Well-appearing and in no distress, left eye blindness Abdomen: Soft; Nontender; NO Distention; NO Organomegaly; NO Masses Wounds: incisiosn healing well Hernia; NONE Impression: Excellent progress after 1) Laparoscopy; Repair Paraesophageal Hernia; for hiatal hernia repair; 2) Laparoscopy, Esophageal Fundoplication; Rc 270 degree anterior Fundoplication 3) Upper GI Endoscopy, simple primary examination The patient's preoperative symptoms of Heartburn, Dysphagia, Chest pain, and Nausea/vomiting have significantly improved or resolved off medication. Plan: 1) Diet: Cut and chew foods to the consistency of applesauce. Eat slowly and with plenty of liquids. Esophageal modified diet 2) Activity: Limited to lifting less than 25 pounds. No deep bending and stretching for 4.5 weeks 3) Follow up visit scheduled in [facility] ("[facility]"): 3 months 4) Wound: Healing well and may be left open to air. she may bathe and shower normally. 5) Medications: Restart Protonix 40 mg daily 6) Plan for EGD with possible dilation Bryon Pham MD, FACS, FASS Telephone Station Repairer [facility] Minimally Invasive/ Bariatric Surgery Fellowship Yessica Brown MD Resident Physician, PGY-3 Department of General Surgery 02/22/2024 documented in this encounter Nursing Notes * Anaya Templeton RN - 02/22/2024 3:14 PM EDT Dual Licensed Skin Assessment completed by emily Templeton Rn and rigoberto Edmond Rn. The patient is/has a N/A Skin Breakdown (includes non blanchable erythema): No * Radha Rome RN - 02/22/2024 2:34 PM EDT Dual Licensed Skin Assessment completed by Daryl Rome RN and Tatiana RN. The patient is/has a N/A Skin Breakdown (includes non blanchable erythema): No * Emma Connell RN - 02/21/2024 11:34 AM EDT NO ANESTHESIA EVAL REQUESTED PER CASE DOCUMENTATION. Surgical case is tomorrow, no call made. Patient does not have a Shuame portal. PREOP PATIENT INFORMATION AND EDUCATION: MEDICATION INSTRUCTIONS: The day of surgery/procedure, you may TAKE the following medications with a sip of water up to 2 hours prior to your arrival time: Eye drops as directed Scopolamine patch-please make sure date and time placed is on patch Zoloft Albuterol Sulfate HFA inhaler if needed, please bring to the hospital with you SANTI araujocarol Sullivan AVOID/ DO NOT TAKE any medications the morning of surgery/procedure that are not listed above. STOP taking the following medications the noted number of days prior to surgery/procedure unless otherwise specified by your surgeon: -Please contact your Fasenra's prescribing provider(s) to determine if/when it should be stopped prior to surgery. Please follow surgeon's instructions regarding use of Aspirin, Coumadin, Plavix, Eliquis, and any other blood thinner including NSAIDs (non-steroidal anti- inflammatory drugs, eg, Advil, Ibuprofen, Motrin, Aleve, Naproxen); if you have any questions regarding your anticoagulation therapy please contact your surgeon's clinic. Please verify any proposed stoppage of your anticoagulation therapy with the agent's prescribing provider. 10 days prior to surgery/procedure Stop all Herbal supplements, Green Tea, Turmeric, Melatonin, CBD, THC, etc. Stop all Vitamins (including Vitamin E) 24 hours prior to surgery/procedure DO NOT consume any alcohol. DO NOT use medical marijuana. DO NOT smoke or use tobacco products of any kind after midnight prior to surgery. *Using any of these products may increase your risks of procedural complications. IF IT IS LESS THAN RECOMMENDED STOPPAGE TIME PLEASE STOP AT TIME OF NOTIFICATION. FASTING RECOMMENDATIONS: To reduce risk, it is important for all elective surgery patients to follow the specific fasting guidelines listed below. If you have received more stringent guidelines, please follow the MOST RESTRICTIVE guidelines that you have been provided. DO NOT EAT after midnight on the night prior to your surgery date. You are allowed to drink clear liquids up to two hours prior to arrival time to the hospital or surgery center. Examples of clear liquids include water, clear fruit juice without pulp, clear carbonated beverages, clear tea, and black coffee. Any drinks given by your surgical service take as directed. /pediatric patients who currently drink breast milk, formula, and non-human milk must not eat after midnight. These patients are allowed to drink only the liquids listed below up to two hours prior to arrival time to the hospital or surgery center: Ingested Material Minimum Fasting Time Clear liquid After midnight up to 2 hours prior to arrival time Breast milk Up to 4 hours prior to arrival time Infant formula Up to 6 hours prior to arrival time Non-human milk Up to 6 hours prior to arrival time THE DAY BEFORE YOUR SURGERY: -Drink plenty of fluid the day before your surgery. Contact your surgeon's office if you develop any of the following within 2 weeks of surgery: A cold Infection Fever Shingles Chicken pox or exposure to chicken pox Open areas such as scrapes, cuts, jaramillo or other skin conditions Rashes GENERAL INSTRUCTIONS FOR PREPARING FOR SURGERY: BATHING INSTRUCTIONS: Bathe the evening prior to and the morning of surgery/procedure. Cleanse your body using ONLY anti-bacterial soap (eg, Dial, Safeguard) or any specific soap/cleansers and instructions provided by your surgeon (eg, Chlorhexidine). -You should brush your teeth the morning of surgery. Do NOT apply any lotions, powders, sprays, creams, oils, make-up, or deodorants after bathing. No hairspray, or nail lao on fingers or toes. Day of surgery/procedure do not use tampons. If you wear contacts wear your eyeglasses if available otherwise bring your contact supplies with you to remove them prior to your surgery/procedure. If you wear glasses or dentures, please bring cases in which you can store them during your surgery. Please remove all piercings and jewelry and leave them at home. Wear comfortable and loose clothing. -Please leave all valuables at home. -If you use a CPAP and are staying overnight, please bring your mask and tubing with you to the hospital. -If you use an assistive mobility device (walker, cane, etc), please label it with your name and bring to hospital. -An escort driver/merchandiser is required if you are being discharged the same day of the surgery. You should have a responsible adult over the age of 18 [address] you home. This person should be present with youin the hospital at the time of discharge and for the first 24 hours after the surgery to support your needs. If you are taking a taxi home, you must have your responsible alliance party accompany you in the taxi ride home at the time of discharge. OR times subject to change. Please check voicemail messages the day/evening before your surgery forany updates. PRE-OP: You will be taken to the pre-op area where your vital signs (blood pressure, pulse and temperature)will be taken. Any preparations that need to be done will be done there. When it is time for your surgery, you will be taken to the operating room. PARENTS OF PEDIATRIC PATIENTS WILL BE ALLOWED TO STAY WITH THEIR CHILDREN UNTIL THEY ARE ESCORTED TO THE OPERATING ROOM OUTPATIENT SURGERY PATIENTS: After your surgery you will be taken to the Same Day Surgery Unit when you are awake and will go home from there. You will get instructions about your home care before you leave. Arrange to have someone drive you home from the hospital. You may not drive for 24 hours after anesthesia. You must havean adult stay with you at home for 24 hours after your operation. This is very important. If you are not able to comply with these guidelines, your Short Stay surgery cannot be done. ADMISSION PATIENTS: After your stay in the recovery area, you will be taken to your room. Your family may visit you in your room based on current visitation policy. If a next day discharge is expected, it is important to make arrangements for a driver/merchandiser to take you home. Please be aware our visitation policies are subject to change Professionals, attendants, caregivers or family members are allowable visitors for patients with intellectual, developmental or cognitive disabilities, communication barriers or behavioral concerns. Because patients' and families' needs vary, they will be taken into account when applying visitation restrictions. [facility]: Contact # [phone] Directions to Surgical Suite in from the Jcarlos Entrance The Surgical Waiting Room can be found in the Lobby [facility]. Enter through Main Lobby Entrance and the Waiting Room is directly in front of you. Proceed to check in and give them your name. Directions to Surgical Suite from the East Entrance Enter the East entrance and follow the hallway to the J elevator. Take the J elevator up to Level 1. Continue down the long hallway to the main [facility] Lobby. The Surgical Waiting Room will be on your Right. Proceed to check in and give them your Name. Directions to Surgical Suite from the Parking Garage Enter the [facility] lobby and proceed down the kaur to the left. At the end of the kaur, turn right. Continue down the long hallway to the main [facility] Lobby. The Surgical Waiting Room will be on your Right. Proceed to check in and give them your Name. THANK YOU FOR CHOOSING [facility]! documented in this encounter Plan of Treatment Upcoming Encounters Date Type Department Care Team (Late st Contact Info) Description 11/08/2024 11:30 AM EST Office Visit General Surgery, [facility] [address] [facility] [place] [address] Bryon Pham MD [address] [place] [address] 12/20/2024 11:30 AM EDT Laboratory Laboratory, [place] [facility] [place] [id number] [place] [address] [place] [address] 12/28/2024 9:00 AM EDT Office Visit Family [facility] [place] [address] [place] [facility] [place] [id number] Melania Williamson MD [address] [place] [facility] [place] [address] 01/28/2025 10:00 AM EDT Imaging Radiology, [address] [place] [address] 02/06/2025 10:00 AM EDT Office Visit Rheumatology [address] [place] [address] Tyree Peterson CRNP [address] [place] [address] [place] [address] Health Maintenance Due Date Last Done Comments Depression Screening 1962 Albumin/Creatinine Ratio 1966 CKD PHOS USE SMARTSET 46209 1966 Hepatitis C Screening 1966 DTaP,Tdap,and Td Vaccines (1 - Tdap) 1967 Zoster Vaccines (1 of 2) 1998 *SPIROMETRY ONCE FOR ASTHMA-ADULT 01/22/2022 COVID-19 Vaccine (2022- season) 2023 01/29/2021, 01/08/2021 GFR 04/06/2024 10/07/2023, 01/2024, 09/19/2023, Additional history exists CKD HGB USE SMARTSET 00509 10/07/202410/07, 10/07/2023, 10/06/2023, Additional history exists DXA Scan 01/19/2025 01/19/2023, 01/19/2023 David's Esophagus Surveilance 10/05/2026 10/05/2023, 10/05/2023, 07/05/2023, Additional history exists Colonoscopy Discontinued 02/25/2021, 02/01, 08/12/2017 Colorectal Cancer Screening Discontinued Pneumococcal Vaccine: 65+ Years Completed 12/06/2022, 08/13/2019 VITAMIN D LEVEL ONCE IN A LIFETIME-USE SMARTSET# 95886 Completed 04/25/2023, 02/02/2023 Influenza Vaccine (FLU shot) [...] Not on filedocumented as of this encounter Administered Medications Inactive Administered Medications - up to 3 most recent administrations Medication Order MAR Action Action Date Dose Rate Site isolyte-S pH 7.4 infusion Intravenous, at 100 mL/hr, Plasma-LYTE 148, isolyte-S, and isolyte-S pH 7.4 are considered equivalent - including for MAR barcode scanning., CONTINUOUS, Starting on Tue02/22/24 at 1430, Until Tue02/22/24 at 2015 documented in this encounter Active and Recently Administered Medications Times are shown in EDT. Continuous Medication Order 02/20/2024 02/21/2024 02/22/2024 isolyte-S pH 7.4 infusion Intravenous, at 100 mL/hr, Plasma-LYTE 148, isolyte-S, and isolyte-S pH 7.4 are considered equivalent - including for MAR barcode scanning., CONTINUOUS, Starting on Tue02/22/24 at 1430, Until Tue02/22/24 at 2015 1430 (Due) documented in this encounter Advance Directives * Full Code (Latest Code Status on File) Date Activated Date Inactivated Comments 10/05/2023 3:58 PM 10/08/2023 12:54 AM This order re flects the patients wishes and were consensually agreed upon. Question Answer Comments Discussion of Advance Directives occurred with: Patient * Full Code Date Activated Date Inactivated Comments 10/05/2023 9:25 AM 10/05/2023 3:58 PM This order ref lects the patients wishes and were consensually agreed upon. Question Answer Comments Discussion of Advance Direct kishore occurred with: Not Discussed due to patient's condition Care Teams Home Mission Worker Relationship Specialty Start Date End Date Melania Williamson MD [address] [place] [address] PCP - General Family Medicine 03/09/22 documented as of this encounter
--- OUTSIDE RECORDS SUMMARY | 2024-03-07 13:01 | External Medical Summary | Summary of Care ---
Author Name Unknown Organization [facility] Address [address] [place] [address] Phone [phone] Care Team Providers Care Nurse Tech Name Role Phone Melania Williamson MD Primary Care Provid er Reason for Visit * Reason Comments NEW PATIENT Referred by Dr Blanche lozada for [facility]OC Encounter Details Date Type Department Care Team (Late st Contact Info) Description 02/06/2024 10:00 AM EDT Office Visit Rheumatology [place] [id number] [employer] [place] [address] Tyree Peterson CRNP [address] [place] [address] Senile osteoporosis* Allergies Active Allergy Reactions Criticality Noted Date Comments Penicillins Hives High 06/14/2022 Other reaction(s): hives documented as of this encounter (statuses as of 02/06/2024) Medications Medication Sig Dispensed Refills Start Date End Date Status Fasenra 30 MG/ML Subcutaneous Solution Prefilled Syringe (Benralizumab) Inject 1 mL under the skin every 8 weeks. 0 Active Brimonidine Tartrate 0.15 % Ophthalmic Solution (Alphagan P) Start: 06/22/22 16:50:00 EDT, 1 drop, left eye, qid, Disp# 10 mL, Refills: 6, Note to Pharmacy: may substitute another size bottle, Pharmacy: [facility]/pharmacy #[id number] 06/22/2022 Active Dorzolamide HCl 2 % Ophthalmic Solution (Trusopt Ocumeter Plus) Start: 06/22/22 16:50:00 EDT, 1 drop, left eye, qid, Disp# 10 mL, Refills: 6, Note to Pharmacy: may substitute another size bottle, Pharmacy: [facility]/pharmacy #[id number] 06/22/2022 Active Albuterol Sulfate HFA 108 (90 Base) MCG/ACT Inhalation Aerosol SolutionIndicatio ns:Moderate persistent asthma without complication Inhale 2 Puffs [...] Active Additional Information Patient not taking.Reported on 02/06/2024 Fluticasone Furoate-Vilantero l 100-25 MCG/ACT Inhalation Aerosol Powder Breath Activated (BREO ellipta) Inhale 1 Puff by mouth every evening. 180 Each 5 01/26/2024 Active Carboxymethylcell ulose Sod PF 0.5 % Ophthalmic Solution (Refresh Plus) Instill 1 Drop into the right eye daily as needed. 0 Active Dicyclomine HCl 20 MG Oral Tablet (Bentyl)Indicatio ns:Spasm of colon TAKE BY MOUTH 1 TABLET IN THE MORNING AND 1 TABLET BEFORE BEDTIME. 180 Tablet 3 02/17/2023 02/06/20 24 Discontinued Ondansetron HCl 4 MG Oral Tablet (Zofran)Indicatio ns:Nausea without vomiting Take 1 Tablet by mouth every 8 hours as needed for Nausea. 20 Tablet 0 06/17/2023 02/06/20 24 Discontinued documented as of this encounter (statuses as of 02/06/2024) Active Problems Problem Noted Date Diagnosed Date [...] as of this encounter (statuses as of 02/06/2024) Resolved Problems Problem Noted Date Diagnosed Date Resolved Date Colostomy in place 08/03/2022 2 documented as of this encounter (statuses as of 02/06/2024) Immunizations Name Administration Dates Next Due COVID-19 mRNA, LNP-s, No Pre serve, 2-Dose Series (GiveLoop) 01/29/2021,01/08/2021 Pneumococcal Conjugate Vaccine, 20-valent (Prevn ar20) 12/06/2022 Seasonal Influenza, Quadrivalent Hd (Fluzone Hd) 06/17/2023,08/03/2022 documented as of this encounter Social History Tobacco Use Types Packs/Day Years Used Date Smoking Tobacco: Never Smokeless Tobacco: Never Tobacco Cessation:Counseling Given: Not Answered Alcohol Use Standard Drinks/Week Comments Yes 0 [...] Sign Reading Time Taken Comments Blood Pressure 150/80 02/06/2024 10:02 AM EDT Pulse - - Temperature 36.1 C (96.9 F) 02/06/2024 10:02 AM E DT Respiratory Rate - - Oxygen Saturation - - Inhaled Oxygen Concentration - - Weight 65.3 kg (144 lb) 02/06/2024 10:02 AM EDT Height - - Body Mass Index 25.51 10/17/2023 8:32 AM EST documented in this encounter Functional Status Functional [...] (15 years old or older) No 10/05/19 24 Cognitive Status Response Date of Assessm ent Because of a physical, menta l, or emotional condition, do you have serious difficulty concentrating, remembering, or making decisions? (5 years old or older) No 10/05/2023 documented as of this encounter Patient Instructions * Patient Instructions* Tyree Peterson CRNP - 02/06/2024 10:28 AM EDT Update labs on 04/30/2024 (labs are ordered, Calcium, Creatine, Vit D) I Will start Auth for Reclast in April, due 1st week of May Start taking Calcium 600 mg twice a day Continue current dose of Vit D 3 Contact clinic with any questions or concerns documented in this encounter Progress Notes * Tyree Peterson CRNP - 02/06/2024 10:06 AM EDT [facility] ([facility]): follow up Supervised by: Dr. Jarrett Chauhan Previous Visit Plan from 02/02/2023 reviewed. Prior medication therapy: None Reason for visit: Patient seen today for further follow-up/evaluation of osteoporosis. She has had 1 dose of Reclast thus far. She reports she fell the third week of May and fractured her right femur and they placed a bari. She notes she still has a limp. She did not feel thigh pain prior to her fall. She was hospitalized at [facility] for about 3 days then went to [facility]. Denies dental concerns or thigh pains. She reports that she is going on a cruise to [place] next month. No concerns today. Bone Health Summary: Risks: Falls since last [facility] visit: yes Personal History of Fx since last [facility] Visit: yes Prevention: Exercise : 3 or more times weekly: Yes Nutrition: eats calcium rich foods, Yes Gait: unsteady with walking, No, use of cane/walker, No, Calcium and Vitamin D supplements in adequate doses: Yes- Vit D, No- Calcium Current Smoker: No Chronic Glucocorticoid use: No Rheumatoid Arthritis: No Alcohol 3 or more per day: No ROS: . Constitutional: normal . Head normal . Eyes: normal . Ears, nose, throat, mouth: normal . Cardiovascular: normal . Respiratory: normal . Gastrointestinal: normal . Musculoskeletal: normal . Neurologic: normal . Skin: normal . Psychiatric: normal . Endocrine: normal . Hematologic/lymphatic: normal . Allergic/immunologic: normal . Genitourinary: normal All other ROS reviewed and negative. Pertinent positives listed in HPI. Medications: Current Outpatient Medications Medication Sig Dispense Refill Fasenra 30 MG/ML Subcutaneous Solution Prefilled Syringe (Benralizumab) Inject 1 mL under the skin every 8 weeks. Brimonidine Tartrate 0.15 % Ophthalmic Solution (Alphagan P) Start: 06/22/22 16:50:00 EDT, 1 drop, left eye, qid, Disp# 10 mL, Refills: 6, Note to Pharmacy: [email or web address] another size bottle, Pharmacy: [facility]/pharmacy #[id number] Dorzolamide HCl 2 % Ophthalmic Solution (Trusopt Ocumeter Plus) Start: 06/22/22 16:50:00 EDT, 1 drop, left eye, qid, Disp# 10 mL, Refills: 6, Note to Pharmacy: emani another size bottle, Pharmacy: [facility]/pharmacy #[id number] Sertraline HCl 100 MG Oral Tablet (Zoloft) [...] into the right eye daily as needed. Albuterol Sulfate HFA 108 (90 Base) MCG/ACT Inhalation Aerosol Solution Inhale 2 Puffs by mouth every 6 hours as needed for Congestion, Cough or Wheezing. 18 g 1 Scopolamine 1 MG/3DAYS Transdermal Patch 72 Hour (Transderm Scop) Place 1 Patch over 72 hours topically on the skin every 3 days. (Patient not taking: Reported on 02/06/2024) 10 Patch 1 No current facility-administered medications for this visit. Social History: Social History Tobacco Use Smoking status: Never Smokeless tobacco: Never Vaping Use Vaping Use: Never used Substance Use Topics Alcohol use: Yes Comment: occasionally Drug use: Never PHYSICAL EXAM: General appearance: NAD Eyes: Normal Heme/Lymph: goiter: No Musculoskeletal: Kyphosis No Heart: normal Lungs: normal Neuro: no focal findings Diagnostic Testing: Results of labs and DXA were reviewed and discussed with the patient. Labs: 10/06/2023 Satisfactory: 25-OH Vitamin D- 52 Creatinine- 0.8 Unsatisfactory: calcium 7.9 DXA Result: 01/19/2023 Lumbar spine: 0.809 gms/cm2 T-score: -2.2 Left femoral neck: 0.609 gms/cm2 T-score: -2.2 Assessment: (M81.0) Senile osteoporosis (primary encounter diagnosis) Plan: 25-HYDROXY VITAMIN D, CALCIUM, CREATININE, DEXA SCAN/BONE MINERAL AXIAL 73 year old female with osteoporosis who needs assessment for ongoing treatment. She has had 1 doseof Reclast thus far last May no issues. Her calcium was low 7.9. We will begin calcium supplement 600 mg twice a day. We will get updated labs the last week of April. I will start authorization early April for Reclast on or after 05/06/2023. No signs or symptoms and muscle strength 02/04. Labs are up to date. Will continue to monitor DXA every 2 year. I recommend continuation of a healthy diet with calcium rich foods as well as calcium and vitamin D supplement. Patient encouraged to participate in weight-bearing exercise (i.e., walking). Discussed fall avoidance measures and recommend fall prevention. Although falls are never planned, I discussed with the patient the goal of therapy to slow down / stop the process of osteoporosis from progressing. Patient voiced understanding of the discussion. Discussed the above in detail with the patient. All questions were answered. Plan: The following items are ordered or are in progress: 1. Education: Osteoporosis education was provided by the [facility] team (topics included disease process, DXA, calcium/vitamin D, osteoporosis medications - including administration instructions and risks/benefits, weight bearing exercise, fall prevention/safety). The patient was provided with [facility] patient education instruction sheet(s): declined 2. Prevention: . Eye Examination recommended annually, as good vision may help to prevent falls . Exercise recommended: standing, walking, light lifting . Fall Prevention/Safety Education recommended and discussed . Continue calcium rich foods (goal of 3 servings daily) 3. Osteoporosis Medications : continue vitamin-D 1000 units daily, add calcium 600 mg twice a day. Continue 5mg Reclast IV once yearly 4. Bone Density Testing: ordered and scheduled at this time. due 2 year(s) from previous 5. Laboratory: 04/30/2024 25-OH Vitamin D calcium creatinine 6. Followup: Return to [facility] clinic in 1 year 7. Discussed the above in detail with the patient. All questions answered. 8. Contact clinic with any questions or concerns ARLYN Wills [facility] Team The patient was discussed with me. I agree with the findings and plan as documented by Tyree STODDARD in this note. Jarrett Chauhan MD Rheumatology Department documented in this encounter Nursing Notes * Tom Hinojosa LPN - 02/06/2024 9:59 AM EDT Chief Complaint Patient presents with NEW PATIENT Referred by Dr Williamson for HIROC documented in this encounter Plan of Treatment Upcoming Encounters Date Type Department Care Team (Late st Contact Info) Description 02/16/2024 9:30 AM EDT Office Visit General Surgery, [facility] [address] [facility] [place] [address] Bryon Pham MD [address] [place] [address] 12/20/2024 11:30 AM EDT Laboratory Laboratory, [place] [address] [place] [phone] [facility] [address], [place] [phone] 12/28/2024 9:00 AM EDT Office Visit Family [facility] [address] [place] [phone] Melania Williamson MD [address], [place] [phone] 01/28/2025 10:00 AM EDT Imaging Radiology, [address] [place] [address] 02/06/2025 10:00 AM EDT Office Visit Rheumatology [address] [place] [address] Tyree Peterson CRNP [address] [place] [address] Scheduled Orders Name Type Priority Associated Diagnoses Orde r Schedule 25-HYDROXY VITAMIN D Lab Routine Senile osteoporosis Expected: 04/30/2024, Expires: 02/05/2025 CALCIUM Lab Routine Senile osteoporosis Expected: 04/30/2024, Expires: 02/05/2025 CREATININE Lab Routine Senile osteoporosis Expected: 04/30/2024, Expires: 02/05/2025 DEXA SCAN/BONE MINERAL AXIAL Medical Imaging Routine Senile osteoporosis Expected: 01/20/2025, Expires: 03/08/2025 Health Maintenance Due Date Last Done Comments Depression Screening 1962 Albumin/Creatinine Ratio 1966 CKD PHOS USE SMARTSET 84347 1966 Hepatitis C Screening 1966 DTaP,Tdap,and Td Vaccines (1 - Tdap) 1967 Zoster Vaccines (1 of 2) 1998 *SPIROMETRY ONCE FOR ASTHMA-ADULT 01/22/2022 COVID-19 Vaccine ( - 2022- season) 2023 01/29/2021, 01/08/2021 GFR 04/06/2024 10/07/2023, 01/2024, 09/19/2023, Additional history exists CKD HGB USE SMARTSET 14213 10/07/202410/07, 10/07/2023, 10/06/2023, Additional history exists DXA Scan 01/19/2025 01/19/2023, 01/19/2023 David's Esophagus Surveilance 10/05/2026 10/05/2023, 10/05/2023, 07/05/2023, Additional history exists Colonoscopy Discontinued 02/25/2021, 02/01, 08/12/2017 Colorectal Cancer Screening Discontinued Pneumococcal Vaccine: 65+ Years Completed 12/06/2022, 08/13/2019 VITAMIN D LEVEL ONCE IN A LIFETIME-USE SMARTSET# 99857 Completed 04/25/2023, 02/02/2023 Influenza Vaccine (FLU shot) [...] as of this encounter Visit Diagnoses Diagnosis Senile osteoporosis- Primary documented in this encounter Advance Directives Latest [...] Discussed due to patient's condition Care Teams Nurse Tech Relationship Specialty Start Date End Date Melania Williamson MD [address] [place] [address] PCP - General Family Medicine 03/09/22 documented as of this encounter
--- OUTSIDE RECORDS SUMMARY | 2024-03-07 13:01 | External Medical Summary | Summary of Care ---
Author Name Unknown Organization [facility] Address [address] [place] [address] Phone [phone] Care Team Providers Care Thermo Processor Name Role Phone Melania Williamson MD Primary Care Provid er Reason for Visit * Reason Comments Post-Op 10/05/2023Laparoscopy repair Paraesophageal hernia, Fundoplication, having issues with burping, gas, vomiting, not being able to eat - better than it was but not what she expected. Encounter Details Date Type Department Care Team (Late st Contact Info) Description 02/16/2024 11:30 AM EDT Office Visit General Surgery, [facility] [address] [facility] [place] [address] Bryon Pham MD [address] [place] [address] Postgastric surgery syndrome*; Chronic kidney disease, stage 3a (HCC); Gastroesophageal reflux disease without esophagitis Allergies Active Allergy Reactions Criticality Noted Date Comments Penicillins Hives High 06/14/2022 Other reaction(s): hives documented as of this encounter (statuses as of 02/17/2024) Medications Medication Sig Dispensed Refills Start Date End Date Status Fasenra 30 MG/ML Subcutaneous Solution Prefilled Syringe (Benralizumab) Inject 1 mL under the skin every 8 weeks. 0 Active Brimonidine Tartrate 0.15 % Ophthalmic Solution (Alphagan P) Start: 06/22/22 16:50:00 EDT, 1 drop, left eye, qid, Disp# 10 mL, Refills: 6, Note to Pharmacy: may substitute another size bottle, Pharmacy: [facility]/pharmacy #[id number] 06/22/2022 Active Dorzolamide HCl 2 % Ophthalmic Solution (Trusopt Ocumeter Plus) Start: 06/22/22 16:50:00 EDT, 1 drop, left eye, qid, Disp# 10 mL, Refills: 6, Note to Pharmacy: may substitute another size bottle, Pharmacy: [facility]/pharmacy #[id number] 06/22/2022 Active Albuterol Sulfate HFA 108 (90 Base) MCG/ACT Inhalation Aerosol SolutionIndications: Moderate persistent asthma without complication Inhale 2 Puffs [...] every evening. 180 Each 5 01/26/2024 Active Carboxymethylcellulo se Sod PF 0.5 % Ophthalmic Solution (Refresh Plus) Instill 1 Drop into the right eye daily as needed. 0 Active documented as of this encounter (statuses as of 02/17/2024) Active Problems Problem Noted Date Diagnosed Date [...] as of this encounter (statuses as of 02/17/2024) Resolved Problems Problem Noted Date Diagnosed Date Resolved Date Colostomy in place 08/03/2022 2 documented as of this encounter (statuses as of 02/17/2024) Immunizations Name Administration Dates Next Due COVID-19 mRNA, LNP-s, No Pre serve, 2-Dose Series ([employer]) 01/29/2021,01/08/2021 Pneumococcal Conjugate Vaccine, 20-valent (Prevn ar20) [...] Sign Reading Time Taken Comments Blood Pressure 159/72 02/16/2024 11:16 AM EDT Pulse 70 02/16/2024 11:16 AM EDT Temperature 36.7 C (98.1 F) 02/16/2024 11:16 AM E DT Respiratory Rate - - Oxygen Saturation - - Inhaled Oxygen Concentration - - Weight 66.3 kg (146 lb 1.6 oz) 02/16/2024 11:16 AM EDT Height - - Body Mass Index 25.88 10/17/2023 8:32 AM EST documented in this [...] No 10/05/2023 documented as of this encounter Progress Notes * Bryon Pham MD - 02/16/2024 11:30 AM EDT [facility] CLINIC VISIT 02/16/2024 Ankita Cohn Swine Nutritionist [id number] 73 year old PCP: Melania Williamson MD Consult requested by: ARLYN Lynch MIS Surgical History: 1) Laparoscopy; Repair Paraesophageal Hernia; [...] have obtained the following NEW STUDIES Current Outpatient Medications Medication Sig Dispense Refill Fasenra 30 MG/ML Subcutaneous Solution Prefilled Syringe (Benralizumab) Inject 1 mL under the skin every 8 weeks. Brimonidine Tartrate 0.15 % Ophthalmic Solution (Alphagan P) Start: 06/22/22 16:50:00 EDT, 1 drop, left eye, qid, Disp# 10 mL, Refills: 6, Note to Pharmacy: [email or web address] another size bottle, Pharmacy: [facility]/pharmacy #[id number] Dorzolamide HCl 2 % Ophthalmic Solution (Trusopt Ocumeter Plus) Start: 06/22/22 16:50:00 EDT, 1 drop, left eye, qid, Disp# 10 mL, Refills: 6, Note to Pharmacy: [email or web address] another size bottle, Pharmacy: [facility]/pharmacy #[id number] Albuterol Sulfate HFA 108 (90 Base) [...] weeks 3) Follow up visit scheduled in [facility] ("[facility]"): 3 months 4) Wound: Healing well and may be left open to air. she may bathe and shower normally. 5) Medications: Restart Protonix 40 mg daily 6) Plan for EGD with possible dilation Bryon Pham MD, FACS, [facility] Water Resource Engineer [facility]/ Bariatric Surgery [facility] documented in this encounter Nursing Notes * Nancie Hayward LPN - 02/16/2024 11:15 AM EDT Patient identified by name and date of . Chief Complaint Patient presents with Post-Op 10/05/2023Laparoscopy repair Paraesophageal hernia, Fundoplication, having issues with burping, gas, vomiting, not being able to eat - better than it was but not what she expected. Pt presents with , trent. Pt stating that she is having issues. Pt is having issues with burping, gas, vomiting, not being able to eat- early satiety. documented in this encounter Plan of Treatment Upcoming Encounters Date Type Department Care Team (Late st Contact Info) Description 12/20/2024 11:30 AM EDT Laboratory Laboratory, [place] [address] [facility] [place] [phone] [facility] [address], [place] [phone] 12/28/2024 9:00 AM EDT Office Visit [facility] [address] [facility] [place] [phone] Melania Williamson MD [address] [facility] [place] [id number] 01/28/2025 10:00 AM EDT Imaging Radiology, [address] [place] [address] 02/06/2025 10:00 AM EDT Office Visit Rheumatology [facility] [email or web address] [place] [address] Tyree Peterson CRNP [address] [place] [address] Health Maintenance Due Date Last Done Comments Depression Screening 1962 Albumin/Creatinine Ratio 1966 CKD PHOS USE SMARTSET 34469 1966 Hepatitis C Screening 1966 DTaP,Tdap,and Td Vaccines (1 - Tdap) 1967 Zoster Vaccines (1 of 2) 1998 *SPIROMETRY ONCE FOR ASTHMA-ADULT 01/22/2022 COVID-19 Vaccine ( - 2022- season) 2023 01/29/2021, 01/08/2021 GFR 04/06/2024 10/07/2023, 01/2024, 09/19/2023, Additional history exists CKD HGB USE SMARTSET 38448 10/07/202410/07, 10/07/2023, 10/06/2023, Additional history exists DXA Scan 01/19/2025 01/19/2023, 01/19/2023 David's Esophagus Surveilance 10/05/2026 10/05/2023, 10/05/2023, 07/05/2023, Additional history exists Colonoscopy Discontinued 02/25/2021, 02/01, 08/12/2017 Colorectal Cancer Screening Discontinued Pneumococcal Vaccine: 65+ Years Completed 12/06/2022, 08/13/2019 VITAMIN D LEVEL ONCE IN A LIFETIME-USE SMARTSET# [id number] Completed 04/25/2023, 02/02/2023 Influenza Vaccine (FLU shot) [...] as of this encounter Visit Diagnoses Diagnosis Postgastric surgery syndrome- Primary Postgastric surgery syndromes Chronic kidney disease, stage 3a (HCC) Gastroesophageal reflux disease without esophagitis Esophageal reflux documented in this encounter Advance Directives Latest [...] Discussed due to patient's condition Care Teams Thermo Processor Relationship Specialty Start Date End Date Melania Williamson MD [address] [place] [address] PCP - General Family Medicine 03/09/22 documented as of this encounter
--- OUTSIDE RECORDS SUMMARY | 2024-03-07 13:01 | External Medical Summary | Summary of Care ---
Author Name Unknown Organization [facility] Address [address] [place] [address] Phone [phone] Care Team Providers Care Local Area Network Systems Adminstrator Name Role Phone Melania Williamson MD Primary Care Provid er Reason for Visit * Reason Onset Date Comments Appointment 02/14/2024 Encounter Details Date Type Department Care Team (Late st Contact Info) Description 02/14/2024 Telephone General Surgery, [place] [address] [place] [address] Walter Workman RN [address] [place] [address] Appointment Allergies Active Allergy Reactions Criticality Noted Date Comments Penicillins Hives High 06/14/2022 Other reaction(s): hives documented as of this encounter (statuses as of 02/14/2024) Medications Medication Sig Dispensed Refills Start Date End Date Status Fasenra 30 MG/ML Subcutaneous Solution Prefilled Syringe (Benralizumab) Inject 1 mL under the skin every 8 weeks. 0 Active Brimonidine Tartrate 0.15 % Ophthalmic Solution (Alphagan P) Start: 06/22/22 16:50:00 EDT, 1 drop, left eye, qid, Disp# 10 mL, Refills: 6, Note to Pharmacy: may substitute another size bottle, Pharmacy: [facility]/pharmacy #[id number] 06/22/2022 Active Dorzolamide HCl 2 % Ophthalmic Solution (Trusopt Ocumeter Plus) Start: 06/22/22 16:50:00 EDT, 1 drop, left eye, qid, Disp# 10 mL, Refills: 6, Note to Pharmacy: may substitute another size bottle, Pharmacy: [facility]/pharmacy #[id number] 06/22/2022 Active Albuterol Sulfate HFA [...] Information Patient not taking.Reported on 02/06/2024 Fluticasone Furoate-Vilanterol 100-25 MCG/ACT Inhalation Aerosol Powder Breath Activated (BREO ellipta) Inhale 1 Puff by mouth every evening. 180 Each 5 01/26/2024 Active Carboxymethylcellulo se Sod PF 0.5 % Ophthalmic Solution (Refresh Plus) Instill 1 Drop into the right eye daily as needed. 0 Active documented as of this encounter (statuses as of 02/14/2024) Active Problems Problem Noted Date Diagnosed Date [...] as of this encounter (statuses as of 02/14/2024) Resolved Problems Problem Noted Date Diagnosed Date Resolved Date Colostomy in place 08/03/2022 2 documented as of this encounter (statuses as of 02/14/2024) Immunizations Name Administration Dates Next Due COVID-19 [...] encounter Miscellaneous Notes * Telephone Encounter - Toshia Kamara RN - 02/14/2024 12:38 PM EDT Ankita called accepted new appointment time. Toshia Kamara, RN * Telephone Encounter - Walter Workman RN - 02/14/2024 11:54 AM EDT Call made to Ankita to change her appointment time to [address] Pham has a meeting to attend and will not be available to be at [facility] for 9:30 AM. No answer LMOM for return call. Walter Workman BSN, roll grinder operator and Foregut Nurse Coordinator documented in this encounter Plan of Treatment Upcoming Encounters Date Type Department Care Team (Late st Contact Info) Description 02/16/2024 9:30 AM EDT Office Visit General Surgery, [facility] [address] [facility] [place] [address] Bryon Pham MD [address] [place] [address] 12/20/2024 11:30 AM EDT [facility] [address] [place] [id number] [place] [address] [place] [address] 12/28/2024 9:00 AM EDT Office Visit Family [facility] [address] [place] [id number] Melania Williamson MD [address] [place] [address] 01/28/2025 10:00 AM EDT Imaging Radiology, [address] [place] [address] 02/06/2025 10:00 AM EDT Office Visit Rheumatology [address] [place] [address] Tyree Peterson CRNP [address] [facility] [place] [address] Health Maintenance Due Date Last Done Comments Depression Screening 1962 Albumin/Creatinine Ratio 1966 CKD PHOS USE SMARTSET 04128 1966 Hepatitis C Screening 1966 DTaP,Tdap,and Td Vaccines (1 - Tdap) 1967 Zoster Vaccines (1 of 2) 1998 *SPIROMETRY ONCE FOR ASTHMA-ADULT 01/22/2022 COVID-19 Vaccine ( - 2022-24 season) 2023 01/29/2021, 01/08/2021 GFR 04/06/2024 10/07/2023, 01/2024, 09/19/2023, Additional history exists CKD HGB USE SMARTSET 28764 10/07/202410/07, 10/07/2023, 10/06/2023, Additional history exists DXA Scan 01/19/2025 01/19/2023, 01/19/2023 David's Esophagus Surveilance 10/05/2026 10/05/2023, 10/05/2023, 07/05/2023, Additional history exists Colonoscopy Discontinued 02/25/2021, 02/01, 08/12/2017 Colorectal Cancer Screening Discontinued Pneumococcal Vaccine: 65+ Years Completed 12/06/2022, 08/13/2019 VITAMIN D LEVEL ONCE IN A LIFETIME-USE SMARTSET# [id number] Completed 04/25/2023, 02/02/2023 Influenza Vaccine (FLU shot) [...] Not on filedocumented as of this encounter Advance Directives Latest Code Status [...] Discussed due to patient's condition Care Teams Local Area Network Systems Adminstrator Relationship Specialty Start Date End Date Melania Williamson MD [address] [facility] [place] [address] PCP - General Family Medicine 03/09/22 documented as of this encounter
--- OUTSIDE RECORDS SUMMARY | 2024-03-07 13:02 | External Medical Summary | Summary of Care ---
Author Name Unknown Organization [facility] Address [address] [place] [address] Phone [phone] Care Team Providers Care Poultry Hatchery Man Name Role Phone Malcolm Barrow MD Primary Care Provid er Reason for Visit * Reason Onset Date Comments Medication Refill 01/24/2024 Encounter Details Date Type Department Care Team (Late st Contact Info) Description 01/24/2024 Refill [place] [address] [place] [address] Malcolm Barrow MD [address] [place] [address] Allergies Active Allergy Reactions Criticality Noted Date Comments Penicillins Hives High 06/14/2022 Other reaction(s): hives documented as of this encounter (statuses as of 01/26/2024) Medications Medication Sig Dispensed Refills Start Date End Date Status Fasenra 30 MG/ML Subcutaneous Solution Prefilled Syringe (Benralizumab) Inject 1 mL under the skin every 8 weeks. 0 Active Brimonidine Tartrate 0.15 % Ophthalmic Solution (Alphagan P) Start: 06/22/22 16:50:00 EDT, 1 drop, left eye, qid, Disp# 10 mL, Refills: 6, Note to Pharmacy: may substitute another size bottle, Pharmacy: [facility]/pharmacy #[id number] 06/22/2022 Active Dorzolamide HCl 2 % Ophthalmic Solution (Trusopt Ocumeter Plus) Start: 06/22/22 16:50:00 EDT, 1 drop, left eye, qid, Disp# 10 mL, Refills: 6, Note to Pharmacy: may substitute another size bottle, Pharmacy: [facility]/pharmacy #[id number] 06/22/2022 Active Albuterol Sulfate HFA 108 (90 Base) MCG/ACT Inhalation Aerosol SolutionIndication s:Moderate persistent asthma without complication Inhale 2 Puffs by mouth every 6 hours as needed for Congestion, Cough or Wheezing. 18 g 1 09/30/2022 Active Dicyclomine HCl 20 MG Oral Tablet (Bentyl)Indication s:Spasm of colon TAKE BY MOUTH 1 TABLET IN THE MORNING AND 1 TABLET BEFORE BEDTIME. 180 Tablet 3 02/17/2023 Active Additional Information Patient not taking.Reported on 10/17/2023 Ondansetron HCl 4 MG Oral Tablet (Zofran)Indication s:Nausea without vomiting Take 1 Tablet by mouth [...] every evening. 180 Each 5 01/26/2024 Active Fluticasone Furoate-Vilanterol 100-25 MCG/ACT Inhalation Aerosol Powder Breath Activated (BREO ellipta) Inhale 1 Puff by mouth every evening. 180 Each 5 04/07/2023 Discontinue d(Refill) documented as of this encounter (statuses as of 01/26/2024) Active Problems Problem Noted Date Diagnosed Date [...] as of this encounter (statuses as of 01/26/2024) Resolved Problems Problem Noted Date Diagnosed Date Resolved Date Colostomy in place 08/03/2022 2 documented as of this encounter (statuses as of 01/26/2024) Immunizations Name Administration Dates Next Due COVID-19 [...] encounter Miscellaneous Notes * Telephone Encounter - Malcolm Barrow MD - 01/26/2024 5:15 PM EDT Signed Prescriptions: Disp Refills Fluticasone Furoate-Vilanterol 100-25 MCG/*180 Ea*5 Sig: Inhale 1 Puff by mouth every evening. Authorizing Provider: MALCOLM BARROW * Telephone Encounter - Nataly Carcamo PHARM Tech - 01/25/2024 2:48 PM EDT patient calling to check on status of breo. Caller can be reached at [phone]. Thank you, Nataly Carcamo [employer] [facility] 01/25/2024,2:48 PM * Telephone Encounter - Rosi Macdonald LPN - 01/24/2024 6:30 PM EDTPending Prescriptions: Disp Refills Fluticasone Furoate-Vilanterol 100-25 MCG/*180 Ea*5 Sig: Inhale 1 Puff by mouth every evening. * Telephone Encounter - Malgorzata Cummings PHARM Tech - 01/24/2024 2:07 PM EDT Pharmacy asking for a YOLIS 1 as the ins only pays for brand and an override 9 the ins rejects. Did you pend patient's preferred pharmacy and medication before forwarding?yes Pharmacy: [id number] [address] [facility] Pending Prescriptions: Disp Refills Fluticasone Furoate-Vilanterol 100-25 MCG*180 Ea*5 Sig: Inhale 1 Puff by mouth every evening. Last Visit: 12/26/2023 (in office), Visit date not found (telemedicine) Next Visit: 12/28/2024 If no future appointments scheduled, and last appointment is greater than a year ago, please schedule patient for a follow-up appointment Last date the medication was ordered: 04/07/2023 Is this request for a controlled substance?No Urine Drug Screen:No results found for this or any previous visit. Patient Phone Numbers Labs: Lab Results Component Value Date/Time CREAT 0.8 10/07/2023 05:18 AM POTASSIUM 3.8 10/07/2023 05:18 AM TSH 1.03 08/03/2022 02:45 PM LDLCALC 156 (H) 01/27/2022 07:42 AM ALT 13 01/27/2022 07:42 AM HGBA1C 5.9 (H) 09/19/2023 01:09 PM documented in this encounter Plan of Treatment Upcoming Encounters Date Type Department Care Team (Late st Contact Info) Description 02/06/2024 10:00 AM EDT Office Visit Rheumatology [facility] [address] [facility] [place] [address] Tyree Peterson CRNP [address] [place] [address] 02/16/2024 9:30 AM EDT Office Visit General Surgery, [facility] [address] [facility] [place] [address] Bryon Pham MD [address] [facility] [place] [address] 12/20/2024 11:30 AM EDT Laboratory Laboratory, [place] [address] [place] [address] [facility] [address] [place] [address] 12/28/2024 9:00 AM EDT Office Visit Family Practice, [place] [address] [place] [address] Malcolm Barrow MD [address] [place] [address] Health Maintenance Due Date Last Done Comments Depression Screening 1962 Albumin/Creatinine Ratio 1966 CKD PHOS USE SMARTSET 02866 1966 Hepatitis C Screening 1966 DTaP,Tdap,and Td Vaccines (1 - Tdap) 1967 Zoster Vaccines (1 of 2) 1998 *SPIROMETRY ONCE FOR ASTHMA-ADULT 01/22/2022 COVID-19 Vaccine (3 - 2022-24 season) 2023 01/29/2021, 01/08/2021 GFR 04/06/2024 10/07/2023, 01/2024, 09/19/2023, Additional history exists CKD HGB USE SMARTSET 10739 10/07/202410/07, 10/07/2023, 10/06/2023, Additional history exists DXA Scan 01/19/2025 01/19/2023, 01/19/2023 David's Esophagus Surveilance 10/05/2026 10/05/2023, 10/05/2023, 07/05/2023, Additional history exists Colonoscopy Discontinued 02/25/2021, 02/01, 08/12/2017 Colorectal Cancer Screening Discontinued Pneumococcal Vaccine: 65+ Years Completed 12/06/2022, 08/13/2019 VITAMIN D LEVEL ONCE IN A LIFETIME-USE SMARTSET# [id number] Completed 04/25/2023, 02/02/2023 Influenza Vaccine (FLU shot) [...] Discussed due to patient's condition Care Teams Poultry Hatchery Man Relationship Specialty Start Date End Date Malcolm Barrow MD [address] [place] [facility] [place] [address] PCP - General Family Medicine 03/09/22 documented as of this encounter
--- NOTE | 2024-03-07 13:41 | Hospitalist Progress Note ---
Date of Service March 07, 2024 Assessment & Plan (1) Small bowel obstruction: (2) Acute renal failure: (3) Syncope: Plan: Patient presented to the ED with abdominal pain, nausea and episode of syncope Hypotensive on arrival; other vital stable No leukocytosis Creatinine elevated from baseline to 1.3 CT abdomen pelvis shows dilated small bowel measuring up to 3.5 cm consistent with small bowel obstruction. Area of obstruction in the left lower quadrant where there is fecal distended small bowel with perienteric edema. NG tube placed due to persistent abdominal pain and nausea;On low intermittent suction Continue pain medication as needed Bowel rest Continue IV fluids; avoid nephrotoxic agent Appreciate surgery input Chronic medical conditions; Hyperlipidemianot on statin as patient's preference Bronchial asthmastable GERD status post surgery [id number] of 5.9 in 2022 Please note the above document was generated using voice recognition software. It may contain grammatical, syntax or spelling errors. Any formal questions or concerns about the content, text or information contained within the body of this dictation should be directly addressed to the provider for clarification Admission and Anticipated Discharge Date Admission Date: March 07, 2024 Subjective Patient continued to have abdominal pain and vomiting. She underwent NG tube placement with immediate output of 1 L. Abdomen pain improved after NG tube placement Review of Systems Review of Systems: All systems reviewed & are unremarkable except as noted in Subjective Physical Exam Physical Exam: Constitutional: Appears tired; awake and oriented x 3 Respiratory: normal respiratory effort, lungs clear to auscultation, no wheeze, rales, rhonchi. Normal insp/exp effort, no accessory muscle use Cardiovascular: RRR, no murmur, no edema Vessels: no JVD or carotid bruit Chest: normal inspection of chest Abdomen: Slightly distended, nontender. Musculoskeletal: no cyanosis or clubbing, extremities motor strength 5/5 Skin: no rashes, warm and dry normal turgor Neurologic: PERRL, EOMI, accommodation nl, no face palsy, no dysarthria CN's II- XI intact bilaterally and moves all extremities Psychiatric: A+Ox3, euthymic affect Results & Data Results & Data Vital Signs (Past 12 Hours) Vital Signs Temp Pulse Pulse Resp BP Pulse Ox O2 Del Method 03/07/24 11:03 37.1 C 68 19 144/86 H 95 Room Air 03/07/24 09:46 36.7 C 68 19 166/84 H 96 Room Air 03/07/24 09:36 77 03/07/24 08:15 78 18 150/84 H 98 Room Air 03/07/24 06:50 63 18 120/59 L 97 03/07/24 06:18 60 03/07/24 05:00 68 17 163/84 H 97 Room Air 03/07/24 03:00 67 16 158/68 H 96 Room Air 03/07/24 02:00 62 14 141/77 H 97 Room Air
[2024-03-07] MEDS: FLUTICASONE/VILANTEROL 100/25MCG 14 PUFFS/INHALER INH SCH (19:52)
[2024-03-08 06:37] LABS: Basophils # (auto) 0.02 K/uL (0.00-0.20); Basophils % (auto) 0.2 %; Hematocrit (blood only) 38.1 % (37.0-47.0); Hemoglobin 11.9 g/dl (12.0-16.0); Immature Granulocytes # (auto) 0.03 K/uL (0.01-0.20); Immature Granulocytes % (auto) 0.4 %; Lymphocytes # (auto) 1.06 K/uL (1.20-3.40); Lymphocytes % (auto) 13.2 %; Mean Corpuscular Hemoglobin 24.9 pg (25.0-34.0); Mean Corpuscular Hgb Conc 31.2 g/dL (32.0-36.0); Mean Corpuscular Volume 79.9 fL (80.0-100.0); Monocytes # (auto) 0.94 K/uL (0.11-0.59); Monocytes % (auto) 11.7 %; Neutrophils # (auto) 5.96 K/uL (1.40-6.50); Neutrophils % (auto) 74.5 %; Platelet Count 172 K/uL (130-400); RDW Coefficient of Variation 15.2 % (11.5-14.5); Red Blood Count 4.77 M/uL (4.20-5.40); White Blood Count 8.01 K/ul (4.8-10.8)
[2024-03-08 07:02] LABS: BUN Creatinine Ratio 21.6 (10-20); Calcium 8.3 mg/dl (8.6-10.3); Est GFR (African American) 56.3 ml/min; Est GFR (Non-African American) 48.5 ml/min; Potassium 3.8 mmol/L (3.5-5.1)
--- NOTE | 2024-03-08 08:08 | Surgery Progress Note ---
Date of Service March 08, 2024 Assessment & Plan (1) Small bowel obstruction: Plan: Pt here with small bowel obstruction NGT in place She denies any abdominal complaints and feels improved from admission. no nausea/vomiting Will obtain a KUB today for further evaluation. If improved we will perform a clamp trial If continues with SBO type picture we will leave NGT in place for ongoing bowel rest and repeat KUB tomorrow feeling better. high ngt output. todays KUB pending. keep ngt for now. no urgent indication for surgical intervention. her pain has resolved. Admission and Anticipated Discharge Date Admission Date: March 07, 2024 Subjective Patient upset as she is missing a big cruise vacation to [place] that was supposed to start today. Provided reassurance. Regarding her abdomen she denies any pain at this time and feels improvement in presenting symptoms. Physical Exam Physical Exam: awake, alert Respiratory: normal respiratory effort Gastrointestinal (Abdomen): Percussion/Palpation: abdomen soft; abdomen nontender NGT in place, 2.3L documented since insertion Results & Data Vital Signs (Past 12 Hours) Vital Signs Temp Pulse Pulse Resp BP Pulse Ox O2 Del Method 03/08/24 07:42 98.2 F 81 16 145/76 H 94 Room Air 03/08/24 07:26 Room Air 03/08/24 07:11 85 03/08/24 03:50 97.9 F 60 18 142/77 H 97 Room Air 03/07/24 23:37 97.9 F 70 16 143/75 H 97 Room Air 03/07/24 22:01 90 03/07/24 20:54 Room Air PG Care Time/CCT Total # of Minutes Spent Total Time Spent with Patient: Total time spent is greater than 50% in coordination of care (as documented) at patient's floor/unit and/or counseling patient: Coding Level of Care Code 22659 SUB INP/OBS CARE 2/35MIN Diagnoses Small bowel obstruction K56.609
--- NOTE | 2024-03-08 10:10 | XRay Report ---
KUB HISTORY: Acute generalized abdominal pain with small bowel disruption sbo COMPARISON: 03/07/2024 FINDINGS: Distal tip of the enteric tube projects over the expected location of the distal stomach ve rsus proximal duodenum. Contrast noted within the urinary bladder. Nonobstructive bowel gas pattern. No renal calculi. No ureteral calculi. No pneumoperitoneum or pneumatosis. Right femoral ORIF hardwa re is partially imaged. No fracture. IMPRESSION: 1. Distal tip of enteric tube projects over the abdominal right upper quadrant. 2. No radiographic evidence of small bowel obstruction on today's exam. ACT 112: Negative or not required by law. The above report was generated using voice recognition software. It may contain grammatical, syntax o r spelling errors. Electronically signed by: Alexis Pedraza M.D. 03/08/2024 10:09 AM
[2024-03-08] MEDS: HYDROmorphone INJ 0.5 MG/0.5 ML SYR IV PRN (10:20)
--- NOTE | 2024-03-08 13:43 | Hospitalist Progress Note ---
Date of Service March 08, 2024 Assessment & Plan (1) Small bowel obstruction: (2) Acute renal failure: (3) Syncope: Plan: Patient presented to the ED with abdominal pain, nausea and episode of syncope Hypotensive on arrival; other vital stable No leukocytosis Creatinine elevated from baseline to 1.3 CT abdomen pelvis shows dilated small bowel measuring up to 3.5 cm consistent with small bowel obstruction. Area of obstruction in the left lower quadrant where there is fecal distended small bowel with perienteric edema. Currently on NG tube in low intermittent suction. Repeat KUB personally reviewed; small bowel obstruction improved. Monitor NG tube output; plan to clamp the tube if output continues to decrease as per surgery. Continue pain medication as needed Bowel rest Continue IV fluids; avoid nephrotoxic agent Chronic medical conditions; Hyperlipidemianot on statin as patient's preference Bronchial asthmastable GERD status post surgery [id number] of 5.9 in 2022 Time spent evaluating patient, direct bedside care, chart review, placing orders, interpretation of diagnostic studies, discussion with consultants, patient, and family members, as well as other required patient management activities is 40 minutes Please note the above document was generated using voice recognition software. It may contain grammatical, syntax or spelling errors. Any formal questions or concerns about the content, text or information contained within the body of this dictation should be directly addressed to the provider for clarification Admission and Anticipated Discharge Date Admission Date: March 07, 2024 Subjective Patient seen and examined at the bedside. She is lying on the bed comfortably; not in distress. NG tube in place with drainage of dark output Abdominal pain improved Review of Systems Review of Systems: All systems reviewed & are unremarkable except as noted in Subjective Physical Exam Physical Exam: Constitutional: Appears tired; awake and oriented x 3 Respiratory: normal respiratory effort, lungs clear to auscultation, no wheeze, rales, rhonchi. Normal insp/exp effort, no accessory muscle use Cardiovascular: RRR, no murmur, no edema Vessels: no JVD or carotid bruit Chest: normal inspection of chest Abdomen: Slightly distended, nontender. Musculoskeletal: no cyanosis or clubbing, extremities motor strength 5/5 Skin: no rashes, warm and dry normal turgor Neurologic: PERRL, EOMI, accommodation nl, no face palsy, no dysarthria CN's II- XI intact bilaterally and moves all extremities Psychiatric: A+Ox3, euthymic affect Results & Data Results & Data Vital Signs (Past 12 Hours) Vital Signs Temp Pulse Pulse Resp BP Pulse Ox O2 Del Method 03/08/24 11:48 36.7 C 82 16 137/75 94 Room Air 03/08/24 07:42 36.8 C 81 16 145/76 H 94 Room Air 03/08/24 07:26 Room Air 03/08/24 07:11 85 03/08/24 03:50 36.6 C 60 18 142/77 H 97 Room Air
[2024-03-09 06:25] LABS: Basophils # (auto) 0.01 K/uL (0.00-0.20); Basophils % (auto) 0.1 %; Hematocrit (blood only) 36.2 % (37.0-47.0); Hemoglobin 11.4 g/dl (12.0-16.0); Immature Granulocytes # (auto) 0.04 K/uL (0.01-0.20); Immature Granulocytes % (auto) 0.5 %; Lymphocytes # (auto) 1.18 K/uL (1.20-3.40); Lymphocytes % (auto) 13.9 %; Mean Corpuscular Hemoglobin 25.3 pg (25.0-34.0); Mean Corpuscular Hgb Conc 31.5 g/dL (32.0-36.0); Mean Corpuscular Volume 80.3 fL (80.0-100.0); Mean Platelet Volume 8.7 fL (9.4-12.4); Monocytes % (auto) 9.4 %; Neutrophils # (auto) 6.47 K/uL (1.40-6.50); Neutrophils % (auto) 76.1 %; Platelet Count 159 K/uL (130-400); RDW Coefficient of Variation 14.7 % (11.5-14.5); RDW Standard Deviation 43.2 fL (36.4-46.3); Red Blood Count 4.51 M/uL (4.20-5.40)
[2024-03-09 06:31] LABS: BUN Creatinine Ratio 21.8 (10-20); Calcium 7.9 mg/dl (8.6-10.3); Est GFR (African American) 75.5 ml/min; Est GFR (Non-African American) 65.2 ml/min; Potassium 3.7 mmol/L (3.5-5.1)
--- NOTE | 2024-03-09 06:41 | Surgery Progress Note ---
Date of Service March 09, 2024 Assessment & Plan (1) Small bowel obstruction: Plan: Will keep her NG tube in place but allow her to have clear liquids today and clamp the tube. Will reevaluate later and if she does okay we will consider removing her NG tube. [facility] surgeons covering for the weekend. Admission and Anticipated Discharge Date Admission Date: March 07, 2024 Subjective Patient seen. She had a good night of rest last night and has no new complaints today. Still some lower crampy abdominal pain. Currently denies any nausea Physical Exam Constitutional: WD/WN, vitals as above no acute distress and not ill appearing Eyes: PERRL, conjunctivae normal, anicteric sclerae EOM intact bilaterally ENMT: external ear and nose normal, oropharynx normal Ears: no hearing impairment Neck: trachea midline, no thyromegaly Respiratory: normal respiratory effort; no respiratory distress and does not use accessory muscles Cardiovascular: Rate/Rhythm: regular rate and regular rhythm Gastrointestinal (Abdomen): Soft. With minimal lower tenderness. Mild distention. Much improved from admission exam. Skin: no rashes, warm and dry Psychiatric: Orientation: alert, oriented x 3 and cooperative Results & Data Vital Signs (Past 12 Hours) Vital Signs Temp Pulse Pulse Resp BP Pulse Ox O2 Del Method 03/09/24 04:16 36.5 C 85 16 153/75 H 94 Room Air 03/08/24 23:32 37 C 70 18 152/76 H 96 Room Air 03/08/24 23:12 91 H 03/08/24 20:11 37.3 C 84 16 148/72 H 92 Room Air PG Care Time/CCT Total # of Minutes Spent Total Time Spent with Patient: Total time spent is greater than 50% in coordination of care (as documented) at patient's floor/unit and/or counseling patient: Coding Level of Care Code 57967 SUB INP/OBS CARE 10/27MIN Diagnoses Small bowel obstruction K56.609
--- NOTE | 2024-03-09 12:12 | XRay Report ---
KUB CLINICAL HISTORY: Small bowel obstruction. FINDINGS: An AP, portable, supine abdominal radiograph is compared to study dated 03/08/2024 and correl ated with abdominal CT dated 03/07/2024. An enteric tube is unchanged in position. There is continued g aseous distention of the small bowel loops which measure up to 3.2 cm. This indicates persistent obst ruction. No evidence of intraperitoneal free air is seen on this supine image. There are no abnormal abdominal calcifications. Excreted IV contrast is seen in the bladder. The skeletal structures are os teopenic. There is lumbosacral spondylosis. Postoperative change and chronic deformity is seen in the right proximal femur. IMPRESSION: 1. Persistent small bowel obstruction. 2. An enteric tube is unchanged in position. Electronically signed by: Jeet Pennington M.D. 03/09/2024 12:11 PM
--- NOTE | 2024-03-09 12:48 | Hospitalist Progress Note ---
Date of Service March 09, 2024 Assessment & Plan (1) Small bowel obstruction: (2) Acute renal failure: (3) Syncope: Plan: Patient presented to the ED with abdominal pain, nausea and episode of syncope Hypotensive on arrival; other vital stable No leukocytosis Creatinine elevated from baseline to 1.3;down trended to baseline CT abdomen pelvis shows dilated small bowel measuring up to 3.5 cm consistent with small bowel obstruction. Area of obstruction in the left lower quadrant where there is fecal distended small bowel with perienteric edema. Currently on NG tube in low intermittent suction. Another repeat KUB done today; personally reviewedconsistent with SBO. Currently on NG tube clamp trial as per surgery; with clear liquid diet. Monitor for flatus/bowel movement. Continue pain medication as needed Bowel rest Continue IV fluids; avoid nephrotoxic agent Chronic medical conditions; Hyperlipidemianot on statin as patient's preference Bronchial asthmastable GERD status post surgery [id number] of 5.9 in 2022 Time spent evaluating patient, direct bedside care, chart review, placing orders, interpretation of diagnostic studies, discussion with consultants, patient, and family members, as well as other required patient management ac tivities is 40 minutes Please note the above document was generated using voice recognition software. It may contain grammatical, syntax or spelling errors. Any formal questions or concerns about the content, text or information contained within the body of this dictation should be directly addressed to the provider for clarification Admission and Anticipated Discharge Date Admission Date: March 07, 2024 Subjective Patient reports that abdominal pain has improved. She still does not have much appetite. She still has pain in her left lower abdomen. Review of Systems Review of Systems: All systems reviewed & are unremarkable except as noted in Subjective Physical Exam Physical Exam: Constitutional: Appears tired; awake and oriented x 3 Respiratory: normal respiratory effort, lungs clear to auscultation, no wheeze, rales, rhonchi. Normal insp/exp effort, no accessory muscle use Cardiovascular: RRR, no murmur, no edema Vessels: no JVD or carotid bruit Chest: normal inspection of chest Abdomen: Slightly distended, nontender. Musculoskeletal: no cyanosis or clubbing, extremities motor strength 5/5 Skin: no rashes, warm and dry normal turgor Neurologic: PERRL, EOMI, accommodation nl, no face palsy, no dysarthria CN's II- XI intact bilaterally and moves all extremities Psychiatric: A+Ox3, euthymic affect Results & Data Results & Data Vital Signs (Past 12 Hours) Vital Signs Temp Pulse Pulse Resp BP Pulse Ox O2 Del Method 03/09/24 11:35 36.8 C 84 17 146/75 H 96 Room Air 03/09/24 08:27 37.0 C 101 H 16 156/81 H 97 Room Air 03/09/24 07:09 Room Air 03/09/24 07:02 94 H 03/09/24 04:16 36.5 C 85 16 153/75 H 94 Room Air
[2024-03-09] MEDS: CHLORASEPTIC (PHENOL) 1.4% SOLN 180 ML BTL MT PRN (19:46)
[2024-03-09] MEDS ORDERED: Nursing to Pharmacy Communication SCH (20:45)
--- NOTE | 2024-03-09 21:51 | Electrocardiogram Report ---
Test Reason : Blood Pressure : / mmHG Vent. Rate : 063 BPM Atrial Rate : 063 BPM P-R Int : 134 ms QRS Dur : 080 ms QT Int : 454 ms P-R-T Axes : 043 066 057 degrees QTc Int : 464 ms Normal sinus rhythm Normal ECG When compared with ECG of 25-MAY-2023 16:25, No significant change was found Confirmed by Amarjit Simms ([id number]) on 03/09/2024 9:50:41 PM Referred By: REFERRED SELF Confirmed By:Amarjit Simms
[2024-03-10 07:06] LABS: Calcium 7.8 mg/dl (8.6-10.3); Potassium 3.3 mmol/L (3.5-5.1)
[2024-03-10 07:07] LABS: Basophils # (auto) 0.01 K/uL (0.00-0.20); Basophils % (auto) 0.1 %; Hematocrit (blood only) 34.7 % (37.0-47.0); Immature Granulocytes # (auto) 0.03 K/uL (0.01-0.20); Immature Granulocytes % (auto) 0.4 %; Lymphocytes % (auto) 13.9 %; Mean Corpuscular Hemoglobin 25.4 pg (25.0-34.0); Mean Corpuscular Hgb Conc 31.7 g/dL (32.0-36.0); Mean Corpuscular Volume 80.1 fL (80.0-100.0); Mean Platelet Volume 9.3 fL (9.4-12.4); Monocytes # (auto) 0.75 K/uL (0.11-0.59); Monocytes % (auto) 10.5 %; Neutrophils # (auto) 5.38 K/uL (1.40-6.50); Neutrophils % (auto) 75.1 %; Platelet Count 132 K/uL (130-400); RDW Coefficient of Variation 14.6 % (11.5-14.5); RDW Standard Deviation 42.5 fL (36.4-46.3); Red Blood Count 4.33 M/uL (4.20-5.40); White Blood Count 7.17 K/ul (4.8-10.8)
[2024-03-10 07:12] LABS: BUN Creatinine Ratio 14.7 (10-20); Creatinine Clr Calc Pharmacy 65.7 ml/min; Est GFR (African American) 99.2 ml/min; Est GFR (Non-African American) 85.6 ml/min
--- NOTE | 2024-03-10 07:13 | XRay Report ---
KUB CLINICAL HISTORY: Small bowel obstruction. FINDINGS: An AP, portable, supine abdominal radiograph is compared to study dated 03/09/2024 and correl ated with abdominal CT dated 03/07/2024. An enteric tube is unchanged in position. There is continued g aseous distention of the small bowel loops in the left lower abdomen suggesting persistent obstructio n. No evidence of intraperitoneal free air is seen on this supine image. There are no abnormal abdomi nal calcifications. Excreted IV contrast is seen in the bladder. The skeletal structures are osteopen ic. There is lumbosacral spondylosis. Postoperative change and chronic deformity is seen in the right proximal femur. IMPRESSION: 1. There is persistent mild gaseous distention of small bowel loops in the left lower quadrant sugges ting persistent at least partial small bowel obstruction. 2. An enteric tube is unchanged in position. Electronically signed by: Jeet Pennington M.D. 03/10/2024 7:11 AM
[2024-03-10] MEDS: POTASSIUM CHLORIDE / WTR 10 MEQ/100 ML PLCT IV SCH (08:42)
--- NOTE | 2024-03-10 13:56 | Hospitalist Progress Note ---
Date of Service March 10, 2024 Assessment & Plan (1) Small bowel obstruction: (2) Acute renal failure: (3) Syncope: Plan: Patient presented to the ED with abdominal pain, nausea and episode of syncope Hypotensive on arrival; other vital stable No leukocytosis Creatinine elevated from baseline to 1.3;down trended to baseline CT abdomen pelvis shows dilated small bowel measuring up to 3.5 cm consistent with small bowel obstruction. Area of obstruction in the left lower quadrant where there is fecal distended small bowel with perienteric edema. Repeat KUB showed persistent small bowel obstruction. Patient continues to be n.p.o.; awaiting general surgery input regarding diet advancement. Monitor for bowel movement/flatus Continue pain medication as needed Bowel rest Continue IV fluids; avoid nephrotoxic agent Chronic medical conditions; Hyperlipidemianot on statin as patient's preference Bronchial asthmastable GERD status post surgery [id number] of 5.9 in 2022 Time spent evaluating patient, direct bedside care, chart review, placing ord ers, interpretation of diagnostic studies, discussion with consultants, patient, and family members, as well as other required patient management activities is 40 minutes Please note the above document was generated using voice recognition software. It may contain grammatical, syntax or spelling errors. Any formal questions or concerns about the content, text or information contained within the body of this dictation should be directly addressed to the provider for clarification Admission and Anticipated Discharge Date Admission Date: March 07, 2024 Subjective Patient seen and examined at bedside. She reports fatigue and tiredness She also reports lower abdominal pain and discomfort NG tube in place Patient passed flatus last evening; no flatus today morning. Review of Systems Review of Systems: All systems reviewed & are unremarkable except as noted in Subjective Physical Exam Physical Exam: Constitutional: Appears tired; awake and oriented x 3 Respiratory: normal respiratory effort, lungs clear to auscultation, no wheeze, rales, rhonchi. Normal insp/exp effort, no accessory muscle use Cardiovascular: RRR, no murmur, no edema Vessels: no JVD or carotid bruit Chest: normal inspection of chest Abdomen: Slightly distended, Tenderness in left lower quadrant Musculoskeletal: no cyanosis or clubbing, extremities motor strength 5/5 Skin: no rashes, warm and dry normal turgor Neurologic: PERRL, EOMI, accommodation nl, no face palsy, no dysarthria CN's II- XI intact bilaterally and moves all extremities Psychiatric: A+Ox3, euthymic affect Results & Data Results & Data Vital Signs (Past 12 Hours) Vital Signs Temp Pulse Pulse Resp BP BP Pulse Ox 03/10/24 11:15 36.9 C 97 H 18 155/72 H 97 03/10/24 07:28 36.7 C 75 17 154/69 H 98 03/10/24 06:00 84 03/10/24 03:31 36.5 C 79 16 142/68 H 96 O2 Del Method 03/10/24 11:15 Room Air 03/10/24 07:28 Room Air 03/10/24 06:00 03/10/24 03:31 Room Air
[2024-03-10] MEDS: D5W AND 1/2NSS + 20MEQ KCL 20 MEQ/1,000 ML BAG IV SCH (14:22)
--- NOTE | 2024-03-10 15:55 | Surgery Progress Note ---
Date of Service March 10, 2024 Assessment & Plan (1) Small bowel obstruction: Plan: Slow to resolve. Imaging shows slight improvement and she is starting to pass small amounts of flatus. however, still distended with tenderness on exam. would keep ng tube today. Can reassess tomorrow to see if it can be removed. Admission and Anticipated Discharge Date Admission Date: March 07, 2024 Subjective Family at bedside. She would like to get the nasogastric tube removed as this does cause phlegm in the back of her throat. However, while she had 1 slightly liquid bowel movement yesterday, she is still only passing minimal flatus and still feels bloated. She is not having any further abdominal pain. She is surface grinder tender in the left lower quadrant. Physical Exam Constitutional: WD/WN, vitals as above Gastrointestinal (Abdomen): Inspection/Auscultation: abdomen normal to inspection, + abdomen distended, + abdominal surgical incision (old from prior ostomy) and + hypoactive bowel sounds Percussion/Palpation: + abdomen tender (mild in left lower quadrant) and abdomen soft; no guarding Neurologic: awake; no focal motor deficits Psychiatric: A+Ox3, euthymic affect Results & Data Vital Signs (Past 12 Hours) Vital Signs Temp Pulse Pulse Resp BP Pulse Ox O2 Del Method 03/10/24 15:37 36.9 C 78 18 150/82 H 99 Room Air 03/10/24 14:04 84 03/10/24 11:15 36.9 C 97 H 18 155/72 H 97 Room Air 03/10/24 07:28 36.7 C 75 17 154/69 H 98 Room Air 03/10/24 06:00 84 Laboratory Results Abnormal lab results 03/10/24 Range/Units 06:29 Hgb 11.0 L (12.0-16.0) g/dl Hct 34.7 L (37.0-47.0) % MCHC 31.7 L (32.0-36.0) g/dL RDW Coeff of Guera 14.6 H (11.5-14.5) % MPV 9.3 L (9.4-12.4) fL Lymph # (Auto) 1.00 L (1.20-3.40) K/uL Mcleod # (Auto) 0.75 H (0.11-0.59) K/uL Potassium 3.3 L (3.5-5.1) mmol/L Chloride 110 H (98-107) mmol/L Carbon Dioxide 20 L (21-32) mmol/L Calcium 7.8 L (8.6-10.3) mg/dl Diagnostic Findings Xray today CLINICAL HISTORY: Small bowel obstruction. FINDINGS: An AP, portable, supine abdominal radiograph is compared to study dated 03/09/2024 and correlated with abdominal CT dated 03/07/2024. An enteric tube is unchanged in position. There is continued gaseous distention of the small bowel loops in the left lower abdomen suggesting persistent obstruction. No evidence of intraperitoneal free air is seen on this supine image. There are no abnormal abdominal calcifications. Excreted IV contrast is seen in the bladder. The skeletal structures are osteopenic. There is lumbosacral spondylosis. Postoperative change and chronic deformity is seen in the right proximal femur. IMPRESSION: 1. There is persistent mild gaseous distention of small bowel loops in the left lower quadrant suggesting persistent at least partial small bowel obstruction. 2. An enteric tube is unchanged in position.
[2024-03-10] MEDS: ACETAMINOPHEN 1,000 MG/100 ML VIAL IV PRN (19:58)
[2024-03-11 06:35] LABS: Basophils # (auto) 0.01 K/uL (0.00-0.20); Basophils % (auto) 0.1 %; Hematocrit (blood only) 35.1 % (37.0-47.0); Hemoglobin 11.4 g/dl (12.0-16.0); Immature Granulocytes # (auto) 0.04 K/uL (0.01-0.20); Immature Granulocytes % (auto) 0.5 %; Lymphocytes # (auto) 0.81 K/uL (1.20-3.40); Lymphocytes % (auto) 9.7 %; Mean Corpuscular Hemoglobin 25.5 pg (25.0-34.0); Mean Corpuscular Hgb Conc 32.5 g/dL (32.0-36.0); Mean Corpuscular Volume 78.5 fL (80.0-100.0); Monocytes # (auto) 0.84 K/uL (0.11-0.59); Neutrophils # (auto) 6.67 K/uL (1.40-6.50); Neutrophils % (auto) 79.7 %; Platelet Count 161 K/uL (130-400); RDW Coefficient of Variation 14.6 % (11.5-14.5); RDW Standard Deviation 41.3 fL (36.4-46.3); Red Blood Count 4.47 M/uL (4.20-5.40); White Blood Count 8.37 K/ul (4.8-10.8)
[2024-03-11 06:57] LABS: BUN Creatinine Ratio 12.9 (10-20); Calcium 8.4 mg/dl (8.6-10.3); Creatinine Clr Calc Pharmacy 64.9 ml/min; Est GFR (African American) 98.2 ml/min; Est GFR (Non-African American) 84.8 ml/min; Potassium 3.8 mmol/L (3.5-5.1)
[2024-03-11] MEDS: KETOROLAC TROMETHAMINE 15 MG/ML VIAL IV ONE (10:28)
--- NOTE | 2024-03-11 11:15 | Surgery Progress Note ---
Date of Service March 11, 2024 Assessment & Plan (1) Small bowel obstruction: Plan: Not clearly resolving. Will d/c ng to give her a break as it is low output and does not seem to be making much difference. If does not open up, may require surgical exploration and the family would like to discuss this with Dr. Tran tomorrow. 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 Minimal output (200 cc over 24 hr). Physical Exam Gastrointestinal (Abdomen): Inspection/Auscultation: abdomen normal to inspection, + abdomen distended (mild) and normal bowel sounds (are present) Percussion/Palpation: + abdomen tender (left abdomen), + guarding (left lower abdomen) and abdomen soft Results & Data Vital Signs (Past 12 Hours) Vital Signs Temp Pulse Pulse Resp BP Pulse Ox O2 Del Method 03/11/24 07:54 36.9 C 64 18 153/80 H 98 Room Air 03/11/24 05:59 63 03/11/24 03:49 36.7 C 75 16 137/75 96 Room Air 03/10/24 23:40 72 03/10/24 23:15 37.2 C 69 16 124/73 95 Room Air Laboratory Results Abnormal lab results 03/11/24 Range/Units 05:51 Hgb 11.4 L (12.0-16.0) g/dl Hct 35.1 L (37.0-47.0) % MCV 78.5 L (80.0-100.0) fL RDW Coeff of Guera 14.6 H (11.5-14.5) % MPV 9.0 L (9.4-12.4) fL Neut # (Auto) 6.67 H (1.40-6.50) K/uL Lymph # (Auto) 0.81 L (1.20-3.40) K/uL Sac # (Auto) 0.84 H (0.11-0.59) K/uL Calcium 8.4 L (8.6-10.3) mg/dl
--- NOTE | 2024-03-11 13:29 | Hospitalist Progress Note ---
Date of Service March 11, 2024 Assessment & Plan (1) Small bowel obstruction: (2) Acute renal failure: (3) Syncope: Plan: Patient presented to the ED with abdominal pain, nausea and episode of syncope Hypotensive on arrival; other vital stable No leukocytosis Creatinine elevated from baseline to 1.3;down trended to baseline CT abdomen pelvis shows dilated small bowel measuring up to 3.5 cm consistent with small bowel obstruction. Area of obstruction in the left lower quadrant where there is fecal distended small bowel with perienteric edema. Repeat KUB showed persistent small bowel obstruction. Patient has not shown improvement with conservative management; minimal output from NG tube. NG tube discontinued as per surgery. Continue sips; await general surgery input. Continue pain medication as needed Bowel rest Continue IV fluids; avoid nephrotoxic agent Chronic medical conditions; Hyperlipidemianot on statin as patient's preference Bronchial asthmastable GERD status post surgery [id number] of 5.9 in 2022 Time spent evaluating patient, direct bedside care, chart review, placing orders, interpretation of diagnostic studies, discussion with consultants, patient, and family members, as well as other required patient management activ ities is 40 minutes Please note the above document was generated using voice recognition software. It may contain grammatical, syntax or spelling errors. Any formal questions or concerns about the content, text or information contained within the body of this dictation should be directly addressed to the provider for clarification Admission and Anticipated Discharge Date Admission Date: March 07, 2024 Subjective Patient continues to complain of abdominal pain and discomfort. She has not passed flatus Minimal output from NG tube No significant events overnight Review of Systems Review of Systems: All systems reviewed & are unremarkable except as noted in Subjective Physical Exam Physical Exam: Constitutional: Appears tired; awake and oriented x 3 Respiratory: normal respiratory effort, lungs clear to auscultation, no wheeze, rales, rhonchi. Normal insp/exp effort, no accessory muscle use Cardiovascular: RRR, no murmur, no edema Vessels: no JVD or carotid bruit Chest: normal inspection of chest Abdomen: Slightly distended, Tenderness in left lower quadrant Musculoskeletal: no cyanosis or clubbing, extremities motor strength 5/5 Skin: no rashes, warm and dry normal turgor Neurologic: PERRL, EOMI, accommodation nl, no face palsy, no dysarthria CN's II- XI intact bilaterally and moves all extremities Psychiatric: A+Ox3, euthymic affect Results & Data Results & Data Vital Signs (Past 12 Hours) Vital Signs Temp Pulse Pulse Resp BP Pulse Ox O2 Del Method 03/11/24 11:40 36.5 C 69 18 154/82 H 98 Room Air 03/11/24 07:54 36.9 C 64 18 153/80 H 98 Room Air 03/11/24 05:59 63 03/11/24 03:49 36.7 C 75 16 137/75 96 Room Air
--- NOTE | 2024-03-12 07:53 | Surgery Progress Note ---
Date of Service March 12, 2024 Assessment & Plan (1) Small bowel obstruction: Plan: Pt reports sm amt flatus overnight NGT removed yesterday, no n/v since reports spitting up some phlegm VSS abd soft non distended, TTP LLQ reports discomfort No BM yet Am labs pending Ordered SBFT this AM As above. Doing okay with NG tube removed. No nausea or vomiting. Pain much improved from admission. Still not having any bowel movements and continues to have a little bit of lower abdominal discomfort. Will order small bowel follow- through today. Admission and Anticipated Discharge Date Admission Date: March 07, 2024 Subjective Pt tearful at times Reports abd discomfort No N/V since NGT removal small amount of flatus overnight Review of Systems Constitutional: no fever and no chills Gastrointestinal: + abdominal pain (discomfort ); no nause a and no vomiting Genitourinary: no dysuria Physical Exam Physical Exam: alert oriented Constitutional: cooperative; no acute distress Respiratory: normal respiratory effort and able to speak in complete sentences; no respiratory distress Cardiovascular: Rate/Rhythm: regular rate Gastrointestinal (Abdomen): Inspection/Auscultation: + abdominal surgical scar; abdomen not distended Percussion/Palpation: + abdomen tender (TTP LLQ) and abdomen soft; no guarding Psychiatric: Orientation: alert and oriented x 3 Affect: + tearful affect Results & Data Vital Signs (Past 12 Hours) Vital Signs Temp Pulse Pulse Resp BP Pulse Ox O2 Del Method 03/12/24 03:35 98.1 F 64 14 148/78 H 96 Room Air 03/11/24 23:23 97.9 F 82 14 153/75 H 95 Room Air 03/11/24 22:02 78 03/11/24 19:50 77 152/78 H PG Care Time/CCT Total # of Minutes Spent Total Time Spent with Patient: Total time spent is greater than 50% in coordination of care (as documented) at patient's floor/unit and/or counseling patient: Coding Level of Care Code 29184 SUB INP/OBS CARE 10/27MIN Diagnoses Small bowel obstruction K56.609
[2024-03-12 07:59] LABS: BUN Creatinine Ratio 13.4 (10-20); Calcium 8.4 mg/dl (8.6-10.3); Creatinine Clr Calc Pharmacy 66.6 ml/min; Est GFR (African American) 99.7 ml/min; Potassium 3.9 mmol/L (3.5-5.1)
[2024-03-12 08:04] LABS: Hematocrit (blood only) 37.4 % (37.0-47.0); Hemoglobin 12.1 g/dl (12.0-16.0); Immature Granulocytes # (auto) 0.02 K/uL (0.01-0.20); Immature Granulocytes % (auto) 0.4 %; Lymphocytes # (auto) 0.96 K/uL (1.20-3.40); Lymphocytes % (auto) 20.3 %; Mean Corpuscular Hemoglobin 25.3 pg (25.0-34.0); Mean Corpuscular Hgb Conc 32.4 g/dL (32.0-36.0); Mean Corpuscular Volume 78.2 fL (80.0-100.0); Mean Platelet Volume 8.7 fL (9.4-12.4); Monocytes # (auto) 0.58 K/uL (0.11-0.59); Monocytes % (auto) 12.3 %; Neutrophils # (auto) 3.16 K/uL (1.40-6.50); Platelet Count 165 K/uL (130-400); RDW Coefficient of Variation 14.9 % (11.5-14.5); RDW Standard Deviation 42.3 fL (36.4-46.3); Red Blood Count 4.78 M/uL (4.20-5.40); White Blood Count 4.72 K/ul (4.8-10.8)
--- NOTE | 2024-03-12 09:32 | Fluoroscopy Report ---
FL small bowel follow through CLINICAL HISTORY: SBO TECHNIQUE: Plastic Technician images were obtained. The patient drank barium followed by serial abdominal xray lalita ges. Comparison: Comparison is made to abdominal radiograph 03/22/2024 FINDINGS: Ileocecal junction was visualized at 20 minutes. Small bowel loops are normal in caliber and position . The terminal ileum was visualized and appeared grossly unremarkable. IMPRESSION: Small bowel loops are unremarkable with no evidence of obstruction or perforation. Rapid transit of c ontrast is seen. ACT 112: Negative or not required by law. Electronically signed by: Kilo Mix M.D. 03/12/2024 9:31 AM
--- NOTE | 2024-03-12 13:40 | Hospitalist Progress Note ---
Date of Service March 12, 2024 Assessment & Plan (1) Small bowel obstruction: (2) Acute renal failure: (3) Syncope: Plan: Patient presented to the ED with abdominal pain, nausea and episode of syncope Hypotensive on arrival; other vital stable No leukocytosis Creatinine elevated from baseline to 1.3;down trended to baseline CT abdomen pelvis shows dilated small bowel measuring up to 3.5 cm consistent with small bowel obstruction. Area of obstruction in the left lower quadrant where there is fecal distended small bowel with perienteric edema. Repeat KUB showed persistent small bowel obstruction. Small bowel follow-through shows rapid transit of contrast to ileocecal junction at 20 minutes. Small bowel loops unremarkable with no evidence of obstruction or perforation. Started on clear liquid diet; advance as tolerated to full liquid diet in the ev ening Discontinue fluids; continue supportive care Chronic medical conditions; Hyperlipidemianot on statin as patient's preference Bronchial asthmastable GERD status post surgery [id number] of 5.9 in 2022 Time spent evaluating patient, direct bedside care, chart review, placing orders, interpretation of diagnostic studies, discussion with consultants, patient, and family members, as well as other required patient management activities is 40 minutes Please note the above document was generated using voice recognition software. It may contain grammatical, syntax or spelling errors. Any formal questions or concerns about the content, text or information contained within the body of this dictation should be directly addressed to the provider for clarification Admission and Anticipated Discharge Date Admission Date: March 07, 2024 Subjective Patient ordered a small bowel follow-through today She is having multiple bowel movements She reports abdominal discomfort and left lower quadrant;; no pain. Review of Systems Review of Systems: All systems reviewed & are unremarkable except as noted in Subjective Physical Exam Physical Exam: Constitutional: Appears tired; awake and oriented x 3 Respiratory: normal respiratory effort, lungs clear to auscultation, no wheeze, rales, rhonchi. Normal insp/exp effort, no accessory muscle use Cardiovascular: RRR, no murmur, no edema Vessels: no JVD or carotid bruit Chest: normal inspection of chest Abdomen: Slightly distended, Tenderness in left lower quadrant Musculoskeletal: no cyanosis or clubbing, extremities motor strength 5/5 Skin: no rashes, warm and dry normal turgor Neurologic: PERRL, EOMI, accommodation nl, no face palsy, no dysarthria CN's II- XI intact bilaterally and moves all extremities Psychiatric: A+Ox3, euthymic affect Results & Data Results & Data Vital Signs (Past 12 Hours) Vital Signs Temp Pulse Pulse Resp BP Pulse Ox O2 Del Method 03/12/24 11:40 36.5 C 95 H 18 137/77 99 Room Air 03/12/24 07:52 36.7 C 73 17 145/82 H 98 Room Air 03/12/24 05:56 59 L 03/12/24 03:35 36.7 C 64 14 148/78 H 96 Room Air
[2024-03-13 08:10] LABS: Basophils # (auto) 0.01 K/uL (0.00-0.20); Basophils % (auto) 0.2 %; Hematocrit (blood only) 36.2 % (37.0-47.0); Hemoglobin 11.6 g/dl (12.0-16.0); Immature Granulocytes # (auto) 0.02 K/uL (0.01-0.20); Immature Granulocytes % (auto) 0.4 %; Lymphocytes # (auto) 1.26 K/uL (1.20-3.40); Lymphocytes % (auto) 25.3 %; Mean Corpuscular Hemoglobin 25.2 pg (25.0-34.0); Mean Corpuscular Volume 78.5 fL (80.0-100.0); Mean Platelet Volume 8.5 fL (9.4-12.4); Monocytes # (auto) 0.54 K/uL (0.11-0.59); Monocytes % (auto) 10.8 %; Neutrophils # (auto) 3.16 K/uL (1.40-6.50); Neutrophils % (auto) 63.3 %; Platelet Count 196 K/uL (130-400); RDW Coefficient of Variation 15.2 % (11.5-14.5); RDW Standard Deviation 42.8 fL (36.4-46.3); Red Blood Count 4.61 M/uL (4.20-5.40); White Blood Count 4.99 K/ul (4.8-10.8)
[2024-03-13 08:23] LABS: BUN Creatinine Ratio 14.5 (10-20); Calcium 8.8 mg/dl (8.6-10.3); Creatinine Clr Calc Pharmacy 58.4 ml/min; Est GFR (African American) 88.9 ml/min; Est GFR (Non-African American) 76.7 ml/min
--- NOTE | 2024-03-13 09:37 | Surgery Progress Note ---
Date of Service March 13, 2024 Assessment & Plan (1) Small bowel obstruction: Plan: resolved ok for d/c from my standpoint. call if any questions/concerns Admission and Anticipated Discharge Date Admission Date: March 07, 2024 Subjective pt seen. feeling well. +bm's. janes diet. feels "back to normal" Physical Exam Constitutional: WD/WN, vitals as above no acute distress and not ill appearing Eyes: PERRL, conjunctivae normal, anicteric sclerae EOM intact bilaterally ENMT: external ear and nose normal, oropharynx normal Ears: no hearing impairment Neck: trachea midline, no thyromegaly Respiratory: normal respiratory effort; no respiratory distress and does not use accessory muscles Cardiovascular: Rate/Rhythm: regular rate and regular rhythm Gastrointestinal (Abdomen): normal bowel sounds, soft, nontender, no hepatosplenomegaly Skin: no rashes, warm and dry Psychiatric: Orientation: alert, oriented x 3 and cooperative Results & Data Vital Signs (Past 12 Hours) Vital Signs Temp Pulse Pulse Resp BP BP Pulse Ox 03/13/24 07:43 36.8 C 79 18 145/74 H 96 03/13/24 05:56 67 03/13/24 03:23 36.9 C 68 18 127/71 97 03/12/24 22:51 36.6 C 70 18 141/78 H 99 03/12/24 22:06 74 O2 Del Method 03/13/24 07:43 Room Air 03/13/24 05:56 03/13/24 03:23 Room Air 03/12/24 22:51 Room Air 03/12/24 22:06 PG Care Time/CCT Total # of Minutes Spent Total Time Spent with Patient: Total time spent is greater than 50% in coordination of care (as documented) at patient's floor/unit and/or counseling patient: Coding Level of Care Code 75111 SUB INP/OBS CARE 10/27MIN Diagnoses Small bowel obstruction K56.609
--- NOTE | 2024-03-13 14:03 | Discharge Summary ---
Date of Service March 13, 2024 Admission HPI Per Admitting Provider History obtained from patient and records. Medical history significant for hyperlipidemia, bronchial asthma, GERD status post surgery. Last confinement May 2023 for traumatic right hip fracture status post surgery. Unremarkable postop course. Yesterday, patient noted achy left-sided abdominal pain followed by nausea and emesis. Bowel movements okay. Unwitnessed syncopal event while vomiting close to the commode. Denies headache, chest pain, SOB. No witnessed seizures or incontinence. Patient initially did not want to come to ER due to planned travel for [place] today. Patient brought to ER for evaluation. SBP 70s upon arrival at the ER. Medical History as above Surgical History : Paraesophageal hernia repair, colectomy/colostomy, BTL, hip surgery, breast surgery, back surgery Family History : DM Personal/Social history : Non-smoker, no EtOH intake, lives with Admission Exam Per Admitting Provider GENERAL: Slightly uncomfortable, tearful, no respiratory distress SKIN: Normal color, warm HEENT: Bespectacled, pink palpebral conjunctivae, no ptosis, dry buccal mucosa NECK : Supple, no tenderness CHEST : CTA, no tenderness HEART : RRR, no obvious murmurs ABDOMEN: Some distention, left-sided abdominal tenderness EXTREMITIES : No LE swelling/tenderness, no other conspicuous deformities noted NEUROLOGIC : Coherent, no facial asymmetry, no other gross focality Principal Diagnosis Small Bowel Obstruction Discharge Exam Constitutional: Appears tired; awake and oriented x 3 Respiratory: normal respiratory effort, lungs clear to auscultation, no wheeze, rales, rhonchi. Normal insp/exp effort, no accessory muscle use Cardiovascular: RRR, no murmur, no edema Vessels: no JVD or carotid bruit Chest: normal inspection of chest Abdomen: Slightly distended, Tenderness in left lower quadrant Musculoskeletal: no cyanosis or clubbing, extremities motor strength 5/5 Skin: no rashes, warm and dry normal turgor Neurologic: PERRL, EOMI, accommodation nl, no face palsy, no dysarthria CN's II- XI intact bilaterally and moves all extremities Psychiatric: A+Ox3, euthymic affect Discharge Data Allergies Allergy/AdvReac Type Severity Reaction Status Date / Time Penicillins Allergy Intermediate HIVES Verified 03/07/24 01:08 Consultations 03/07/24 04:08 ED Decision to Admit Stat 03/07/24 04:49 Consult General Surgery Routine Ordered Studies 03/07/24 00:24 CT Abd and Pelvis [CT abd pelvis IV con only] Stat 03/12/24 07:46 FL small bowel follow through Urgent Hospital Course (1) Small bowel obstruction: (2) Acute renal failure: (3) Syncope: Patient presented to the ED with abdominal pain, nausea and episode of syncope Hypotensive on arrival; other vital stable No leukocytosis Creatinine elevated from baseline to 1.3;down trended to baseline CT abdomen pelvis shows dilated small bowel measuring up to 3.5 cm consistent with small bowel obstruction. Area of obstruction in the left lower quadrant where there is fecal distended small bowel with perienteric edema. Patient was admitted to medical floor; NG tube was placed for decompression. General surgery was consulted. Patient required several days of NG tube drainage before return of bowel function. Small bowel follow-through was done which showed rapid transit of contrast. Patient was having loose bowel movements. She had minimal pain. Diet was advanced to low fiber. She was discharged home with instruction to follow low fiber diet for the next several weeks. Patient to follow-up with her primary care doctor. Please note the above document was generated using voice recognition software. It may contain grammatical, syntax or spelling errors. Any formal questions or concerns about the content, text or information contained within the body of this dictation should be directly addressed to the provider for clarification Total Time Total Time Spent Total Time Spent (In Minutes): 35 Total Time Includes: Examination of the Patient, Discharge Planning, Medication Reconciliation, Communication With Other Providers and Other Discharge Plan Discharge Items Patient Disposition: Home - Self-Care Reason For Visit: SYNCOPE, SBO Discharge Diagnosis: Small Bowel obstruction Activity: Resume your previous activity Non-emergency contact: Primary Care Provider Call non-emergency contact if: you have any medication questions and your symptoms worsen Follow-up/Referrals: Kailash Tran DO [Surgeon] - Melania Williamson MD [Primary Care Provider] - (Date & Time 03/16/2024 9:40 AM Provider Emiliano Nair MD [facility] ) Diet: Low Fiber Addtl Attending Provider Instructions: You were admitted to the hospital with a small bowel obstruction. You are treated during the hospitalization with NG tube decompression. Please follow a low fiber diet. You will have follow-up appointment set up with your primary care doctor. Please follow-up with them Pending Studies at Discharge: No Stand-Alone Forms: [facility], Work/School Release, Smoking Cessation Medications and DC Order Prescriptions: Continued Fasenra 30 mg/mL syringe See Rx Instructions subcut .COMPLEX Qty: 1 11RF Rx Instructions: DUE MARCH 23, 2024. TAKES 30mg sq every 8 weeks Buy and Bill albuterol sulfate 2.5 mg /3 mL (0.083 %) Solution For Nebulization 2.5 mg INHALATION Q6 PRN (Reason: Wheezing) montelukast 10 mg tablet 10 mg PO QAM sertraline 100 mg tablet 100 mg PO QAM fluticasone furoate-vilanterol [Breo Ellipta] 100-25 mcg/dose blister with device 1 ea INHALATION QPM dorzolamide 2 % drops 1 drp OPL BID brimonidine 0.15 % drops 1 drp OPL BID Held dicyclomine 20 mg tablet 20 mg PO [facility] Hold Instructions: Resume on 03/19/24. Discharge Orders: Discharge Order (Routine); Ordered 03/13/24 Ordered By: Jayden Villafana Admission Data Admit Date/Time: 03/07/24 04:48 Attending Provider: Jayden Villafana Admit Provider: Jeevan Amaya Primary Care Provider: Melania Williamson Other Providers: Sarai Doyle; Brent Valenzuela; Thanh Wesley; Kailash Tran; Bryon Shaffer; Anita Corrales; Pedro Meza; Lee Philip; Lynne Shi; Sarabjit Whitten; Jeevan Amaya Other Interventions: Discharge Summary Assessment (RN) Last Done: 03/13/24 10:46
== END 2024-03-13 11:29 | disposition home or self-care (01) | DRG 389 ==
LOC: ED 23:51 → EDINP 03-07 04:48 → 2N 03-07 09:32